=== PATIENT | male | born 1940 | race Caucasian/White ===

== ENCOUNTER 2018-06-22 15:40 | Inpatient (IN) | payer OTHER ==
[~2018-06-22] VITALS: Ht 193 cm; Wt 100.7 kg
[2018-06-22] MEDS ORDERED: LOSARTAN POTASS25 MG ORAL (15:55)
[2018-06-22] MEDS ORDERED: HYDROCHLOROTH12.5 M2 ORAL (15:55)
[2018-06-22] MEDS ORDERED: ATENOLOL25 MG ORAL (15:55)
--- NOTE | 2018-06-22 17:00 | Emergency Room Report ---
History of Present Illness General Chief Complaint: Skin Rash/Abscess Source: Patient Present Illness HPI 78-year-old male presents ED for evaluation. Complaining of bilateral leg swelling and drainage from the legs. States that his legs have been swollen for some time now but it gotten progressively more swollen the last month. Also notes weeping clear discharge from the legs bilaterally. Patient also notes some open wounds on the left leg which started in the last month. Denies any pain. Denies any fevers or chills. States he is currently not taking any medication. Denies chest pain or shortness of breath. No other aggravating relieving factors. Denies any other associated symptoms Allergies: Coded Allergies: No Known Allergies (Unverified , 06/22/18) Patient History Past Medical History: HTN Past Surgical History: none Pertinent Family History: none Social History: Denies: smoking, alcohol use, drug use Immunizations: UTD Reviewed Nursing Documentation: PMH: Agreed; PSxH: Agreed Nursing Documentation-PMH Past Medical History: No History, Except For Hx Hypertension: Yes Review of Systems All Other Systems: negative except mentioned in HPI Physical Exam Vital Signs Date Time Temp Pulse Resp B/P (MAP) Pulse Ox O2 Delivery O2 Flow Rate FiO2 06/22/18 15:46 97.9 61 20 138/57 9 Room Air Sp02 EP Interpretation: reviewed, normal General Appearance: no apparent distress, alert, GCS 15, non-toxic Head: normocephalic Eyes: bilateral eye normal inspection, bilateral eye PERRL ENT: normal ENT inspection Neck: normal inspection Respiratory: chest non-tender, lungs clear, normal breath sounds, speaking full sentences Cardiovascular #1: regular rate, rhythm, no edema Gastrointestinal: normal inspection Rectal: deferred Genitourinary: no CVA tenderness Musculoskeletal: back normal Neurologic: alert, oriented x3, responsive, motor strength/tone normal, sensory intact, speech normal Psychiatric: normal inspection Skin: other - induration/erythema bilateral lower extremities. open wounds on LLE Lymphatic: normal inspection Medical Decision Making Diagnostic Impression: Primary Impression: Bilateral lower leg cellulitis ER Course Hospital Course 78-year-old female presents to ED with redness, swelling and discharge to bilateral lower extremities Differential diagnoses include: Cellulitis, DVT, abscess, rash. Clinical course Patient placed on stretcher. After initial history and physical I ordered labs , blood Cx, UA, IVFs, doppler US of LLE labs reviewed - no leukocytosis, Hb/Hct stable, no electrolyte abnormalities, lactic ok EKG - sinus bradycardia, RBBB Doppler US - bilateral negative for DVT wound culture obtained antibiotics given. Case discussed with Dr Messina and he agreed to accept the patient to his service for further care and support Diagnosis - bilateral lower leg cellulitis Patient admitted to floor in serious condition Labs Test 06/22/18 16:30 White Blood Count 9.7 K/UL (4.8-10.8) Red Blood Count 3.95 M/UL (4.70-6.10) Hemoglobin 12.6 G/DL (14.2-18.0) Hematocrit 37.2 % (42.0-52.0) Mean Corpuscular Volume 94 FL (80-99) Mean Corpuscular Hemoglobin 32.0 PG (27.0-31.0) Mean Corpuscular Hemoglobin Concent 34.0 G/DL (32.0-36.0) Red Cell Distribution Width 11.5 % (11.6-14.8) Platelet Count 317 K/UL (150-450) Mean Platelet Volume 6.5 FL (6.5-10.1) Neutrophils (%) (Auto) 77.8 % (45.0-75.0) Lymphocytes (%) (Auto) 11.7 % (20.0-45.0) Monocytes (%) (Auto) 8.9 % (1.0-10.0) Eosinophils (%) (Auto) 0.3 % (0.0-3.0) Basophils (%) (Auto) 1.3 % (0.0-2.0) Sodium Level 141 MMOL/L (136-145) Potassium Level 3.8 MMOL/L (3.5-5.1) Chloride Level 103 MMOL/L (98-107) Carbon Dioxide Level 26 MMOL/L (21-32) Anion Gap 12 mmol/L (5-15) Blood Urea Nitrogen 25 mg/dL (7-18) Creatinine 1.3 MG/DL (0.55-1.30) Estimat Glomerular Filtration Rate mL/min (>60) Glucose Level 93 MG/DL (74-106) Lactic Acid Level 1.00 mmol/L (0.4-2.0) Calcium Level 9.6 MG/DL (8.5-10.1) Total Bilirubin 0.7 MG/DL (0.2-1.0) Aspartate Amino Transf (AST/SGOT) 17 U/L (15-37) Alanine Aminotransferase (ALT/SGPT) 21 U/L (12-78) Alkaline Phosphatase 99 U/L (46-116) Total Protein 7.8 G/DL (6.4-8.2) Albumin 3.0 G/DL (3.4-5.0) Globulin 4.8 g/dL Albumin/Globulin Ratio 0.6 (1.0-2.7) EKG Diagnostic Results Rate: bradycardiac Rhythm: NSR ST Segments: no acute changes ASA given to the pt in ED: No Rhythm Strip Diag. Results EP Interpretation: yes Rhythm: NSR, no PVC's, no ectopy CT/MRI/US Diagnostic Results CT/MRI/US Diagnostic Results : Imaging Test Ordered: Venous DUplex Impression no evidence of DVT in bilateral lower extremities Last Vital Signs Date Time Temp Pulse Resp B/P (MAP) Pulse Ox O2 Delivery O2 Flow Rate FiO2 06/22/18 15:46 97.9 61 20 138/57 9 Room Air Status: improved Disposition: ADMITTED INPATIENT Condition: Serious Referrals: NOT CHOSEN IPA/,REFERRING (PCP) Andrea Sharma MD Jun 22, 2018 17:00
[2018-06-22 17:08] LABS: BASOPHILS % (AUTO) 1.3 % (0.0-2.0); EOSINOPHILS % (AUTO) 0.3 % (0.0-3.0); HEMATOCRIT 37.2 % (42.0-52.0); HEMOGLOBIN 12.6 G/DL (14.2-18.0); LYMPHOCYTES % (AUTO) 11.7 % (20.0-45.0); MEAN CORPUSCULAR VOLUME 94 FL (80-99); MONOCYTES % (AUTO) 8.9 % (1.0-10.0); NEUTROPHILS % (AUTO) 77.8 % (45.0-75.0); PLATELET COUNT 317 K/UL (150-450); RED BLOOD COUNT 3.95 M/UL (4.70-6.10); RED CELL DISTRIBUTION WIDTH 11.5 % (11.6-14.8); WHITE BLOOD COUNT 9.7 K/UL (4.8-10.8)
[2018-06-22 17:16] LABS: ANION GAP 12 mmol/L (5-15); BLOOD UREA NITROGEN 25 mg/dL (7-18); CALCIUM 9.6 MG/DL (8.5-10.1); CARBON DIOXIDE 26 MMOL/L (21-32); CHLORIDE 103 MMOL/L (98-107); CREATININE 1.3 MG/DL (0.55-1.30); POTASSIUM 3.8 MMOL/L (3.5-5.1); SODIUM 141 MMOL/L (136-145)
[2018-06-22 17:23] LABS: ALANINE AMINOTRANSFERASE 21 U/L (12-78); ALBUMIN/GLOBULIN RATIO 0.6 (1.0-2.7); ALKALINE PHOSPHATASE 99 U/L (46-116); ASPARTATE AMINO TRANSFERASE 17 U/L (15-37); BILIRUBIN,TOTAL 0.7 MG/DL (0.2-1.0)
[2018-06-22 19:06] VITALS: BP 160/69
[2018-06-22 19:56] VITALS: BP 100/78
[2018-06-22 20:21] LABS: APPEARANCE,URINE CLEAR; BILIRUBIN, URINE NEGATIVE (NEGATIVE); COLOR,URINE YELLOW; GLUCOSE, URINE (UA) NEGATIVE (NEGATIVE); KETONES,URINE 2+ (NEGATIVE); LEUKOCYTE ESTERASE ,URINE NEGATIVE (NEGATIVE); NITRITE,URINE NEGATIVE (NEGATIVE); PH,URINE 6 (4.5-8.0); PROTEIN,URINE 2+ (NEGATIVE); UROBILINOGEN,URINE NORMAL MG/DL (0.0-1.0)
[2018-06-22] MEDS ORDERED: Acetaminophen 500mg (ES) tab ORAL PRN (20:45)
[2018-06-22 21:00] VITALS: BP 135/60
[2018-06-22] MEDS: Vancomycin 750mg/NS 275ml IVPB SCH ×2 (23:32)
[2018-06-23] VITALS: BP 144/59
[2018-06-23 04:00] VITALS: BP 135/76
[2018-06-23 07:55] LABS: ALANINE AMINOTRANSFERASE 18 U/L (12-78); ALBUMIN 2.5 G/DL (3.4-5.0); ALBUMIN/GLOBULIN RATIO 0.6 (1.0-2.7); ALKALINE PHOSPHATASE 86 U/L (46-116); ANION GAP 9 mmol/L (5-15); ASPARTATE AMINO TRANSFERASE 20 U/L (15-37); BILIRUBIN,TOTAL 0.6 MG/DL (0.2-1.0); BLOOD UREA NITROGEN 25 mg/dL (7-18); CARBON DIOXIDE 26 MMOL/L (21-32); CHLORIDE 107 MMOL/L (98-107); CREATININE 1.2 MG/DL (0.55-1.30); POTASSIUM 4.3 MMOL/L (3.5-5.1); SODIUM 142 MMOL/L (136-145)
[2018-06-23 08:00] VITALS: BP 125/60
[2018-06-23] MEDS: Losartan 50mg tab ORAL SCH (08:52)
[2018-06-23] MEDS: Heparin 5000 units/ml inj SUBQ SCH ×3 (08:53→21:00)
[2018-06-23] MEDS ORDERED: hydroCHLOROthiazide 12.5mg TAB ORAL SCH (09:00)
[2018-06-23 12:00] VITALS: BP 133/56
--- NOTE | 2018-06-23 15:42 | Consultation ---
History of Present Illness General Date patient seen: Jun 23, 2018 Reason for Hospitalization: Skin Rash/Abscess Present Illness HPI This is a very pleasant 78-year-old male who presented to the emergency department at [facility] complaining of worsening bilateral lower extremity edema and pain with drainage. Patient states that he has had wounds on his bilateral lower extremity for some time now but in the past month they have been worsening with edema blistering and opening wounds that have been "oozing" patient states he is otherwise well is ambulatory he tries to keep his legs clean but has had having more issues recently and came to for evaluation. Given severity wound surgery was called to evaluate. Patient seen, patient examined, wounds evaluated. Orders placed. Allergies: Coded Allergies: No Known Allergies (Unverified , 06/22/18) Medication History Scheduled Atenolol* (Tenormin*), MG ORAL DAILY, (Reported) Hydrochlorothiazide* (Hydrochlorothiazide*), MG ORAL DAILY, (Reported) Losartan Potassium* (Losartan Potassium*), MG ORAL DAILY, (Reported) Patient History History Provided By: Patient, Medical Record, PMD Healthcare decision maker Resuscitation status Advanced Directive on File Past Medical/Surgical History Past Medical/Surgical History: (1) Bilateral lower leg cellulitis Review of Systems Review of Symptoms General ROS: no weight loss or fever Psychological ROS: no depression or mood changes, no memory loss Ophthalmic ROS: no visual changes or eye irritation ENT ROS: no nasal congestion, hearing loss, dizziness Allergy and Immunology ROS: no allergic symptoms or urticaria Hematological and Lymphatic ROS: no swollen glands, unusual bleeding or bruising Endocrine ROS: no polyuria, polydipsia, weight changes, temperature intolerance Respiratory ROS: no cough, shortness of breath, or wheezing Cardiovascular ROS: no chest pain or dyspnea on exertion Gastrointestinal ROS: denies abdominal pain, no bright red blood in stool. Musculoskeletal ROS: no myalgias or arthralgias Neurological ROS: no TIA or stroke symptoms Dermatological ROS: no new or changing skin lesions, rashes or pruritis Physical Exam Physical Exam General appearance: alert, cooperative, no distress, appears stated age Head: Normocephalic, without obvious abnormality, atraumatic Eyes: conjunctivae/corneas clear. PERRL, EOM's intact. Fundi benign Throat: Lips, mucosa, and tongue normal. Teeth and gums normal Neck: supple, symmetrical, trachea midline, no adenopathy, thyroid: not enlarged, symmetric, no tenderness/mass/nodules, no carotid bruit and no JVD Lungs: clear to auscultation bilaterally Heart: regular rate and rhythm, S1, S2 normal, no murmur, click, rub or gallop Abdomen: soft, non-tender. Bowel sounds normal. No masses, no organomegaly Extremities: extremities normal, atraumatic, cellulitis/edema Pulses: 2+ and symmetric Skin: Skin color, texture, turgor normal. No rashes or lesions Neurologic: Grossly normal Last 24 Hour Vital Signs Date Time Temp Pulse Resp B/P (MAP) Pulse Ox O2 Delivery O2 Flow Rate FiO2 06/23/18 12:00 98.0 60 18 133/56 (81) 97 06/23/18 09:00 Room Air 06/23/18 08:53 61 125/60 06/23/18 08:52 125/60 06/23/18 08:00 98.1 61 18 125/60 (81) 98 06/23/18 04:00 98.4 62 135/76 (95) 06/23/18 00:00 98.1 63 144/59 (87) 06/22/18 21:00 Room Air 06/22/18 21:00 98.3 66 135/60 (85) 06/22/18 20:36 Room Air 06/22/18 20:10 97.9 60 18 100/78 99 Room Air 60 06/22/18 19:56 97.9 60 18 100/78 99 Room Air 06/22/18 19:06 97.9 60 18 160/69 99 Room Air 06/22/18 15:46 97.9 61 20 138/57 9 Room Air Intake and Output 06/22/18 06/23/18 19:00 07:00 Intake Total 1300 ml Output Total 700 ml Balance 600 ml Intake Oral 0 ml IV Total 1000 ml Other 300 ml Output Urine Total 700 ml Laboratory Tests Test 06/22/18 16:30 06/22/18 19:30 06/23/18 05:22 White Blood Count 9.7 K/UL (4.8-10.8) Red Blood Count 3.95 M/UL (4.70-6.10) L Hemoglobin 12.6 G/DL (14.2-18.0) L Hematocrit 37.2 % (42.0-52.0) L Mean Corpuscular Volume 94 FL (80-99) Mean Corpuscular Hemoglobin 32.0 PG (27.0-31.0) H Mean Corpuscular Hemoglobin Concent 34.0 G/DL (32.0-36.0) Red Cell Distribution Width 11.5 % (11.6-14.8) L Platelet Count 317 K/UL (150-450) Mean Platelet Volume 6.5 FL (6.5-10.1) Neutrophils (%) (Auto) 77.8 % (45.0-75.0) H Lymphocytes (%) (Auto) 11.7 % (20.0-45.0) L Monocytes (%) (Auto) 8.9 % (1.0-10.0) Eosinophils (%) (Auto) 0.3 % (0.0-3.0) Basophils (%) (Auto) 1.3 % (0.0-2.0) Sodium Level 141 MMOL/L (136-145) 142 MMOL/L (136-145) Potassium Level 3.8 MMOL/L (3.5-5.1) 4.3 MMOL/L (3.5-5.1) Chloride Level 103 MMOL/L (98-107) 107 MMOL/L (98-107) Carbon Dioxide Level 26 MMOL/L (21-32) 26 MMOL/L (21-32) Anion Gap 12 mmol/L (5-15) 9 mmol/L (5-15) Blood Urea Nitrogen 25 mg/dL (7-18) H 25 mg/dL (7-18) H Creatinine 1.3 MG/DL (0.55-1.30) 1.2 MG/DL (0.55-1.30) Estimat Glomerular Filtration Rate mL/min (>60) mL/min (>60) Glucose Level 93 MG/DL (74-106) 85 MG/DL (74-106) Lactic Acid Level 1.00 mmol/L (0.4-2.0) Calcium Level 9.6 MG/DL (8.5-10.1) 9.0 MG/DL (8.5-10.1) Total Bilirubin 0.7 MG/DL (0.2-1.0) 0.6 MG/DL (0.2-1.0) Aspartate Amino Transf (AST/SGOT) 17 U/L (15-37) 20 U/L (15-37) Alanine Aminotransferase (ALT/SGPT) 21 U/L (12-78) 18 U/L (12-78) Alkaline Phosphatase 99 U/L (46-116) 86 U/L (46-116) Total Protein 7.8 G/DL (6.4-8.2) 6.7 G/DL (6.4-8.2) Albumin 3.0 G/DL (3.4-5.0) L 2.5 G/DL (3.4-5.0) L Globulin 4.8 g/dL 4.2 g/dL Albumin/Globulin Ratio 0.6 (1.0-2.7) L 0.6 (1.0-2.7) L Urine Color Yellow Urine Appearance Clear Urine pH 6 (4.5-8.0) Urine Specific [place] 1.015 (1.005-1.035) Urine Protein 2+ (NEGATIVE) H Urine Glucose (UA) Negative (NEGATIVE) Urine Ketones 2+ (NEGATIVE) H Urine Blood 4+ (NEGATIVE) H Urine Nitrite Negative (NEGATIVE) Urine Bilirubin Negative (NEGATIVE) Urine Urobilinogen Normal MG/DL (0.0-1.0) Urine Leukocyte Esterase Negative (NEGATIVE) Urine RBC 5-10 /HPF (0 - 0) H Urine WBC 0-2 /HPF (0 - 0) Urine Squamous Epithelial Cells None /LPF (NONE/OCC) Urine Bacteria Occasional /HPF (NONE) Pro-B-Type Natriuretic Peptide 1083 pg/mL (0-125) H Thyroid Stimulating Hormone (TSH) 1.045 uiU/mL (0.358-3.740) Microbiology Date/Time Source Procedure Growth Status 06/22/18 17:00 Wound Gram Stain - Final Resulted 06/22/18 17:00 Wound Wound Culture - Preliminary Resulted Height (Feet): 6 Height (Inches): 4.00 Weight (Pounds): 234 Medications Current Medications Medications (Trade) Dose Ordered Sig/Remigio Route PRN Reason Start Time Stop Time Status Last Admin Dose Admin Acetaminophen (Tylenol) 500 mg Q4H PRN ORAL Mild Pain/Temp > 100.5 06/22/18 20:45 07/22/18 20:44 Atenolol (Tenormin) 50 mg DAILY ORAL 06/23/18 09:00 07/23/18 08:59 06/23/18 08:53 Heparin Sodium (Porcine) (Heparin 5000 units/ml) 5,000 units EVERY 12 HOURS SUBQ 06/23/18 09:00 07/23/18 08:59 06/23/18 09:28 Hydrochlorothiazide (Hydrodiuril) 12.5 mg DAILY ORAL 06/23/18 09:00 07/23/18 08:59 06/23/18 08:52 Losartan Potassium (Cozaar) 50 mg DAILY ORAL 06/23/18 09:00 07/23/18 08:59 06/23/18 08:52 Ondansetron HCl (Zofran) 4 mg Q6H PRN IVP Nausea & Vomiting 06/22/18 20:45 07/22/18 20:44 Vancomycin HCl (Vanco rx to dose) 1 ea DAILY PRN MISC Per rx protocol 06/22/18 20:45 07/22/18 20:44 Vancomycin HCl 750 mg/Sodium Chloride 275 ml @ 183.333 mls/hr Q24H IVPB 06/22/18 22:00 06/27/18 21:59 06/22/18 23:32 Assessment/Plan Problem List: (1) Bilateral lower leg cellulitis Assessment & Plan: Pt presented on admission with weeping edema of bilateral lower ext with multiple ulcerations both tibias. Haemosiderin stain both lower ext. Large ulcer lateral R tibia with irregular borders,60% soft brown scab,50% biofilm oozing non-odorous serous exudate. Multiple smaller ulcers noted medially with mixed erythema and biofilm with macerated borders. Multiple ulcerations noted to medial and lateral L tibia. Pt also noted to noted to have multiple bulbous lesions to R and L cleft of buttocks Pt verbalized having long Hx of having these lesions on buttocks. Duplex noted labs okay Tx plan: Cleanse both lower extremities with Saline. Cover wounds with Xeroform gauze .Cover with ABD Pads. Wrap with Kerlix from base of toes Daily and prn. . Apply Triad Paste to Buttocks with each perineal care. Encourage pt to reposition at least hourly while in bed. Elevate both lower ext with pillows. Abx Keep elevated when in bed okay to ambulate ICD Codes: L03.116 - Cellulitis of left lower limb; L03.115 - Cellulitis of right lower limb SNOMED: [id number] Ned Albrecht Jun 23, 2018 15:42
[2018-06-23 16:00] VITALS: BP 135/51
--- NOTE | 2018-06-23 16:15 | History and Physical Report ---
DATE OF ADMISSION: 06/22/2018 CHIEF COMPLAINT: Cellulitis and lower extremity edema. HISTORY OF PRESENT ILLNESS: The patient is an 78-year-old male. He has a history of venous insufficiency, osteoarthritis, hypertension who presented with complaints of worsening lower extremity edema, warm, fevers, chills, and pain. According the patient, he has had chronic swelling and discoloration of his lower extremities. He had worsening pain and discharge and weeping to the legs. He presented to the emergency room. On evaluation there, he had a venous duplex that showed no evidence of any DVT, but he did have a significant bilateral lower extremity cellulitis. IV antibiotics have been instituted and the patient is now admitted for further inpatient evaluation and care. PAST MEDICAL HISTORY: As above. PAST SURGICAL HISTORY: Includes a hernia repair. CURRENT MEDICATIONS: Reconciled and reviewed. ALLERGIES: None. FAMILY HISTORY: None. SOCIAL HISTORY: Negative for tobacco, ethanol, or drugs. REVIEW OF SYSTEMS: GENERAL: Positive fevers and chills, but no night sweats. HEENT: No headaches or visual changes. CARDIOPULMONARY: No chest pain or shortness of breath. GASTROINTESTINAL: No nausea or vomiting. GENITOURINARY: No urgency or frequency. MUSCULOSKELETAL: Positive lower extremity edema, pain, and swelling. NEUROLOGIC: No history of seizures. PHYSICAL EXAMINATION: VITAL SIGNS: Temperature 98, pulse 62, respirations 18, blood pressure 135/76. GENERAL: The patient is well developed, no apparent distress. HEART: Regular rate and rhythm. LUNGS: Clear. ABDOMEN: Soft. EXTREMITIES: Without clubbing or cyanosis. There is discoloration of both lower extremities. There are several dry and open blisters on the lower extremities. The skin is red and discolored and warm. LABORATORY DATA: Sodium 141, potassium 3.8, BUN 25, creatinine 1.3. White count 10, hemoglobin 12, hematocrit 37, platelets 317. ASSESSMENT: This is a pleasant male with complaints of lower extremity cellulitis. PROBLEM LIST: 1. Lower extremity cellulitis. 2. Venous insufficiency. Rule out congestive heart failure. 3. Hypertension. PLAN: IV antibiotics. Follow up cultures. Cardiology, ID, and Surgery consultations. Continue oral diuretic therapy. Continue outpatient blood pressure regimen. Arterial vascular studies are pending. Christian Messina M.D. DR: AIDAN JOB#: [id number] CC:
[2018-06-23 20:00] VITALS: BP 127/65
[2018-06-23] MEDS: Vancomycin 750mg/NS 275ml IVPB SCH ×2 (21:58)
[2018-06-24] VITALS: BP 128/67
--- NOTE | 2018-06-24 00:15 | Progress Note ---
DATE: 06/23/2018 CARDIOLOGY PROGRESS NOTE SUBJECTIVE: The patient was seen in surgical consultation today regarding his lower extremity edema and wound. Wound care was initiated. The patient has not complained of chest pain or shortness of breath. OBJECTIVE: VITAL SIGNS: Blood pressure 133/56, pulse 60, respiratory rate 18, and afebrile. LUNGS: Clear. CARDIAC: Regular rhythm and rate. Normal S1, S2 with a fourth heart sound. ABDOMEN: Soft, obese. EXTREMITIES: With 2 to 3+ dependent edema and blistering. Erythema of the lower extremities. LABORATORY DATA: Sodium 142, potassium 4.3, bicarbonate 26, BUN 25, creatinine 1.2. Pro natriuretic peptide 1083, albumin 2.5. TSH 1. Venous duplex negative for DVT. IMPRESSION: 1. Lower extremity cellulitis, wounds, and venous insufficiency. 2. Hypertensive heart disease. 3. Diastolic dysfunction with a chronic congestive heart failure. 4. Microvascular disease of the lower extremities. PLAN: 1. Await arterial duplex. 2. Wound care per surgeon. 3. Trend natriuretic peptide assay. 4. Cautious diuresis and titration of antihypertensive regimen. 5. Echocardiogram pending. Pranav Russo M.D. DR: RICKY JOB#: [id number] CC:
[2018-06-24 04:00] VITALS: BP 137/69
--- NOTE | 2018-06-24 04:15 | Consultation ---
DATE OF CONSULTATION: 06/22/2018 CARDIOLOGY CONSULT CONSULTING PHYSICIAN: Pranav Russo M.D. REQUESTING PHYSICIAN: Christian Messina M.D. REASON FOR CONSULT: Lower extremity edema, evaluation for congestive heart failure. HISTORY OF PRESENT ILLNESS: This 78-year-old male has had swelling and drainage from his lower extremities for several days. His swelling has gotten progressively worse over the past month culminating this past week. He has noted weeping of the clear drainage from his leg and new open wounds on the left leg. He has not had any contusions or trauma. He denies any buckner. He has not been taking any medications and denies shortness of breath or chest pain. ALLERGIES: None. PAST MEDICAL HISTORY: Hypertension. SOCIAL HISTORY: Negative for smoking, alcohol, or substance abuse. FAMILY HISTORY: Noncontributory. REVIEW OF SYSTEMS: No fevers or chills. No loss of vision or hearing. No history of abnormal blood clotting. No history of seizures or stroke. No known history of diabetes mellitus. No history of thyroid disorder. No history of cardiovascular disease other than hypertension. 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 PHYSICAL EXAMINATION: VITAL SIGNS: Blood pressure 138/57, pulse 61, respiratory rate 20, afebrile. HEENT: Conjunctivae pink. Oropharynx clear. NECK: Supple. Jugular venous pressure difficult to assess. LUNGS: Diminished breath sounds. No wheezing. CARDIAC: Regular rhythm and rate. Normal S1, S2 with no murmur, rub, or gallop. ABDOMEN: Soft, obese, nontender. EXTREMITIES: With erythema of both lower extremities with 2+ edema and open wounds on the left. Draining clear discharge. LABORATORY AND DIAGNOSTIC DATA: EKG reveals sinus rhythm with no acute abnormalities. BUN is 25, creatinine 1.3, glucose 93. Sodium is 141, potassium 3.8, bicarbonate 25, white count 9.7, hemoglobin 12.6. IMPRESSION: 1. Bilateral lower extremity cellulitis with bullae and drainage. 2. Chronic venous insufficiency. 3. Hypertensive heart disease. 4. Acute on chronic diastolic congestive heart failure. PLAN: 1. Antimicrobials. 2. Wound care. 3. Surgical consultation. 4. Diuresis with caution. 5. Optimize antihypertensives. 6. Avoid dihydropyridine class of drugs. 7. Check thyroid panel. 8. Trend natriuretic peptide assay. 9. Review echocardiogram. 10. Further recommendations will follow based on the results of these studies. 11. Venous duplex scan is pending as well. Pranav Russo M.D. DR: RICKY JOB#: [id number] CC:
[2018-06-24 08:00] VITALS: BP 143/55
[2018-06-24] MEDS: Losartan 50mg tab ORAL SCH (08:34)
[2018-06-24] MEDS: Heparin 5000 units/ml inj SUBQ SCH ×2 (08:38→21:34)
--- NOTE | 2018-06-24 09:24 | General Progress Note ---
Assessment/Plan Problem List: (1) ASCVD (arteriosclerotic cardiovascular disease) ICD Codes: I25.10 - Atherosclerotic heart disease of [place] coronary artery without angina pectoris SNOMED: 12121071 (2) Venous insufficiency ICD Codes: I87.2 - Venous insufficiency (chronic) (peripheral) SNOMED: 07014156 (3) Bilateral lower leg cellulitis ICD Codes: L03.116 - Cellulitis of left lower limb; L03.115 - Cellulitis of right lower limb SNOMED: 164707635 Status: stable Assessment/Plan wound care iv abx surgery eval ct legs- r/o osteo/abscess Subjective ROS Limited/Unobtainable: No Constitutional: Reports: malaise, weakness HEENT: Reports: no symptoms Respiratory: Reports: no symptoms Gastrointestinal/Abdominal: Reports: no symptoms Genitourinary: Reports: no symptoms Neurologic/Psychiatric: Reports: no symptoms Endocrine: Reports: no symptoms Hematologic/Lymphatic: Reports: no symptoms Allergies: Coded Allergies: No Known Allergies (Unverified , 06/22/18) All Systems: reviewed and negative except above Subjective no complaints. resting. legs wrapped. on iv abx. minimal ischemia on arterial us Objective Last 24 Hour Vital Signs Date Time Temp Pulse Resp B/P (MAP) Pulse Ox O2 Delivery O2 Flow Rate FiO2 06/24/18 08:34 137/52 06/24/18 08:33 65 137/52 06/24/18 04:00 97.7 61 20 137/69 (91) 98 06/24/18 00:00 98.7 66 20 128/67 (87) 98 06/23/18 21:00 Room Air 06/23/18 20:00 98.6 70 20 127/65 (85) 97 06/23/18 16:00 98.1 63 18 135/51 (79) 97 06/23/18 12:00 98.0 60 18 133/56 (81) 97 Intake and Output 06/23/18 06/24/18 19:00 07:00 Intake Total 600 ml 1415.00 ml Output Total 1200 ml 1900 ml Balance -600 ml -485.00 ml Intake Oral 600 ml 840 ml IV Total 275.00 ml Other 300 ml Output Urine Total 1200 ml 1900 ml Height (Feet): 6 Height (Inches): 4.00 Weight (Pounds): 234 General Appearance: WD/WN, alert Neck: supple Cardiovascular: regular rhythm Respiratory/Chest: chest wall non-tender, lungs clear, normal breath sounds, no respiratory distress Abdomen: normal bowel sounds, non tender, soft, no organomegaly Neurologic: retread operator II-XII grossly normal, no motor/sensory deficits, alert, oriented x 3, responsive Christian Messina MD Jun 24, 2018 09:24
[2018-06-24] MEDS: Aspirin EC 81mg tab ORAL SCH (10:00)
[2018-06-24 11:14] LABS: CHOLESTEROL 116 MG/DL (< 200); HDL CHOLESTEROL 44 MG/DL (40-60); TRIGLYCERIDES 41 MG/DL (30-150)
[2018-06-24 12:00] VITALS: BP 155/69
[2018-06-24] MEDS: Cefepime HCl 2 GM in D5W 55 ML IVPB SCH ×2 (12:03→21:00)
--- NOTE | 2018-06-24 15:42 | Diagnostic Imaging Report ---
Indication: Abdominal Pain Technique: Continuous helical transaxial imaging of the both lower extremities performed from the pelvis to the feet. Coronal 2-D reformats were also obtained. Study obtained in a Siemens sensation [address] Total Dose length Product (DLP): [address] Dose Index Volume (CTDIvol): 0.15 x6, 15.3 mGy Comparison: None Findings: There is a moderate degree of subcutaneous edema and thickening of the skin below the knee bilaterally. The area of most concentrated cellulitis appears to be above the ankle and is worse on the left than on the right. The findings are presumably on the basis of infection or cellulitis. There is no definite abscess with limitations since no IV contrast was given. There is no CT evidence for osteomyelitis with no evidence of lysis, erosion, periostitis. There is no soft tissue air present. The anterior and posterior muscle compartments of the leg appear unremarkable. There is arthrosis of both knees characterized by subchondral sclerosis and osteophyte formation with joint space narrowing. There is a moderate left knee joint effusion noted. Diverticula noted in the sigmoid colon. Mild vascular calcifications noted within the femoral arteries. IMPRESSION: Subcutaneous edema and skin thickening demonstrated within the lower aspects of both legs left worse than right presumably on the basis of cellulitis. The study is limited but there is no obvious evidence of osteomyelitis or abscess. The CT scanner at [facility] is accredited by the [employer] and the scans are performed using dose optimization techniques as appropriate to a performed exam including Automatic Exposure control.
[2018-06-24 16:00] VITALS: BP 124/60
--- NOTE | 2018-06-24 17:12 | Surgery Progress Note ---
Surgery Progress Note Subjective Additional Comments doing well. states lots of urine since given lasix. edema improved. pain improved. dressings changed. Objective Last 24 Hour Vital Signs Date Time Temp Pulse Resp B/P (MAP) Pulse Ox O2 Delivery O2 Flow Rate FiO2 06/24/18 16:00 97.5 58 19 124/60 (81) 96 06/24/18 12:00 97.3 59 19 155/69 (97) 98 06/24/18 09:00 Room Air 06/24/18 08:34 137/52 06/24/18 08:33 65 137/52 06/24/18 08:00 97.8 64 20 143/55 (84) 96 06/24/18 04:00 97.7 61 20 137/69 (91) 98 06/24/18 00:00 98.7 66 20 128/67 (87) 98 06/23/18 21:00 Room Air 06/23/18 20:00 98.6 70 20 127/65 (85) 97 I&O Intake and Output 06/23/18 06/24/18 19:00 07:00 Intake Total 600 ml 1415.00 ml Output Total 1200 ml 1900 ml Balance -600 ml -485.00 ml Intake Oral 600 ml 840 ml IV Total 275.00 ml Other 300 ml Output Urine Total 1200 ml 1900 ml Dressing: saturated Wound: clean Drains: none Cardiovascular: RSR Respiratory: clear Abdomen: soft, flat, non-tender, non-distended Extremities: edema, no tenderness, no cyanosis, pulses, other Laboratory Tests Test 06/24/18 10:30 Triglycerides Level 41 MG/DL (30-150) Cholesterol Level 116 MG/DL (< 200) LDL Cholesterol 63 mg/dL (<100) HDL Cholesterol 44 MG/DL (40-60) Cholesterol/HDL Ratio 2.6 (3.3-4.4) L Plan Problems: (1) Bilateral lower leg cellulitis Assessment & Plan: Pt presented on admission with weeping edema of bilateral lower ext with multiple ulcerations both tibias. Haemosiderin stain both lower ext. Large ulcer lateral R tibia with irregular borders,60% soft brown scab,50% biofilm oozing non-odorous serous exudate. Multiple smaller ulcers noted medially with mixed erythema and biofilm with macerated borders. Multiple ulcerations noted to medial and lateral L tibia. Pt also noted to noted to have multiple bulbous lesions to R and L cleft of buttocks Pt verbalized having long Hx of having these lesions on buttocks. Duplex noted labs okay CT noted without abscess or osteo Subcutaneous edema and skin thickening demonstrated within the lower aspects of both legs left worse than right presumably on the basis of cellulitis. The study is limited but there is no obvious evidence of osteomyelitis or abscess. Tx plan: Cleanse both lower extremities with Saline. Cover wounds with Xeroform gauze .Cover with ABD Pads. Wrap with Kerlix from base of toes Daily and prn. . Apply Triad Paste to Buttocks with each perineal care. Encourage pt to reposition at least hourly while in bed. Elevate both lower ext with pillows. Abx Keep elevated when in bed okay to ambulate Ned Albrecht Jun 24, 2018 17:12
--- NOTE | 2018-06-24 17:15 | Consultation ---
DATE OF CONSULTATION: 06/24/2018 INFECTIOUS DISEASES CONSULTATION CONSULTING PHYSICIAN: Caron Elizabeth M.D. REFERRING PHYSICIAN: Christian Messina M.D. REASON FOR CONSULTATION: Bilateral leg cellulitis. HISTORY OF PRESENTING ILLNESS: This is an 78-year-old gentleman with history of venous insufficiency, hypertension, arthritis who comes in with bilateral pain, swelling and redness in his lower extremity. An ultrasound was negative for DVT and an Infectious Diseases consultation has been obtained for bilateral leg cellulitis. PAST MEDICAL HISTORY: 1. History of hypertension. 2. Arthritis. 3. Venous insufficiency. 4. History of hernia repair. SOCIAL HISTORY: He does not smoke. He drinks alcohol rarely. No history of drug use. FAMILY HISTORY: Noncontributory. REVIEW OF SYSTEMS: GENERAL: He did have fever and chills. RESPIRATORY: No cough. No shortness of breath or chest pain CARDIAC: No chest pain. No palpitations. No dizziness. No syncope. GASTROINTESTINAL: No nausea. No vomiting. No abdominal pain or diarrhea. MUSCULOSKELETAL: He complains of bilateral leg pain. MEDICATIONS: As an inpatient, he is on aspirin, Lasix, atenolol, Cozaar, subcutaneous heparin, IV vancomycin, Tylenol, Zofran. ALLERGIES: No known drug allergies. PHYSICAL EXAMINATION: VITAL SIGNS: Temperature of 97.8, T-max of 98.7, pulse of 65, respiratory rate 20, blood pressure 137/52, O2 saturation of 96%. HEENT: Pupils equally reactive to light and accommodation. Mouth appears clean without thrush. NECK: Supple. No adenopathy. No JVD. CARDIOVASCULAR: Regular rate and rhythm. No murmurs. LUNGS: Clear to auscultation bilaterally. No crackles. No wheezes. ABDOMEN: Soft and nontender. No organomegaly. EXTREMITIES: No cyanosis, no clubbing. Edema noted bilaterally with leg erythema bilaterally. LABORATORY AND DIAGNOSTIC DATA: White count 9.7, hemoglobin 12.6, hematocrit 37.2, MCV 94, platelet count of 317. Sodium 142, potassium 4.3, chloride 107, bicarb 26, BUN 25, creatinine 1.2, glucose 85, calcium of 9. Total bilirubin 0.6, AST 20, ALT 18, alkaline phosphatase 86. Beta natriuretic peptide 1083. Total protein 6.7 and albumin 2.5. UA showing 0 to 2 white cells. Wound culture showing gram-negative rods and gram-positive cocci. On 06/22/2018, blood cultures are negative. Ultrasound of the legs showed no evidence of DVT bilaterally. ASSESSMENT: 1. This is a 78-year-old gentleman with history of hypertension, arthritis, venous insufficiency who comes in with bilateral leg pain, swelling, and erythema and is found to have bilateral leg cellulitis. Culture is showing gram-positive cocci and gram-negative rods. An ultrasound was negative for DVT. 2. History of hypertension. PLAN: 1. Continue IV vancomycin. 2. We will start the patient on cefepime. 3. We will follow up cultures and adjust antibiotics accordingly. I would like to thank, Dr. Messina for this consultation. Caron Elizabeth M.D. DR: Jd JOB#: [id number] CC: Christian Messina M.D.
[2018-06-24 20:00] VITALS: BP 121/68
[2018-06-24] MEDS ORDERED: Tubing IV Secondary IV ONE (20:42)
[2018-06-24] MEDS: Vancomycin 750mg/NS 275ml IVPB SCH ×2 (22:25)
[2018-06-25 00:03] VITALS: BP 141/70
--- NOTE | 2018-06-25 03:15 | Progress Note ---
DATE: 06/24/2018 CARDIOLOGY PROGRESS NOTE SUBJECTIVE: The patient wound care. OBJECTIVE: VITAL SIGNS: Blood pressure 137/52, pulse 65, and respirations 20. NECK: Supple. LUNGS: With diminished breath sounds. CARDIAC: Regular rhythm and rate. Normal S1, S2 with a fourth heart sound. ABDOMEN: Soft. EXTREMITIES: With 1 to 2+ dependent edema and stasis derm ulcers as noted above. DIAGNOSTIC DATA: CT scan of the lower extremities are noted and revealed cellulitis, but no bony involvement. Cultures are pending. IMPRESSION: 1. Lower extremity venous ulcers and wound infection cellulitis. 2. Acute diastolic congestive heart failure. 3. Moderate to severe protein-calorie malnutrition. 4. Venous insufficiency. 5. Microvascular arterial insufficiency. PLAN: 1. Wound care. 2. Antimicrobials. 3. Cautious diuresis. 4. Follow up echocardiogram report. Pranav Russo M.D. DR: SHANICE JOB#: [id number] CC:
[2018-06-25 04:00] VITALS: BP 143/77
[2018-06-25 08:00] VITALS: BP 145/61
[2018-06-25 08:41] LABS: EOSINOPHILS % (AUTO) 4.1 % (0.0-3.0); HEMATOCRIT 35.8 % (42.0-52.0); HEMOGLOBIN 12.1 G/DL (14.2-18.0); LYMPHOCYTES % (AUTO) 15.6 % (20.0-45.0); MEAN CORPUSCULAR VOLUME 94 FL (80-99); MONOCYTES % (AUTO) 10.9 % (1.0-10.0); NEUTROPHILS % (AUTO) 68.3 % (45.0-75.0); PLATELET COUNT 295 K/UL (150-450); RED BLOOD COUNT 3.82 M/UL (4.70-6.10); RED CELL DISTRIBUTION WIDTH 11.3 % (11.6-14.8); WHITE BLOOD COUNT 7.1 K/UL (4.8-10.8)
[2018-06-25] MEDS: Aspirin EC 81mg tab ORAL SCH (09:00)
[2018-06-25] MEDS: Losartan 50mg tab ORAL SCH (09:00)
[2018-06-25] MEDS: Heparin 5000 units/ml inj SUBQ SCH ×2 (09:05→21:48)
[2018-06-25 09:16] LABS: ALANINE AMINOTRANSFERASE 21 U/L (12-78); ALBUMIN 2.4 G/DL (3.4-5.0); ALBUMIN/GLOBULIN RATIO 0.6 (1.0-2.7); ALKALINE PHOSPHATASE 82 U/L (46-116); ANION GAP 10 mmol/L (5-15); ASPARTATE AMINO TRANSFERASE 31 U/L (15-37); BILIRUBIN,TOTAL 0.5 MG/DL (0.2-1.0); BLOOD UREA NITROGEN 20 mg/dL (7-18); CALCIUM 8.8 MG/DL (8.5-10.1); CARBON DIOXIDE 25 MMOL/L (21-32); CHLORIDE 107 MMOL/L (98-107); CREATININE 1.1 MG/DL (0.55-1.30); POTASSIUM 3.5 MMOL/L (3.5-5.1); SODIUM 142 MMOL/L (136-145)
[2018-06-25] MEDS: Cefepime HCl 2 GM in D5W 55 ML IVPB SCH ×2 (09:17→21:45)
[2018-06-25] MEDS: Vancomycin 750mg/NS 275ml IVPB SCH ×4 (11:21→23:07)
[2018-06-25 12:00] VITALS: BP 127/61
--- NOTE | 2018-06-25 12:20 | General Progress Note ---
Assessment/Plan Problem List: (1) ASCVD (arteriosclerotic cardiovascular disease) ICD Codes: I25.10 - Atherosclerotic heart disease of [place] coronary artery without angina pectoris SNOMED: 78575789 (2) Venous insufficiency ICD Codes: I87.2 - Venous insufficiency (chronic) (peripheral) SNOMED: 51590745 (3) Bilateral lower leg cellulitis ICD Codes: L03.116 - Cellulitis of left lower limb; L03.115 - Cellulitis of right lower limb SNOMED: 280044844 Status: stable, progressing Assessment/Plan wound care iv abx surgery eval appreciated diruetics monitor labs d/w pt/family- short term snf Subjective ROS Limited/Unobtainable: No Constitutional: Reports: malaise, weakness HEENT: Reports: no symptoms Cardiovascular: Reports: edema Respiratory: Reports: no symptoms Gastrointestinal/Abdominal: Reports: no symptoms Genitourinary: Reports: no symptoms Neurologic/Psychiatric: Reports: no symptoms Endocrine: Reports: no symptoms Hematologic/Lymphatic: Reports: no symptoms Allergies: Coded Allergies: No Known Allergies (Unverified , 06/22/18) All Systems: reviewed and negative except above Subjective no complaints. resting. legs wrapped. on iv abx. minimal ischemia on arterial us edema improving. CT neg for osteo or abscess Objective Last 24 Hour Vital Signs Date Time Temp Pulse Resp B/P (MAP) Pulse Ox O2 Delivery O2 Flow Rate FiO2 06/25/18 09:00 Room Air 06/25/18 09:00 145/61 06/25/18 09:00 64 145/61 06/25/18 08:00 97.4 64 22 145/61 (89) 99 06/25/18 04:00 97.3 61 18 143/77 (99) 99 06/25/18 00:03 97.9 59 18 141/70 (93) 97 06/24/18 21:59 Room Air 06/24/18 20:00 97.5 57 18 121/68 (85) 100 06/24/18 16:00 97.5 58 19 124/60 (81) 96 Intake and Output 06/24/18 06/25/18 19:00 07:00 Intake Total 360 ml 930.000 ml Output Total 860 ml Balance -500 ml 930.000 ml Intake Oral 360 ml 600 ml IV Total 330.000 ml Output Urine Total 860 ml # Voids 3 # Bowel Movements 1 Laboratory Tests 06/24/18 21:05: Vancomycin Level Trough 4.1L 06/25/18 07:16: White Blood Count 7.1, Red Blood Count 3.82L, Hemoglobin 12.1L, Hematocrit 35.8L , Mean Corpuscular Volume 94, Mean Corpuscular Hemoglobin 31.7H, Mean Corpuscular Hemoglobin Concent 33.9, Red Cell Distribution Width 11.3L, Platelet Count 295, Mean Platelet Volume 7.2, Neutrophils (%) (Auto) 68.3, Lymphocytes (%) (Auto) 15.6L, Monocytes (%) (Auto) 10.9H, Eosinophils (%) (Auto ) 4.1H, Basophils (%) (Auto) 1.0, Sodium Level 142, Potassium Level 3.5, Chloride Level 107, Carbon Dioxide Level 25, Anion Gap 10, Blood Urea Nitrogen 20H, Creatinine 1.1, Estimat Glomerular Filtration Rate , Glucose Level 83, Calcium Level 8.8, Total Bilirubin 0.5, Aspartate Amino Transf (AST/SGOT) 31, Alanine Aminotransferase (ALT/SGPT) 21, Alkaline Phosphatase 82, Pro-B-Type Natriuretic Peptide 597H, Total Protein 6.7, Albumin 2.4L, Globulin 4.3, Albumin /Globulin Ratio 0.6L Height (Feet): 6 Height (Inches): 4.00 Weight (Pounds): 234 General Appearance: WD/WN, alert Neck: supple Cardiovascular: normal rate Respiratory/Chest: chest wall non-tender, lungs clear, normal breath sounds Abdomen: normal bowel sounds, non tender, soft, no organomegaly Extremities: swelling Christian Messina MD Jun 25, 2018 12:20
[2018-06-25 16:00] VITALS: BP 127/57
--- NOTE | 2018-06-25 16:56 | Surgery Progress Note ---
Surgery Progress Note Subjective Additional Comments no acute events. comfortable. discussed CT with patient. nephew at bedside. pain improved. edema improved. Objective Last 24 Hour Vital Signs Date Time Temp Pulse Resp B/P (MAP) Pulse Ox O2 Delivery O2 Flow Rate FiO2 06/25/18 16:00 97.9 52 20 127/57 (80) 98 06/25/18 12:00 98.3 50 20 127/61 (83) 98 06/25/18 09:00 Room Air 06/25/18 09:00 145/61 06/25/18 09:00 64 145/61 06/25/18 08:00 97.4 64 22 145/61 (89) 99 06/25/18 04:00 97.3 61 18 143/77 (99) 99 06/25/18 00:03 97.9 59 18 141/70 (93) 97 06/24/18 21:59 Room Air 06/24/18 20:00 97.5 57 18 121/68 (85) 100 I&O Intake and Output 06/24/18 06/25/18 18:59 06:59 Intake Total 360 ml 930.000 ml Output Total 860 ml Balance -500 ml 930.000 ml Intake Oral 360 ml 600 ml IV Total 330.000 ml Output Urine Total 860 ml # Voids 3 # Bowel Movements 1 Dressing: dry Wound: clean Drains: none Cardiovascular: RSR Respiratory: clear Abdomen: soft, flat, present bowel sounds Extremities: edema, no tenderness, no cyanosis Laboratory Tests Test 06/24/18 21:05 06/25/18 07:16 Vancomycin Level Trough 4.1 ug/mL (5.0-12.0) L White Blood Count 7.1 K/UL (4.8-10.8) Red Blood Count 3.82 M/UL (4.70-6.10) L Hemoglobin 12.1 G/DL (14.2-18.0) L Hematocrit 35.8 % (42.0-52.0) L Mean Corpuscular Volume 94 FL (80-99) Mean Corpuscular Hemoglobin 31.7 PG (27.0-31.0) H Mean Corpuscular Hemoglobin Concent 33.9 G/DL (32.0-36.0) Red Cell Distribution Width 11.3 % (11.6-14.8) L Platelet Count 295 K/UL (150-450) Mean Platelet Volume 7.2 FL (6.5-10.1) Neutrophils (%) (Auto) 68.3 % (45.0-75.0) Lymphocytes (%) (Auto) 15.6 % (20.0-45.0) L Monocytes (%) (Auto) 10.9 % (1.0-10.0) H Eosinophils (%) (Auto) 4.1 % (0.0-3.0) H Basophils (%) (Auto) 1.0 % (0.0-2.0) Sodium Level 142 MMOL/L (136-145) Potassium Level 3.5 MMOL/L (3.5-5.1) Chloride Level 107 MMOL/L (98-107) Carbon Dioxide Level 25 MMOL/L (21-32) Anion Gap 10 mmol/L (5-15) Blood Urea Nitrogen 20 mg/dL (7-18) H Creatinine 1.1 MG/DL (0.55-1.30) Estimat Glomerular Filtration Rate mL/min (>60) Glucose Level 83 MG/DL (74-106) Calcium Level 8.8 MG/DL (8.5-10.1) Total Bilirubin 0.5 MG/DL (0.2-1.0) Aspartate Amino Transf (AST/SGOT) 31 U/L (15-37) Alanine Aminotransferase (ALT/SGPT) 21 U/L (12-78) Alkaline Phosphatase 82 U/L (46-116) Pro-B-Type Natriuretic Peptide 597 pg/mL (0-125) H Total Protein 6.7 G/DL (6.4-8.2) Albumin 2.4 G/DL (3.4-5.0) L Globulin 4.3 g/dL Albumin/Globulin Ratio 0.6 (1.0-2.7) L Plan Problems: (1) Bilateral lower leg cellulitis Assessment & Plan: Pt presented on admission with weeping edema of bilateral lower ext with multiple ulcerations both tibias. Haemosiderin stain both lower ext. Large ulcer lateral R tibia with irregular borders,60% soft brown scab,50% biofilm oozing non-odorous serous exudate. Multiple smaller ulcers noted medially with mixed erythema and biofilm with macerated borders. Multiple ulcerations noted to medial and lateral L tibia. Pt also noted to noted to have multiple bulbous lesions to R and L cleft of buttocks Pt verbalized having long Hx of having these lesions on buttocks. Duplex noted labs okay CT noted without abscess or osteo Subcutaneous edema and skin thickening demonstrated within the lower aspects of both legs left worse than right presumably on the basis of cellulitis. The study is limited but there is no obvious evidence of osteomyelitis or abscess. Tx plan: Cleanse both lower extremities with Saline. Cover wounds with Xeroform gauze .Cover with ABD Pads. Wrap with Kerlix from base of toes Daily and prn. . Apply Triad Paste to Buttocks with each perineal care. Encourage pt to reposition at least hourly while in bed. Elevate both lower ext with pillows. Abx Keep elevated when in bed okay to ambulate Ned Albrecht Jun 25, 2018 16:56
[2018-06-25 20:00] VITALS: BP 125/59
--- NOTE | 2018-06-25 22:15 | Progress Note ---
DATE: 06/25/2018 CARDIOLOGY PROGRESS NOTE SUBJECTIVE: Continues to have good urine output. Less swelling of his legs, wound care ongoing. No chest pain. OBJECTIVE: VITAL SIGNS: Blood pressure 145/61, pulse 64, respiratory rate 22. Monitored sinus and sinus bradycardia. LUNGS: Good breath sounds. No wheezing or rales. HEART: Regular rhythm and rate. Normal S1, S2 with a fourth heart sound. ABDOMEN: Soft. EXTREMITIES: Trace edema. LABORATORY DATA: White count 7, hemoglobin 12. Sodium 142, potassium 3.5, BUN 20, and creatinine 1.1, bicarb 25. Pro-natriuretic peptide down to 597 and albumin 2.4. IMPRESSION: 1. Acute diastolic congestive heart failure. 2. Bilateral lower extremity cellulitis. 3. Sinus bradycardia on beta-blockers. PLAN: 1. Antimicrobials. 2. Skin care. 3. Anti-platelet therapy. 4. Titrate beta tory. 5. Cautious diuresis. 6. Maintain losartan, advanced dose. 7. DVT prophylaxis. Pranav Russo M.D. DR: JORGE JOB#: [id number] CC:
[2018-06-26] VITALS: BP 141/65
[2018-06-26 04:00] VITALS: BP 142/71
[2018-06-26 08:00] VITALS: BP 144/59
[2018-06-26] MEDS: Aspirin EC 81mg tab ORAL SCH (08:39)
[2018-06-26] MEDS: Losartan 50mg tab ORAL SCH (08:39)
[2018-06-26] MEDS: Heparin 5000 units/ml inj SUBQ SCH ×2 (08:45→20:06)
[2018-06-26] MEDS: Cefepime HCl 2 GM in D5W 55 ML IVPB SCH (09:13)
--- NOTE | 2018-06-26 11:40 | Cardiology Report ---
APPROVED REPORT EXAM: Two-dimensional and M-mode echocardiogram with Doppler and color Doppler. INDICATION Congestive Heart Failure M-Mode DIMENSIONS IVSd1.1 (0.7-1.1cm)Left Atrium (MM)4.7 (1.6-4.0cm) LVDd7.9 (3.5-5.6cm)Aortic Root3.1 (2.0-3.7cm) PWd1.2 (0.7-1.1cm)Aortic Cusp Exc.2.1 (1.5-2.0cm) IVSs1.3 cm LVDs5.6 (2.5-4.0cm) PWs1.6 cm Normal left ventricular chamber size, systolic function and wall motion. Left ventricular ejection fraction estimated to be 55%. No evidence of left ventricular hypertrophy. Anterior Echo-free space, may be due to pericardial fat or effusion. Mild bi- atrial enlargement. Right cardiac chamber sizes are within normal limits. Right ventricular chamber sizes is within upper normal limits. Aortic valve calcification with normal cusp excursion . Mildly thickened mitral valve leaflets with normal excursion. Mild mitral annulus and aortic root calcification. Pulmonic valve not well visualized. IVC at normal size with physiologic collapse . A color flow and spectral Doppler study was performed and revealed: Trace aortic insufficiency . Left ventricular diastolic function can not determined due to arrhythmia . Trace mitral regurgitation. Mild tricuspid regurgitation. Tricuspid systolic velocities suggests peak right ventricular systolic pressure of 31 mmHg.
[2018-06-26] MEDS: Vancomycin 750mg/NS 275ml IVPB SCH ×4 (11:42→23:03)
[2018-06-26 12:00] VITALS: BP 153/73
--- NOTE | 2018-06-26 14:25 | Surgery Progress Note ---
Surgery Progress Note Subjective Additional Comments dressings changed. wounds noted and much improved. edema improved. lymph drainage poor Objective Last 24 Hour Vital Signs Date Time Temp Pulse Resp B/P (MAP) Pulse Ox O2 Delivery O2 Flow Rate FiO2 06/26/18 12:00 97.4 53 18 153/73 (99) 98 06/26/18 09:00 Room Air 06/26/18 08:39 144/59 06/26/18 08:39 56 144/59 06/26/18 08:00 97.6 54 18 144/59 (87) 99 06/26/18 08:00 56 06/26/18 04:00 98.2 54 20 142/71 (94) 98 06/26/18 00:00 97.7 51 16 141/65 (90) 100 06/25/18 21:00 Room Air 06/25/18 20:00 97.7 54 20 125/59 (81) 97 06/25/18 16:00 97.9 52 20 127/57 (80) 98 I&O Intake and Output 06/25/18 06/26/18 19:00 07:00 Intake Total 1405 ml 625.000 ml Output Total 800 ml 400 ml Balance 605 ml 225.000 ml Intake Oral 1020 ml 240 ml IV Total 385 ml 385.000 ml Output Urine Total 800 ml 400 ml # Voids 2 Dressing: dry Wound: clean Drains: none Cardiovascular: RSR Respiratory: clear Abdomen: soft, flat, non-tender, present bowel sounds Extremities: edema, tenderness, no cyanosis Laboratory Tests Test 06/26/18 10:46 Vancomycin Level Trough 11.6 ug/mL (5.0-12.0) Plan Problems: (1) Bilateral lower leg cellulitis Assessment & Plan: Pt presented on admission with weeping edema of bilateral lower ext with multiple ulcerations both tibias. Haemosiderin stain both lower ext. Large ulcer lateral R tibia with irregular borders,60% soft brown scab,50% biofilm oozing non-odorous serous exudate. Multiple smaller ulcers noted medially with mixed erythema and biofilm with macerated borders. Multiple ulcerations noted to medial and lateral L tibia. Pt also noted to noted to have multiple bulbous lesions to R and L cleft of buttocks Pt verbalized having long Hx of having these lesions on buttocks. Duplex noted labs okay CT noted without abscess or osteo Subcutaneous edema and skin thickening demonstrated within the lower aspects of both legs left worse than right presumably on the basis of cellulitis. The study is limited but there is no obvious evidence of osteomyelitis or abscess. Tx plan: Cleanse both lower extremities with Saline. Cover wounds with Xeroform gauze .Cover with ABD Pads. Wrap with Kerlix from base of toes Daily and prn. . Apply Triad Paste to Buttocks with each perineal care. Encourage pt to reposition at least hourly while in bed. Elevate both lower ext with pillows. Abx Keep elevated when in bed okay to ambulate Ned Albrecht Jun 26, 2018 14:25
--- NOTE | 2018-06-26 14:36 | Infectious Diseases Prog Note ---
Assessment/Plan Assessment/Plan A; Bilateral leg cellulitis, Culture: Enterococcus & Pseudomonas HPN Chronic Venous stasis P; Continue Vancomycin Change Cefepime to Cipro Subjective ROS Limited/Unobtainable: Yes Allergies: Coded Allergies: No Known Allergies (Unverified , 06/22/18) Objective Vital Signs Last 24 Hour Vital Signs Date Time Temp Pulse Resp B/P (MAP) Pulse Ox O2 Delivery O2 Flow Rate FiO2 06/26/18 12:00 97.4 53 18 153/73 (99) 98 06/26/18 09:00 Room Air 06/26/18 08:39 144/59 06/26/18 08:39 56 144/59 06/26/18 08:00 97.6 54 18 144/59 (87) 99 06/26/18 08:00 56 06/26/18 04:00 98.2 54 20 142/71 (94) 98 06/26/18 00:00 97.7 51 16 141/65 (90) 100 06/25/18 21:00 Room Air 06/25/18 20:00 97.7 54 20 125/59 (81) 97 06/25/18 16:00 97.9 52 20 127/57 (80) 98 Height (Feet): 6 Height (Inches): 4.00 Weight (Pounds): 234 General Appearance: no acute distress HEENT: mucous membranes moist Respiratory/Chest: lungs clear Cardiovascular: bradycardia Abdomen: normal bowel sounds, soft, non tender Extremities: other - dressing of both legs Skin: ulcers, other - venous ulcers of legs Neurologic/Psychiatric: other - sleeping Laboratory Tests Test 06/26/18 10:46 Vancomycin Level Trough 11.6 ug/mL (5.0-12.0) Current Medications Medications (Trade) Dose Ordered Sig/Remigio Route PRN Reason Start Time Stop Time Status Last Admin Dose Admin Acetaminophen (Tylenol) 500 mg Q4H PRN ORAL Mild Pain/Temp > 100.5 06/22/18 20:45 07/22/18 20:44 Aspirin (Ecotrin) 81 mg DAILY ORAL 06/24/18 10:00 07/24/18 09:59 06/26/18 08:39 Atenolol (Tenormin) 50 mg DAILY ORAL 06/23/18 09:00 07/23/18 08:59 06/25/18 09:00 Cefepime HCl 2 gm/ Dextrose 55 ml @ 110 mls/hr EVERY 12 HOURS IVPB 06/24/18 12:00 07/01/18 11:59 06/26/18 09:13 Furosemide (Lasix) 20 mg DAILY IV 06/24/18 09:00 07/24/18 08:59 06/26/18 09:12 Heparin Sodium (Porcine) (Heparin 5000 units/ml) 5,000 units EVERY 12 HOURS SUBQ 06/23/18 09:00 07/23/18 08:59 06/26/18 08:45 Losartan Potassium (Cozaar) 100 mg DAILY ORAL 06/26/18 09:00 07/26/18 08:59 06/26/18 08:39 Ondansetron HCl (Zofran) 4 mg Q6H PRN IVP Nausea & Vomiting 06/22/18 20:45 07/22/18 20:44 Vancomycin HCl (Vanco rx to dose) 1 ea DAILY PRN MISC Per rx protocol 06/22/18 20:45 07/22/18 20:44 Vancomycin HCl 750 mg/Sodium Chloride 275 ml @ 183.333 mls/hr Q12H IVPB 06/24/18 23:00 06/29/18 22:59 06/26/18 11:42 Stephon Barrera MD Jun 26, 2018 14:36
[2018-06-26 16:00] VITALS: BP 154/59
[2018-06-26] MEDS ORDERED: NS 500ML ONE (16:20)
[2018-06-26] MEDS: Levofloxacin 750mg tab ORAL SCH (16:52)
--- NOTE | 2018-06-26 19:30 | Progress Note ---
SUBJECTIVE: There have been no overnight events. The patient continues to have improving pain and edema in the lower extremities. Denies any fevers or chills. OBJECTIVE: VITAL SIGNS: Temperature 97.4 degrees, pulse 53, respirations 18, and blood pressure 153/74. GENERAL: The patient is in no apparent distress. HEART: Regular. LUNGS: Clear. ABDOMEN: Soft. EXTREMITIES: Wrapped in clean dressings. Feet appear less edematous. LABORATORY AND DIAGNOSTIC DATA: Labs none. ASSESSMENT: This is a pleasant male, admitted with complaints of lower extremity cellulitis, venous insufficiency, and congestive heart failure. The patient is hypertensive. PLAN: 1. Continue wound care. 2. IV antibiotics. 3. IV diuretic therapy. 4. Discharge planning tomorrow to nursing home facility. Christian Messina M.D. DR: Huan JOB#: [id number] CC:
[2018-06-26 20:00] VITALS: BP 142/62
[2018-06-27] VITALS (7 sets, daily range): BP systolic 116–152; BP diastolic 55–111
--- NOTE | 2018-06-27 03:30 | Progress Note ---
DATE: 06/26/2018 CARDIOLOGY PROGRESS NOTE SUBJECTIVE: The patient continues to have good diuresis, blood pressure parameters normal to high normal range. OBJECTIVE: VITAL SIGNS: Blood pressure range 136/66 to 153/73, heart rate 53 to 80, respiratory rate 18 to 20, afebrile, oxygen saturation 98% on room air. Intake and output positive. LUNGS: Good breath sounds. CARDIAC: Regular rhythm and rate. Normal S1, S2. ABDOMEN: Soft. EXTREMITIES: 1+ dependent edema. Wounds are dressed. IMPRESSION: 1. Cellulitis. 2. Lower extremity wound. 3. Acute diastolic congestive heart failure. 4. Chronic venous insufficiency. 5. Severe protein-calorie malnutrition. 6. Asymptomatic bradycardia on beta-tory therapy. PLAN: 1. Continue diuresis. 2. Transition to oral therapy soon. 3. Trend natriuretic peptide assay. 4. Wound care and antimicrobials. 5. DVT prophylaxis. 6. Continue beta-tory at current dosing. Pranav Russo M.D. DR: KERI JOB#: [id number] CC:
[2018-06-27 07:58] LABS: BASOPHILS % (AUTO) 1.1 % (0.0-2.0); EOSINOPHILS % (AUTO) 6.8 % (0.0-3.0); HEMOGLOBIN 12.2 G/DL (14.2-18.0); MEAN CORPUSCULAR VOLUME 94 FL (80-99); MONOCYTES % (AUTO) 10.9 % (1.0-10.0); NEUTROPHILS % (AUTO) 64.3 % (45.0-75.0); PLATELET COUNT 289 K/UL (150-450); RED BLOOD COUNT 3.84 M/UL (4.70-6.10); RED CELL DISTRIBUTION WIDTH 11.8 % (11.6-14.8); WHITE BLOOD COUNT 5.6 K/UL (4.8-10.8)
[2018-06-27 08:21] LABS: ALANINE AMINOTRANSFERASE 33 U/L (12-78); ALBUMIN 2.4 G/DL (3.4-5.0); ALBUMIN/GLOBULIN RATIO 0.6 (1.0-2.7); ALKALINE PHOSPHATASE 85 U/L (46-116); ANION GAP 9 mmol/L (5-15); ASPARTATE AMINO TRANSFERASE 33 U/L (15-37); BILIRUBIN,TOTAL 0.5 MG/DL (0.2-1.0); BLOOD UREA NITROGEN 18 mg/dL (7-18); CALCIUM 9.2 MG/DL (8.5-10.1); CARBON DIOXIDE 25 MMOL/L (21-32); CHLORIDE 107 MMOL/L (98-107); CREATININE 1.2 MG/DL (0.55-1.30); POTASSIUM 3.7 MMOL/L (3.5-5.1); SODIUM 141 MMOL/L (136-145)
[2018-06-27] MEDS: Losartan 50mg tab ORAL SCH (08:49)
[2018-06-27] MEDS: Aspirin EC 81mg tab ORAL SCH (08:50)
[2018-06-27] MEDS: Levofloxacin 750mg tab ORAL SCH (08:50)
[2018-06-27] MEDS: Heparin 5000 units/ml inj SUBQ SCH ×2 (08:52→21:18)
[2018-06-27] MEDS ORDERED: ASPIRIN EC81 MG ORAL (10:57)
[2018-06-27] MEDS ORDERED: VANCOMYCIN750 MG/150 IVPB (10:57)
[2018-06-27] MEDS ORDERED: LEVAQUIN750 MG ORAL (10:57)
[2018-06-27] MEDS ORDERED: COZAAR50 MG ORAL (10:57)
--- NOTE | 2018-06-27 12:23 | Infectious Diseases Prog Note ---
"Assessment/Plan Assessment/Plan antibiotics : vancomycin iv, levoquin A 1. bilateral leg cellulitis improving 2. bilateral leg ulcers with enterococcus | pseudomonas | coag neg staph 3. hypertension 4. chronic venous stasis P 1. continue iv vancomycin, levoquin 2. will follow up cultures Subjective Constitutional: Denies: fever, chills Respiratory: Denies: shortness of breath, dry cough Gastrointestinal/Abdominal: Denies: nausea, vomiting, diarrhea Musculoskeletal: Denies: pain Allergies: Coded Allergies: No Known Allergies (Unverified , 06/22/18) Objective Vital Signs Last 24 Hour Vital Signs Date Time Temp Pulse Resp B/P (MAP) Pulse Ox O2 Delivery O2 Flow Rate FiO2 06/27/18 09:00 Room Air 06/27/18 08:50 60 151/86 06/27/18 08:49 151/86 06/27/18 08:45 60 151/86 (107) 06/27/18 08:00 97.3 52 20 152/111 (125) 06/27/18 04:00 98.4 76 18 130/76 (94) 76 06/27/18 00:00 97.2 80 136/66 (89) 18 06/26/18 21:00 Room Air 06/26/18 20:00 97.8 59 142/62 (88) 18 06/26/18 16:00 98.3 55 19 154/59 (90) 97 Height (Feet): 6 Height (Inches): 4.00 Weight (Pounds): 234 Respiratory/Chest: lungs clear Cardiovascular: normal rate, regular rhythm, no gallop/murmur Abdomen: soft, non tender Extremities: other - decreased edema, erythema, ulcers Laboratory Tests Test 06/27/18 06:50 White Blood Count 5.6 K/UL (4.8-10.8) Red Blood Count 3.84 M/UL (4.70-6.10) L Hemoglobin 12.2 G/DL (14.2-18.0) L Hematocrit 36.0 % (42.0-52.0) L Mean Corpuscular Volume 94 FL (80-99) Mean Corpuscular Hemoglobin 31.8 PG (27.0-31.0) H Mean Corpuscular Hemoglobin Concent 34.0 G/DL (32.0-36.0) Red Cell Distribution Width 11.8 % (11.6-14.8) Platelet Count 289 K/UL (150-450) Mean Platelet Volume 6.8 FL (6.5-10.1) Neutrophils (%) (Auto) 64.3 % (45.0-75.0) Lymphocytes (%) (Auto) 17.0 % (20.0-45.0) L Monocytes (%) (Auto) 10.9 % (1.0-10.0) H Eosinophils (%) (Auto) 6.8 % (0.0-3.0) H Basophils (%) (Auto) 1.1 % (0.0-2.0) Sodium Level 141 MMOL/L (136-145) Potassium Level 3.7 MMOL/L (3.5-5.1) Chloride Level 107 MMOL/L (98-107) Carbon Dioxide Level 25 MMOL/L (21-32) Anion Gap 9 mmol/L (5-15) Blood Urea Nitrogen 18 mg/dL (7-18) Creatinine 1.2 MG/DL (0.55-1.30) Estimat Glomerular Filtration Rate mL/min (>60) Glucose Level 90 MG/DL (74-106) Calcium Level 9.2 MG/DL (8.5-10.1) Magnesium Level 2.0 MG/DL (1.8-2.4) Total Bilirubin 0.5 MG/DL (0.2-1.0) Aspartate Amino Transf (AST/SGOT) 33 U/L (15-37) Alanine Aminotransferase (ALT/SGPT) 33 U/L (12-78) Alkaline Phosphatase 85 U/L (46-116) Pro-B-Type Natriuretic Peptide 454 pg/mL (0-125) H Total Protein 6.6 G/DL (6.4-8.2) Albumin 2.4 G/DL (3.4-5.0) L Globulin 4.2 g/dL Albumin/Globulin Ratio 0.6 (1.0-2.7) L Current Medications Medications (Trade) Dose Ordered Sig/Remigio Route PRN Reason Start Time Stop Time Status Last Admin Dose Admin Acetaminophen (Tylenol) 500 mg Q4H PRN ORAL Mild Pain/Temp > 100.5 06/22/18 20:45 07/22/18 20:44 Aspirin (Ecotrin) 81 mg DAILY ORAL 06/24/18 10:00 07/24/18 09:59 06/27/18 08:50 Heparin Sodium (Porcine) (Heparin 5000 units/ml) 5,000 units EVERY 12 HOURS SUBQ 06/23/18 09:00 07/23/18 08:59 06/27/18 08:52 Levofloxacin (Levaquin) 750 mg DAILY ORAL 06/26/18 14:45 07/03/18 14:44 06/27/18 08:50 Losartan Potassium (Cozaar) 100 mg DAILY ORAL 06/26/18 09:00 07/26/18 08:59 06/27/18 08:49 Ondansetron HCl (Zofran) 4 mg Q6H PRN IVP Nausea & Vomiting 06/22/18 20:45 07/22/18 20:44 Vancomycin HCl (Vanco rx to dose) 1 ea DAILY PRN MISC Per rx protocol 06/22/18 20:45 07/22/18 20:44 Vancomycin HCl 750 mg/Sodium Chloride 275 ml @ 183.333 mls/hr Q12H IVPB 06/24/18 23:00 06/29/18 22:59 06/26/18 23:03 Caron Elizabeth MD Jun 27, 2018 12:23"
--- NOTE | 2018-06-27 12:35 | Diagnostic Imaging Report ---
Indications: Altered mental status Technique: Spiral acquisitions obtained through the brain. Angled axial and coronal 5 x 5 mm slices were reconstructed. Total dose length product 1576.66 mGycm. CTDI vol(s) 70.38 mGy. Dose reduction achieved using automated exposure control Comparison: None. Findings: There is enlargement of the ventricles. Normal caliber extra-axial CSF spaces. No acute intracranial hemorrhage nor edema, mass effect, nor midline shift. Normal hendricks-white differentiation. There is some obscuration of the posterior fossa structures due to streak artifact from dental amalgam. The calvarium is intact. The mastoids are clear. The visualized sinuses are clear. The orbits are unremarkable Impression: Ventriculomegaly. This is probably due to central volume loss, although the possibility of normal pressure hydrocephalus should also be considered. Negative for acute intracranial bleed or mass effect The CT scanner at [facility] is accredited by the [employer] and the scans are performed using protocols designed to limit radiation exposure to as low as reasonably achievable to attain images of sufficient resolution adequate for diagnostic evaluation.
--- NOTE | 2018-06-27 13:03 | Cardiology Report ---
APPROVED REPORT EKG Measurement Heart [id number] Sinus bradycardia Incomplete right bundle branch block Borderline ECG
[2018-06-27] MEDS: Vancomycin 750mg/NS 275ml IVPB SCH ×2 (13:19)
--- NOTE | 2018-06-27 14:01 | Surgery Progress Note ---
Surgery Progress Note Subjective Additional Comments vasovagal after using restroom this AM. crystal. now stable and comfortable. Objective Last 24 Hour Vital Signs Date Time Temp Pulse Resp B/P (MAP) Pulse Ox O2 Delivery O2 Flow Rate FiO2 06/27/18 12:00 97.2 48 20 116/57 (76) 06/27/18 09:00 Room Air 06/27/18 08:50 60 151/86 06/27/18 08:49 151/86 06/27/18 08:45 60 151/86 (107) 06/27/18 08:00 97.3 52 20 152/111 (125) 06/27/18 04:00 98.4 76 18 130/76 (94) 76 06/27/18 00:00 97.2 80 136/66 (89) 18 06/26/18 21:00 Room Air 06/26/18 20:00 97.8 59 142/62 (88) 18 06/26/18 16:00 98.3 55 19 154/59 (90) 97 I&O Intake and Output 06/26/18 06/27/18 19:00 07:00 Intake Total 1240 ml Balance 1240 ml Intake Oral 1240 ml # Voids 6 # Bowel Movements 1 Dressing: dry Wound: clean Drains: none Cardiovascular: RSR Respiratory: clear Abdomen: soft, flat, present bowel sounds, non-distended Extremities: no tenderness, no cyanosis Laboratory Tests Test 06/27/18 06:50 White Blood Count 5.6 K/UL (4.8-10.8) Red Blood Count 3.84 M/UL (4.70-6.10) L Hemoglobin 12.2 G/DL (14.2-18.0) L Hematocrit 36.0 % (42.0-52.0) L Mean Corpuscular Volume 94 FL (80-99) Mean Corpuscular Hemoglobin 31.8 PG (27.0-31.0) H Mean Corpuscular Hemoglobin Concent 34.0 G/DL (32.0-36.0) Red Cell Distribution Width 11.8 % (11.6-14.8) Platelet Count 289 K/UL (150-450) Mean Platelet Volume 6.8 FL (6.5-10.1) Neutrophils (%) (Auto) 64.3 % (45.0-75.0) Lymphocytes (%) (Auto) 17.0 % (20.0-45.0) L Monocytes (%) (Auto) 10.9 % (1.0-10.0) H Eosinophils (%) (Auto) 6.8 % (0.0-3.0) H Basophils (%) (Auto) 1.1 % (0.0-2.0) Sodium Level 141 MMOL/L (136-145) Potassium Level 3.7 MMOL/L (3.5-5.1) Chloride Level 107 MMOL/L (98-107) Carbon Dioxide Level 25 MMOL/L (21-32) Anion Gap 9 mmol/L (5-15) Blood Urea Nitrogen 18 mg/dL (7-18) Creatinine 1.2 MG/DL (0.55-1.30) Estimat Glomerular Filtration Rate mL/min (>60) Glucose Level 90 MG/DL (74-106) Calcium Level 9.2 MG/DL (8.5-10.1) Magnesium Level 2.0 MG/DL (1.8-2.4) Total Bilirubin 0.5 MG/DL (0.2-1.0) Aspartate Amino Transf (AST/SGOT) 33 U/L (15-37) Alanine Aminotransferase (ALT/SGPT) 33 U/L (12-78) Alkaline Phosphatase 85 U/L (46-116) Pro-B-Type Natriuretic Peptide 454 pg/mL (0-125) H Total Protein 6.6 G/DL (6.4-8.2) Albumin 2.4 G/DL (3.4-5.0) L Globulin 4.2 g/dL Albumin/Globulin Ratio 0.6 (1.0-2.7) L Plan Problems: (1) Bilateral lower leg cellulitis Assessment & Plan: Pt presented on admission with weeping edema of bilateral lower ext with multiple ulcerations both tibias. Haemosiderin stain both lower ext. Large ulcer lateral R tibia with irregular borders,60% soft brown scab,50% biofilm oozing non-odorous serous exudate. Multiple smaller ulcers noted medially with mixed erythema and biofilm with macerated borders. Multiple ulcerations noted to medial and lateral L tibia. Pt also noted to noted to have multiple bulbous lesions to R and L cleft of buttocks Pt verbalized having long Hx of having these lesions on buttocks. Duplex noted labs okay CT noted without abscess or osteo Subcutaneous edema and skin thickening demonstrated within the lower aspects of both legs left worse than right presumably on the basis of cellulitis. The study is limited but there is no obvious evidence of osteomyelitis or abscess. Tx plan: Cleanse both lower extremities with Saline. Cover wounds with Xeroform gauze .Cover with ABD Pads. Wrap with Kerlix from base of toes Daily and prn. . Apply Triad Paste to Buttocks with each perineal care. Encourage pt to reposition at least hourly while in bed. Elevate both lower ext with pillows. Abx Keep elevated when in bed okay to ambulate Ned Albrecht Jun 27, 2018 14:01
--- NOTE | 2018-06-27 15:00 | Physician Query ---
Clarification is required for compliance, coding accuracy, and to reflect severity of illness for this patient Dear Dr. Russo Date: 06/27/[address] and place X in appropriate box Patient is admitted with leg swelling and cellulitis. BNP: 1083 Rx: IV Furosemide Both Acute diastolic CHF and Chronic diastolic CHF has been documented. It is difficult to determine the acuity of the CHF. Please clarify if Diastolic CHF is: [ ] Acute [ ] Chronic [ ] Acute on chronic Physician signature Date Please also document in your Progress Notes and/or Discharge Summary and indicate if the condition was present on admission. SALAZAR
[2018-06-27] MEDS ORDERED: Acetaminophen 500mg (ES) tab ORAL PRN (16:00)
--- NOTE | 2018-06-27 16:47 | Diagnostic Imaging Report ---
APPROVED REPORT CPT Code: 10828 Symptoms Non-healing Ulcer : Bilaterally Comments: Edema and pain RIGHT LEG: Common femoral artery waveform analysis is within normal limits at rest. Color flow duplex sonography reveals minimal calcification throughout the superficial femoral and popliteal arteries. There is no evidence of stenosis or occlusion within these segments. The tibioperoneal trunk is patent. The distal posterior and dorsalis pedis arteries are patent. The Doppler tibial artery waveform analysis is within normal limits. LEFT LEG: Common femoral artery waveform analysis is within normal limits at rest. Color flow duplex sonography reveals minimal calcification throughout the superficial femoral and popliteal arteries. There is no evidence of stenosis or occlusion within these segments. The tibioperoneal trunk was not well visualized. A mild (40-49%) stenosis is seen in the posterior tibial and distal dorsalis pedis arteries. The anterior tibial artery is patent. The Doppler tibial artery waveform analysis is (vasodilated) compatible with minimal ischemia at rest.
--- NOTE | 2018-06-27 23:15 | Discharge Summary ---
DATE OF ADMISSION: 06/22/2018 DATE OF DISCHARGE: 06/27/2018 ADMISSION DIAGNOSES: 1. Lower extremity cellulitis. 2. Venous insufficiency. 3. Congestive heart failure. 4. Hypertension. DISCHARGE DIAGNOSES: 1. Lower extremity cellulitis. 2. Venous insufficiency. 3. Congestive heart failure. 4. Hypertension. HOSPITAL COURSE: The patient is a pleasant male admitted with complaints of lower extremity cellulitis and venous insufficiency. He received intravenous Lasix and intravenous antibiotics. He had a CAT scan that showed no evidence of any abscess. He received local wound care. On discharge, he was doing well. [facility]. DISCHARGE MEDICATIONS: Please see discharge medication list for discharge medications. DIET: Cardiac diet. ACTIVITIES: Ad-anthony. Christian Messina M.D. DR: OMAR JOB#: [id number] CC:
[2018-06-27] MEDS: Vancomycin 750 MG in NS 275 ML IVPB SCH (23:39)
[2018-06-28] VITALS: BP 133/55
--- NOTE | 2018-06-28 00:30 | Progress Note ---
DATE: 06/27/2018 CARDIOLOGY PROGRESS NOTE SUBJECTIVE: The patient was dizzy and lightheaded while ambulating to the bathroom today. He did not pass out, but was feeling like he would. He had a CT scan that revealed ventriculomegaly probably due to central volume loss although normal pressure hydrocephalus was a consideration. OBJECTIVE: VITAL SIGNS: Blood pressure 116/57, pulse 48, and respirations 20. Monitor, sinus and sinus bradycardia. LUNGS: Clear. CARDIAC: Regular rhythm and rate. Normal S1 and S2 with a fourth heart sound. ABDOMEN: Soft. EXTREMITIES: With 1+ dependent edema and improved wound and decreased erythema. LABORATORY DATA: White count 5.6 and hemoglobin 12.2. BUN 18 and creatinine 1.2. Pro-natriuretic peptide 454. Albumin 2.4. IMPRESSION: 1. Lower extremity cellulitis, improving. 2. [id number] protein-calorie malnutrition. 3. Intravascular volume depletion post diuresis. 4. Orthostatic near syncope. 5. Acute diastolic congestive heart failure, now compensated. PLAN: 1. Hold diuresis. 2. Cardiac monitoring. 3. Decrease atenolol dose. 4. Continue wound care. 5. Monitor orthostatics. 6. Cautious hydration. Pranav Russo M.D. DR: JACOB JOB#: [id number] CC:
--- NOTE | 2018-06-28 02:00 | Discharge Summary ---
DATE OF ADMISSION: 06/23/2018 DATE OF DISCHARGE: 06/27/2018 ADMITTING DIAGNOSES: 1. Hypertension. 2. Venous insufficiency. 3. Congestive heart failure. 4. Lower extremity cellulitis. DISCHARGE DIAGNOSES: 1. Hypertension. 2. Venous insufficiency. 3. Congestive heart failure. 4. Lower extremity cellulitis. HOSPITAL COURSE: The patient is a pleasant male admitted with complaints of lower extremity cellulitis and venous insufficiency. He received IV diuretic therapy. He was cultured. Antibiotics were ordered. The patient received local wound care. He did improve. On discharge, he was stable. He will go to a retirement facility to complete antibiotic therapy and wound care. DISCHARGE MEDICATIONS: Please see discharge medication list for discharge medications. DIET: Cardiac diet. ACTIVITIES: Ad-anthony. FOLLOWUP: The patient will follow up in one to two days at the retirement facility. Christian Messina M.D. DR: OMAR JOB#: [id number] CC:
[2018-06-28 04:00] VITALS: BP 161/76
[2018-06-28 08:00] VITALS: BP 140/73
[2018-06-28] MEDS: Aspirin EC 81mg tab ORAL SCH (08:28)
[2018-06-28] MEDS: Levofloxacin 750mg tab ORAL SCH (08:28)
[2018-06-28] MEDS: Losartan 50mg tab ORAL SCH (08:28)
[2018-06-28] MEDS: Heparin 5000 units/ml inj SUBQ SCH ×2 (08:51→22:06)
[2018-06-28] MEDS ORDERED: Atenolol 25mg tab ORAL SCH (09:00)
--- NOTE | 2018-06-28 10:11 | Infectious Diseases Prog Note ---
"Assessment/Plan Assessment/Plan antibiotics : vancomycin iv, levoquin A 1. bilateral leg cellulitis improving 2. bilateral leg ulcers with enterococcus | pseudomonas | coag neg staph 3. hypertension 4. chronic venous stasis P 1. continue iv vancomycin 7 more days 2. continue po levoquin 9 more days 2. will follow up cultures Subjective Respiratory: Denies: shortness of breath, dry cough Gastrointestinal/Abdominal: Denies: nausea, vomiting, diarrhea Musculoskeletal: Denies: pain Allergies: Coded Allergies: No Known Allergies (Unverified , 06/22/18) Objective Vital Signs Last 24 Hour Vital Signs Date Time Temp Pulse Resp B/P (MAP) Pulse Ox O2 Delivery O2 Flow Rate FiO2 06/28/18 08:28 52 140/73 06/28/18 08:28 140/73 06/28/18 08:00 98.0 52 20 140/73 (95) 96 06/28/18 04:00 97.9 64 18 161/76 (104) 96 06/28/18 04:00 51 06/28/18 00:00 63 06/28/18 00:00 98.0 57 18 133/55 (81) 96 06/27/18 21:00 Room Air 06/27/18 20:00 54 06/27/18 20:00 98.2 56 18 126/55 (78) 97 06/27/18 16:00 98.0 55 18 118/63 (81) 97 06/27/18 12:00 97.2 48 20 116/57 (76) Height (Feet): 6 Height (Inches): 4.00 Weight (Pounds): 234 Respiratory/Chest: lungs clear Cardiovascular: normal rate, regular rhythm, no gallop/murmur Abdomen: soft, non tender Extremities: other - decreased erythema, edema bilaterally Current Medications Medications (Trade) Dose Ordered Sig/Remigio Route PRN Reason Start Time Stop Time Status Last Admin Dose Admin Acetaminophen (Tylenol) 500 mg Q4H PRN ORAL Mild Pain/Temp > 100.5 06/27/18 16:00 07/22/18 15:59 Aspirin (Ecotrin) 81 mg DAILY ORAL 06/28/18 09:00 07/24/18 09:59 06/28/18 08:28 Atenolol (Tenormin) 25 mg DAILY ORAL 06/28/18 09:00 07/28/18 08:59 06/28/18 08:28 Heparin Sodium (Porcine) (Heparin 5000 units/ml) 5,000 units EVERY 12 HOURS SUBQ 06/27/18 21:00 07/23/18 08:59 06/28/18 08:51 Levofloxacin (Levaquin) 750 mg DAILY ORAL 06/28/18 09:00 07/03/18 14:44 06/28/18 08:28 Losartan Potassium (Cozaar) 100 mg DAILY ORAL 06/28/18 09:00 07/26/18 08:59 06/28/18 08:28 Ondansetron HCl (Zofran) 4 mg Q6H PRN IVP Nausea & Vomiting 06/27/18 16:00 07/22/18 15:59 Vancomycin HCl (Vanco rx to dose) 1 ea DAILY PRN MISC Per rx protocol 06/27/18 16:00 07/27/18 15:59 Vancomycin HCl 750 mg/Sodium Chloride 275 ml @ 183.333 mls/hr Q12H IVPB 06/27/18 23:00 06/29/18 22:59 06/27/18 23:39 Caron Elizabeth MD Jun 28, 2018 10:11"
--- NOTE | 2018-06-28 10:51 | General Progress Note ---
Assessment/Plan Problem List: (1) ASCVD (arteriosclerotic cardiovascular disease) ICD Codes: I25.10 - Atherosclerotic heart disease of [place] coronary artery without angina pectoris SNOMED: 21342683 (2) Venous insufficiency ICD Codes: I87.2 - Venous insufficiency (chronic) (peripheral) SNOMED: 47444816 (3) Bilateral lower leg cellulitis ICD Codes: L03.116 - Cellulitis of left lower limb; L03.115 - Cellulitis of right lower limb SNOMED: 269034422 Status: stable Assessment/Plan monitor vitals check ortho statics dc lasix cautious b-blockade- monitor hr abx and wound care outpt neurosurg eval POC d/w nephew Subjective ROS Limited/Unobtainable: No Constitutional: Reports: malaise, weakness HEENT: Reports: no symptoms Cardiovascular: Reports: no symptoms Respiratory: Reports: no symptoms Gastrointestinal/Abdominal: Reports: no symptoms Genitourinary: Reports: no symptoms Neurologic/Psychiatric: Reports: no symptoms Endocrine: Reports: no symptoms Hematologic/Lymphatic: Reports: no symptoms Allergies: Coded Allergies: No Known Allergies (Unverified , 06/22/18) All Systems: reviewed and negative except above Subjective syncopal episode after straining to go to the bathroom. D/w nephew who was present at the time. ct results noted. still bradycadic Objective Last 24 Hour Vital Signs Date Time Temp Pulse Resp B/P (MAP) Pulse Ox O2 Delivery O2 Flow Rate FiO2 06/28/18 08:28 52 140/73 06/28/18 08:28 140/73 06/28/18 08:00 98.0 52 20 140/73 (95) 96 06/28/18 04:00 97.9 64 18 161/76 (104) 96 06/28/18 04:00 51 06/28/18 00:00 63 06/28/18 00:00 98.0 57 18 133/55 (81) 96 06/27/18 21:00 Room Air 06/27/18 20:00 54 06/27/18 20:00 98.2 56 18 126/55 (78) 97 06/27/18 16:00 98.0 55 18 118/63 (81) 97 06/27/18 12:00 97.2 48 20 116/57 (76) Intake and Output 06/27/18 06/28/18 19:00 07:00 Intake Total 480 ml Output Total 900 ml Balance -420 ml Intake Oral 480 ml Output Urine Total 900 ml # Voids 2 # Bowel Movements 1 Height (Feet): 6 Height (Inches): 4.00 Weight (Pounds): 234 General Appearance: WD/WN, alert Neck: supple Cardiovascular: regular rhythm Respiratory/Chest: lungs clear Abdomen: normal bowel sounds, non tender, soft, no organomegaly Edema: mild edema 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
--- NOTE | 2018-06-28 11:42 | Surgery Progress Note ---
Surgery Progress Note Subjective Additional Comments no acute events. comfortable. resting. dressings dry. Objective Last 24 Hour Vital Signs Date Time Temp Pulse Resp B/P (MAP) Pulse Ox O2 Delivery O2 Flow Rate FiO2 06/28/18 08:28 52 140/73 06/28/18 08:28 140/73 06/28/18 08:00 98.0 52 20 140/73 (95) 96 06/28/18 04:00 97.9 64 18 161/76 (104) 96 06/28/18 04:00 51 06/28/18 00:00 63 06/28/18 00:00 98.0 57 18 133/55 (81) 96 06/27/18 21:00 Room Air 06/27/18 20:00 54 06/27/18 20:00 98.2 56 18 126/55 (78) 97 06/27/18 16:00 98.0 55 18 118/63 (81) 97 06/27/18 12:00 97.2 48 20 116/57 (76) I&O Intake and Output 06/27/18 06/28/18 19:00 07:00 Intake Total 480 ml Output Total 900 ml Balance -420 ml Intake Oral 480 ml Output Urine Total 900 ml # Voids 2 # Bowel Movements 1 Dressing: dry Wound: clean Drains: none Cardiovascular: RSR Respiratory: clear Abdomen: soft, flat, non-tender, present bowel sounds, non-distended Extremities: edema, no tenderness, no cyanosis, pulses, other Plan Problems: (1) Bilateral lower leg cellulitis Assessment & Plan: Pt presented on admission with weeping edema of bilateral lower ext with multiple ulcerations both tibias. Haemosiderin stain both lower ext. Large ulcer lateral R tibia with irregular borders,60% soft brown scab,50% biofilm oozing non-odorous serous exudate. Multiple smaller ulcers noted medially with mixed erythema and biofilm with macerated borders. Multiple ulcerations noted to medial and lateral L tibia. Pt also noted to noted to have multiple bulbous lesions to R and L cleft of buttocks Pt verbalized having long Hx of having these lesions on buttocks. Duplex noted labs okay CT noted without abscess or osteo Subcutaneous edema and skin thickening demonstrated within the lower aspects of both legs left worse than right presumably on the basis of cellulitis. The study is limited but there is no obvious evidence of osteomyelitis or abscess. wounds improving edema improved recovering well Tx plan: Cleanse both lower extremities with Saline. Cover wounds with Xeroform gauze .Cover with ABD Pads. Wrap with Kerlix from base of toes Daily and prn. . Apply Triad Paste to Buttocks with each perineal care. Encourage pt to reposition at least hourly while in bed. Elevate both lower ext with pillows. Abx Keep elevated when in bed okay to ambulate Ned Albrecht Jun 28, 2018 11:42
[2018-06-28] MEDS: Vancomycin 750 MG in NS 275 ML IVPB SCH ×2 (11:48→23:14)
[2018-06-28 12:00] VITALS: BP 130/63
[2018-06-28 16:00] VITALS: BP 124/58
[2018-06-28 20:00] VITALS: BP 133/63
[2018-06-29] VITALS: BP 132/59
--- NOTE | 2018-06-29 01:45 | Progress Note ---
DATE: 06/28/2018 CARDIOLOGY PROGRESS NOTE SUBJECTIVE: The patient had a near syncopal episode yesterday. He was hypotensive and bradycardic. Since then, beta-tory dose was and diuretic was discontinued. He feels better. No recurrence noted. OBJECTIVE: VITAL SIGNS: Blood pressure 140/73, pulse 52, and respirations 20. LUNGS: Clear. CARDIAC: Regular. Normal S1, S2. Slow heart rate. ABDOMEN: Soft. EXTREMITIES: A 1+ dependent edema with wound dressings in place for both lower extremities. IMPRESSION: 1. Hypovolemia and bradycardia contributing to near syncopal episodes. 2. Bradycardia due to beta-blockers. 3. Venous insufficiency. 4. Acute diastolic congestive heart failure. 5. Lower extremity cellulitis and ulcers. PLAN: 1. Titrate beta-tory. 2. Hold parameters for low heart rate. 3. Hold additional diuresis. 4. Continue antimicrobials. 5. Respiratory hygiene. 6. Wound care and leg elevation. 7. Discharge planning to follow. Pranav Russo M.D. DR: JACOB JOB#: [id number] CC:
[2018-06-29 04:00] VITALS: BP 132/62
[2018-06-29 08:00] VITALS: BP 143/63
--- NOTE | 2018-06-29 08:49 | General Progress Note ---
Assessment/Plan Problem List: (1) ASCVD (arteriosclerotic cardiovascular disease) ICD Codes: I25.10 - Atherosclerotic heart disease of [place] coronary artery without angina pectoris SNOMED: 43674365 (2) Venous insufficiency ICD Codes: I87.2 - Venous insufficiency (chronic) (peripheral) SNOMED: 15644322 (3) Bilateral lower leg cellulitis ICD Codes: L03.116 - Cellulitis of left lower limb; L03.115 - Cellulitis of right lower limb SNOMED: 839043158 Status: stable, progressing Assessment/Plan monitor vitals check ortho statics dc lasix dc atenolol abx and wound care outpt neurosurg eval POC d/w nephew Subjective ROS Limited/Unobtainable: No Constitutional: Reports: malaise, weakness HEENT: Reports: no symptoms Cardiovascular: Reports: no symptoms Respiratory: Reports: no symptoms Gastrointestinal/Abdominal: Reports: no symptoms Genitourinary: Reports: no symptoms Neurologic/Psychiatric: Reports: no symptoms Endocrine: Reports: no symptoms Hematologic/Lymphatic: Reports: no symptoms Allergies: Coded Allergies: No Known Allergies (Unverified , 06/22/18) All Systems: reviewed and negative except above Subjective no dizziness. still with bradycardia in the 40s. no cp/sob. Objective Last 24 Hour Vital Signs Date Time Temp Pulse Resp B/P (MAP) Pulse Ox O2 Delivery O2 Flow Rate FiO2 06/29/18 08:00 97.3 46 22 143/63 (89) 98 06/29/18 04:00 98.0 54 18 132/62 (85) 96 06/29/18 04:00 42 06/29/18 00:00 49 06/29/18 00:00 98.2 57 18 132/59 (83) 95 06/28/18 21:00 Room Air 06/28/18 20:00 50 06/28/18 20:00 97.2 50 18 133/63 (86) 99 06/28/18 16:00 44 06/28/18 16:00 98.2 52 20 124/58 (80) 96 06/28/18 12:00 42 06/28/18 12:00 97.3 47 20 130/63 (85) 97 06/28/18 09:00 Room Air Intake and Output 06/28/18 06/29/18 19:00 07:00 Intake Total 730 ml Output Total 725 ml Balance 5 ml Intake Oral 730 ml Output Urine Total 725 ml # Bowel Movements 2 Height (Feet): 6 Height (Inches): 4.00 Weight (Pounds): 234 General Appearance: WD/WN, alert Neck: supple Cardiovascular: regular rhythm Respiratory/Chest: chest wall non-tender, lungs clear, normal breath sounds Abdomen: normal bowel sounds, non tender, soft, no organomegaly Edema: no edema noted Arm (L), no edema noted Arm (R), no edema noted Leg (L), no edema noted Leg (R), no edema noted Pedal (L), no edema noted Pedal (R), no edema noted Generalized Neurologic: claims representative II-XII grossly normal, abnormal gait, alert, oriented x 3, responsive Christian Messina MD Jun 29, 2018 08:49
[2018-06-29] MEDS: Levofloxacin 750mg tab ORAL SCH (09:05)
[2018-06-29] MEDS: Aspirin EC 81mg tab ORAL SCH (09:05)
[2018-06-29] MEDS: Losartan 50mg tab ORAL SCH (09:06)
[2018-06-29] MEDS: Heparin 5000 units/ml inj SUBQ SCH ×2 (09:07→21:29)
[2018-06-29] MEDS: Vancomycin 750 MG in NS 275 ML IVPB SCH ×2 (11:17→23:10)
[2018-06-29 12:00] VITALS: BP 144/64
--- NOTE | 2018-06-29 15:24 | Surgery Progress Note ---
Surgery Progress Note Subjective Symptoms: improved, pain absent, tolerating diet, passing flatus, BM Additional Comments edema much improved. Objective Last 24 Hour Vital Signs Date Time Temp Pulse Resp B/P (MAP) Pulse Ox O2 Delivery O2 Flow Rate FiO2 06/29/18 13:05 54 06/29/18 12:00 97.8 51 20 144/64 (90) 99 06/29/18 09:06 143/63 06/29/18 09:00 Room Air 06/29/18 08:00 97.3 46 22 143/63 (89) 98 06/29/18 08:00 52 06/29/18 04:00 98.0 54 18 132/62 (85) 96 06/29/18 04:00 42 06/29/18 00:00 49 06/29/18 00:00 98.2 57 18 132/59 (83) 95 06/28/18 21:00 Room Air 06/28/18 20:00 50 06/28/18 20:00 97.2 50 18 133/63 (86) 99 06/28/18 16:00 44 06/28/18 16:00 98.2 52 20 124/58 (80) 96 I&O Intake and Output 06/28/18 06/29/18 19:00 07:00 Intake Total 730 ml Output Total 725 ml Balance 5 ml Intake Oral 730 ml Output Urine Total 725 ml # Bowel Movements 2 Dressing: dry Wound: clean Drains: none Cardiovascular: RSR Respiratory: clear Abdomen: soft, flat, non-tender, present bowel sounds Extremities: no edema, no tenderness, no cyanosis Plan Problems: (1) Bilateral lower leg cellulitis Assessment & Plan: Pt presented on admission with weeping edema of bilateral lower ext with multiple ulcerations both tibias. Haemosiderin stain both lower ext. Large ulcer lateral R tibia with irregular borders,60% soft brown scab,50% biofilm oozing non-odorous serous exudate. Multiple smaller ulcers noted medially with mixed erythema and biofilm with macerated borders. Multiple ulcerations noted to medial and lateral L tibia. Pt also noted to noted to have multiple bulbous lesions to R and L cleft of buttocks Pt verbalized having long Hx of having these lesions on buttocks. Duplex noted labs okay CT noted without abscess or osteo Subcutaneous edema and skin thickening demonstrated within the lower aspects of both legs left worse than right presumably on the basis of cellulitis. The study is limited but there is no obvious evidence of osteomyelitis or abscess. wounds improving edema improved recovering well Tx plan: Cleanse both lower extremities with Saline. Cover wounds with Xeroform gauze .Cover with ABD Pads. Wrap with Kerlix from base of toes Daily and prn. . Apply Triad Paste to Buttocks with each perineal care. Encourage pt to reposition at least hourly while in bed. Elevate both lower ext with pillows. Abx Keep elevated when in bed okay to ambulate resolving d/c planning Ned Albrecht Jun 29, 2018 15:24
[2018-06-29 16:00] VITALS: BP 142/76
[2018-06-29 20:00] VITALS: BP 144/56
--- NOTE | 2018-06-29 23:45 | Progress Note ---
DATE: 06/29/2018 CARDIOLOGY PROGRESS NOTE SUBJECTIVE: No dizziness. Still episodes of bradycardia in the 40s. OBJECTIVE: VITAL SIGNS: Blood pressure 143/63. NECK: Supple. LUNGS: Clear. CARDIAC: Regular. Slow rate. Normal S1, S2. ABDOMEN: Soft. EXTREMITIES: Trace edema. SKIN: Wound site is dry. IMPRESSION: 1. Sinus bradycardia. On beta-tory therapy. Still bradycardic even on half-dose atenolol. 2. Hypertensive heart disease. 3. Chronic venous insufficiency. 4. Stasis derm ulcers and cellulitis. PLAN: 1. Discontinue beta-tory completely. 2. Monitor antibiotics and skin care. 3. Hold diuresis. 4. Check laboratories and trend natriuretic peptide assay. Pranav Russo M.D. DR: JACOB JOB#: [id number] CC:
[2018-06-30] VITALS (8 sets, daily range): BP systolic 108–159; BP diastolic 60–128
--- NOTE | 2018-06-30 07:43 | General Progress Note ---
Assessment/Plan Problem List: (1) ASCVD (arteriosclerotic cardiovascular disease) ICD Codes: I25.10 - Atherosclerotic heart disease of [place] coronary artery without angina pectoris SNOMED: 65054709 (2) Venous insufficiency ICD Codes: I87.2 - Venous insufficiency (chronic) (peripheral) SNOMED: 38818633 (3) Bilateral lower leg cellulitis ICD Codes: L03.116 - Cellulitis of left lower limb; L03.115 - Cellulitis of right lower limb SNOMED: 460512894 Status: stable, progressing Assessment/Plan monitor vitals check ortho statics resume hctz off atenolol abx and wound care outpt neurosurg eval POC d/w nephew Subjective ROS Limited/Unobtainable: No Constitutional: Reports: no symptoms HEENT: Reports: no symptoms Cardiovascular: Reports: edema Respiratory: Reports: no symptoms Gastrointestinal/Abdominal: Reports: no symptoms Genitourinary: Reports: no symptoms Neurologic/Psychiatric: Reports: no symptoms Endocrine: Reports: no symptoms Hematologic/Lymphatic: Reports: no symptoms Allergies: Coded Allergies: No Known Allergies (Unverified , 06/22/18) All Systems: reviewed and negative except above Subjective no dizziness. still with bradycardia in the 40s. no cp/sob. dressing clean. bp up this am Objective Last 24 Hour Vital Signs Date Time Temp Pulse Resp B/P (MAP) Pulse Ox O2 Delivery O2 Flow Rate FiO2 06/30/18 04:00 45 06/30/18 04:00 97.4 51 20 159/76 (103) 100 06/30/18 00:00 98.2 55 20 147/69 (95) 95 06/30/18 00:00 49 06/29/18 21:00 Room Air 06/29/18 20:00 97.9 57 20 144/56 (85) 96 06/29/18 20:00 65 06/29/18 16:00 57 06/29/18 16:00 97.3 56 20 142/76 (98) 100 06/29/18 13:05 54 06/29/18 12:00 97.8 51 20 144/64 (90) 99 06/29/18 09:06 143/63 06/29/18 09:00 Room Air 06/29/18 08:00 97.3 46 22 143/63 (89) 98 06/29/18 08:00 52 Intake and Output 06/29/18 06/30/18 18:59 06:59 Intake Total 720 ml Output Total 1200 ml 600 ml Balance -480 ml -600 ml Intake Oral 240 ml Other 480 ml Output Urine Total 1200 ml 600 ml # Voids 2 3 # Bowel Movements 1 Laboratory Tests 06/30/18 05:31: White Blood Count [Pending], Red Blood Count [Pending], Hemoglobin [Pending], Hematocrit [Pending], Mean Corpuscular Volume [Pending], Mean Corpuscular Hemoglobin [Pending], Mean Corpuscular Hemoglobin Concent [Pending], Red Cell Distribution Width [Pending], Platelet Count [Pending], Mean Platelet Volume [ Pending], Neutrophils (%) (Auto) [Pending], Lymphocytes (%) (Auto) [Pending], Monocytes (%) (Auto) [Pending], Eosinophils (%) (Auto) [Pending], Basophils (%) (Auto) [Pending], Sodium Level [Pending], Potassium Level [Pending], Chloride Level [Pending], Carbon Dioxide Level [Pending], Blood Urea Nitrogen [Pending], Creatinine [Pending], Estimat Glomerular Filtration Rate [Pending], Glucose Level [Pending], Calcium Level [Pending], Magnesium Level [Pending], Total Bilirubin [Pending], Aspartate Amino Transf (AST/SGOT) [Pending], Alanine Aminotransferase (ALT/SGPT) [Pending], Alkaline Phosphatase [Pending], Pro-B- Type Natriuretic Peptide [Pending], Total Protein [Pending], Albumin [Pending], Globulin [Pending] Height (Feet): 6 Height (Inches): 4.00 Weight (Pounds): 222 Objective General Appearance: WD/WN, alert Neck: supple Cardiovascular: regular rhythm Respiratory/Chest: chest wall non-tender, lungs clear, normal breath sounds Abdomen: normal bowel sounds, non tender, soft, no organomegaly Edema: no edema noted Arm (L), no edema noted Arm (R), no edema noted Leg (L), no edema noted Leg (R), no edema noted Pedal (L), no edema noted Pedal (R), no edema noted Generalized Neurologic: butcher helper II-XII grossly normal, abnormal gait, alert, oriented x 3, responsive Christian Messina MD Jun 30, 2018 07:43
[2018-06-30 07:46] LABS: BASOPHILS % (AUTO) 1.1 % (0.0-2.0); EOSINOPHILS % (AUTO) 8.2 % (0.0-3.0); HEMATOCRIT 37.7 % (42.0-52.0); HEMOGLOBIN 12.7 G/DL (14.2-18.0); LYMPHOCYTES % (AUTO) 16.8 % (20.0-45.0); MEAN CORPUSCULAR VOLUME 95 FL (80-99); MONOCYTES % (AUTO) 10.1 % (1.0-10.0); NEUTROPHILS % (AUTO) 63.7 % (45.0-75.0); PLATELET COUNT 286 K/UL (150-450); RED BLOOD COUNT 3.97 M/UL (4.70-6.10); RED CELL DISTRIBUTION WIDTH 11.9 % (11.6-14.8); WHITE BLOOD COUNT 6.6 K/UL (4.8-10.8)
[2018-06-30 07:59] LABS: ALANINE AMINOTRANSFERASE 52 U/L (12-78); ALBUMIN 2.6 G/DL (3.4-5.0); ALBUMIN/GLOBULIN RATIO 0.6 (1.0-2.7); ALKALINE PHOSPHATASE 86 U/L (46-116); ANION GAP 8 mmol/L (5-15); ASPARTATE AMINO TRANSFERASE 40 U/L (15-37); BILIRUBIN,TOTAL 0.5 MG/DL (0.2-1.0); BLOOD UREA NITROGEN 20 mg/dL (7-18); CALCIUM 9.2 MG/DL (8.5-10.1); CARBON DIOXIDE 26 MMOL/L (21-32); CHLORIDE 106 MMOL/L (98-107); CREATININE 1.2 MG/DL (0.55-1.30); POTASSIUM 4.3 MMOL/L (3.5-5.1); SODIUM 140 MMOL/L (136-145)
[2018-06-30] MEDS: Losartan 50mg tab ORAL SCH (09:50)
[2018-06-30] MEDS: Levofloxacin 750mg tab ORAL SCH (09:50)
[2018-06-30] MEDS: Aspirin EC 81mg tab ORAL SCH (09:50)
[2018-06-30] MEDS: Heparin 5000 units/ml inj SUBQ SCH ×2 (09:51→21:28)
[2018-06-30] MEDS: Vancomycin 750 MG in NS 275 ML IVPB SCH ×2 (11:15→23:56)
--- NOTE | 2018-06-30 13:34 | Infectious Diseases Prog Note ---
Assessment/Plan Assessment/Plan A; Bilateral leg cellulitis, Culture: Enterococcus & Pseudomonas HPN Chronic Venous stasis P; Continue Vancomycin X 6 days Continue Levaquin X 8 days Subjective ROS Limited/Unobtainable: No Constitutional: Reports: no symptoms Respiratory: Reports: no symptoms Cardiovascular: Reports: no symptoms Gastrointestinal/Abdominal: Reports: no symptoms Genitourinary: Reports: no symptoms Musculoskeletal: Reports: other - difficulty of walking Allergies: Coded Allergies: No Known Allergies (Unverified , 06/22/18) Objective Vital Signs Last 24 Hour Vital Signs Date Time Temp Pulse Resp B/P (MAP) Pulse Ox O2 Delivery O2 Flow Rate FiO2 06/30/18 09:50 144/68 06/30/18 08:00 97.1 54 20 144/68 (93) 100 06/30/18 04:00 45 06/30/18 04:00 97.4 51 20 159/76 (103) 100 06/30/18 00:00 98.2 55 20 147/69 (95) 95 06/30/18 00:00 49 06/29/18 21:00 Room Air 06/29/18 20:00 97.9 57 20 144/56 (85) 96 06/29/18 20:00 65 06/29/18 16:00 57 06/29/18 16:00 97.3 56 20 142/76 (98) 100 Height (Feet): 6 Height (Inches): 4.00 Weight (Pounds): 222 General Appearance: no acute distress HEENT: mucous membranes moist Respiratory/Chest: lungs clear Cardiovascular: normal rate Abdomen: soft, non tender Extremities: no edema, other - arheritic changes of knees Skin: ulcers, other - on legs Neurologic/Psychiatric: alert, oriented x 3, responsive Laboratory Tests Test 06/30/18 05:31 White Blood Count 6.6 K/UL (4.8-10.8) Red Blood Count 3.97 M/UL (4.70-6.10) L Hemoglobin 12.7 G/DL (14.2-18.0) L Hematocrit 37.7 % (42.0-52.0) L Mean Corpuscular Volume 95 FL (80-99) Mean Corpuscular Hemoglobin 31.9 PG (27.0-31.0) H Mean Corpuscular Hemoglobin Concent 33.7 G/DL (32.0-36.0) Red Cell Distribution Width 11.9 % (11.6-14.8) Platelet Count 286 K/UL (150-450) Mean Platelet Volume 7.2 FL (6.5-10.1) Neutrophils (%) (Auto) 63.7 % (45.0-75.0) Lymphocytes (%) (Auto) 16.8 % (20.0-45.0) L Monocytes (%) (Auto) 10.1 % (1.0-10.0) H Eosinophils (%) (Auto) 8.2 % (0.0-3.0) H Basophils (%) (Auto) 1.1 % (0.0-2.0) Sodium Level 140 MMOL/L (136-145) Potassium Level 4.3 MMOL/L (3.5-5.1) Chloride Level 106 MMOL/L (98-107) Carbon Dioxide Level 26 MMOL/L (21-32) Anion Gap 8 mmol/L (5-15) Blood Urea Nitrogen 20 mg/dL (7-18) H Creatinine 1.2 MG/DL (0.55-1.30) Estimat Glomerular Filtration Rate mL/min (>60) Glucose Level 84 MG/DL (74-106) Calcium Level 9.2 MG/DL (8.5-10.1) Magnesium Level 1.9 MG/DL (1.8-2.4) Total Bilirubin 0.5 MG/DL (0.2-1.0) Aspartate Amino Transf (AST/SGOT) 40 U/L (15-37) H Alanine Aminotransferase (ALT/SGPT) 52 U/L (12-78) Alkaline Phosphatase 86 U/L (46-116) Pro-B-Type Natriuretic Peptide 319 pg/mL (0-125) H Total Protein 6.8 G/DL (6.4-8.2) Albumin 2.6 G/DL (3.4-5.0) L Globulin 4.2 g/dL Albumin/Globulin Ratio 0.6 (1.0-2.7) L Current Medications Medications (Trade) Dose Ordered Sig/Remigio Route PRN Reason Start Time Stop Time Status Last Admin Dose Admin Acetaminophen (Tylenol) 500 mg Q4H PRN ORAL Mild Pain/Temp > 100.5 06/27/18 16:00 07/22/18 15:59 Aspirin (Ecotrin) 81 mg DAILY ORAL 06/28/18 09:00 07/24/18 09:59 06/30/18 09:50 Heparin Sodium (Porcine) (Heparin 5000 units/ml) 5,000 units EVERY 12 HOURS SUBQ 06/27/18 21:00 07/23/18 08:59 06/30/18 09:51 Hydrochlorothiazide (Hydrodiuril) 25 mg DAILY ORAL 06/30/18 09:00 07/30/18 08:59 06/30/18 09:50 Levofloxacin (Levaquin) 750 mg DAILY ORAL 06/28/18 09:00 07/07/18 23:59 06/30/18 09:50 Losartan Potassium (Cozaar) 100 mg DAILY ORAL 06/28/18 09:00 07/26/18 08:59 06/30/18 09:50 Ondansetron HCl (Zofran) 4 mg Q6H PRN IVP Nausea & Vomiting 06/27/18 16:00 07/22/18 15:59 Vancomycin HCl (Vanco rx to dose) 1 ea DAILY PRN MISC Per rx protocol 06/27/18 16:00 07/27/18 15:59 Vancomycin HCl 750 mg/Sodium Chloride 275 ml @ 183.333 mls/hr Q12H IVPB 06/27/18 23:00 07/05/18 23:59 06/30/18 11:15 Stephon Barrera MD Jun 30, 2018 13:34
[2018-06-30] MEDS ORDERED: Metoprolol 5mg/5ml Inj IVP SCH (14:15)
--- NOTE | 2018-06-30 16:02 | Cardiology Report ---
APPROVED REPORT EKG Measurement Heart [id number] Marked sinus bradycardia Right bundle branch block Abnormal ECG
--- NOTE | 2018-06-30 16:16 | Surgery Progress Note ---
Surgery Progress Note Subjective Symptoms: improved, pain absent, tolerating diet, passing flatus, BM Objective Last 24 Hour Vital Signs Date Time Temp Pulse Resp B/P (MAP) Pulse Ox O2 Delivery O2 Flow Rate FiO2 06/30/18 14:29 166 138/69 06/30/18 13:55 65 123/69 (87) 06/30/18 13:50 166 138/69 (92) 06/30/18 12:00 97.6 60 21 149/128 (135) 99 06/30/18 12:00 56 06/30/18 09:50 144/68 06/30/18 09:00 Room Air 06/30/18 08:00 54 06/30/18 08:00 97.1 54 20 144/68 (93) 100 06/30/18 04:00 45 06/30/18 04:00 97.4 51 20 159/76 (103) 100 06/30/18 00:00 98.2 55 20 147/69 (95) 95 06/30/18 00:00 49 06/29/18 21:00 Room Air 06/29/18 20:00 97.9 57 20 144/56 (85) 96 06/29/18 20:00 65 I&O Intake and Output 06/29/18 06/30/18 19:00 07:00 Intake Total 720 ml Output Total 1200 ml 600 ml Balance -480 ml -600 ml Intake Oral 240 ml Other 480 ml Output Urine Total 1200 ml 600 ml # Voids 2 3 # Bowel Movements 1 Dressing: dry Wound: clean Drains: none Cardiovascular: RSR Respiratory: clear Abdomen: soft, flat, present bowel sounds, non-distended Extremities: edema, no tenderness, no cyanosis Laboratory Tests Test 06/30/18 05:31 White Blood Count 6.6 K/UL (4.8-10.8) Red Blood Count 3.97 M/UL (4.70-6.10) L Hemoglobin 12.7 G/DL (14.2-18.0) L Hematocrit 37.7 % (42.0-52.0) L Mean Corpuscular Volume 95 FL (80-99) Mean Corpuscular Hemoglobin 31.9 PG (27.0-31.0) H Mean Corpuscular Hemoglobin Concent 33.7 G/DL (32.0-36.0) Red Cell Distribution Width 11.9 % (11.6-14.8) Platelet Count 286 K/UL (150-450) Mean Platelet Volume 7.2 FL (6.5-10.1) Neutrophils (%) (Auto) 63.7 % (45.0-75.0) Lymphocytes (%) (Auto) 16.8 % (20.0-45.0) L Monocytes (%) (Auto) 10.1 % (1.0-10.0) H Eosinophils (%) (Auto) 8.2 % (0.0-3.0) H Basophils (%) (Auto) 1.1 % (0.0-2.0) Sodium Level 140 MMOL/L (136-145) Potassium Level 4.3 MMOL/L (3.5-5.1) Chloride Level 106 MMOL/L (98-107) Carbon Dioxide Level 26 MMOL/L (21-32) Anion Gap 8 mmol/L (5-15) Blood Urea Nitrogen 20 mg/dL (7-18) H Creatinine 1.2 MG/DL (0.55-1.30) Estimat Glomerular Filtration Rate mL/min (>60) Glucose Level 84 MG/DL (74-106) Calcium Level 9.2 MG/DL (8.5-10.1) Magnesium Level 1.9 MG/DL (1.8-2.4) Total Bilirubin 0.5 MG/DL (0.2-1.0) Aspartate Amino Transf (AST/SGOT) 40 U/L (15-37) H Alanine Aminotransferase (ALT/SGPT) 52 U/L (12-78) Alkaline Phosphatase 86 U/L (46-116) Pro-B-Type Natriuretic Peptide 319 pg/mL (0-125) H Total Protein 6.8 G/DL (6.4-8.2) Albumin 2.6 G/DL (3.4-5.0) L Globulin 4.2 g/dL Albumin/Globulin Ratio 0.6 (1.0-2.7) L Plan Problems: (1) Bilateral lower leg cellulitis Assessment & Plan: Pt presented on admission with weeping edema of bilateral lower ext with multiple ulcerations both tibias. Haemosiderin stain both lower ext. Large ulcer lateral R tibia with irregular borders,60% soft brown scab,50% biofilm oozing non-odorous serous exudate. Multiple smaller ulcers noted medially with mixed erythema and biofilm with macerated borders. Multiple ulcerations noted to medial and lateral L tibia. Pt also noted to noted to have multiple bulbous lesions to R and L cleft of buttocks Pt verbalized having long Hx of having these lesions on buttocks. Duplex noted labs okay CT noted without abscess or osteo Subcutaneous edema and skin thickening demonstrated within the lower aspects of both legs left worse than right presumably on the basis of cellulitis. The study is limited but there is no obvious evidence of osteomyelitis or abscess. wounds improving edema improved recovering well office follow up given Tx plan: Cleanse both lower extremities with Saline. Cover wounds with Xeroform gauze .Cover with ABD Pads. Wrap with Kerlix from base of toes Daily and prn. . Apply Triad Paste to Buttocks with each perineal care. Encourage pt to reposition at least hourly while in bed. Elevate both lower ext with pillows. Abx Keep elevated when in bed okay to ambulate resolving d/c planning Ned Albrecht Jun 30, 2018 16:16
[2018-06-30] MEDS ORDERED: Atenolol 25mg tab ORAL SCH (18:07)
--- NOTE | 2018-06-30 23:30 | Progress Note ---
DATE: 06/30/2018 CARDIOLOGY PROGRESS NOTE SUBJECTIVE: The patient walked to the bathroom today and developed tachyarrhythmia. The strips were reviewed, and consistent with SVT (possibly re-entry or atrial flutter). No ventricular tachycardia occurred. The patient has been off atenolol for several days due to baseline bradycardia. The patient was given IV metoprolol with conversion. OBJECTIVE: VITAL SIGNS: Blood pressure 159/76, pulse 51, and respiratory rate 20. LUNGS: Clear. CARDIAC: Regular. Normal S1 and S2. ABDOMEN: Soft. EXTREMITIES: Trace dependent edema. IMPRESSION: 1. Lower extremity cellulitis, venous stasis ulcers, and wounds. 2. Diastolic dysfunction with compensated congestive heart failure. 3. Paroxysmal supraventricular tachyarrhythmias with possible component of beta-tory withdrawal. 4. Paroxysmal sinus bradycardia due to sinus node disease. PLAN: 1. Restart low-dose beta-tory. 2. Cardiac monitoring. 3. Electrolytes have been reviewed. 4. Wound care and antimicrobials. Pranav Russo M.D. DR: GIFTY JOB#: [id number] CC: SALAZAR
[2018-07-01] VITALS: BP 137/62
[2018-07-01 04:00] VITALS: BP 126/64
[2018-07-01 08:00] VITALS: BP 138/71
[2018-07-01] MEDS: Atenolol 25mg tab ORAL SCH (09:00)
--- NOTE | 2018-07-01 09:04 | General Progress Note ---
Assessment/Plan Problem List: (1) ASCVD (arteriosclerotic cardiovascular disease) ICD Codes: I25.10 - Atherosclerotic heart disease of [place] coronary artery without angina pectoris SNOMED: 11422441 (2) Venous insufficiency ICD Codes: I87.2 - Venous insufficiency (chronic) (peripheral) SNOMED: 24467082 (3) Bilateral lower leg cellulitis ICD Codes: L03.116 - Cellulitis of left lower limb; L03.115 - Cellulitis of right lower limb SNOMED: 342384239 Status: stable, progressing Assessment/Plan monitor vitals abx per id resume hctz b-blockade abx and wound care outpt neurosurg eval POC d/w nephew Subjective ROS Limited/Unobtainable: No Constitutional: Reports: malaise, weakness HEENT: Reports: no symptoms Cardiovascular: Reports: no symptoms Respiratory: Reports: no symptoms Gastrointestinal/Abdominal: Reports: no symptoms Genitourinary: Reports: no symptoms Neurologic/Psychiatric: Reports: no symptoms Endocrine: Reports: no symptoms Hematologic/Lymphatic: Reports: no symptoms Allergies: Coded Allergies: No Known Allergies (Unverified , 06/22/18) All Systems: reviewed and negative except above Subjective with svt yesterday. none since. HR mostly 50-70s now. denies dizziness. Objective Last 24 Hour Vital Signs Date Time Temp Pulse Resp B/P (MAP) Pulse Ox O2 Delivery O2 Flow Rate FiO2 07/01/18 04:00 48 07/01/18 04:00 96.0 49 20 126/64 (84) 99 07/01/18 00:00 97.7 49 20 137/62 (87) 98 06/30/18 21:00 Room Air 06/30/18 20:00 98.0 60 20 108/60 (76) 97 06/30/18 18:39 70 138/71 06/30/18 16:00 97.3 51 20 148/70 (96) 100 06/30/18 14:29 166 138/69 06/30/18 13:55 65 123/69 (87) 06/30/18 13:50 166 138/69 (92) 06/30/18 12:00 97.6 60 21 149/128 (135) 99 06/30/18 12:00 56 06/30/18 09:50 144/68 Intake and Output 06/30/18 07/01/18 18:59 06:59 Intake Total 480 ml Output Total 600 ml Balance -120 ml Intake Oral 240 ml Other 240 ml Output Urine Total 600 ml # Voids 3 1 # Bowel Movements 1 Height (Feet): 6 Height (Inches): 4.00 Weight (Pounds): 222 General Appearance: WD/WN, alert EENT: TMs normal Neck: non-tender, normal alignment, supple Cardiovascular: normal peripheral pulses, normal rate Respiratory/Chest: chest wall non-tender, lungs clear, normal breath sounds Abdomen: normal bowel sounds, non tender, soft, no organomegaly Edema: no edema noted Arm (L), no edema noted Arm (R), no edema noted Leg (L), no edema noted Leg (R), no edema noted Pedal (L), no edema noted Pedal (R), no edema noted Generalized Objective General Appearance: WD/WN, alert Neck: supple Cardiovascular: regular rhythm Respiratory/Chest: chest wall non-tender, lungs clear, normal breath sounds Abdomen: normal bowel sounds, non tender, soft, no organomegaly Edema: no edema noted Arm (L), no edema noted Arm (R), no edema noted Leg (L), no edema noted Leg (R), no edema noted Pedal (L), no edema noted Pedal (R), no edema noted Generalized 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
[2018-07-01] MEDS: Losartan 50mg tab ORAL SCH (09:09)
[2018-07-01] MEDS: Aspirin EC 81mg tab ORAL SCH (09:09)
[2018-07-01] MEDS: Levofloxacin 750mg tab ORAL SCH (09:09)
[2018-07-01] MEDS: Heparin 5000 units/ml inj SUBQ SCH ×2 (09:12→21:05)
--- NOTE | 2018-07-01 10:33 | Infectious Diseases Prog Note ---
"Assessment/Plan Assessment/Plan antibiotics : vancomycin iv, levoquin A 1. bilateral leg cellulitis improving 2. bilateral leg ulcers with enterococcus | pseudomonas | coag neg staph 3. hypertension 4. chronic venous stasis P 1. continue iv vancomycin 4 more days 2. continue po levoquin 6 more days 2. will follow up cultures Subjective Constitutional: Denies: fever, chills Respiratory: Denies: shortness of breath, dry cough Gastrointestinal/Abdominal: Denies: nausea, vomiting, diarrhea Musculoskeletal: Denies: pain Allergies: Coded Allergies: No Known Allergies (Unverified , 06/22/18) Objective Vital Signs Last 24 Hour Vital Signs Date Time Temp Pulse Resp B/P (MAP) Pulse Ox O2 Delivery O2 Flow Rate FiO2 07/01/18 09:09 130/54 07/01/18 09:00 53 07/01/18 04:00 48 07/01/18 04:00 96.0 49 20 126/64 (84) 99 07/01/18 00:00 97.7 49 20 137/62 (87) 98 06/30/18 21:00 Room Air 06/30/18 20:00 98.0 60 20 108/60 (76) 97 06/30/18 18:39 70 138/71 06/30/18 16:00 97.3 51 20 148/70 (96) 100 06/30/18 14:29 166 138/69 06/30/18 13:55 65 123/69 (87) 06/30/18 13:50 166 138/69 (92) 06/30/18 12:00 97.6 60 21 149/128 (135) 99 06/30/18 12:00 56 Height (Feet): 6 Height (Inches): 4.00 Weight (Pounds): 222 Respiratory/Chest: lungs clear Cardiovascular: normal rate, regular rhythm, no gallop/murmur Abdomen: normal bowel sounds Extremities: other - decreased erythema and swelling bilaterally Laboratory Tests Test 07/01/18 09:50 Vancomycin Level Trough 16.5 ug/mL (5.0-12.0) H Current Medications Medications (Trade) Dose Ordered Sig/Remigio Route PRN Reason Start Time Stop Time Status Last Admin Dose Admin Acetaminophen (Tylenol) 500 mg Q4H PRN ORAL Mild Pain/Temp > 100.5 06/27/18 16:00 07/22/18 15:59 Aspirin (Ecotrin) 81 mg DAILY ORAL 06/28/18 09:00 07/24/18 09:59 07/01/18 09:09 Atenolol (Tenormin) 12.5 mg DAILY ORAL 07/01/18 09:00 07/31/18 08:59 Heparin Sodium (Porcine) (Heparin 5000 units/ml) 5,000 units EVERY 12 HOURS SUBQ 06/27/18 21:00 07/23/18 08:59 07/01/18 09:12 Hydrochlorothiazide (Hydrodiuril) 25 mg DAILY ORAL 06/30/18 09:00 07/30/18 08:59 07/01/18 09:09 Levofloxacin (Levaquin) 750 mg DAILY ORAL 06/28/18 09:00 07/07/18 23:59 07/01/18 09:09 Losartan Potassium (Cozaar) 100 mg DAILY ORAL 06/28/18 09:00 07/26/18 08:59 07/01/18 09:09 Ondansetron HCl (Zofran) 4 mg Q6H PRN IVP Nausea & Vomiting 06/27/18 16:00 07/22/18 15:59 Vancomycin HCl (Vanco rx to dose) 1 ea DAILY PRN MISC Per rx protocol 06/27/18 16:00 07/27/18 15:59 Vancomycin HCl/ Dextrose 275 ml @ 137.5 mls/ hr Q24H IVPB 07/01/18 12:00 07/06/18 11:59 Caron Elizabeth MD Jul 01, 2018 10:33"
--- NOTE | 2018-07-01 11:04 | Surgery Progress Note ---
Surgery Progress Note Subjective Symptoms: improved, pain absent, tolerating diet, passing flatus, BM Objective Last 24 Hour Vital Signs Date Time Temp Pulse Resp B/P (MAP) Pulse Ox O2 Delivery O2 Flow Rate FiO2 07/01/18 09:09 130/54 07/01/18 09:00 53 07/01/18 04:00 48 07/01/18 04:00 96.0 49 20 126/64 (84) 99 07/01/18 00:00 97.7 49 20 137/62 (87) 98 06/30/18 21:00 Room Air 06/30/18 20:00 98.0 60 20 108/60 (76) 97 06/30/18 18:39 70 138/71 06/30/18 16:00 97.3 51 20 148/70 (96) 100 06/30/18 14:29 166 138/69 06/30/18 13:55 65 123/69 (87) 06/30/18 13:50 166 138/69 (92) 06/30/18 12:00 97.6 60 21 149/128 (135) 99 06/30/18 12:00 56 I&O Intake and Output 06/30/18 07/01/18 18:59 06:59 Intake Total 480 ml Output Total 600 ml Balance -120 ml Intake Oral 240 ml Other 240 ml Output Urine Total 600 ml # Voids 3 1 # Bowel Movements 1 Dressing: dry Wound: clean Drains: none Cardiovascular: RSR Respiratory: clear Abdomen: soft, flat, non-tender, present bowel sounds, non-distended Extremities: edema, no tenderness, no cyanosis, pulses Laboratory Tests Test 07/01/18 09:50 Vancomycin Level Trough 16.5 ug/mL (5.0-12.0) H Plan Problems: (1) Bilateral lower leg cellulitis Assessment & Plan: Pt presented on admission with weeping edema of bilateral lower ext with multiple ulcerations both tibias. Haemosiderin stain both lower ext. Large ulcer lateral R tibia with irregular borders,60% soft brown scab,50% biofilm oozing non-odorous serous exudate. Multiple smaller ulcers noted medially with mixed erythema and biofilm with macerated borders. Multiple ulcerations noted to medial and lateral L tibia. Pt also noted to noted to have multiple bulbous lesions to R and L cleft of buttocks Pt verbalized having long Hx of having these lesions on buttocks. Duplex noted labs okay CT noted without abscess or osteo Subcutaneous edema and skin thickening demonstrated within the lower aspects of both legs left worse than right presumably on the basis of cellulitis. The study is limited but there is no obvious evidence of osteomyelitis or abscess. wounds improving edema improved recovering well office follow up given Tx plan: Cleanse both lower extremities with Saline. Cover wounds with Xeroform gauze .Cover with ABD Pads. Wrap with Kerlix from base of toes Daily and prn. . Apply Triad Paste to Buttocks with each perineal care. Encourage pt to reposition at least hourly while in bed. Elevate both lower ext with pillows. Abx Keep elevated when in bed okay to ambulate resolving d/c planning Ned Albrecht Jul 01, 2018 11:04
[2018-07-01 12:00] VITALS: BP 125/75
[2018-07-01] MEDS: Vancomycin 1.5gm Premix IVPB SCH (13:24)
[2018-07-01 16:00] VITALS: BP 115/61
[2018-07-01 20:00] VITALS: BP 129/65
[2018-07-02] VITALS (7 sets, daily range): BP systolic 98–145; BP diastolic 51–68
--- NOTE | 2018-07-02 00:30 | Progress Note ---
DATE: 07/01/2018 CARDIOLOGY PROGRESS NOTE SUBJECTIVE: The patient had SVT yesterday. He converted with IV beta-tory, oral dose was resumed, it had been held for several days because of bradycardias and an episode of near syncope. OBJECTIVE: VITAL SIGNS: Blood pressure 126/64, pulse 49, respirations 20, and afebrile. LUNGS: Clear. CARDIAC: Regular. Normal S1 and S2. There is no murmur. ABDOMEN: Soft. EXTREMITIES: Trace edema and wound sites have dressing in place on both lower extremities. IMPRESSION AND PLAN: 1. Bilateral lower extremity cellulitis. 2. Venous insufficiency with lower extremity edema. 3. Arteriosclerotic cardiovascular disease. 4. Sinus node disease. 5. Paroxysmal supraventricular tachyarrhythmias. Plan, continue low-dose beta-tory, titrate based on clinical parameters. May need to consider diltiazem for additional breakthrough episodes of supraventricular tachycardia, hold furosemide at this time, and resume thiazide. 6. Deep venous thrombosis prophylaxis. Pranav Russo M.D. DR: MAXIMO JOB#: [id number] CC:
[2018-07-02] MEDS: Aspirin EC 81mg tab ORAL SCH (09:18)
[2018-07-02] MEDS: Levofloxacin 750mg tab ORAL SCH (09:18)
[2018-07-02] MEDS: Losartan 50mg tab ORAL SCH (09:18)
[2018-07-02] MEDS: Heparin 5000 units/ml inj SUBQ SCH ×2 (09:20→21:12)
[2018-07-02] MEDS: Atenolol 25mg tab ORAL SCH (09:25)
--- NOTE | 2018-07-02 09:33 | General Progress Note ---
Assessment/Plan Problem List: (1) ASCVD (arteriosclerotic cardiovascular disease) ICD Codes: I25.10 - Atherosclerotic heart disease of [place] coronary artery without angina pectoris SNOMED: 62008309 (2) Venous insufficiency ICD Codes: I87.2 - Venous insufficiency (chronic) (peripheral) SNOMED: 14460292 (3) Bilateral lower leg cellulitis ICD Codes: L03.116 - Cellulitis of left lower limb; L03.115 - Cellulitis of right lower limb SNOMED: 888946004 Status: stable, progressing Assessment/Plan monitor vitals abx per id diuretic rx b-blockade mobilize and monitor HR abx and wound care outpt neurosurg eval POC d/w nephew Subjective ROS Limited/Unobtainable: No Constitutional: Reports: no symptoms HEENT: Reports: no symptoms Cardiovascular: Reports: no symptoms Respiratory: Reports: no symptoms Gastrointestinal/Abdominal: Reports: no symptoms Genitourinary: Reports: no symptoms Neurologic/Psychiatric: Reports: no symptoms Endocrine: Reports: no symptoms Hematologic/Lymphatic: Reports: no symptoms Allergies: Coded Allergies: No Known Allergies (Unverified , 06/22/18) All Systems: reviewed and negative except above Subjective slept "really good " last night. HR controlled. RN notes HR in the 160s when getting out of bed. Objective Last 24 Hour Vital Signs Date Time Temp Pulse Resp B/P (MAP) Pulse Ox O2 Delivery O2 Flow Rate FiO2 07/02/18 09:25 59 111/51 07/02/18 09:18 111/51 07/02/18 08:23 97.8 59 18 111/51 (71) 98 07/02/18 04:20 98.0 60 17 145/60 (88) 99 07/02/18 04:20 57 07/02/18 00:00 98.3 67 18 128/68 (88) 97 07/02/18 00:00 67 07/01/18 21:00 Room Air 07/01/18 20:00 98.0 69 18 129/65 (86) 95 07/01/18 20:00 55 07/01/18 16:00 98.2 60 20 115/61 (79) 98 07/01/18 16:00 50 07/01/18 12:00 58 07/01/18 12:00 97.8 54 18 125/75 (92) 99 Intake and Output 4/5/19 4/6/19 18:59 06:59 Intake Total 240 ml Output Total 700 ml 500 ml Balance -460 ml -500 ml Intake Oral 240 ml Output Urine Total 700 ml 500 ml # Bowel Movements 2 1 Laboratory Tests 07/01/18 09:50: Vancomycin Level Trough 16.5H Height (Feet): 6 Height (Inches): 4.00 Weight (Pounds): 222 Objective General Appearance: WD/WN, alert Neck: supple Cardiovascular: regular rhythm Respiratory/Chest: chest wall non-tender, lungs clear, normal breath sounds Abdomen: normal bowel sounds, non tender, soft, no organomegaly Edema: no edema noted Arm (L), no edema noted Arm (R), no edema noted Leg (L), no edema noted Leg (R), no edema noted Pedal (L), no edema noted Pedal (R), no edema noted Generalized Neurologic: miner II-XII grossly normal, abnormal gait, alert, oriented x 3, responsive Christian Messina MD Jul 02, 2018 09:33
--- NOTE | 2018-07-02 10:19 | Infectious Diseases Prog Note ---
"Assessment/Plan Assessment/Plan antibiotics : vancomycin iv, levoquin A 1. bilateral leg cellulitis improving 2. bilateral leg ulcers with enterococcus | pseudomonas | coag neg staph 3. hypertension 4. chronic venous stasis P 1. continue iv vancomycin 3 more days 2. continue po levoquin 5 more days 2. will follow up cultures Subjective Constitutional: Denies: fever, chills Respiratory: Denies: shortness of breath, dry cough Gastrointestinal/Abdominal: Reports: diarrhea - decreased; Denies: nausea, vomiting Musculoskeletal: Denies: pain Allergies: Coded Allergies: No Known Allergies (Unverified , 06/22/18) Objective Vital Signs Last 24 Hour Vital Signs Date Time Temp Pulse Resp B/P (MAP) Pulse Ox O2 Delivery O2 Flow Rate FiO2 07/02/18 09:32 Room Air 07/02/18 09:25 59 111/51 07/02/18 09:18 111/51 07/02/18 08:23 97.8 59 18 111/51 (71) 98 07/02/18 04:20 98.0 60 17 145/60 (88) 99 07/02/18 04:20 57 07/02/18 00:00 98.3 67 18 128/68 (88) 97 07/02/18 00:00 67 07/01/18 21:00 Room Air 07/01/18 20:00 98.0 69 18 129/65 (86) 95 07/01/18 20:00 55 07/01/18 16:00 98.2 60 20 115/61 (79) 98 07/01/18 16:00 50 07/01/18 12:00 58 07/01/18 12:00 97.8 54 18 125/75 (92) 99 Height (Feet): 6 Height (Inches): 4.00 Weight (Pounds): 222 Respiratory/Chest: lungs clear Cardiovascular: normal rate, regular rhythm, no gallop/murmur Abdomen: soft, non tender Extremities: other - decreased erythema, edema Current Medications Medications (Trade) Dose Ordered Sig/Remigio Route PRN Reason Start Time Stop Time Status Last Admin Dose Admin Acetaminophen (Tylenol) 500 mg Q4H PRN ORAL Mild Pain/Temp > 100.5 06/27/18 16:00 07/22/18 15:59 Aspirin (Ecotrin) 81 mg DAILY ORAL 06/28/18 09:00 07/24/18 09:59 07/02/18 09:18 Atenolol (Tenormin) 12.5 mg DAILY ORAL 07/01/18 09:00 07/31/18 08:59 07/02/18 09:25 Heparin Sodium (Porcine) (Heparin 5000 units/ml) 5,000 units EVERY 12 HOURS SUBQ 06/27/18 21:00 07/23/18 08:59 07/02/18 09:20 Hydrochlorothiazide (Hydrodiuril) 25 mg DAILY ORAL 06/30/18 09:00 07/30/18 08:59 07/02/18 09:18 Levofloxacin (Levaquin) 750 mg DAILY ORAL 06/28/18 09:00 07/07/18 23:59 07/02/18 09:18 Losartan Potassium (Cozaar) 100 mg DAILY ORAL 06/28/18 09:00 07/26/18 08:59 07/02/18 09:18 Ondansetron HCl (Zofran) 4 mg Q6H PRN IVP Nausea & Vomiting 06/27/18 16:00 07/22/18 15:59 Vancomycin HCl (Vanco rx to dose) 1 ea DAILY PRN MISC Per rx protocol 06/27/18 16:00 07/27/18 15:59 Vancomycin HCl/ Dextrose 275 ml @ 137.5 mls/ hr Q24H IVPB 07/01/18 12:00 07/06/18 11:59 07/01/18 13:24 Caron Elizabeth MD Jul 02, 2018 10:19"
[2018-07-02] MEDS: Vancomycin 1.5gm Premix IVPB SCH (12:04)
--- NOTE | 2018-07-02 15:44 | Surgery Progress Note ---
Surgery Progress Note Subjective Symptoms: improved, tolerating diet, passing flatus, BM, pain decreased Objective Last 24 Hour Vital Signs Date Time Temp Pulse Resp B/P (MAP) Pulse Ox O2 Delivery O2 Flow Rate FiO2 07/02/18 11:49 97.5 51 20 113/58 (76) 96 07/02/18 11:20 65 07/02/18 09:32 Room Air 07/02/18 09:25 59 111/51 07/02/18 09:18 111/51 07/02/18 08:23 97.8 59 18 111/51 (71) 98 07/02/18 04:20 98.0 60 17 145/60 (88) 99 07/02/18 04:20 57 07/02/18 00:00 98.3 67 18 128/68 (88) 97 07/02/18 00:00 67 07/01/18 21:00 Room Air 07/01/18 20:00 98.0 69 18 129/65 (86) 95 07/01/18 20:00 55 07/01/18 16:00 98.2 60 20 115/61 (79) 98 07/01/18 16:00 50 I&O Intake and Output 07/01/18 07/02/18 18:59 06:59 Intake Total 240 ml Output Total 700 ml 500 ml Balance -460 ml -500 ml Intake Oral 240 ml Output Urine Total 700 ml 500 ml # Bowel Movements 2 1 Dressing: dry Wound: clean Drains: none Cardiovascular: RSR Respiratory: clear Abdomen: soft, flat, non-tender, present bowel sounds Extremities: no edema, no tenderness, no cyanosis Plan Problems: (1) Bilateral lower leg cellulitis Assessment & Plan: Pt presented on admission with weeping edema of bilateral lower ext with multiple ulcerations both tibias. Haemosiderin stain both lower ext. Large ulcer lateral R tibia with irregular borders,60% soft brown scab,50% biofilm oozing non-odorous serous exudate. Multiple smaller ulcers noted medially with mixed erythema and biofilm with macerated borders. Multiple ulcerations noted to medial and lateral L tibia. Pt also noted to noted to have multiple bulbous lesions to R and L cleft of buttocks Pt verbalized having long Hx of having these lesions on buttocks. Duplex noted labs okay CT noted without abscess or osteo Subcutaneous edema and skin thickening demonstrated within the lower aspects of both legs left worse than right presumably on the basis of cellulitis. The study is limited but there is no obvious evidence of osteomyelitis or abscess. wounds improving edema improved recovering well office follow up given Tx plan: Cleanse both lower extremities with Saline. Cover wounds with Xeroform gauze .Cover with ABD Pads. Wrap with Kerlix from base of toes Daily and prn. . Apply Triad Paste to Buttocks with each perineal care. Encourage pt to reposition at least hourly while in bed. Elevate both lower ext with pillows. Abx Keep elevated when in bed okay to ambulate resolving d/c planning Ned Albrecht Jul 02, 2018 15:44
--- NOTE | 2018-07-02 20:45 | Progress Note ---
DATE: 07/02/2018 SUBJECTIVE: The patient continues to have episodes of tachycardia when getting out of bed. Sinus tachycardia appears to be the rhythm. He has no symptoms. OBJECTIVE: VITAL SIGNS: Blood pressure 111/51, pulse 59, and respiratory rate 18. LUNGS: Clear. CARDIAC: Regular. Normal S1, S2. ABDOMEN: Soft. EXTREMITIES: Dependent edema with stasis ulcers noted. IMPRESSION: 1. Paroxysmal supraventricular tachyarrhythmias. 2. Sinus tachycardia. 3. Sinus node disease. 4. Chronic venous stasis ulcers. 5. History of hypertension. PLAN: 1. Monitor heart rates with mobilization. 2. We will add diltiazem as an additional agent to suppress atrial arrhythmias. 3. We will monitor closely clinical response. 4. Follow up lab studies ordered. Pranav Russo M.D. DR: JACOB JOB#: [id number] CC:
[2018-07-02] MEDS ORDERED: dilTIAZem HCl CD 120mg cap ORAL SCH (21:00)
[2018-07-02] MEDS ORDERED: Hydrocortisone 0.5% Cream 30gm TOPIC PRN (22:45)
[2018-07-03] VITALS: BP 113/63
[2018-07-03 04:00] VITALS: BP 125/62
[2018-07-03 08:00] VITALS: BP 103/60
[2018-07-03 08:24] LABS: BASOPHILS % (AUTO) 1.2 % (0.0-2.0); HEMOGLOBIN 14.1 G/DL (14.2-18.0); LYMPHOCYTES % (AUTO) 17.3 % (20.0-45.0); MEAN CORPUSCULAR VOLUME 94 FL (80-99); MONOCYTES % (AUTO) 7.2 % (1.0-10.0); NEUTROPHILS % (AUTO) 68.4 % (45.0-75.0); PLATELET COUNT 270 K/UL (150-450); RED BLOOD COUNT 4.46 M/UL (4.70-6.10); RED CELL DISTRIBUTION WIDTH 11.8 % (11.6-14.8); WHITE BLOOD COUNT 6.1 K/UL (4.8-10.8)
[2018-07-03] MEDS: Atenolol 25mg tab ORAL SCH (09:00)
[2018-07-03] MEDS: Losartan 50mg tab ORAL SCH (09:07)
[2018-07-03] MEDS: dilTIAZem HCl CD 120mg cap ORAL SCH (09:08)
[2018-07-03] MEDS: Levofloxacin 750mg tab ORAL SCH (09:08)
[2018-07-03] MEDS: Aspirin EC 81mg tab ORAL SCH (09:08)
[2018-07-03 09:09] LABS: ALANINE AMINOTRANSFERASE 44 U/L (12-78); ALBUMIN 2.8 G/DL (3.4-5.0); ALBUMIN/GLOBULIN RATIO 0.7 (1.0-2.7); ALKALINE PHOSPHATASE 99 U/L (46-116); ANION GAP 11 mmol/L (5-15); ASPARTATE AMINO TRANSFERASE 29 U/L (15-37); BILIRUBIN,TOTAL 0.6 MG/DL (0.2-1.0); BLOOD UREA NITROGEN 31 mg/dL (7-18); CALCIUM 9.4 MG/DL (8.5-10.1); CARBON DIOXIDE 25 MMOL/L (21-32); CHLORIDE 103 MMOL/L (98-107); CREATININE 1.6 MG/DL (0.55-1.30); POTASSIUM 3.5 MMOL/L (3.5-5.1); SODIUM 139 MMOL/L (136-145)
[2018-07-03] MEDS: Heparin 5000 units/ml inj SUBQ SCH ×2 (09:10→21:00)
[2018-07-03] MEDS: Vancomycin 1.5gm Premix IVPB SCH (12:11)
--- NOTE | 2018-07-03 12:18 | Infectious Diseases Prog Note ---
Assessment/Plan Assessment/Plan A; Bilateral leg cellulitis, Culture: Enterococcus & Pseudomonas HPN Chronic Venous stasis P; Continue Vancomycin X 2 days Continue Levaquin X 4 days Subjective ROS Limited/Unobtainable: No Constitutional: Reports: no symptoms Respiratory: Reports: no symptoms Cardiovascular: Reports: no symptoms Genitourinary: Reports: no symptoms Allergies: Coded Allergies: No Known Allergies (Unverified , 06/22/18) Objective Vital Signs Last 24 Hour Vital Signs Date Time Temp Pulse Resp B/P (MAP) Pulse Ox O2 Delivery O2 Flow Rate FiO2 07/03/18 09:08 60 103/60 07/03/18 09:07 103/60 07/03/18 09:00 60 103/60 07/03/18 04:00 48 07/03/18 04:00 97.5 48 18 125/62 (83) 97 07/03/18 00:00 96.9 50 18 113/63 (80) 98 07/03/18 00:00 50 07/02/18 21:06 66 113/63 07/02/18 21:00 Room Air 07/02/18 21:00 113/63 (80) 07/02/18 20:00 97.9 64 18 100/56 (71) 97 07/02/18 20:00 64 07/02/18 16:03 97.6 57 18 98/57 (71) 97 07/02/18 16:00 60 Height (Feet): 6 Height (Inches): 4.00 Weight (Pounds): 222 HEENT: mucous membranes moist Respiratory/Chest: lungs clear Cardiovascular: normal rate Abdomen: soft, non tender Extremities: no edema Skin: other - erythema of legs Neurologic/Psychiatric: alert, oriented x 3, responsive, other - decreased hearing Laboratory Tests Test 07/03/18 08:04 White Blood Count 6.1 K/UL (4.8-10.8) Red Blood Count 4.46 M/UL (4.70-6.10) L Hemoglobin 14.1 G/DL (14.2-18.0) L Hematocrit 42.0 % (42.0-52.0) Mean Corpuscular Volume 94 FL (80-99) Mean Corpuscular Hemoglobin 31.6 PG (27.0-31.0) H Mean Corpuscular Hemoglobin Concent 33.6 G/DL (32.0-36.0) Red Cell Distribution Width 11.8 % (11.6-14.8) Platelet Count 270 K/UL (150-450) Mean Platelet Volume 7.0 FL (6.5-10.1) Neutrophils (%) (Auto) 68.4 % (45.0-75.0) Lymphocytes (%) (Auto) 17.3 % (20.0-45.0) L Monocytes (%) (Auto) 7.2 % (1.0-10.0) Eosinophils (%) (Auto) 6.0 % (0.0-3.0) H Basophils (%) (Auto) 1.2 % (0.0-2.0) Sodium Level 139 MMOL/L (136-145) Potassium Level 3.5 MMOL/L (3.5-5.1) Chloride Level 103 MMOL/L (98-107) Carbon Dioxide Level 25 MMOL/L (21-32) Anion Gap 11 mmol/L (5-15) Blood Urea Nitrogen 31 mg/dL (7-18) H Creatinine 1.6 MG/DL (0.55-1.30) H Estimat Glomerular Filtration Rate mL/min (>60) Glucose Level 139 MG/DL (74-106) H Calcium Level 9.4 MG/DL (8.5-10.1) Magnesium Level 2.0 MG/DL (1.8-2.4) Total Bilirubin 0.6 MG/DL (0.2-1.0) Aspartate Amino Transf (AST/SGOT) 29 U/L (15-37) Alanine Aminotransferase (ALT/SGPT) 44 U/L (12-78) Alkaline Phosphatase 99 U/L (46-116) Pro-B-Type Natriuretic Peptide 79 pg/mL (0-125) Total Protein 7.1 G/DL (6.4-8.2) Albumin 2.8 G/DL (3.4-5.0) L Globulin 4.3 g/dL Albumin/Globulin Ratio 0.7 (1.0-2.7) L Current Medications Medications (Trade) Dose Ordered Sig/Remigio Route PRN Reason Start Time Stop Time Status Last Admin Dose Admin Acetaminophen (Tylenol) 500 mg Q4H PRN ORAL Mild Pain/Temp > 100.5 06/27/18 16:00 07/22/18 15:59 Aspirin (Ecotrin) 81 mg DAILY ORAL 06/28/18 09:00 07/24/18 09:59 07/03/18 09:08 Atenolol (Tenormin) 12.5 mg DAILY ORAL 07/01/18 09:00 07/31/18 08:59 07/02/18 09:25 Diltiazem HCl (Cardizem CD) 120 mg DAILY ORAL 07/03/18 09:00 08/02/18 08:59 07/03/18 09:08 Heparin Sodium (Porcine) (Heparin 5000 units/ml) 5,000 units EVERY 12 HOURS SUBQ 06/27/18 21:00 07/23/18 08:59 07/03/18 09:10 Hydrochlorothiazide (Hydrodiuril) 25 mg DAILY ORAL 06/30/18 09:00 07/30/18 08:59 07/03/18 09:08 Hydrocortisone (Hydrocortisone) 1 applic BID PRN TOPIC Itching 07/02/18 22:45 08/01/18 22:44 Levofloxacin (Levaquin) 750 mg DAILY ORAL 06/28/18 09:00 07/07/18 23:59 07/03/18 09:08 Losartan Potassium (Cozaar) 100 mg DAILY ORAL 06/28/18 09:00 07/26/18 08:59 07/03/18 09:07 Ondansetron HCl (Zofran) 4 mg Q6H PRN IVP Nausea & Vomiting 06/27/18 16:00 07/22/18 15:59 Vancomycin HCl (Vanco rx to dose) 1 ea DAILY PRN MISC Per rx protocol 06/27/18 16:00 07/27/18 15:59 Vancomycin HCl/ Dextrose 275 ml @ 137.5 mls/ hr Q24H IVPB 07/01/18 12:00 07/06/18 11:59 07/03/18 12:11 Stephon Barrera MD Jul 03, 2018 12:18
--- NOTE | 2018-07-03 14:28 | General Progress Note ---
Assessment/Plan Problem List: (1) ASCVD (arteriosclerotic cardiovascular disease) ICD Codes: I25.10 - Atherosclerotic heart disease of [place] coronary artery without angina pectoris SNOMED: 74080612 (2) Venous insufficiency ICD Codes: I87.2 - Venous insufficiency (chronic) (peripheral) SNOMED: 62656589 (3) Bilateral lower leg cellulitis ICD Codes: L03.116 - Cellulitis of left lower limb; L03.115 - Cellulitis of right lower limb SNOMED: 247922269 Status: stable, progressing Assessment/Plan monitor vitals abx per id dc hctz monitor labs b-blockade mobilize and monitor HR abx and wound care outpt neurosurg eval POC d/w nephew Subjective ROS Limited/Unobtainable: No Constitutional: Reports: malaise, weakness HEENT: Reports: no symptoms Cardiovascular: Reports: no symptoms Respiratory: Reports: no symptoms Gastrointestinal/Abdominal: Reports: no symptoms Genitourinary: Reports: no symptoms Neurologic/Psychiatric: Reports: no symptoms Endocrine: Reports: no symptoms Hematologic/Lymphatic: Reports: no symptoms Allergies: Coded Allergies: No Known Allergies (Unverified , 06/22/18) All Systems: reviewed and negative except above Subjective slept "really good " last night. HR controlled. RN notes HR in the 160s when getting out of bed.mostly 50s. renal fxn worse, on hctz Objective Last 24 Hour Vital Signs Date Time Temp Pulse Resp B/P (MAP) Pulse Ox O2 Delivery O2 Flow Rate FiO2 07/03/18 09:08 60 103/60 07/03/18 09:07 103/60 07/03/18 09:00 60 103/60 07/03/18 04:00 48 07/03/18 04:00 97.5 48 18 125/62 (83) 97 07/03/18 00:00 96.9 50 18 113/63 (80) 98 07/03/18 00:00 50 07/02/18 21:06 66 113/63 07/02/18 21:00 Room Air 07/02/18 21:00 113/63 (80) 07/02/18 20:00 97.9 64 18 100/56 (71) 97 07/02/18 20:00 64 07/02/18 16:03 97.6 57 18 98/57 (71) 97 07/02/18 16:00 60 Intake and Output 07/02/18 07/03/18 18:59 06:59 Intake Total 480 ml 240 ml Output Total 1100 ml 950 ml Balance -620 ml -710 ml Intake Oral 480 ml 240 ml Output Urine Total 1100 ml 950 ml # Voids 2 # Bowel Movements 1 1 Laboratory Tests 07/03/18 08:04: White Blood Count 6.1, Red Blood Count 4.46L, Hemoglobin 14.1L, Hematocrit 42.0 , Mean Corpuscular Volume 94, Mean Corpuscular Hemoglobin 31.6H, Mean Corpuscular Hemoglobin Concent 33.6, Red Cell Distribution Width 11.8, Platelet Count 270, Mean Platelet Volume 7.0, Neutrophils (%) (Auto) 68.4, Lymphocytes (% ) (Auto) 17.3L, Monocytes (%) (Auto) 7.2, Eosinophils (%) (Auto) 6.0H, Basophils (%) (Auto) 1.2, Sodium Level 139, Potassium Level 3.5, Chloride Level 103, Carbon Dioxide Level 25, Anion Gap 11, Blood Urea Nitrogen 31H, Creatinine 1.6H, Estimat Glomerular Filtration Rate , Glucose Level 139H, Calcium Level 9.4 , Magnesium Level 2.0, Total Bilirubin 0.6, Aspartate Amino Transf (AST/SGOT) 29 , Alanine Aminotransferase (ALT/SGPT) 44, Alkaline Phosphatase 99, Pro-B-Type Natriuretic Peptide 79, Total Protein 7.1, Albumin 2.8L, Globulin 4.3, Albumin/ Globulin Ratio 0.7L Height (Feet): 6 Height (Inches): 4.00 Weight (Pounds): 222 Objective General Appearance: WD/WN, alert Neck: supple Cardiovascular: regular rhythm Respiratory/Chest: chest wall non-tender, lungs clear, normal breath sounds Abdomen: normal bowel sounds, non tender, soft, no organomegaly Edema: no edema noted Arm (L), no edema noted Arm (R), no edema noted Leg (L), no edema noted Leg (R), no edema noted Pedal (L), no edema noted Pedal (R), no edema noted Generalized Neurologic: frame bander II-XII grossly normal, abnormal gait, alert, oriented x 3, responsive Christian Messina MD Jul 03, 2018 14:28
[2018-07-03 16:00] VITALS: BP 112/47
--- NOTE | 2018-07-03 18:12 | Surgery Progress Note ---
Surgery Progress Note Subjective Additional Comments doing well. family at bedside and they are awaiting rehab recovery. Objective Last 24 Hour Vital Signs Date Time Temp Pulse Resp B/P (MAP) Pulse Ox O2 Delivery O2 Flow Rate FiO2 07/03/18 16:00 59 07/03/18 16:00 97.2 59 20 112/47 (68) 97 07/03/18 12:00 66 07/03/18 09:08 60 103/60 07/03/18 09:07 103/60 07/03/18 09:00 Room Air 07/03/18 09:00 60 103/60 07/03/18 08:00 97.5 61 21 103/60 (74) 97 07/03/18 08:00 63 07/03/18 04:00 48 07/03/18 04:00 97.5 48 18 125/62 (83) 97 07/03/18 00:00 96.9 50 18 113/63 (80) 98 07/03/18 00:00 50 07/02/18 21:06 66 113/63 07/02/18 21:00 Room Air 07/02/18 21:00 113/63 (80) 07/02/18 20:00 97.9 64 18 100/56 (71) 97 07/02/18 20:00 64 I&O Intake and Output 07/02/18 07/03/18 18:59 06:59 Intake Total 480 ml 240 ml Output Total 1100 ml 950 ml Balance -620 ml -710 ml Intake Oral 480 ml 240 ml Output Urine Total 1100 ml 950 ml # Voids 2 # Bowel Movements 1 1 Dressing: dry Wound: clean Drains: none Cardiovascular: RSR Respiratory: clear Abdomen: soft, non-tender, present bowel sounds, non-distended Extremities: no edema, no tenderness, no cyanosis Laboratory Tests Test 07/03/18 08:04 White Blood Count 6.1 K/UL (4.8-10.8) Red Blood Count 4.46 M/UL (4.70-6.10) L Hemoglobin 14.1 G/DL (14.2-18.0) L Hematocrit 42.0 % (42.0-52.0) Mean Corpuscular Volume 94 FL (80-99) Mean Corpuscular Hemoglobin 31.6 PG (27.0-31.0) H Mean Corpuscular Hemoglobin Concent 33.6 G/DL (32.0-36.0) Red Cell Distribution Width 11.8 % (11.6-14.8) Platelet Count 270 K/UL (150-450) Mean Platelet Volume 7.0 FL (6.5-10.1) Neutrophils (%) (Auto) 68.4 % (45.0-75.0) Lymphocytes (%) (Auto) 17.3 % (20.0-45.0) L Monocytes (%) (Auto) 7.2 % (1.0-10.0) Eosinophils (%) (Auto) 6.0 % (0.0-3.0) H Basophils (%) (Auto) 1.2 % (0.0-2.0) Sodium Level 139 MMOL/L (136-145) Potassium Level 3.5 MMOL/L (3.5-5.1) Chloride Level 103 MMOL/L (98-107) Carbon Dioxide Level 25 MMOL/L (21-32) Anion Gap 11 mmol/L (5-15) Blood Urea Nitrogen 31 mg/dL (7-18) H Creatinine 1.6 MG/DL (0.55-1.30) H Estimat Glomerular Filtration Rate mL/min (>60) Glucose Level 139 MG/DL (74-106) H Calcium Level 9.4 MG/DL (8.5-10.1) Magnesium Level 2.0 MG/DL (1.8-2.4) Total Bilirubin 0.6 MG/DL (0.2-1.0) Aspartate Amino Transf (AST/SGOT) 29 U/L (15-37) Alanine Aminotransferase (ALT/SGPT) 44 U/L (12-78) Alkaline Phosphatase 99 U/L (46-116) Pro-B-Type Natriuretic Peptide 79 pg/mL (0-125) Total Protein 7.1 G/DL (6.4-8.2) Albumin 2.8 G/DL (3.4-5.0) L Globulin 4.3 g/dL Albumin/Globulin Ratio 0.7 (1.0-2.7) L Plan Problems: (1) Bilateral lower leg cellulitis Assessment & Plan: Pt presented on admission with weeping edema of bilateral lower ext with multiple ulcerations both tibias. Haemosiderin stain both lower ext. Large ulcer lateral R tibia with irregular borders,60% soft brown scab,50% biofilm oozing non-odorous serous exudate. Multiple smaller ulcers noted medially with mixed erythema and biofilm with macerated borders. Multiple ulcerations noted to medial and lateral L tibia. Pt also noted to noted to have multiple bulbous lesions to R and L cleft of buttocks Pt verbalized having long Hx of having these lesions on buttocks. Duplex noted labs okay CT noted without abscess or osteo Subcutaneous edema and skin thickening demonstrated within the lower aspects of both legs left worse than right presumably on the basis of cellulitis. The study is limited but there is no obvious evidence of osteomyelitis or abscess. wounds improving edema improved recovering well office follow up given Tx plan: Cleanse both lower extremities with Saline. Cover wounds with Xeroform gauze .Cover with ABD Pads. Wrap with Kerlix from base of toes Daily and prn. . Apply Triad Paste to Buttocks with each perineal care. Encourage pt to reposition at least hourly while in bed. Elevate both lower ext with pillows. Abx Keep elevated when in bed okay to ambulate resolving d/c planning Ned Albrecht Jul 03, 2018 18:12
[2018-07-03 20:00] VITALS: BP 108/57
[2018-07-04] VITALS: BP 115/54
[2018-07-04 04:00] VITALS: BP 135/62
--- NOTE | 2018-07-04 04:00 | Progress Note ---
DATE: 07/03/2018 CARDIOLOGY PROGRESS NOTE SUBJECTIVE: The patient remains with tachycardia upon ambulation. Heart rates in the 50s at rest. No associated symptoms. OBJECTIVE: VITAL SIGNS: Blood pressure 103/60, pulse 60, respirations 18. NECK: Supple. LUNGS: Clear. CARDIAC: Regular. Normal S1, S2. ABDOMEN: Soft. EXTREMITIES: Trace dependent edema with stasis derm changes. IMPRESSION: 1. Orthostatic symptoms. 2. Sinus tachycardia. 3. Paroxysmal supraventricular tachycardia. 4. Sinus node disease. 5. Venous insufficiency. 6. Bilateral lower extremity cellulitis. 7. Lower extremity venous ulcers. PLAN: 1. No diuretics at this time. 2. Cautious use of beta-tory. 3. Monitor orthostatics. 4. Antibiotics. 5. Respiratory hygiene. 6. Consider compression hose in the future. Pranav Russo M.D. DR: CHIDI JOB#: [id number] CC:
[2018-07-04 08:00] VITALS: BP 135/60
--- NOTE | 2018-07-04 08:07 | General Progress Note ---
Assessment/Plan Problem List: (1) ASCVD (arteriosclerotic cardiovascular disease) ICD Codes: I25.10 - Atherosclerotic heart disease of [place] coronary artery without angina pectoris SNOMED: 80249740 (2) Venous insufficiency ICD Codes: I87.2 - Venous insufficiency (chronic) (peripheral) SNOMED: 79015566 (3) Bilateral lower leg cellulitis ICD Codes: L03.116 - Cellulitis of left lower limb; L03.115 - Cellulitis of right lower limb SNOMED: 499020639 Status: stable, progressing Assessment/Plan monitor vitals abx per id dc hctz monitor labs b-blockade mobilize and monitor HR abx and wound care outpt neurosurg eval POC d/w nephew Subjective ROS Limited/Unobtainable: No Constitutional: Reports: malaise, weakness HEENT: Reports: no symptoms Cardiovascular: Reports: no symptoms Respiratory: Reports: no symptoms Genitourinary: Reports: no symptoms Neurologic/Psychiatric: Reports: no symptoms Endocrine: Reports: no symptoms Hematologic/Lymphatic: Reports: no symptoms Allergies: Coded Allergies: No Known Allergies (Unverified , 06/22/18) All Systems: reviewed and negative except above Subjective slept "really good " last night. HR controlled. off diuretics. labs pending this am Objective Last 24 Hour Vital Signs Date Time Temp Pulse Resp B/P (MAP) Pulse Ox O2 Delivery O2 Flow Rate FiO2 07/04/18 04:00 97.9 69 18 135/62 (86) 98 07/04/18 04:00 69 07/04/18 00:00 64 07/04/18 00:00 97.7 64 18 115/54 (74) 98 07/03/18 21:00 Room Air 07/03/18 20:00 97.7 72 18 108/57 (74) 98 07/03/18 20:00 72 07/03/18 16:00 59 07/03/18 16:00 97.2 59 20 112/47 (68) 97 07/03/18 12:00 66 07/03/18 09:08 60 103/60 07/03/18 09:07 103/60 07/03/18 09:00 Room Air 07/03/18 09:00 60 103/60 Intake and Output 07/03/18 07/04/18 19:00 07:00 Intake Total 960 ml Output Total 1000 ml 425 ml Balance -40 ml -425 ml Intake Oral 480 ml Other 480 ml Output Urine Total 1000 ml 425 ml # Voids 4 2 # Bowel Movements 2 1 Laboratory Tests 07/04/18 07:17: Sodium Level [Pending], Potassium Level [Pending], Chloride Level [Pending], Carbon Dioxide Level [Pending], Blood Urea Nitrogen [Pending], Creatinine [ Pending], Estimat Glomerular Filtration Rate [Pending], Glucose Level [Pending] , Calcium Level [Pending], Total Bilirubin [Pending], Aspartate Amino Transf ( AST/SGOT) [Pending], Alanine Aminotransferase (ALT/SGPT) [Pending], Alkaline Phosphatase [Pending], Total Protein [Pending], Albumin [Pending], Globulin [ Pending] Height (Feet): 6 Height (Inches): 4.00 Weight (Pounds): 222 Objective General Appearance: WD/WN, alert Neck: supple Cardiovascular: regular rhythm Respiratory/Chest: chest wall non-tender, lungs clear, normal breath sounds Abdomen: normal bowel sounds, non tender, soft, no organomegaly Edema: no edema noted Arm (L), no edema noted Arm (R), no edema noted Leg (L), no edema noted Leg (R), no edema noted Pedal (L), no edema noted Pedal (R), no edema noted Generalized Neurologic: rn pediatric II-XII grossly normal, abnormal gait, alert, oriented x 3, responsive Christian Messina MD Jul 04, 2018 08:07
[2018-07-04 08:36] LABS: ALANINE AMINOTRANSFERASE 44 U/L (12-78); ALBUMIN 2.9 G/DL (3.4-5.0); ALBUMIN/GLOBULIN RATIO 0.7 (1.0-2.7); ALKALINE PHOSPHATASE 96 U/L (46-116); ANION GAP 9 mmol/L (5-15); ASPARTATE AMINO TRANSFERASE 24 U/L (15-37); BILIRUBIN,TOTAL 0.6 MG/DL (0.2-1.0); BLOOD UREA NITROGEN 34 mg/dL (7-18); CALCIUM 9.5 MG/DL (8.5-10.1); CARBON DIOXIDE 26 MMOL/L (21-32); CHLORIDE 106 MMOL/L (98-107); CREATININE 1.5 MG/DL (0.55-1.30); POTASSIUM 3.7 MMOL/L (3.5-5.1); SODIUM 141 MMOL/L (136-145)
[2018-07-04] MEDS: Atenolol 25mg tab ORAL SCH (09:00)
[2018-07-04] MEDS: Levofloxacin 750mg tab ORAL SCH (09:34)
[2018-07-04] MEDS: Losartan 50mg tab ORAL SCH (09:34)
[2018-07-04] MEDS: Aspirin EC 81mg tab ORAL SCH (09:34)
[2018-07-04] MEDS: dilTIAZem HCl CD 120mg cap ORAL SCH (09:35)
[2018-07-04] MEDS: Heparin 5000 units/ml inj SUBQ SCH ×2 (09:37→20:50)
[2018-07-04 12:00] VITALS: BP 98/58
[2018-07-04] MEDS: Vancomycin 1.5gm Premix IVPB SCH (13:27)
--- NOTE | 2018-07-04 13:41 | Infectious Diseases Prog Note ---
Assessment/Plan Assessment/Plan A; Bilateral leg cellulitis, Culture: Enterococcus & Pseudomonas HPN Chronic Venous stasis P; Continue Vancomycin X 1 day Continue Levaquin X 3 days Subjective ROS Limited/Unobtainable: No Constitutional: Reports: no symptoms Respiratory: Reports: no symptoms Cardiovascular: Reports: no symptoms Gastrointestinal/Abdominal: Reports: no symptoms Genitourinary: Reports: no symptoms Musculoskeletal: Reports: no symptoms Allergies: Coded Allergies: No Known Allergies (Unverified , 06/22/18) Objective Vital Signs Last 24 Hour Vital Signs Date Time Temp Pulse Resp B/P (MAP) Pulse Ox O2 Delivery O2 Flow Rate FiO2 07/04/18 09:35 63 135/60 07/04/18 09:34 135/60 07/04/18 09:00 63 07/04/18 08:00 97.4 57 20 135/60 (85) 98 07/04/18 04:00 97.9 69 18 135/62 (86) 98 07/04/18 04:00 69 07/04/18 00:00 64 07/04/18 00:00 97.7 64 18 115/54 (74) 98 07/03/18 21:00 Room Air 07/03/18 20:00 97.7 72 18 108/57 (74) 98 07/03/18 20:00 72 07/03/18 16:00 59 07/03/18 16:00 97.2 59 20 112/47 (68) 97 Height (Feet): 6 Height (Inches): 4.00 Weight (Pounds): 222 General Appearance: no acute distress HEENT: mucous membranes moist Respiratory/Chest: lungs clear Cardiovascular: normal rate Abdomen: soft, non tender Skin: other - legs erythema improving Neurologic/Psychiatric: alert, oriented x 3, responsive Laboratory Tests Test 07/04/18 07:17 Sodium Level 141 MMOL/L (136-145) Potassium Level 3.7 MMOL/L (3.5-5.1) Chloride Level 106 MMOL/L (98-107) Carbon Dioxide Level 26 MMOL/L (21-32) Anion Gap 9 mmol/L (5-15) Blood Urea Nitrogen 34 mg/dL (7-18) H Creatinine 1.5 MG/DL (0.55-1.30) H Estimat Glomerular Filtration Rate mL/min (>60) Glucose Level 92 MG/DL (74-106) Calcium Level 9.5 MG/DL (8.5-10.1) Total Bilirubin 0.6 MG/DL (0.2-1.0) Aspartate Amino Transf (AST/SGOT) 24 U/L (15-37) Alanine Aminotransferase (ALT/SGPT) 44 U/L (12-78) Alkaline Phosphatase 96 U/L (46-116) Total Protein 7.1 G/DL (6.4-8.2) Albumin 2.9 G/DL (3.4-5.0) L Globulin 4.2 g/dL Albumin/Globulin Ratio 0.7 (1.0-2.7) L Current Medications Medications (Trade) Dose Ordered Sig/Remigio Route PRN Reason Start Time Stop Time Status Last Admin Dose Admin Acetaminophen (Tylenol) 500 mg Q4H PRN ORAL Mild Pain/Temp > 100.5 06/27/18 16:00 07/22/18 15:59 Aspirin (Ecotrin) 81 mg DAILY ORAL 06/28/18 09:00 07/24/18 09:59 07/04/18 09:34 Atenolol (Tenormin) 12.5 mg DAILY ORAL 07/01/18 09:00 07/31/18 08:59 07/02/18 09:25 Diltiazem HCl (Cardizem CD) 120 mg DAILY ORAL 07/03/18 09:00 08/02/18 08:59 07/04/18 09:35 Heparin Sodium (Porcine) (Heparin 5000 units/ml) 5,000 units EVERY 12 HOURS SUBQ 06/27/18 21:00 07/23/18 08:59 07/04/18 09:37 Hydrocortisone (Hydrocortisone) 1 applic BID PRN TOPIC Itching 07/02/18 22:45 08/01/18 22:44 Levofloxacin (Levaquin) 750 mg DAILY ORAL 06/28/18 09:00 07/07/18 23:59 07/04/18 09:34 Losartan Potassium (Cozaar) 100 mg DAILY ORAL 06/28/18 09:00 07/26/18 08:59 07/04/18 09:34 Ondansetron HCl (Zofran) 4 mg Q6H PRN IVP Nausea & Vomiting 06/27/18 16:00 07/22/18 15:59 Sodium Chloride 1,000 ml @ 75 mls/hr [id number] IV 07/03/18 14:30 08/02/18 14:29 07/03/18 14:50 Vancomycin HCl (Vanco rx to dose) 1 ea DAILY PRN MISC Per rx protocol 06/27/18 16:00 07/27/18 15:59 Vancomycin HCl/ Dextrose 275 ml @ 137.5 mls/ hr Q24H IVPB 07/01/18 12:00 07/06/18 11:59 07/04/18 13:27 Stephon Barrera MD Jul 04, 2018 13:41
--- NOTE | 2018-07-04 14:22 | Surgery Progress Note ---
Surgery Progress Note Subjective Symptoms: improved, tolerating diet, passing flatus, BM Objective Last 24 Hour Vital Signs Date Time Temp Pulse Resp B/P (MAP) Pulse Ox O2 Delivery O2 Flow Rate FiO2 07/04/18 09:35 63 135/60 07/04/18 09:34 135/60 07/04/18 09:00 63 07/04/18 08:00 97.4 57 20 135/60 (85) 98 07/04/18 04:00 97.9 69 18 135/62 (86) 98 07/04/18 04:00 69 07/04/18 00:00 64 07/04/18 00:00 97.7 64 18 115/54 (74) 98 07/03/18 21:00 Room Air 07/03/18 20:00 97.7 72 18 108/57 (74) 98 07/03/18 20:00 72 07/03/18 16:00 59 07/03/18 16:00 97.2 59 20 112/47 (68) 97 I&O Intake and Output 07/03/18 07/04/18 19:00 07:00 Intake Total 960 ml Output Total 1000 ml 425 ml Balance -40 ml -425 ml Intake Oral 480 ml Other 480 ml Output Urine Total 1000 ml 425 ml # Voids 4 2 # Bowel Movements 2 1 Dressing: dry Wound: clean Drains: none Cardiovascular: RSR Respiratory: clear Abdomen: soft, flat, present bowel sounds Extremities: no edema, no tenderness, no cyanosis Laboratory Tests Test 07/04/18 07:17 Sodium Level 141 MMOL/L (136-145) Potassium Level 3.7 MMOL/L (3.5-5.1) Chloride Level 106 MMOL/L (98-107) Carbon Dioxide Level 26 MMOL/L (21-32) Anion Gap 9 mmol/L (5-15) Blood Urea Nitrogen 34 mg/dL (7-18) H Creatinine 1.5 MG/DL (0.55-1.30) H Estimat Glomerular Filtration Rate mL/min (>60) Glucose Level 92 MG/DL (74-106) Calcium Level 9.5 MG/DL (8.5-10.1) Total Bilirubin 0.6 MG/DL (0.2-1.0) Aspartate Amino Transf (AST/SGOT) 24 U/L (15-37) Alanine Aminotransferase (ALT/SGPT) 44 U/L (12-78) Alkaline Phosphatase 96 U/L (46-116) Total Protein 7.1 G/DL (6.4-8.2) Albumin 2.9 G/DL (3.4-5.0) L Globulin 4.2 g/dL Albumin/Globulin Ratio 0.7 (1.0-2.7) L Plan Problems: (1) Bilateral lower leg cellulitis Assessment & Plan: Pt presented on admission with weeping edema of bilateral lower ext with multiple ulcerations both tibias. Haemosiderin stain both lower ext. Large ulcer lateral R tibia with irregular borders,60% soft brown scab,50% biofilm oozing non-odorous serous exudate. Multiple smaller ulcers noted medially with mixed erythema and biofilm with macerated borders. Multiple ulcerations noted to medial and lateral L tibia. Pt also noted to noted to have multiple bulbous lesions to R and L cleft of buttocks Pt verbalized having long Hx of having these lesions on buttocks. Duplex noted labs okay CT noted without abscess or osteo Subcutaneous edema and skin thickening demonstrated within the lower aspects of both legs left worse than right presumably on the basis of cellulitis. The study is limited but there is no obvious evidence of osteomyelitis or abscess. wounds improving edema improved recovering well office follow up given Tx plan: Cleanse both lower extremities with Saline. Cover wounds with Xeroform gauze .Cover with ABD Pads. Wrap with Kerlix from base of toes Daily and prn. . Apply Triad Paste to Buttocks with each perineal care. Encourage pt to reposition at least hourly while in bed. Elevate both lower ext with pillows. Abx Keep elevated when in bed okay to ambulate resolving d/c planning Ned Albrecht Jul 04, 2018 14:22
[2018-07-04 16:00] VITALS: BP 108/47
--- NOTE | 2018-07-04 19:36 | Cardiology Report ---
APPROVED REPORT EKG Measurement Heart [id number] Sinus bradycardia with 1st degree AV block Incomplete right bundle branch block Borderline ECG
[2018-07-04 20:00] VITALS: BP 109/57
[2018-07-05] VITALS: BP 101/55
[2018-07-05 04:00] VITALS: BP 141/68
[2018-07-05 08:00] VITALS: BP 144/73
[2018-07-05] MEDS: Losartan 50mg tab ORAL SCH (10:02)
[2018-07-05] MEDS: dilTIAZem HCl CD 120mg cap ORAL SCH (10:02)
[2018-07-05] MEDS: Levofloxacin 750mg tab ORAL SCH (10:03)
[2018-07-05] MEDS: Aspirin EC 81mg tab ORAL SCH (10:05)
[2018-07-05] MEDS: Atenolol 25mg tab ORAL SCH (10:06)
--- NOTE | 2018-07-05 10:08 | Infectious Diseases Prog Note ---
"Assessment/Plan Assessment/Plan antibiotics : vancomycin iv, levoquin A 1. bilateral leg cellulitis improving 2. bilateral leg ulcers with enterococcus | pseudomonas | coag neg staph 3. hypertension 4. chronic venous stasis P 1. d/c iv vancomycin 2. continue po levoquin 2 more days 2. will follow up cultures Subjective Constitutional: Denies: fever, chills Respiratory: Denies: shortness of breath, dry cough Gastrointestinal/Abdominal: Denies: nausea, vomiting, diarrhea Musculoskeletal: Denies: pain Allergies: Coded Allergies: No Known Allergies (Unverified , 06/22/18) Objective Vital Signs Last 24 Hour Vital Signs Date Time Temp Pulse Resp B/P (MAP) Pulse Ox O2 Delivery O2 Flow Rate FiO2 07/05/18 10:06 61 144/73 07/05/18 10:02 61 144/73 07/05/18 10:02 144/73 07/05/18 08:50 Room Air 07/05/18 08:00 97.5 61 20 144/73 (96) 92 07/05/18 04:00 53 07/05/18 04:00 97.0 53 18 141/68 (92) 99 07/05/18 00:00 97.0 65 20 101/55 (70) 98 07/05/18 00:00 65 07/04/18 21:00 Room Air 07/04/18 20:00 82 07/04/18 20:00 97.0 82 20 109/57 (74) 97 07/04/18 16:00 64 07/04/18 16:00 97.2 63 20 108/47 (67) 95 07/04/18 12:00 60 07/04/18 12:00 97.8 75 20 98/58 (71) 100 Height (Feet): 6 Height (Inches): 4.00 Weight (Pounds): 222 Respiratory/Chest: lungs clear Cardiovascular: normal rate, regular rhythm, no gallop/murmur Abdomen: soft, non tender Extremities: no edema, other - decreased erythema Current Medications Medications (Trade) Dose Ordered Sig/Remigio Route PRN Reason Start Time Stop Time Status Last Admin Dose Admin Acetaminophen (Tylenol) 500 mg Q4H PRN ORAL Mild Pain/Temp > 100.5 06/27/18 16:00 07/22/18 15:59 Aspirin (Ecotrin) 81 mg DAILY ORAL 06/28/18 09:00 07/24/18 09:59 07/05/18 10:05 Atenolol (Tenormin) 12.5 mg DAILY ORAL 07/01/18 09:00 07/31/18 08:59 07/05/18 10:06 Diltiazem HCl (Cardizem CD) 120 mg DAILY ORAL 07/03/18 09:00 08/02/18 08:59 07/05/18 10:02 Heparin Sodium (Porcine) (Heparin 5000 units/ml) 5,000 units EVERY 12 HOURS SUBQ 06/27/18 21:00 07/23/18 08:59 07/04/18 20:50 Hydrocortisone (Hydrocortisone) 1 applic BID PRN TOPIC Itching 07/02/18 22:45 08/01/18 22:44 Levofloxacin (Levaquin) 750 mg DAILY ORAL 06/28/18 09:00 07/07/18 23:59 07/05/18 10:03 Losartan Potassium (Cozaar) 100 mg DAILY ORAL 06/28/18 09:00 07/26/18 08:59 07/05/18 10:02 Ondansetron HCl (Zofran) 4 mg Q6H PRN IVP Nausea & Vomiting 06/27/18 16:00 07/22/18 15:59 Sodium Chloride 1,000 ml @ 75 mls/hr [id number] IV 07/03/18 14:30 08/02/18 14:29 07/04/18 20:51 Vancomycin HCl (Vanco rx to dose) 1 ea DAILY PRN MISC Per rx protocol 06/27/18 16:00 07/27/18 15:59 Vancomycin HCl/ Dextrose 275 ml @ 137.5 mls/ hr Q24H IVPB 07/01/18 12:00 07/06/18 11:59 07/04/18 13:27 Caron Elizabeth MD Jul 05, 2018 10:08"
[2018-07-05] MEDS: Heparin 5000 units/ml inj SUBQ SCH (10:09)
[2018-07-05 12:00] VITALS: BP 99/55
--- NOTE | 2018-07-06 03:00 | Discharge Summary ---
DATE OF ADMISSION: 06/30/2018 DATE OF DISCHARGE: 07/05/2018 ADMISSION DIAGNOSES: 1. Lower extremity cellulitis. 2. Venous insufficiency. 3. Hypertension. 4. History of gait instability and falls. DISCHARGE DIAGNOSES: 1. Lower extremity cellulitis. 2. Venous insufficiency. 3. Hypertension. 4. History of gait instability and falls. 5. SVT. 6. Bradycardia. 7. Possible hydrocephalus. HOSPITAL COURSE: This is a pleasant male admitted with complaints of lower extremity cellulitis and severe venous insufficiency. He was diuresed. He received antibiotic therapy. Surgical consultation was obtained for wound management. The patient did well. His hospital course was complicated by bradycardia as well as SVT. Medications were adjusted by the turbine technician. The patient was continued on low-dose diuretic therapy. [facility] be [facility] for continued [facility]. DISCHARGE MEDICATIONS: Please see discharge medication list for discharge medications. DIET: Cardiac diet. ACTIVITIES: Ad-anthony. FOLLOWUP: The patient will follow up in one to two days at the [facility] facility. Christian Messina M.D. DR: OMAR JOB#: [id number] CC:
== END 2018-07-05 13:30 | DRG 602 ==
LOC: EMR 16:27 → 4E 16:47 → EDBEDREQ 18:30 → 2E 06-27 13:56
DX: L03.116 Cellulitis of left lower limb (principal); I50.31 Acute diastolic (congestive) heart failure; E43 Unspecified severe protein-calorie malnutrition; G91.9 Hydrocephalus, unspecified; I47.1 Supraventricular tachycardia; L97.229 Non-pressure chronic ulcer of left calf with unspecified severity; L97.219 Non-pressure chronic ulcer of right calf with unspecified severity; L03.115 Cellulitis of right lower limb; I11.0 Hypertensive heart disease with heart failure; B95.2 Enterococcus as the cause of diseases classified elsewhere; B96.5 Pseudomonas (aeruginosa) (mallei) (pseudomallei) as the cause of diseases classified elsewhere; I87.2 Venous insufficiency (chronic) (peripheral); R26.81 Unsteadiness on feet; Z91.81 History of falling; R00.1 Bradycardia, unspecified; T44.7X5A Adverse effect of beta-adrenoreceptor antagonists, initial encounter; M19.90 Unspecified osteoarthritis, unspecified site; I25.10 Atherosclerotic heart disease of native coronary artery without angina pectoris; L98.8 Other specified disorders of the skin and subcutaneous tissue; I95.1 Orthostatic hypotension; E86.1 Hypovolemia; I83.009 Varicose veins of unspecified lower extremity with ulcer of unspecified site
CPT/HCPCS: 36415; 70450; 80053; 80061; 80202; 81003; 83605; 83735; 83880; 84443; 85025; 87040; 87070; 87181; 87205; 93005; 93306; 93925; 93970; 96361; 96365; 99285; J8499; S0077

== ENCOUNTER 2020-02-06 16:30 | Inpatient (IN) | payer OTHER ==
[~2020-02-06] VITALS: Ht 193 cm; Wt 108.4 kg
[~2020-02-06 16:30] MED LIST: ASPIRIN EC81 MG ORAL; ATENOLOL25 MG ORAL; COZAAR50 MG ORAL; HYDROCHLOROTH12.5 M2 ORAL; LEVAQUIN750 MG ORAL; LOSARTAN POTASS25 MG ORAL; VANCOMYCIN750 MG/150 IVPB
--- NOTE | 2020-02-06 18:40 | NUR ---
NURSE NOTES: Patient admitted at 1700 under the care of Christian Garay for left leg cellulitis and CHF. Patient is alert and oriented x 4, verbal and able to make needs known. No SOB. Bed set in lowest position with breaks engaged and alarm on. BP: 104/65 02: 97% on room air. HR: 86. RR: 19. T: 97.5. Denies any pain or discomfort upon arrival. Patient was oriented to room and staff and adjusting well to environment. Dr. Messina aware of patient's arrival. As per caregiver, she will bring official medication list of patient from home. Will continue to monitor pt and proceed with plan of care.
--- NOTE | 2020-02-06 18:40 | NUR ---
NURSE NOTES: Skin assessment done and inventory checklist completed. Pt stated he wants to put safe box at bedside. Will continue to monitor.
--- NOTE | 2020-02-06 19:30 | NUR ---
HAND-OFF: Report given to EVA Brennan.
[2020-02-06] MEDS ORDERED: FUROSEMIDE40 MG ORAL (19:31)
[2020-02-06] MEDS ORDERED: LOSARTAN POTASS50 MG ORAL (19:31)
[2020-02-06] MEDS ORDERED: POTASSIUM CHLO20 ME1 ORAL (19:31)
[2020-02-06] MEDS ORDERED: ADVIL200 MG ORAL (19:31)
[2020-02-06 20:00] VITALS: BP 127/73
[2020-02-06] MEDS ORDERED: Acetaminophen 500mg (ES) tab ORAL PRN (20:00)
--- NOTE | 2020-02-06 20:00 | NUR ---
NURSE NOTES: Patient received in bed, aox3; forgetful but able to be re-oriented. US tech at bedside for venous duplex scan. Dr. Russo at bedside; received order for full code status; and verified continued home medications ordered by Dr. Messina earlier- Caregiver brought patient's home medications for reconciliation. Caregiver brought back home his medications after recording in the system. Patient is provided with call light, instructed to use for assistance. Will continue plan of care.
[2020-02-06] MEDS: Aspirin EC 81mg tab ORAL SCH (20:22)
--- NOTE | 2020-02-06 20:45 | History and Physical Report ---
DATE OF ADMISSION: 02/06/2020 CHIEF COMPLAINT: CHF and cellulitis. HISTORY OF PRESENT ILLNESS: The patient is an 79-year-old male. He has a history of hypertensive heart disease and venous insufficiency. He initially presented to the office a little over a week ago with complaints of worsening lower extremity edema and pain in the legs. He was diagnosed with cellulitis and CHF. His oral diuretic regimen was advanced. Unfortunately, his symptoms have not improved and he is therefore admitted for further inpatient evaluation and care. PAST MEDICAL HISTORY: As above. PAST SURGICAL HISTORY: None. CURRENT MEDICATIONS: Reconciled and reviewed. ALLERGIES: None. FAMILY HISTORY: None. SOCIAL HISTORY: There is no known history of tobacco, ethanol, or drugs. REVIEW OF SYSTEMS: GENERAL: No fevers or chills. HEENT: No headaches or visual changes. CARDIOPULMONARY: No chest pain or shortness of breath. GASTROINTESTINAL: No nausea or vomiting. GENITOURINARY: No urgency or frequency. MUSCULOSKELETAL: Positive leg pain. NEUROLOGICAL: No history of seizures. PHYSICAL EXAMINATION: VITAL SIGNS: Temperature 98 degrees, blood pressure 130/76, pulse 80, respirations 20. GENERAL: The patient is well developed, in no apparent distress. HEENT: Head, normocephalic and atraumatic. Sclerae anicteric. Oropharynx clear. NECK: Supple. There is no jugular venous distention. HEART: Regular rate and rhythm. LUNGS: Significant for diminished breath sounds at the bases. ABDOMEN: Soft, nontender, nondistended. EXTREMITIES: Significant for 3+ pitting edema with erythema on both shins. LABORATORY DATA: Pending. ASSESSMENT: This is a pleasant elderly male admitted with complaints of lower extremity cellulitis and congestive heart failure. PLAN: 1. IV diuretic treatment. 2. Continue oral cardiac regimen. 3. Elevate legs. 4. IV antibiotics for cellulitis. 5. Followup labs. 6. Cardiology consultation. Christian Messina M.D. DR: SUYAPA JOB#: [id number] CC:
--- NOTE | 2020-02-06 21:00 | NUR ---
NURSE NOTES: Patient is hard stick. RN and charge accounts audit clerk attempted to insert IV. unsuccessful. ER crusher supervisor insterted IV on left Antecubital. Buttock and sacral wounds dressed; left leg dressing reinforced.
[2020-02-06 21:42] LABS: HEMATOCRIT 35.9 % (42.0-52.0); HEMOGLOBIN 12.3 G/DL (14.2-18.0); MEAN CORPUSCULAR VOLUME 96 FL (80-99); PLATELET COUNT 224 K/UL (150-450); RED BLOOD COUNT 3.74 M/UL (4.70-6.10)
[2020-02-06 21:46] LABS: WHITE BLOOD COUNT 28.7 K/UL (4.8-10.8)
--- NOTE | 2020-02-06 21:56 | NUR ---
NURSE NOTES: Dr. Messina notified of WBC count of 28.7; awaiting for orders.
[2020-02-06 22:07] LABS: ALBUMIN 2.8 G/DL (3.4-5.0); ALBUMIN/GLOBULIN RATIO 0.7 (1.0-2.7); BILIRUBIN,TOTAL 0.6 MG/DL (0.2-1.0); CALCIUM 8.4 MG/DL (8.5-10.1); CREATININE 1.5 MG/DL (0.55-1.30); POTASSIUM 3.6 MMOL/L (3.5-5.1)
--- NOTE | 2020-02-06 22:10 | NUR ---
NURSE NOTES: Dr. Messina responded and ordered urinalysis; blood culture and chest xray for patient. Orders entered and carried out.
[2020-02-06 22:25] LABS: APPEARANCE,URINE SLIGHTLY CLOUDY; BILIRUBIN, URINE NEGATIVE (NEGATIVE); GLUCOSE, URINE (UA) NEGATIVE (NEGATIVE); KETONES,URINE NEGATIVE (NEGATIVE); LEUKOCYTE ESTERASE ,URINE NEGATIVE (NEGATIVE); NITRITE,URINE NEGATIVE (NEGATIVE); PH,URINE 6.5 (4.5-8.0); PROTEIN,URINE 3+ (NEGATIVE); UROBILINOGEN,URINE NORMAL MG/DL (0.0-1.0)
[2020-02-06 22:29] LABS: COLOR,URINE YELLOW
[2020-02-06] MEDS: ceFAZolin sod 1 GM in D5W 55 ML IVPB SCH (22:45)
[2020-02-07] VITALS: BP 134/54
--- NOTE | 2020-02-07 00:39 | NUR ---
NURSE NOTES: Patient keeps urinating frequently; attempts to use the urinal but keeps missing, soiling the bed and the floor. Condom catheter placed on patient and educated regarding it; patient is forgetful when asked regarding condom catheter. Will keep reinforcing.
--- NOTE | 2020-02-07 01:45 | Consultation ---
DATE OF CONSULTATION: 02/06/2020 CARDIOLOGY CONSULTATION CONSULTING PHYSICIAN: Pranav Russo M.D. REQUESTING PHYSICIAN: Christian Messina M.D. REASON: Congestive heart failure. HISTORY OF PRESENT ILLNESS: This is an 79-year-old male with a history of chronic venous insufficiency and prior skin abnormality due to prior injury of his left foot. He was admitted to the hospital today because of worsening swelling and pain of his lower extremities as well as redness and warmth. He also has some drainage from his heel area. I have been asked to address his significant edema. His diuretic dose was recently increased without improvement. PAST MEDICAL HISTORY: Hypertension with hypertensive heart disease, chronic venous insufficiency, hyperlipidemia, osteoarthritis. MEDICATIONS: Reviewed and reconciled. ALLERGIES: None known. SOCIAL HISTORY: Negative for smoking, alcohol, or substance abuse. FAMILY HISTORY: Noncontributory. REVIEW OF SYSTEMS: Outpatient echocardiogram has revealed normal ejection fraction, mild degenerative valve disease, and concentric hypertrophy. There is no history of flow-limiting coronary disease. There is no history of cardiac arrhythmias. He does have a history of sinus node disease, but no documentation of symptomatic bradycardia. PHYSICAL EXAMINATION: VITAL SIGNS: Blood pressure 130/76, pulse 80, respirations 20, afebrile. HEENT: Conjunctivae are pink. Oropharynx clear. NECK: Supple. Jugular venous pressure normal. LUNGS: Diminished breath sounds. No wheezing or rales. CARDIAC: Regular rhythm and rate. Normal S1, S2 with a fourth heart sound. ABDOMEN: Soft, nontender with no hepatomegaly. EXTREMITIES: Reveal 2 to 3+ pitting edema left greater than right with erythema to mid calf, again left greater than right. The foot area is bandaged on the left and not examined yet. NEUROLOGIC: Grossly nonfocal. LABORATORY AND DIAGNOSTIC DATA: White count 28.7, hemoglobin 12.3. Sodium 134, potassium 3.6, bicarb 24, BUN 19, creatinine 1.5. Chest x-ray and EKG are pending. IMPRESSION: 1. Sepsis. 2. Bilateral lower extremity cellulitis. 3. Lower extremity edema, secondary to above. 4. Chronic venous insufficiency. 5. Hypertensive heart disease. 6. Chronic diastolic congestive heart failure. PLAN: 1. Antimicrobials. 2. Venous duplex scan. 3. DVT prophylaxis for now. 4. Cautious diuresis. 5. Maintain beta-tory and losartan. 6. Check and trend natriuretic peptide assay. Pranav Russo M.D. DR: CHIDI JOB#: [id number] CC:
--- NOTE | 2020-02-07 02:51 | NUR ---
NURSE NOTES: Patient keeps waking up confused and keeps dangling feet on the side of the bed. Educated on elevating the legs but patient is very forgetful and will dangle legs frequently. Repositioned frequently.
[2020-02-07 04:00] VITALS: BP 136/52
[2020-02-07] MEDS: ceFAZolin sod 1 GM in D5W 55 ML IVPB SCH (04:59)
[2020-02-07] MEDS: Heparin 5000 units/ml inj SUBQ SCH ×3 (06:07→21:46)
[2020-02-07 06:47] LABS: HEMATOCRIT 35.4 % (42.0-52.0); HEMOGLOBIN 12.1 G/DL (14.2-18.0); MEAN CORPUSCULAR VOLUME 98 FL (80-99); PLATELET COUNT 201 K/UL (150-450); RED BLOOD COUNT 3.63 M/UL (4.70-6.10); RED CELL DISTRIBUTION WIDTH 12.1 % (11.6-14.8)
[2020-02-07 06:55] LABS: ALANINE AMINOTRANSFERASE 19 U/L (12-78); ALBUMIN 2.6 G/DL (3.4-5.0); ALBUMIN/GLOBULIN RATIO 0.7 (1.0-2.7); ALKALINE PHOSPHATASE 89 U/L (46-116); ASPARTATE AMINO TRANSFERASE 37 U/L (15-37); BILIRUBIN,TOTAL 0.5 MG/DL (0.2-1.0); BLOOD UREA NITROGEN 17 mg/dL (7-18); CALCIUM 8.5 MG/DL (8.5-10.1); CARBON DIOXIDE 26 MMOL/L (21-32); CHLORIDE 101 MMOL/L (98-107); CREATININE 1.5 MG/DL (0.55-1.30); POTASSIUM 3.8 MMOL/L (3.5-5.1); SODIUM 134 MMOL/L (136-145)
--- NOTE | 2020-02-07 06:59 | NUR ---
NURSE HAND-OFF: Important Events on Shift:[periods of forgetfulness; Dr. Russo with patient; wound care rendered; WBC critical high, orders received.] Patient Status: [stable] Diet: [Cardiac] Pending Orders: [for cxr] Pending Results/Labs:[blood cultures; am labs] Pending MD notification:[caregiver requesting physical therapy] Latest Vital Signs: Temperature 98.8 , Pulse 76 , B/P 136 /52 , Respiratory Rate 18 , O2 SAT 95 , Room Air, O2 Flow Rate . Vital Sign Comment: [] Latest Harvey Fall Score: 70 Fall Risk: High Risk Safety Measures: Call light Within Reach, Bed Alarm Zone 1, Side Rails Side Rails x2, Bed position Low and Locked. Fall Precautions: Yellow Socks Yellow Gown Door Sign Patient Fall Education Report given to [Jennifer Fitzpatrick RN].
[2020-02-07 07:07] LABS: WHITE BLOOD COUNT 25.5 K/UL (4.8-10.8)
--- NOTE | 2020-02-07 07:08 | NUR ---
NURSE NOTES: Report received from EVA Brennan. Patient is alert and oriented x 4, verbal and able to make needs known. No SOB. Bed set in lowest position with breaks engaged and alarm on. IV line present on left AC. Denies any pain at this time. On room air, Will continue to monitor pt and proceed with plan of care
--- NOTE | 2020-02-07 07:34 | General Progress Note ---
Subjective ROS Limited/Unobtainable: No Constitutional: Reports: chills, malaise, weakness HEENT: Reports: no symptoms Cardiovascular: Reports: no symptoms Respiratory: Reports: no symptoms Gastrointestinal/Abdominal: Reports: no symptoms Genitourinary: Reports: no symptoms Neurologic/Psychiatric: Reports: anxiety Endocrine: Reports: no symptoms Hematologic/Lymphatic: Reports: no symptoms Allergies: Coded Allergies: No Known Allergies (Unverified , 06/22/18) All Systems: reviewed and negative except above Subjective c/o chills. no fevers. on iv abx. UA neg. cultures pending. wbc remains elevated. Objective Last 24 Hour Vital Signs Date Time Temp Pulse Resp B/P (MAP) Pulse Ox O2 Delivery O2 Flow Rate FiO2 02/07/20 04:00 98.8 76 18 136/52 (80) 95 02/07/20 00:00 98.5 82 18 134/54 (80) 96 02/06/20 21:00 Room Air 02/06/20 20:00 98.5 91 18 127/73 (91) 96 02/06/20 19:31 Room Air Intake and Output 02/06/20 02/07/20 19:00 07:00 Intake Total 30 ml 410 ml Output Total 900 ml Balance 30 ml -490 ml Intake Oral 30 ml 300 ml IV Total 110 ml Output Urine Total 900 ml # Voids 2 3 # Bowel Movements 1 Laboratory Tests 02/06/20 21:10: Urine Color Yellow, Urine Appearance Slightly cloudy, Urine pH 6.5, Urine Specific [place] 1.015, Urine Protein 3+H, Urine Glucose (UA) Negative, Urine Ketones Negative, Urine Blood 5+H, Urine Nitrite Negative, Urine Bilirubin N egative, Urine Urobilinogen Normal, Urine Leukocyte Esterase Negative, Urine RBC 60-80H, Urine WBC 2-4, Urine Squamous Epithelial Cells Occasional, Urine Bacteria Few, Urine Mucus FewH 02/06/20 21:25: White Blood Count 28.7*H, Red Blood Count 3.74L, Hemoglobin 12.3L, Hematocrit 35.9L, Mean Corpuscular Volume 96, Mean Corpuscular Hemoglobin 32.7H, Mean Corpuscular Hemoglobin Concent 34.2, Red Cell Distribution Width 12.0, Platelet Count 224, Mean Platelet Volume 7.7, Neutrophils (%) (Auto) , Lymphocytes (%) ( Auto) , Monocytes (%) (Auto) , Eosinophils (%) (Auto) , Basophils (%) (Auto) , Differential Total Cells Counted 100, Neutrophils % (Manual) 95H, Lymphocytes % (Manual) 3L, Monocytes % (Manual) 2, Eosinophils % (Manual) 0, Basophils % (Manual) 0, Band Neutrophils 0, Platelet Estimate Adequate, Platelet Morphology Normal, Hypochromasia 1+, Sodium Level 134L, Potassium Level 3.6, Chloride Level 103, Carbon Dioxide Level 24, Anion Gap 7, Blood Urea Nitrogen 19H, Creatinine 1.5H, Estimat Glomerular Filtration Rate 44.9, Glucose Level 144H, Calcium Level 8.4L, Total Bilirubin 0.6, Aspartate Amino Transf (AST/SGOT) 27, Alanine Aminotransferase (ALT/SGPT) 20, Alkaline Phosphatase 97, Total Protein 6.7, Albumin 2.8L, Globulin 3.9, Albumin/Globulin Ratio 0.7L, Thyroid Stimulating Hormone (TSH) 0.503 02/07/20 05:30: White Blood Count 25.5*H, Red Blood Count 3.63L, Hemoglobin 12.1L, Hematocrit 35.4L, Mean Corpuscular Volume 98, Mean Corpuscular Hemoglobin 33.4H, Mean Corpuscular Hemoglobin Concent 34.3, Red Cell Distribution Width 12.1, Platelet Count 201, Mean Platelet Volume 7.7, Neutrophils (%) (Auto) , Lymphocytes (%) (Auto) , Monocytes (%) (Auto) , Eosinophils (%) (Auto) , Basophils (%) (Auto) , Neutrophils % (Manual) [Pending], Lymphocytes % (Manual) [Pending], Platelet Estimate [Pending], Platelet Morphology [Pending], Sodium Level 134L, Potassium Level 3.8, Chloride Level 101, Carbon Dioxide Level 26, Blood Urea Nitrogen 17, Creatinine 1.5H, Estimat Glomerular Filtration Rate 44.9, Glucose Level 127H, Calcium Level 8.5, Total Bilirubin 0.5, Aspartate Amino Transf (AST/SGOT) 37, Alanine Aminotransferase (ALT/SGPT) 19, Alkaline Phosphatase 89, Total Protein 6.4, Albumin 2.6L, Globulin 3.8, Albumin/Globulin Ratio 0.7L, Magnesium Level 1.9, Pro-B-Type Natriuretic Peptide 2280H Height (Feet): 6 Height (Inches): 4.00 Weight (Pounds): 239 General Appearance: WD/WN, alert EENT: PERRL/EOMI, normal ENT inspection Neck: non-tender, normal alignment, supple Cardiovascular: normal peripheral pulses, normal rate, regular rhythm Respiratory/Chest: chest wall non-tender, lungs clear, normal breath sounds, no respiratory distress Abdomen: normal bowel sounds, non tender, soft, no organomegaly Edema: no edema noted Arm (L), no edema noted Arm (R) Edema: moderate edema 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
[2020-02-07 08:00] VITALS: BP 126/54
[2020-02-07] MEDS: Atenolol 25mg tab ORAL SCH (08:59)
[2020-02-07] MEDS: Aspirin EC 81mg tab ORAL SCH (08:59)
[2020-02-07] MEDS: Losartan 50mg tab ORAL SCH (09:00)
[2020-02-07] MEDS ORDERED: Hyzaar 50-12.5mg tab ORAL SCH (09:00)
[2020-02-07] MEDS ORDERED: Losartan 50mg tab ORAL SCH (09:00)
--- NOTE | 2020-02-07 09:13 | NUR ---
RADIOLOGY DEPT., CHEST X-RAY DONE.-P.DYE
--- NOTE | 2020-02-07 09:24 | NUR ---
RD ASSESSMENT & RECOMMENDATIONS SEE CARE ACTIVITY FOR COMPLETE ASSESSMENT DAILY ESTIMATED NEEDS: Needs based on Cardiac, 95kg abw 25-30 kcals/kg 6957-6516 total kcals 1-1.2 g protein/kg 95-114 g total protein 25-30 mL/kg 6917-7774 total fluid mLs NUTRITION DIAGNOSIS: Decreased sodium needs R/T CHF and BL LE cellulitis as evidenced by elev BNP 2280, BL LE edema, on lasix. CURRENT DIET:Cardiac PO DIET RECOMMENDATIONS: LOW NA, texture as tolerated ADDITIONAL RECOMMENDATIONS: * Standing wt as able for accurate CBW * Rec WC rn for above wounds, -> add ALEXA BID * Add B-complex qdaily w/ lasix * Snacks in b/w meals as able, Ensure Enlive qdaily * BG elevated, rec A1C for eval
[2020-02-07] MEDS: Piperacillin/Tazobactam 3.375 GM in NS 110 ML IVPB SCH ×3 (09:32→21:45)
[2020-02-07 12:00] VITALS: BP 125/73
--- NOTE | 2020-02-07 12:10 | Diagnostic Imaging Report ---
Indication:Leg pain and swelling Technique: Grayscale and duplex Doppler imaging of the veins in both lower extremities performed in real time utilizing compression and augmentation. Comparison: 06/22/2018 Findings: Duplex Doppler interrogation of the veins in both lower extremity is performed from the common femoral vein to the popliteal vein. Normal venous compressibility demonstrated throughout. No thrombus identified. Waveform analysis shows good respiratory phasicity and augmentation. Image calf veins are patent. IMPRESSION: No evidence of deep venous thrombosis involving the lower extremities.
--- NOTE | 2020-02-07 12:30 | Consultation ---
DATE OF CONSULTATION: 02/07/2020 INFECTIOUS DISEASES CONSULTATION CONSULTING PHYSICIAN: Caron Elizabeth MD. REFERRING PHYSICIAN: Christian Messina MD. REASON FOR CONSULTATION: Left leg cellulitis. HISTORY OF PRESENTING ILLNESS: This is an 79-year-old gentleman with history of hypertension, venous insufficiency, who comes in with swelling, pain and redness on his left leg. He also has an ulcer that has been improving and an Infectious Diseases consultation has been obtained for antibiotics. PAST MEDICAL HISTORY: 1. History of hypertension. 2. Venous insufficiency. SOCIAL HISTORY: He does not smoke. He drinks alcohol rarely. No history of drug use. FAMILY HISTORY: Noncontributory. REVIEW OF SYSTEMS: RESPIRATORY: No fever, chills, cough, shortness of breath or chest pain. CARDIAC: No chest pain. No palpitation. No dizziness. No syncope. GASTROINTESTINAL: No nausea. No vomiting. No abdominal pain or diarrhea. MUSCULOSKELETAL: He denies any pain. MEDICATIONS: As an inpatient, he is on IV vancomycin, Zosyn, losartan, potassium, atenolol, furosemide, subcutaneous heparin, ibuprofen, Zofran, Tylenol, aspirin. ALLERGIES: No known drug allergies. PHYSICAL EXAMINATION: VITAL SIGNS: Temperature of 99, T-max of 99, pulse of 76, respiratory rate of 18, blood pressure 126/54, O2 saturation of 97% on room air. HEENT: Pupils equally reactive to light and accommodation. Mouth appears clean without thrush. NECK: Supple. No adenopathy. No JVD. CARDIOVASCULAR: Regular rate and rhythm. No murmurs. LUNGS: Clear to auscultation bilaterally. No crackles. No wheezes. ABDOMEN: Soft, nontender. No organomegaly. EXTREMITIES: No cyanosis. No clubbing. Edema noted bilaterally with left leg erythema and ulcer on the medial aspect of the leg. LABORATORY AND DIAGNOSTIC DATA: White count of 28 on 02/06/2020, white count of 25.5 today, hemoglobin 12.1, hematocrit 35.4, MCV 98, platelet count of 201. Sodium 134, potassium 3.8, chloride 101, bicarb 26, BUN 17, creatinine 1.5, glucose 127, calcium 8.5. Total bilirubin 0.5. AST 37, ALT 19, alkaline phosphatase 89. Beta-natriuretic peptide 2280. Total protein 6.4, albumin 2.6. UA is showing 2 to 4 white cells. ASSESSMENT: This is an 79-year-old gentleman with history of hypertension and venous insufficiency, who comes in with left leg pain, swelling and redness and was found to have, 1. Left leg cellulitis. 2. Left leg ulcer. 3. Hypertension. 4. Leukocytosis is improving. PLAN: 1. Continue IV vancomycin and Zosyn. 2. We will order wound cultures. 3. We will follow up cultures and adjust antibiotics accordingly. 4. We will order a CT of the left leg. I would like to thank, Dr. Messina, for this consultation. Caron Elizabeth M.D. DR: VIPIN JOB#: [id number] CC: Christian Messina MD.
--- NOTE | 2020-02-07 13:24 | NUR ---
NURSE NOTES: Dr. Messina notified of WBC 25.5. NNO at this time. Will continue to monitor.
--- NOTE | 2020-02-07 13:34 | NUR ---
NURSE NOTES:Skin/Wound assessment Left medial lower leg venous ulcer 5.7x3.7x0.3 60% yellow slough 40% pink tissue no odor ,redness , edema and small scattered open areas periwound,large amount serosanguineous drainage.RN at bedside and wound culture done.Thera honey ,gauze,abd pad and kerlix applied.Left buttock ulcer possible prior abscess 0.8x0.5x0.2 scant serous drainage and thickened wound edges Calazime and Optifoam applied. Sacral area skin intact Optifoam applied for protection .Right heel pressure ulcer stage 1 3.5x5.0x0.0 nonblanchable redness Optifoam applied.Left heel pressure ulcer stage 1 5.0x6.0x0.0 non blanchable redness Optifoam applied . Patient alert and oriented educated on skin break down prevention.Recommendations given to RN taking care of the patient.
--- NOTE | 2020-02-07 14:13 | Diagnostic Imaging Report ---
Indication: Chest pain Technique: XRAY Chest 1v Comparison: None Findings: Heart size and mediastinal contours are within normal limits for AP technique. There is no focal airspace consolidation, pneumothorax or pleural effusion. There are degenerative changes in the spine. Osseous structures demonstrate no acute abnormality. Impression: No radiographic evidence of acute cardiopulmonary disease.
--- NOTE | 2020-02-07 14:24 | Diagnostic Imaging Report ---
Indication: Left lower leg swelling, prior left foot injury, pain of the lower extremities, redness, and warmth, drainage from the heel area Technique: No IV contrast, per referring physician request. Spiral acquisitions obtained through the left leg Multiplanar reconstructions were generated. Total dose length product 237 mGycm. CTDIvol(s) 3 mGy. Radiation dose was minimized using automated exposure control Comparison: 06/24/2018 Findings: There is edema of the subcutaneous fat and thickening of the skin. This is circumferential distally, mostly posterior proximally. No definite discrete fluid collection to suggest organized abscess, although evaluation for such is limited in the absence of IV contrast. No definite osseous erosive abnormality or unusual periosteal reaction. There are degenerative changes of the hindfoot joints as well as of the knee joint. No evidence of acute fracture. No radiopaque foreign body. There is a small knee joint effusion which is smaller than that seen on the previous study.. A broken off osteophyte is seen at the lateral aspect of the lateral joint compartment. Impression: Diffuse soft tissue edema, as described. This may be due to cellulitis or could be edema related to hemodynamic abnormalities. Correlation with clinical findings is recommended. No evidence of organized collection to suggest soft tissue abscess. However, evaluation for such is limited in the absence of IV contrast No acute bony trauma No CT findings to suggest acute osteomyelitis. Note, however, limited sensitivity of CT for such. If there is high clinical suspicion then MRI should be considered. Knee joint effusion, smaller than that demonstrated previously. Small lateral loose body. This appears to be a previously present lateral osteophyte that has broken off in the interim. The CT scanner at [facility] is accredited by the [employer] and the scans are performed using protocols designed to limit radiation exposure to as low as reasonably achievable to attain images of sufficient resolution adequate for diagnostic evaluation.
--- NOTE | 2020-02-07 15:25 | NUR ---
CASE MANAGEMENT:INITIAL REVIEW 79 YR OLD MALE DIRECT ADMIT FROM HOME BY DR CONKLIN CC;CHF. CELLULITIS. SI;BLE EDEMA. CELLULITIS. CHF. 98.8 91 18 136/52 95% ON RA WBC 28.7 NA 134 BUN 19 CR 1.5 BG 144 ALB 2.8 UA+ PROTEIN, BLOOD, RBC, MUCUS VENOUS DUPLEX ~ No evidence of deep venous thrombosis involving the lower extremities. IS;VANCOMYCIN IV ZOSYN IV Q8 CEFAZOLIN IV ADMITTED TO MED SURG MED SURG STATUS DCP;FROM HOME
--- NOTE | 2020-02-07 15:58 | NUR ---
[employer]URANCE [employer]ICALS.REVIEW FAXED TO [facility] [phone]
[2020-02-07 16:00] VITALS: BP 106/52
--- NOTE | 2020-02-07 16:06 | Consultation ---
History of Present Illness General Date patient seen: Feb 07, 2020 Present Illness HPI This is a very pleasant 79-year-old male who presented to [facility] with worsening lower extremity edema cellulitis and open wound. Patient with history of venous stasis ulcer was seen in the outpatient setting by primary care physician who astutely identified patient of having wound with cellulitis and started oral antibiotic regimen and local care. Unfortunately given the severity of the patient's wound and condition he not respond to outpatient therapy and therefore was recommended for admission is currently been admitted to [facility] for further care and management. On admission identified to have leukocytosis significant lower extremity swelling open wound and imaging has been ordered. Surgery is been called to evaluate and assist with care and management. Patient seen, patient evaluate, chart reviewed. Denies any nausea vomiting fever chills. Otherwise stable. Does feel pain in the area cramping 09/05. Allergies: Coded Allergies: No Known Allergies (Unverified , 06/22/18) COVID-19 Screening Contact w/high risk pt: No Experienced COVID-19 symptoms?: No Medication History Scheduled Furosemide* (Lasix*), 40 MG ORAL DAILY, (Reported) Losartan Potassium* (Losartan Potassium*), 50 MG ORAL DAILY, (Reported) Potassium Chloride* (K-Dur*), 10 MEQ ORAL TWICE A DAY, (Reported) Scheduled PRN Ibuprofen* (Advil*), 200 MG ORAL DAILY PRN for For Pain, (Reported) Patient History History Provided By: Patient, Medical Record, PMD Healthcare decision maker Resuscitation status Advanced Directive on File Yes Past Medical/Surgical History Past Medical/Surgical History: (1) ASCVD (arteriosclerotic cardiovascular disease) (2) Venous insufficiency (3) Cellulitis (4) CHF (congestive heart failure) (5) Sepsis Review of Systems Review of Symptoms General ROS: no weight loss or fever Psychological ROS: no depression or mood changes, no memory loss Ophthalmic ROS: no visual changes or eye irritation ENT ROS: no nasal congestion, hearing loss, dizziness Allergy and Immunology ROS: no allergic symptoms or urticaria Hematological and Lymphatic ROS: no swollen glands, unusual bleeding or bruising Endocrine ROS: no polyuria, polydipsia, weight changes, temperature intolerance Respiratory ROS: no cough, shortness of breath, or wheezing Cardiovascular ROS: no chest pain or dyspnea on exertion Gastrointestinal ROS: denies abdominal pain, bright red blood in stool. Musculoskeletal ROS: no myalgias or arthralgias Neurological ROS: no TIA or stroke symptoms Dermatological ROS: no new or changing skin lesions, rashes or pruritis Physical Exam Physical Exam General appearance: alert, cooperative, no distress, appears stated age Head: Normocephalic, without obvious abnormality, atraumatic Eyes: conjunctivae/corneas clear. PERRL, EOM's intact. Fundi benign Throat: Lips, mucosa, and tongue normal. Teeth and gums normal Neck: supple, symmetrical, trachea midline, no adenopathy, thyroid: not enlarged, symmetric, no tenderness/mass/nodules, no carotid bruit and no JVD Lungs: clear to auscultation bilaterally Heart: regular rate and rhythm, S1, S2 normal, no murmur, click, rub or gallop Abdomen: soft, non-tender. Bowel sounds normal. No masses, no organomegaly Extremities: extremities++cellulitis. open wound. edema Pulses: 2+ and symmetric Skin: Skin color, texture, turgor normal. No rashes or lesions Neurologic: Grossly normal Last 24 Hour Vital Signs Date Time Temp Pulse Resp B/P (MAP) Pulse Ox O2 Delivery O2 Flow Rate FiO2 02/07/20 12:00 98.5 88 18 125/73 (90) 96 02/07/20 09:00 Room Air 02/07/20 09:00 126/54 02/07/20 08:59 76 126/54 02/07/20 08:00 99.0 76 18 126/54 (78) 97 02/07/20 04:00 98.8 76 18 136/52 (80) 95 02/07/20 00:00 98.5 82 18 134/54 (80) 96 02/06/20 21:00 Room Air 02/06/20 20:00 98.5 91 18 127/73 (91) 96 02/06/20 19:31 Room Air Intake and Output 02/06/20 02/07/20 19:00 07:00 Intake Total 30 ml 410 ml Output Total 900 ml Balance 30 ml -490 ml Intake Oral 30 ml 300 ml IV Total 110 ml Output Urine Total 900 ml # Voids 2 3 # Bowel Movements 1 Laboratory Tests Test 02/06/20 21:10 02/06/20 21:25 02/07/20 05:30 Urine Color Yellow Urine Appearance Slightly cloudy Urine pH 6.5 (4.5-8.0) Urine Specific [place] 1.015 (1.005-1.035) Urine Protein 3+ (NEGATIVE) H Urine Glucose (UA) Negative (NEGATIVE) Urine Ketones Negative (NEGATIVE) Urine Blood 5+ (NEGATIVE) H Urine Nitrite Negative (NEGATIVE) Urine Bilirubin Negative (NEGATIVE) Urine Urobilinogen Normal MG/DL (0.0-1.0) Urine Leukocyte Esterase Negative (NEGATIVE) Urine RBC 60-80 /HPF (0 - 0) H Urine WBC 2-4 /HPF (0 - 0) Urine Squamous Epithelial Cells Occasional /LPF Urine Bacteria Few /HPF (NONE) Urine Mucus Few /LPF (NONE/OCC) H White Blood Count 28.7 K/UL (4.8-10.8) *H 25.5 K/UL (4.8-10.8) *H Red Blood Count 3.74 M/UL (4.70-6.10) L 3.63 M/UL (4.70-6.10) L Hemoglobin 12.3 G/DL (14.2-18.0) L 12.1 G/DL (14.2-18.0) L Hematocrit 35.9 % (42.0-52.0) L 35.4 % (42.0-52.0) L Mean Corpuscular Volume 96 FL (80-99) 98 FL (80-99) Mean Corpuscular Hemoglobin 32.7 PG (27.0-31.0) H 33.4 PG (27.0-31.0) H Mean Corpuscular Hemoglobin Concent 34.2 G/DL (32.0-36.0) 34.3 G/DL (32.0-36.0) Red Cell Distribution Width 12.0 % (11.6-14.8) 12.1 % (11.6-14.8) Platelet Count 224 K/UL (150-450) 201 K/UL (150-450) Mean Platelet Volume 7.7 FL (6.5-10.1) 7.7 FL (6.5-10.1) Neutrophils (%) (Auto) % (45.0-75.0) % (45.0-75.0) Lymphocytes (%) (Auto) % (20.0-45.0) % (20.0-45.0) Monocytes (%) (Auto) % (1.0-10.0) % (1.0-10.0) Eosinophils (%) (Auto) % (0.0-3.0) % (0.0-3.0) Basophils (%) (Auto) % (0.0-2.0) % (0.0-2.0) Differential Total Cells Counted 100 100 Neutrophils % (Manual) 95 % (45-75) H 95 % (45-75) H Lymphocytes % (Manual) 3 % (20-45) L 3 % (20-45) L Monocytes % (Manual) 2 % (1-10) 2 % (1-10) Eosinophils % (Manual) 0 % (0-3) 0 % (0-3) Basophils % (Manual) 0 % (0-2) 0 % (0-2) Band Neutrophils 0 % (0-8) 0 % (0-8) Platelet Estimate Adequate Adequate Platelet Morphology Normal Normal Hypochromasia 1+ Sodium Level 134 MMOL/L (136-145) L 134 MMOL/L (136-145) L Potassium Level 3.6 MMOL/L (3.5-5.1) 3.8 MMOL/L (3.5-5.1) Chloride Level 103 MMOL/L (98-107) 101 MMOL/L (98-107) Carbon Dioxide Level 24 MMOL/L (21-32) 26 MMOL/L (21-32) Anion Gap 7 mmol/L (5-15) Blood Urea Nitrogen 19 mg/dL (7-18) H 17 mg/dL (7-18) Creatinine 1.5 MG/DL (0.55-1.30) H 1.5 MG/DL (0.55-1.30) H Estimat Glomerular Filtration Rate 44.9 mL/min (>60) 44.9 mL/min (>60) Glucose Level 144 MG/DL (74-106) H 127 MG/DL (74-106) H Calcium Level 8.4 MG/DL (8.5-10.1) L 8.5 MG/DL (8.5-10.1) Total Bilirubin 0.6 MG/DL (0.2-1.0) 0.5 MG/DL (0.2-1.0) Aspartate Amino Transf (AST/SGOT) 27 U/L (15-37) 37 U/L (15-37) Alanine Aminotransferase (ALT/SGPT) 20 U/L (12-78) 19 U/L (12-78) Alkaline Phosphatase 97 U/L (46-116) 89 U/L (46-116) Total Protein 6.7 G/DL (6.4-8.2) 6.4 G/DL (6.4-8.2) Albumin 2.8 G/DL (3.4-5.0) L 2.6 G/DL (3.4-5.0) L Globulin 3.9 g/dL 3.8 g/dL Albumin/Globulin Ratio 0.7 (1.0-2.7) L 0.7 (1.0-2.7) L Thyroid Stimulating Hormone (TSH) 0.503 uiU/mL (0.358-3.740) Macrocytosis 1+ Magnesium Level 1.9 MG/DL (1.8-2.4) Pro-B-Type Natriuretic Peptide 2280 pg/mL (0-125) H Height (Feet): 6 Height (Inches): 4.00 Weight (Pounds): 239 Medications Current Medications Medications (Trade) Dose Ordered Sig/Remigio Route PRN Reason Start Time Stop Time Status Last Admin Dose Admin Acetaminophen (Tylenol) 500 mg Q4H PRN ORAL Mild Pain (Pain Scale 1-3) 02/06/20 20:00 03/07/20 19:59 Aspirin (Ecotrin) 81 mg DAILY ORAL 02/06/20 20:00 03/22/20 19:59 02/07/20 08:59 Atenolol (Tenormin) 25 mg DAILY ORAL 02/07/20 09:00 03/08/20 08:59 02/07/20 08:59 Furosemide (Lasix) 40 mg BID IV 02/07/20 09:00 03/08/20 08:59 02/07/20 09:00 Heparin Sodium (Porcine) (Heparin 5000 units/ml) 5,000 units EVERY 8 HOURS SUBQ 02/07/20 06:00 03/23/20 05:59 02/07/20 13:32 Ibuprofen (Advil) 200 mg DAILYPRN PRN ORAL moderate pain 02/06/20 20:00 03/07/20 19:59 Losartan Potassium (Cozaar) 50 mg DAILY ORAL 02/07/20 09:00 03/08/20 08:59 02/07/20 09:00 Ondansetron HCl (Zofran) 4 mg Q6H PRN IVP Nausea & Vomiting 02/06/20 20:00 03/07/20 19:59 Piperacillin Sod/ Tazobactam Sod 3.375 gm/Sodium Chloride 110 ml @ 27.5 mls/hr EVERY 8 HOURS IVPB 02/07/20 09:00 02/12/20 08:59 02/07/20 13:30 Potassium Chloride (K-Dur) 10 meq TWICE A DAY ORAL 02/07/20 09:00 05/07/20 08:59 02/07/20 09:00 Vancomycin HCl (Vanco pharmacy to dose) 1 ea DAILY PRN MISC Per rx protocol 02/07/20 07:30 03/08/20 07:29 Assessment/Plan Problem List: (1) Cellulitis Assessment & Plan: This is a very pleasant 79-year-old male with history of chronic venous stasis ulcer that is acutely worsened. Edema cellulitis leukocytosis renal insufficiency. CT reviewed exam performed local care provided Left medial lower leg venous ulcer 5.7x3.7x0.3 60% yellow slough 40% pink tissue no odor ,redness , edema and small scattered open areas periwound,large amount serosanguineous drainage. wound culture done.Thera honey ,gauze,abd pad and kerlix applied. Left buttock ulcer possible prior abscess 0.8x0.5x0.2 scant serous drainage and thickened wound edges Calazime and Optifoam applied. Sacral area skin intact Optifoam applied for protection . Right heel pressure ulcer stage 1 3.5x5.0x0.0 nonblanchable redness Optifoam applied. Left heel pressure ulcer stage 1 5.0x6.0x0.0 non blanchable redness Optifoam applied . Patient alert and oriented educated on skin break down prevention. Duplex Doppler interrogation of the veins in both lower extremity is performed from the common femoral vein to the popliteal vein. Normal venous compressibility demonstrated throughout. No thrombus identified. Waveform analysis shows good respiratory phasicity and augmentation. Image calf veins are patent. IMPRESSION: No evidence of deep venous thrombosis involving the lower extremities. There is edema of the subcutaneous fat and thickening of the skin. This is circumferential distally, mostly posterior proximally. No definite discrete fluid collection to suggest organized abscess, although evaluation for such is limited in the absence of IV contrast. No definite osseous erosive abnormality or unusual periosteal reaction. There are degenerative changes of the hindfoot joints as well as of the knee joint. No evidence of acute fracture. No radiopaque foreign body. There is a small knee joint effusion which is smaller than that seen on the previous study.. A broken off osteophyte is seen at the lateral aspect of the lateral joint compartment. Impression: Diffuse soft tissue edema, as described. This may be due to cellulitis or could be edema related to hemodynamic abnormalities. Correlation with clinical findings is recommended. No evidence of organized collection to suggest soft tissue abscess. However, evaluation for such is limited in the absence of IV contrast No acute bony trauma No CT findings to suggest acute osteomyelitis. Note, however, limited sensitivity of CT for such. If there is high clinical suspicion then MRI should be considered. Knee joint effusion, smaller than that demonstrated previously. Small lateral loose body. This appears to be a previously present lateral osteophyte that has broken off in the interim. DAILY ESTIMATED NEEDS: Needs based on Cardiac, 95kg abw 25-30 kcals/kg 4181-0586 total kcals 1-1.2 g protein/kg 95-114 g total protein 25-30 mL/kg 9403-2057 total fluid mLs NUTRITION DIAGNOSIS: Decreased sodium needs R/T CHF and BL LE cellulitis as evidenced by elev BNP 2280, BL LE edema, on lasix. CURRENT DIET:Cardiac PO DIET RECOMMENDATIONS: LOW NA, texture as tolerated ADDITIONAL RECOMMENDATIONS: * Standing wt as able for accurate CBW * Rec WC rn for above wounds, -> add ALEXA BID * Add B-complex qdaily w/ lasix * Snacks in b/w meals as able, Ensure Enlive qdaily * BG elevated, rec A1C for eval ICD Codes: L03.90 - Cellulitis, unspecified SNOMED: 997399610 (2) CHF (congestive heart failure) ICD Codes: I50.9 - Heart failure, unspecified SNOMED: 51321650 (3) Sepsis ICD Codes: A41.9 - Sepsis, unspecified organism SNOMED: 74216443 (4) ASCVD (arteriosclerotic cardiovascular disease) ICD Codes: I25.10 - Atherosclerotic heart disease of [place] coronary artery without angina pectoris SNOMED: 06938470 (5) Venous insufficiency ICD Codes: I87.2 - Venous insufficiency (chronic) (peripheral) SNOMED: 55360087 Ned Albrecht Feb 07, 2020 16:06
--- NOTE | 2020-02-07 19:41 | NUR ---
NURSE HAND-OFF: Important Events on Shift:[IV ATBs, skin management, wound eval] Patient Status: [stable] Diet: [cardiac fortified] Pending Orders: [] Pending Results/Labs:[] Pending MD notification:[] Latest Vital Signs: Temperature 98.8 , Pulse 60 , B/P 106 /52 , Respiratory Rate 18 , O2 SAT 96 , Room Air, O2 Flow Rate . Vital Sign Comment: [] Latest Harvey Fall Score: 70 Fall Risk: High Risk Safety Measures: Call light Within Reach, Bed Alarm Zone 1, Side Rails Side Rails x2, Bed position Low and Locked. Fall Precautions: Yellow Socks Yellow Gown Door Sign Patient Fall Education Report given to [EVA Conklin].
--- NOTE | 2020-02-07 19:42 | NUR ---
NURSE NOTES: Received patient in no apparent distress. A&OX4. IV site patent and intact. Elevated bilateral lower leg with pillow. Caregiver at bedside. Bed in lowest position. Call light within reach. Will continue to monitor.
--- NOTE | 2020-02-07 19:52 | Cardiology Progress Note ---
Subjective DATE OF SERVICE: Feb 07, 2020 Still with leg swelling, redness and pain Venous duplex negative for DVT CT without obvious osteomyelitis pBNP elevated to almost 2000 Objective Last 24 Hour Vital Signs Date Time Temp Pulse Resp B/P (MAP) Pulse Ox O2 Delivery O2 Flow Rate FiO2 02/07/20 16:00 98.8 60 18 106/52 (70) 96 02/07/20 12:00 98.5 88 18 125/73 (90) 96 02/07/20 09:00 Room Air 02/07/20 09:00 126/54 02/07/20 08:59 76 126/54 02/07/20 08:00 99.0 76 18 126/54 (78) 97 02/07/20 04:00 98.8 76 18 136/52 (80) 95 02/07/20 00:00 98.5 82 18 134/54 (80) 96 02/06/20 21:00 Room Air 02/06/20 20:00 98.5 91 18 127/73 (91) 96 ROS: unchanged from my evaluation of 02/06/20 HEENT: normal ENT inspection LUNGS: diminished breath sounds CARDIAC: normal rate, regular rhythm, normal S1 and S2 - diminished peripheral pulses, systolic murmur - 1/6 systolic murmur at apex, other ABDOMEN: normal bowel sounds, non tender, soft, other - obese EXTREMITIES: slow capillary refill, moderate edema - left greater than right, other - left heel wound; bilateral erythema to mid calves Laboratory Tests Test 02/06/20 21:10 02/06/20 21:25 02/07/20 05:30 Urine Color Yellow Urine Appearance Slightly cloudy Urine pH 6.5 (4.5-8.0) Urine Specific [place] 1.015 (1.005-1.035) Urine Protein 3+ (NEGATIVE) H Urine Glucose (UA) Negative (NEGATIVE) Urine Ketones Negative (NEGATIVE) Urine Blood 5+ (NEGATIVE) H Urine Nitrite Negative (NEGATIVE) Urine Bilirubin Negative (NEGATIVE) Urine Urobilinogen Normal MG/DL (0.0-1.0) Urine Leukocyte Esterase Negative (NEGATIVE) Urine RBC 60-80 /HPF (0 - 0) H Urine WBC 2-4 /HPF (0 - 0) Urine Squamous Epithelial Cells Occasional /LPF Urine Bacteria Few /HPF (NONE) Urine Mucus Few /LPF (NONE/OCC) H White Blood Count 28.7 K/UL (4.8-10.8) *H 25.5 K/UL (4.8-10.8) *H Red Blood Count 3.74 M/UL (4.70-6.10) L 3.63 M/UL (4.70-6.10) L Hemoglobin 12.3 G/DL (14.2-18.0) L 12.1 G/DL (14.2-18.0) L Hematocrit 35.9 % (42.0-52.0) L 35.4 % (42.0-52.0) L Mean Corpuscular Volume 96 FL (80-99) 98 FL (80-99) Mean Corpuscular Hemoglobin 32.7 PG (27.0-31.0) H 33.4 PG (27.0-31.0) H Mean Corpuscular Hemoglobin Concent 34.2 G/DL (32.0-36.0) 34.3 G/DL (32.0-36.0) Red Cell Distribution Width 12.0 % (11.6-14.8) 12.1 % (11.6-14.8) Platelet Count 224 K/UL (150-450) 201 K/UL (150-450) Mean Platelet Volume 7.7 FL (6.5-10.1) 7.7 FL (6.5-10.1) Neutrophils (%) (Auto) % (45.0-75.0) % (45.0-75.0) Lymphocytes (%) (Auto) % (20.0-45.0) % (20.0-45.0) Monocytes (%) (Auto) % (1.0-10.0) % (1.0-10.0) Eosinophils (%) (Auto) % (0.0-3.0) % (0.0-3.0) Basophils (%) (Auto) % (0.0-2.0) % (0.0-2.0) Differential Total Cells Counted 100 100 Neutrophils % (Manual) 95 % (45-75) H 95 % (45-75) H Lymphocytes % (Manual) 3 % (20-45) L 3 % (20-45) L Monocytes % (Manual) 2 % (1-10) 2 % (1-10) Eosinophils % (Manual) 0 % (0-3) 0 % (0-3) Basophils % (Manual) 0 % (0-2) 0 % (0-2) Band Neutrophils 0 % (0-8) 0 % (0-8) Platelet Estimate Adequate Adequate Platelet Morphology Normal Normal Hypochromasia 1+ Sodium Level 134 MMOL/L (136-145) L 134 MMOL/L (136-145) L Potassium Level 3.6 MMOL/L (3.5-5.1) 3.8 MMOL/L (3.5-5.1) Chloride Level 103 MMOL/L (98-107) 101 MMOL/L (98-107) Carbon Dioxide Level 24 MMOL/L (21-32) 26 MMOL/L (21-32) Anion Gap 7 mmol/L (5-15) Blood Urea Nitrogen 19 mg/dL (7-18) H 17 mg/dL (7-18) Creatinine 1.5 MG/DL (0.55-1.30) H 1.5 MG/DL (0.55-1.30) H Estimat Glomerular Filtration Rate 44.9 mL/min (>60) 44.9 mL/min (>60) Glucose Level 144 MG/DL (74-106) H 127 MG/DL (74-106) H Calcium Level 8.4 MG/DL (8.5-10.1) L 8.5 MG/DL (8.5-10.1) Total Bilirubin 0.6 MG/DL (0.2-1.0) 0.5 MG/DL (0.2-1.0) Aspartate Amino Transf (AST/SGOT) 27 U/L (15-37) 37 U/L (15-37) Alanine Aminotransferase (ALT/SGPT) 20 U/L (12-78) 19 U/L (12-78) Alkaline Phosphatase 97 U/L (46-116) 89 U/L (46-116) Total Protein 6.7 G/DL (6.4-8.2) 6.4 G/DL (6.4-8.2) Albumin 2.8 G/DL (3.4-5.0) L 2.6 G/DL (3.4-5.0) L Globulin 3.9 g/dL 3.8 g/dL Albumin/Globulin Ratio 0.7 (1.0-2.7) L 0.7 (1.0-2.7) L Thyroid Stimulating Hormone (TSH) 0.503 uiU/mL (0.358-3.740) Macrocytosis 1+ Magnesium Level 1.9 MG/DL (1.8-2.4) Pro-B-Type Natriuretic Peptide 2280 pg/mL (0-125) H Assessment/Plan Assessment/Plan Sepsis Bilateral LE cellulitis Venous insuff Ac/chronic diastolic CHF Hypertension/HHD DVT prophyl Skin care ANtibiotics Diuresis Titration of antiHTN meds Pranav Russo MD Feb 07, 2020 19:52
[2020-02-07 20:00] VITALS: BP 102/42
[2020-02-08] VITALS (7 sets, daily range): BP systolic 104–131; BP diastolic 52–77
[2020-02-08] MEDS: Piperacillin/Tazobactam 3.375 GM in NS 110 ML IVPB SCH ×3 (05:45→21:57)
[2020-02-08] MEDS: Heparin 5000 units/ml inj SUBQ SCH ×3 (05:47→21:56)
--- NOTE | 2020-02-08 07:42 | NUR ---
NURSE HAND-OFF: Important Events on Shift: Patient Status: Diet: Cardiac Pending Orders: Pending Results/Labs: Pending MD notification: Latest Vital Signs: Temperature 98.2 , Pulse 74 , B/P 111 /63 , Respiratory Rate 17 , O2 SAT 97 , Room Air, O2 Flow Rate . Vital Sign Comment: Latest Harvey Fall Score: 60 Fall Risk: High Risk Safety Measures: Call light Within Reach, Bed Alarm Zone 1, Side Rails Side Rails x2, Bed position Low and Locked. Fall Precautions: Yellow Socks Yellow Gown Door Sign Patient Fall Education Report given to Ricardo VELASQUEZ.
[2020-02-08] MEDS ORDERED: Simethicone 80mg tab ORAL PRN (07:45)
[2020-02-08] MEDS ORDERED: Milk of Magnesia 30ml Ud ORAL PRN (07:45)
[2020-02-08] MEDS ORDERED: Miralax 17gm pkt ORAL PRN (07:45)
--- NOTE | 2020-02-08 07:46 | NUR ---
NURSE NOTES: Received report from Katerin Alejandro RN. Patient sitting up in bed, awake and alert, watching television and eating breakfast, no c/o pain, no SOB, bed in lowest position, call light within reach, side rails up x 3, on room air, in no apparent distress.
[2020-02-08] MEDS: Ascorbic Acid 500mg tab ORAL SCH (08:20)
[2020-02-08] MEDS: Zinc Sulfate 220mg ORAL SCH (08:20)
[2020-02-08] MEDS: Aspirin EC 81mg tab ORAL SCH (08:20)
[2020-02-08] MEDS: Losartan 50mg tab ORAL SCH (08:21)
[2020-02-08] MEDS: Atenolol 25mg tab ORAL SCH (08:21)
[2020-02-08 08:37] LABS: HEMATOCRIT 34.9 % (42.0-52.0); HEMOGLOBIN 11.8 G/DL (14.2-18.0); MEAN CORPUSCULAR VOLUME 96 FL (80-99); PLATELET COUNT 213 K/UL (150-450); RED BLOOD COUNT 3.63 M/UL (4.70-6.10); RED CELL DISTRIBUTION WIDTH 12.1 % (11.6-14.8); WHITE BLOOD COUNT 15.4 K/UL (4.8-10.8)
[2020-02-08 09:00] LABS: ALBUMIN 2.5 G/DL (3.4-5.0); ALBUMIN/GLOBULIN RATIO 0.6 (1.0-2.7); BILIRUBIN,TOTAL 0.5 MG/DL (0.2-1.0); CALCIUM 8.3 MG/DL (8.5-10.1); CREATININE 1.5 MG/DL (0.55-1.30); POTASSIUM 3.1 MMOL/L (3.5-5.1)
--- NOTE | 2020-02-08 12:39 | Infectious Diseases Prog Note ---
Assessment/Plan Assessment/Plan A; 1. Left leg cellulitis. 2. Left leg ulcer. 3. Hypertension. 4. Leukocytosis is improving. 5. Knees OA PLAN: 1. Continue IV vancomycin and Zosyn. 2. We will follow up cultures and adjust antibiotics accordingly. Subjective ROS Limited/Unobtainable: No Constitutional: Reports: no symptoms Respiratory: Reports: no symptoms Cardiovascular: Reports: no symptoms Gastrointestinal/Abdominal: Reports: no symptoms Genitourinary: Reports: no symptoms Musculoskeletal: Reports: pain, other - Knees pain with walking Allergies: Coded Allergies: No Known Allergies (Unverified , 06/22/18) Objective Last 24 Hour Vital Signs Date Time Temp Pulse Resp B/P (MAP) Pulse Ox O2 Delivery O2 Flow Rate FiO2 02/08/20 09:00 Room Air 02/08/20 08:21 125/77 02/08/20 08:21 71 125/77 02/08/20 08:00 97.0 71 16 125/77 (93) 98 02/08/20 04:00 98.2 74 17 111/63 (79) 97 02/08/20 00:00 97.6 62 16 104/52 (69) 98 02/07/20 21:00 Room Air 02/07/20 20:00 97.7 54 16 102/42 (62) 98 02/07/20 16:00 98.8 60 18 106/52 (70) 96 Height (Feet): 6 Height (Inches): 4.00 Weight (Pounds): 239 General Appearance: no acute distress HEENT: mucous membranes moist Cardiovascular: normal rate Abdomen: soft, non tender Extremities: other - Bilateral knee arthritic change, LLU edema Skin: other - Ulcer left ankle, pigmentation in both legs Neurologic/Psychiatric: alert, oriented x 3, responsive Microbiology Date/Time Source Procedure Growth Status 02/07/20 13:15 Leg Left Gram Stain Pending Resulted 02/07/20 13:15 Wound Culture - Preliminary Gram Negative Bacillus 1 Resulted Laboratory Tests Test 02/08/20 08:00 White Blood Count 15.4 K/UL (4.8-10.8) H Red Blood Count 3.63 M/UL (4.70-6.10) L Hemoglobin 11.8 G/DL (14.2-18.0) L Hematocrit 34.9 % (42.0-52.0) L Mean Corpuscular Volume 96 FL (80-99) Mean Corpuscular Hemoglobin 32.6 PG (27.0-31.0) H Mean Corpuscular Hemoglobin Concent 33.9 G/DL (32.0-36.0) Red Cell Distribution Width 12.1 % (11.6-14.8) Platelet Count 213 K/UL (150-450) Mean Platelet Volume 8.5 FL (6.5-10.1) Neutrophils (%) (Auto) % (45.0-75.0) Lymphocytes (%) (Auto) % (20.0-45.0) Monocytes (%) (Auto) % (1.0-10.0) Eosinophils (%) (Auto) % (0.0-3.0) Basophils (%) (Auto) % (0.0-2.0) Differential Total Cells Counted 100 Neutrophils % (Manual) 88 % (45-75) H Lymphocytes % (Manual) 6 % (20-45) L Monocytes % (Manual) 6 % (1-10) Eosinophils % (Manual) 0 % (0-3) Basophils % (Manual) 0 % (0-2) Band Neutrophils 0 % (0-8) Platelet Estimate Adequate Platelet Morphology Normal Red Blood Cell Morphology Normal Erythrocyte Sedimentation Rate 82 MM/HR (0-20) H Sodium Level 138 MMOL/L (136-145) Potassium Level 3.1 MMOL/L (3.5-5.1) L Chloride Level 104 MMOL/L (98-107) Carbon Dioxide Level 25 MMOL/L (21-32) Anion Gap 10 mmol/L (5-15) Blood Urea Nitrogen 23 mg/dL (7-18) H Creatinine 1.5 MG/DL (0.55-1.30) H Estimat Glomerular Filtration Rate 44.9 mL/min (>60) Glucose Level 114 MG/DL (74-106) H Calcium Level 8.3 MG/DL (8.5-10.1) L Total Bilirubin 0.5 MG/DL (0.2-1.0) Aspartate Amino Transf (AST/SGOT) 52 U/L (15-37) H Alanine Aminotransferase (ALT/SGPT) 29 U/L (12-78) Alkaline Phosphatase 92 U/L (46-116) C-Reactive Protein, Quantitative 24.5 mg/dL (0.00-0.90) H Total Protein 6.5 G/DL (6.4-8.2) Albumin 2.5 G/DL (3.4-5.0) L Globulin 4.0 g/dL Albumin/Globulin Ratio 0.6 (1.0-2.7) L Random Vancomycin Level 6.5 ug/mL Current Medications Medications (Trade) Dose Ordered Sig/Remigio Route PRN Reason Start Time Stop Time Status Last Admin Dose Admin Acetaminophen (Tylenol) 500 mg Q4H PRN ORAL Mild Pain (Pain Scale 1-3) 02/06/20 20:00 03/07/20 19:59 Al Hydroxide/Mg Hydroxide (Mylanta) 30 ml Q6H PRN ORAL Abdominal cramps 02/08/20 07:45 03/09/20 07:44 Ascorbic Acid (Vitamin C) 500 mg DAILY ORAL 02/08/20 09:00 03/09/20 08:59 02/08/20 08:20 Aspirin (Ecotrin) 81 mg DAILY ORAL 02/06/20 20:00 03/22/20 19:59 02/08/20 08:20 Atenolol (Tenormin) 25 mg DAILY ORAL 02/07/20 09:00 03/08/20 08:59 02/08/20 08:21 Furosemide (Lasix) 40 mg BID IV 02/07/20 09:00 03/08/20 08:59 02/08/20 08:20 Heparin Sodium (Porcine) (Heparin 5000 units/ml) 5,000 units EVERY 8 HOURS SUBQ 02/07/20 06:00 03/23/20 05:59 02/08/20 05:47 Ibuprofen (Advil) 200 mg DAILYPRN PRN ORAL moderate pain 02/06/20 20:00 03/07/20 19:59 Losartan Potassium (Cozaar) 50 mg DAILY ORAL 02/07/20 09:00 03/08/20 08:59 02/08/20 08:21 Magnesium Hydroxide (Mom) 30 ml HSPRN PRN ORAL Constipation 02/08/20 07:45 03/09/20 07:44 Multivitamins (Multivitamins) 1 tab DAILY ORAL 02/08/20 09:00 03/09/20 08:59 02/08/20 08:21 Ondansetron HCl (Zofran) 4 mg Q6H PRN IVP Nausea & Vomiting 02/06/20 20:00 03/07/20 19:59 Piperacillin Sod/ Tazobactam Sod 3.375 gm/Sodium Chloride 110 ml @ 27.5 mls/hr EVERY 8 HOURS IVPB 02/07/20 09:00 02/12/20 08:59 02/08/20 05:45 Polyethylene Glycol (Miralax) 17 gm DAILYPRN PRN ORAL Constipation 02/08/20 07:45 03/09/20 07:44 Potassium Chloride (K-Dur) 10 meq TWICE A DAY ORAL 02/07/20 09:00 05/07/20 08:59 02/08/20 08:21 Simethicone (Mylicon) 80 mg QIDPRN PRN ORAL Abdominal cramps 02/08/20 07:45 05/08/20 07:44 Vancomycin HCl (Vanco pharmacy to dose) 1 ea DAILY PRN MISC Per rx protocol 02/07/20 07:30 03/08/20 07:29 Vancomycin HCl 1.5 gm/Sodium Chloride 275 ml @ 137.5 mls/ hr ONCE ONCE IVPB 02/08/20 12:00 02/08/20 13:59 Vancomycin HCl 1.5 gm/Sodium Chloride 275 ml @ 137.5 mls/ hr Q24H IVPB 02/09/20 12:00 02/14/20 11:59 Zinc Sulfate (Zinc Sulfate) 220 mg DAILY ORAL 02/08/20 09:00 02/18/20 08:59 02/08/20 08:20 Stephon Barrera MD Feb 08, 2020 12:39
--- NOTE | 2020-02-08 16:03 | General Progress Note ---
Subjective ROS Limited/Unobtainable: No Constitutional: Reports: malaise, weakness HEENT: Reports: no symptoms Cardiovascular: Reports: edema Respiratory: Reports: no symptoms Gastrointestinal/Abdominal: Reports: no symptoms Genitourinary: Reports: no symptoms Neurologic/Psychiatric: Reports: no symptoms Endocrine: Reports: no symptoms Hematologic/Lymphatic: Reports: no symptoms Allergies: Coded Allergies: No Known Allergies (Unverified , 06/22/18) All Systems: reviewed and negative except above Subjective c/o chills. no fevers. on iv abx. UA neg. wbc trending down. decreased LE edema Objective Last 24 Hour Vital Signs Date Time Temp Pulse Resp B/P (MAP) Pulse Ox O2 Delivery O2 Flow Rate FiO2 02/08/20 13:13 98.1 53 18 124/73 (90) 98 02/08/20 12:00 98.1 53 18 124/73 (90) 98 02/08/20 09:00 Room Air 02/08/20 08:21 125/77 02/08/20 08:21 71 125/77 02/08/20 08:00 97.0 71 16 125/77 (93) 98 02/08/20 04:00 98.2 74 17 111/63 (79) 97 02/08/20 00:00 97.6 62 16 104/52 (69) 98 02/07/20 21:00 Room Air 02/07/20 20:00 97.7 54 16 102/42 (62) 98 Intake and Output 02/07/20 02/08/20 19:00 07:00 Intake Total 320 ml 617.5 ml Output Total 500 ml 1200 ml Balance -180 ml -582.5 ml Intake Oral 320 ml 480 ml IV Total 137.5 ml Output Urine Total 500 ml 1200 ml # Voids 1 Laboratory Tests 02/08/20 08:00: White Blood Count 15.4H, Red Blood Count 3.63L, Hemoglobin 11.8L, Hematocrit 34.9L, Mean Corpuscular Volume 96, Mean Corpuscular Hemoglobin 32.6H, Mean Corpuscular Hemoglobin Concent 33.9, Red Cell Distribution Width 12.1, Platelet Count 213, Mean Platelet Volume 8.5, Neutrophils (%) (Auto) , Lymphocytes (%) (Auto) , Monocytes (%) (Auto) , Eosinophils (%) (Auto) , Basophils (%) (Auto) , Differential Total Cells Counted 100, Neutrophils % (Manual) 88H, Lymphocytes % (Manual) 6L, Monocytes % (Manual) 6, Eosinophils % (Manual) 0, Basophils % (Manual) 0, Band Neutrophils 0, Platelet Estimate Adequate, Platelet Morphology Normal, Red Blood Cell Morphology Normal, Erythrocyte Sedimentation Rate 82H, Sodium Level 138, Potassium Level 3.1L, Chloride Level 104, Carbon Dioxide Level 25, Anion Gap 10, Blood Urea Nitrogen 23H, Creatinine 1.5H, Estimat Glomerular Filtration Rate 44.9, Glucose Level 114H, Calcium Level 8.3L, Total Bilirubin 0.5, Aspartate Amino Transf (AST/SGOT) 52H, Alanine Aminotransferase (ALT/SGPT) 29, Alkaline Phosphatase 92, C-Reactive Protein, Quantitative 24.5H, Total Protein 6.5, Albumin 2.5L, Globulin 4.0, Albumin/Globulin Ratio 0.6L, Random Vancomycin Level 6.5 Height (Feet): 6 Height (Inches): 4.00 Weight (Pounds): 239 General Appearance: WD/WN, no apparent distress, alert EENT: PERRL/EOMI, normal ENT inspection Neck: non-tender, normal alignment, supple Cardiovascular: normal peripheral pulses, normal rate Respiratory/Chest: chest wall non-tender, lungs clear, normal breath sounds Abdomen: normal bowel sounds, non tender, soft, no organomegaly Edema: 2+ Pedal (L); 3+ Pedal (R) Edema: mild edema 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
--- NOTE | 2020-02-08 16:14 | NUR ---
CASE MANAGEMENT:REVIEW SI;LLE CELLULITIS. HTN. 98.2 18 125/77 97% ON RA WBC 15.4 K+ 3.1 BUN 23 CR 1.5 AST 52 CRP 24.5 ALB2.5 IS;VANCOMYCIN IV ONCE K-DUR PO ONCE ZOSYN IV Q8 K-DUR PO BID LASIX PO IV HEPARIN SUBQ Q1 ASA PO QD MED SURG STATUS DCP;FROM HOME
--- NOTE | 2020-02-08 17:26 | NUR ---
[employer].REVIEW FAXED TO [facility] [phone]
--- NOTE | 2020-02-08 18:11 | Surgery Progress Note ---
Surgery Progress Note Subjective Symptoms: improved, tolerating diet, passing flatus Objective Last 24 Hour Vital Signs Date Time Temp Pulse Resp B/P (MAP) Pulse Ox O2 Delivery O2 Flow Rate FiO2 02/08/20 16:00 98.1 52 18 131/65 (87) 96 02/08/20 13:13 98.1 53 18 124/73 (90) 98 02/08/20 12:00 98.1 53 18 124/73 (90) 98 02/08/20 09:00 Room Air 02/08/20 08:21 125/77 02/08/20 08:21 71 125/77 02/08/20 08:00 97.0 71 16 125/77 (93) 98 02/08/20 04:00 98.2 74 17 111/63 (79) 97 02/08/20 00:00 97.6 62 16 104/52 (69) 98 02/07/20 21:00 Room Air 02/07/20 20:00 97.7 54 16 102/42 (62) 98 I&O Intake and Output 02/07/20 02/08/20 19:00 07:00 Intake Total 320 ml 617.5 ml Output Total 500 ml 1200 ml Balance -180 ml -582.5 ml Intake Oral 320 ml 480 ml IV Total 137.5 ml Output Urine Total 500 ml 1200 ml # Voids 1 Dressing: saturated Cardiovascular: RSR Respiratory: clear, decreased breath sounds Abdomen: non-tender, present bowel sounds Extremities: edema, no tenderness, no cyanosis, pulses, other Laboratory Tests Test 02/08/20 08:00 White Blood Count 15.4 K/UL (4.8-10.8) H Red Blood Count 3.63 M/UL (4.70-6.10) L Hemoglobin 11.8 G/DL (14.2-18.0) L Hematocrit 34.9 % (42.0-52.0) L Mean Corpuscular Volume 96 FL (80-99) Mean Corpuscular Hemoglobin 32.6 PG (27.0-31.0) H Mean Corpuscular Hemoglobin Concent 33.9 G/DL (32.0-36.0) Red Cell Distribution Width 12.1 % (11.6-14.8) Platelet Count 213 K/UL (150-450) Mean Platelet Volume 8.5 FL (6.5-10.1) Neutrophils (%) (Auto) % (45.0-75.0) Lymphocytes (%) (Auto) % (20.0-45.0) Monocytes (%) (Auto) % (1.0-10.0) Eosinophils (%) (Auto) % (0.0-3.0) Basophils (%) (Auto) % (0.0-2.0) Differential Total Cells Counted 100 Neutrophils % (Manual) 88 % (45-75) H Lymphocytes % (Manual) 6 % (20-45) L Monocytes % (Manual) 6 % (1-10) Eosinophils % (Manual) 0 % (0-3) Basophils % (Manual) 0 % (0-2) Band Neutrophils 0 % (0-8) Platelet Estimate Adequate Platelet Morphology Normal Red Blood Cell Morphology Normal Erythrocyte Sedimentation Rate 82 MM/HR (0-20) H Sodium Level 138 MMOL/L (136-145) Potassium Level 3.1 MMOL/L (3.5-5.1) L Chloride Level 104 MMOL/L (98-107) Carbon Dioxide Level 25 MMOL/L (21-32) Anion Gap 10 mmol/L (5-15) Blood Urea Nitrogen 23 mg/dL (7-18) H Creatinine 1.5 MG/DL (0.55-1.30) H Estimat Glomerular Filtration Rate 44.9 mL/min (>60) Glucose Level 114 MG/DL (74-106) H Calcium Level 8.3 MG/DL (8.5-10.1) L Total Bilirubin 0.5 MG/DL (0.2-1.0) Aspartate Amino Transf (AST/SGOT) 52 U/L (15-37) H Alanine Aminotransferase (ALT/SGPT) 29 U/L (12-78) Alkaline Phosphatase 92 U/L (46-116) C-Reactive Protein, Quantitative 24.5 mg/dL (0.00-0.90) H Total Protein 6.5 G/DL (6.4-8.2) Albumin 2.5 G/DL (3.4-5.0) L Globulin 4.0 g/dL Albumin/Globulin Ratio 0.6 (1.0-2.7) L Random Vancomycin Level 6.5 ug/mL Plan Problems: (1) Cellulitis Assessment & Plan: This is a very pleasant 79-year-old male with history of chronic venous stasis ulcer that is acutely worsened. Edema cellulitis leukocytosis renal insufficiency. CT reviewed exam performed local care provided Left medial lower leg venous ulcer 5.7x3.7x0.3 60% yellow slough 40% pink tissue no odor ,redness , edema and small scattered open areas periwound,large amount serosanguineous drainage. wound culture done.Thera honey ,gauze,abd pad and kerlix applied. Left buttock ulcer possible prior abscess 0.8x0.5x0.2 scant serous drainage and thickened wound edges Calazime and Optifoam applied. Sacral area skin intact Optifoam applied for protection . Right heel pressure ulcer stage 1 3.5x5.0x0.0 nonblanchable redness Optifoam applied. Left heel pressure ulcer stage 1 5.0x6.0x0.0 non blanchable redness Optifoam ap plied . Patient alert and oriented educated on skin break down prevention. Duplex Doppler interrogation of the veins in both lower extremity is performed from the common femoral vein to the popliteal vein. Normal venous compressibility demonstrated throughout. No thrombus identified. Waveform analysis shows good respiratory phasicity and augmentation. Image calf veins are patent. IMPRESSION: No evidence of deep venous thrombosis involving the lower extremities. There is edema of the subcutaneous fat and thickening of the skin. This is circumferential distally, mostly posterior proximally. No definite discrete fluid collection to suggest organized abscess, although evaluation for such is limited in the absence of IV contrast. No definite osseous erosive abnormality or unusual periosteal reaction. There are degenerative changes of the hindfoot joints as well as of the knee joint. No evidence of acute fracture. No radiopaque foreign body. There is a small knee joint effusion which is smaller than that seen on the previous study.. A broken off osteophyte is seen at the lateral aspect of the lateral joint compartment. Impression: Diffuse soft tissue edema, as described. This may be due to cellulitis or could be edema related to hemodynamic abnormalities. Correlation with clinical findings is recommended. No evidence of organized collection to suggest soft tissue abscess. However, evaluation for such is limited in the absence of IV contrast No acute bony trauma No CT findings to suggest acute osteomyelitis. Note, however, limited sensitivity of CT for such. If there is high clinical suspicion then MRI should be considered. Knee joint effusion, smaller than that demonstrated previously. Small lateral loose body. This appears to be a previously present lateral osteophyte that has broken off in the interim. DAILY ESTIMATED NEEDS: Needs based on Cardiac, 95kg abw 25-30 kcals/kg 5885-1953 total kcals 1-1.2 g protein/kg 95-114 g total protein 25-30 mL/kg 7213-0637 total fluid mLs NUTRITION DIAGNOSIS: Decreased sodium needs R/T CHF and BL LE cellulitis as evidenced by elev BNP 2280, BL LE edema, on lasix. CURRENT DIET:Cardiac PO DIET RECOMMENDATIONS: LOW NA, texture as tolerated ADDITIONAL RECOMMENDATIONS: * Standing wt as able for accurate CBW * Rec WC rn for above wounds, -> add ALEXA BID * Add B-complex qdaily w/ lasix * Snacks in b/w meals as able, Ensure Enlive qdaily * BG elevated, rec A1C for eval (2) CHF (congestive heart failure) (3) Sepsis (4) ASCVD (arteriosclerotic cardiovascular disease) (5) Venous insufficiency Ned Albrecht Feb 08, 2020 18:11
--- NOTE | 2020-02-08 19:39 | NUR ---
NURSE HAND-OFF: Important Events on Shift:Patient had potassium replacement and wound care of left lower extremity Patient Status: Stable Diet: Cardiac with thin liquids. Pending Orders: N/A Pending Results/Labs:N/A Pending MD notification:N/A Latest Vital Signs: Temperature 98.1 , Pulse 52 , B/P 131 /65 , Respiratory Rate 18 , O2 SAT 96 , Room Air, O2 Flow Rate . Vital Sign Comment: Stable Latest Harvey Fall Score: 60 Fall Risk: High Risk Safety Measures: Call light Within Reach, Bed Alarm Zone 1, Side Rails Side Rails x2, Bed position Low and Locked. Fall Precautions: Yellow Socks Yellow Gown Door Sign Patient Fall Education Report given to Antonietta Rodriguez RN.
--- NOTE | 2020-02-08 19:40 | NUR ---
NURSE NOTES: Received pt awake, verbal and A&ox3-4. No sob,fever,pain and cough. Iv is intact and asymptomatic. Bed is in the lowest position,locked,alarm on and call light within reach. We will keep monitoring the pt
[2020-02-09] VITALS: BP 139/74
[2020-02-09 04:00] VITALS: BP 141/68
[2020-02-09] MEDS: Piperacillin/Tazobactam 3.375 GM in NS 110 ML IVPB SCH ×3 (05:39→21:16)
[2020-02-09] MEDS: Heparin 5000 units/ml inj SUBQ SCH ×3 (05:43→21:17)
--- NOTE | 2020-02-09 07:21 | NUR ---
HAND-OFF: Report given to EVA Pack.
--- NOTE | 2020-02-09 07:30 | NUR ---
NURSE NOTES: Received pt from EVA Mane, pt is awake and alert, pt is in RA, no SOB or acute respiratory distress noted, pt has intact iv access LAC 20G SL. pt is eating breakfast by observation. Dr Messina is aware about K 3.1, waiting to call back. no complain of pain at this moment. all needs attended, bed is locked and is in the lowest position, call light within easy reach. will continue to monitor.
[2020-02-09 08:00] VITALS: BP 135/61
[2020-02-09] MEDS ORDERED: POTASSIUM CHLO10 MEQ ORAL (09:30)
[2020-02-09] MEDS ORDERED: TELMISARTAN40 MG PO (09:34)
[2020-02-09] MEDS: Zinc Sulfate 220mg ORAL SCH (09:39)
[2020-02-09] MEDS: Atenolol 25mg tab ORAL SCH (09:40)
[2020-02-09] MEDS: Losartan 50mg tab ORAL SCH (09:40)
[2020-02-09] MEDS: Aspirin EC 81mg tab ORAL SCH (09:40)
[2020-02-09] MEDS: Ascorbic Acid 500mg tab ORAL SCH (09:41)
--- NOTE | 2020-02-09 11:18 | Infectious Diseases Prog Note ---
Assessment/Plan Assessment/Plan antibiotics : vancomycin iv, zosyn A 1. left leg cellulitis improving 2. left leg ulcer infection with gram positive cocci, gram negative rods 3. hypertension 4. leucocytosis improving P 1. continue iv vancomycin, zosyn 2. will follow up cultures Subjective Constitutional: Denies: fever, chills Respiratory: Denies: shortness of breath, dry cough Gastrointestinal/Abdominal: Denies: nausea, vomiting, diarrhea Musculoskeletal: Reports: pain - on walking Allergies: Coded Allergies: No Known Allergies (Unverified , 06/22/18) Objective Last 24 Hour Vital Signs Date Time Temp Pulse Resp B/P (MAP) Pulse Ox O2 Delivery O2 Flow Rate FiO2 02/09/20 09:40 135/61 02/09/20 09:40 60 135/61 02/09/20 09:00 Room Air 02/09/20 08:00 98.0 60 20 135/61 (85) 96 02/09/20 04:00 97.4 56 18 141/68 (92) 98 02/09/20 00:00 97.6 80 19 139/74 (95) 100 02/08/20 21:00 Room Air 02/08/20 20:00 97.8 62 18 129/69 (89) 97 02/08/20 16:00 98.1 52 18 131/65 (87) 96 02/08/20 13:13 98.1 53 18 124/73 (90) 98 02/08/20 12:00 98.1 53 18 124/73 (90) 98 Height (Feet): 6 Height (Inches): 4.00 Weight (Pounds): 239 Respiratory/Chest: lungs clear Cardiovascular: normal rate, regular rhythm, no gallop/murmur Abdomen: soft, non tender Extremities: other - + edema, left leg erythema decreased, ulcer Microbiology Date/Time Source Procedure Growth Status 02/07/20 13:15 Leg Left Gram Stain - Final Resulted 02/07/20 13:15 Wound Culture - Preliminary Gram Negative Bacillus 1 Gram Negative Bacillus 2 Gram Positive Cocci Resulted 02/07/20 05:30 Blood Blood Culture - Preliminary NO GROWTH AFTER 24 HOURS Resulted Current Medications Medications (Trade) Dose Ordered Sig/Remigio Route PRN Reason Start Time Stop Time Status Last Admin Dose Admin Acetaminophen (Tylenol) 500 mg Q4H PRN ORAL Mild Pain (Pain Scale 1-3) 02/06/20 20:00 03/07/20 19:59 Al Hydroxide/Mg Hydroxide (Mylanta) 30 ml Q6H PRN ORAL Abdominal cramps 02/08/20 07:45 03/09/20 07:44 Ascorbic Acid (Vitamin C) 500 mg DAILY ORAL 02/08/20 09:00 03/09/20 08:59 02/09/20 09:41 Aspirin (Ecotrin) 81 mg DAILY ORAL 02/06/20 20:00 03/22/20 19:59 02/09/20 09:40 Atenolol (Tenormin) 25 mg DAILY ORAL 02/07/20 09:00 03/08/20 08:59 02/09/20 09:40 Furosemide (Lasix) 40 mg BID IV 02/07/20 09:00 03/08/20 08:59 02/09/20 09:41 Heparin Sodium (Porcine) (Heparin 5000 units/ml) 5,000 units EVERY 8 HOURS SUBQ 02/07/20 06:00 03/23/20 05:59 02/09/20 05:43 Ibuprofen (Advil) 200 mg DAILYPRN PRN ORAL moderate pain 02/06/20 20:00 03/07/20 19:59 Losartan Potassium (Cozaar) 50 mg DAILY ORAL 02/07/20 09:00 03/08/20 08:59 02/09/20 09:40 Magnesium Hydroxide (Mom) 30 ml HSPRN PRN ORAL Constipation 02/08/20 07:45 03/09/20 07:44 Multivitamins (Multivitamins) 1 tab DAILY ORAL 02/08/20 09:00 03/09/20 08:59 02/09/20 09:40 Ondansetron HCl (Zofran) 4 mg Q6H PRN IVP Nausea & Vomiting 02/06/20 20:00 03/07/20 19:59 Piperacillin Sod/ Tazobactam Sod 3.375 gm/Sodium Chloride 110 ml @ 27.5 mls/hr EVERY 8 HOURS IVPB 02/07/20 09:00 02/12/20 08:59 02/09/20 05:39 Polyethylene Glycol (Miralax) 17 gm DAILYPRN PRN ORAL Constipation 02/08/20 07:45 03/09/20 07:44 Potassium Chloride (K-Dur) 10 meq TWICE A DAY ORAL 02/07/20 09:00 05/07/20 08:59 02/09/20 09:41 Simethicone (Mylicon) 80 mg QIDPRN PRN ORAL Abdominal cramps 02/08/20 07:45 05/08/20 07:44 Vancomycin HCl (Vanco pharmacy to dose) 1 ea DAILY PRN MISC Per rx protocol 02/07/20 07:30 03/08/20 07:29 Vancomycin HCl 1.5 gm/Sodium Chloride 275 ml @ 137.5 mls/ hr Q24H IVPB 02/09/20 12:00 02/14/20 11:59 02/09/20 11:07 Zinc Sulfate (Zinc Sulfate) 220 mg DAILY ORAL 02/08/20 09:00 02/18/20 08:59 02/09/20 09:39 Caron Elizabeth MD Feb 09, 2020 11:18
[2020-02-09 11:48] VITALS: BP 146/75
--- NOTE | 2020-02-09 14:02 | General Progress Note ---
Subjective ROS Limited/Unobtainable: No Constitutional: Reports: malaise, weakness HEENT: Reports: no symptoms Cardiovascular: Reports: edema Respiratory: Reports: no symptoms Gastrointestinal/Abdominal: Reports: no symptoms Genitourinary: Reports: no symptoms Neurologic/Psychiatric: Reports: no symptoms Endocrine: Reports: no symptoms Hematologic/Lymphatic: Reports: no symptoms Allergies: Coded Allergies: No Known Allergies (Unverified , 06/22/18) All Systems: reviewed and negative except above Subjective no new complaints. remains on iv abx. decreased edea and erythema noted. no fevers or chills. normal bowel movements. tolerating pos wbc trending down wants therapy Objective Last 24 Hour Vital Signs Date Time Temp Pulse Resp B/P (MAP) Pulse Ox O2 Delivery O2 Flow Rate FiO2 02/09/20 11:48 98.0 54 18 146/75 (98) 95 02/09/20 09:40 135/61 02/09/20 09:40 60 135/61 02/09/20 09:00 Room Air 02/09/20 08:00 98.0 60 20 135/61 (85) 96 02/09/20 04:00 97.4 56 18 141/68 (92) 98 02/09/20 00:00 97.6 80 19 139/74 (95) 100 02/08/20 21:00 Room Air 02/08/20 20:00 97.8 62 18 129/69 (89) 97 02/08/20 16:00 98.1 52 18 131/65 (87) 96 Intake and Output 02/08/20 02/09/20 19:00 07:00 Intake Total 827.5 ml 450 ml Output Total 1000 ml 1100 ml Balance -172.5 ml -650 ml Intake Oral 360 ml 450 ml IV Total 467.5 ml Output Urine Total 1000 ml 1100 ml Height (Feet): 6 Height (Inches): 4.00 Weight (Pounds): 239 Objective General Appearance: WD/WN, no apparent distress, alert EENT: PERRL/EOMI, normal ENT inspection Neck: non-tender, normal alignment, supple Cardiovascular: normal peripheral pulses, normal rate Respiratory/Chest: chest wall non-tender, lungs clear, normal breath sounds Abdomen: normal bowel sounds, non tender, soft, no organomegaly Edema: 2+ Pedal (L); 3+ Pedal (R) Edema: mild edema 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
--- NOTE | 2020-02-09 14:07 | NUR ---
CASE MANAGEMENT:REVIEW SI;LT LEG CELLULITIS. LT LEG ULCER INFX W/GPC AND GNR. 98.0 54 20 146/75 95% ON RA NO LABS AVAILABLE IS;VANCOMYCIN IV K-DUR PO ONCE ZINC SULFATE PO QD ZOSYN IV Q8 HEPARIN SUBQ Q8 LOSARTAN PO QD ASA PO QD MED SURG STATUS DCP;FROM HOME
--- NOTE | 2020-02-09 14:10 | NUR ---
PT EVALUATION NOTE Patient seen for initial evaluation. Patient presents with generalized weakness and decreased balance which impairs patient's ability to perform mobility skills safely. Patient requires SBA for bed mobility and mod assist for sit->stand transfers with FWW. Patient able to ambulate 25 ft with the FWW, slow pace, decreased bilateral step length and narrow KIA. Patient will benefit from skilled inpatient PT intervention to increase strength and postural stability for improved level of functional mobility and safety. Recommend discharge to short term SNF for rehab vs home with home PT and caregiver assistance once medically cleared by MD. Patient appears to have necessary DME at home. Addendum: 02/09/20 at 1441 by NAZANIN LANG PT Amended: Links added.
--- NOTE | 2020-02-09 14:51 | Surgery Progress Note ---
Surgery Progress Note Subjective Additional Comments Patient seen examined bedside. States he feels better. Wound care was performed by myself again this morning and the entirety of the wound was identified and significantly improved over the course the past few days as the edema has improved. Wound with good backbleeding no necrotic nonviable or slough. Objective Last 24 Hour Vital Signs Date Time Temp Pulse Resp B/P (MAP) Pulse Ox O2 Delivery O2 Flow Rate FiO2 02/09/20 11:48 98.0 54 18 146/75 (98) 95 02/09/20 09:40 135/61 02/09/20 09:40 60 135/61 02/09/20 09:00 Room Air 02/09/20 08:00 98.0 60 20 135/61 (85) 96 02/09/20 04:00 97.4 56 18 141/68 (92) 98 02/09/20 00:00 97.6 80 19 139/74 (95) 100 02/08/20 21:00 Room Air 02/08/20 20:00 97.8 62 18 129/69 (89) 97 02/08/20 16:00 98.1 52 18 131/65 (87) 96 I&O Intake and Output 02/08/20 02/09/20 19:00 07:00 Intake Total 827.5 ml 450 ml Output Total 1000 ml 1100 ml Balance -172.5 ml -650 ml Intake Oral 360 ml 450 ml IV Total 467.5 ml Output Urine Total 1000 ml 1100 ml Dressing: saturated Cardiovascular: RSR Respiratory: decreased breath sounds Abdomen: non-tender, present bowel sounds Extremities: no edema, no tenderness, no cyanosis Plan Problems: (1) Cellulitis Assessment & Plan: This is a very pleasant 79-year-old male with history of chronic venous stasis ulcer that is acutely worsened. Edema cellulitis leukocytosis renal insufficiency. CT reviewed exam performed local care provided Left medial lower leg venous ulcer 5.7x3.7x0.3 60% yellow slough 40% pink tissue no odor ,redness , edema and small scattered open areas periwound,large amount serosanguineous drainage. wound culture done.Thera honey ,gauze,abd pad and kerlix applied. Left buttock ulcer possible prior abscess 0.8x0.5x0.2 scant serous drainage and thickened wound edges Calazime and Optifoam applied. Sacral area skin intact Optifoam applied for protection . Right heel pressure ulcer stage 1 3.5x5.0x0.0 nonblanchable redness Optifoam applied. Left heel pressure ulcer stage 1 5.0x6.0x0.0 non blanchable redness Optifoam applied . Patient alert and oriented educated on skin break down prevention. Patient with significant improvement of the edema in the left lower extremity. The wound was cleaned and dressings were applied patient taught procedure well of the dressing changes and has plan for discharge. Outpatient wound care planning Duplex Doppler interrogation of the veins in both lower extremity is performed from the common femoral vein to the popliteal vein. Normal venous compressibility demonstrated throughout. No thrombus identified. Waveform analysis shows good respiratory phasicity and augmentation. Image calf veins are patent. IMPRESSION: No evidence of deep venous thrombosis involving the lower extremities. There is edema of the subcutaneous fat and thickening of the skin. This is circumferential distally, mostly posterior proximally. No definite discrete fluid collection to suggest organized abscess, although evaluation for such is limited in the absence of IV contrast. No definite osseous erosive abnormality or unusual periosteal reaction. There are degenerative changes of the hindfoot joints as well as of the knee joint. No evidence of acute fracture. No radiopaque foreign body. There is a small knee joint effusion which is smaller than that seen on the previous study.. A broken off osteophyte is seen at the lateral aspect of the lateral joint compartment. Impression: Diffuse soft tissue edema, as described. This may be due to cellulitis or could be edema related to hemodynamic abnormalities. Correlation with clinical findings is recommended. No evidence of organized collection to suggest soft tissue abscess. However, evaluation for such is limited in the absence of IV contrast No acute bony trauma No CT findings to suggest acute osteomyelitis. Note, however, limited sensitivity of CT for such. If there is high clinical suspicion then MRI should be considered. Knee joint effusion, smaller than that demonstrated previously. Small lateral loose body. This appears to be a previously present lateral osteophyte that has broken off in the interim. DAILY ESTIMATED NEEDS: Needs based on Cardiac, 95kg abw 25-30 kcals/kg 0177-5379 total kcals 1-1.2 g protein/kg 95-114 g total protein 25-30 mL/kg 7977-8969 total fluid mLs NUTRITION DIAGNOSIS: Decreased sodium needs R/T CHF and BL LE cellulitis as evidenced by elev BNP 2280, BL LE edema, on lasix. CURRENT DIET:Cardiac PO DIET RECOMMENDATIONS: LOW NA, texture as tolerated ADDITIONAL RECOMMENDATIONS: * Standing wt as able for accurate CBW * Rec WC rn for above wounds, -> add ALEXA BID * Add B-complex qdaily w/ lasix * Snacks in b/w meals as able, Ensure Enlive qdaily * BG elevated, rec A1C for eval (2) CHF (congestive heart failure) (3) Sepsis (4) ASCVD (arteriosclerotic cardiovascular disease) (5) Venous insufficiency Ned Albrecht Feb 09, 2020 14:51
[2020-02-09 15:47] VITALS: BP 127/64
--- NOTE | 2020-02-09 19:14 | NUR ---
NURSE HAND-OFF: Important Events on Shift: Patient Status: Diet: Pending Orders: Pending Results/Labs: Pending MD notification: Latest Vital Signs: Temperature 98.1 , Pulse 53 , B/P 127 /64 , Respiratory Rate 20 , O2 SAT 96 , Room Air, O2 Flow Rate . Vital Sign Comment: Latest Harvey Fall Score: 45 Fall Risk: High Risk Safety Measures: Call light Within Reach, Bed Alarm Zone 1, Side Rails Side Rails x2, Bed position Low and Locked. Fall Precautions: Yellow Socks Yellow Gown Door Sign Patient Fall Education Report given to . Pt is awake and stable, no stress noted. Endorsed plan of care.
[2020-02-09 20:00] VITALS: BP 126/62
[2020-02-10] VITALS: BP 130/58
[2020-02-10 04:00] VITALS: BP 134/71
[2020-02-10] MEDS: Piperacillin/Tazobactam 3.375 GM in NS 110 ML IVPB SCH (05:51)
[2020-02-10] MEDS: Heparin 5000 units/ml inj SUBQ SCH ×3 (05:52→21:26)
--- NOTE | 2020-02-10 06:34 | NUR ---
NURSE NOTES: NURSE HAND-OFF: Important Events on Shift:na Patient Status: stable Diet: cardiac diet Pending Orders: Pending Results/Labs: Pending MD notification: Latest Vital Signs: Temperature 97.4 , Pulse 56 , B/P 141 /68 , Respiratory Rate 18 , O2 SAT 98 , Room Air, O2 Flow Rate . Vital Sign Comment: Latest Harvey Fall Score: 60 Fall Risk: High Risk Safety Measures: Call light Within Reach, Bed Alarm Zone 1, Side Rails Side Rails x2, Bed position Low and Locked. Fall Precautions: Yellow Socks Yellow Gown Door Sign Patient Fall Education.
--- NOTE | 2020-02-10 07:21 | NUR ---
NURSE NOTES: HAND-OFF: Report given to EVA Amin.
--- NOTE | 2020-02-10 07:40 | NUR ---
NURSE NOTES: Received pt from EVA Mane. Patient seen in bed AAOx,4 with episodes of forgetfulness. Iv site patent and intact. Patient is on RA, breathing is even and unlabored with no SOB noted at this time. no complain of pain at this moment. all needs attended, bed is locked and is in the lowest position, call light within easy reach. will continue to monitor.
[2020-02-10 08:00] VITALS: BP 139/73
[2020-02-10 08:42] LABS: BASOPHILS % (AUTO) 1.5 % (0.0-2.0); EOSINOPHILS % (AUTO) 2.9 % (0.0-3.0); HEMATOCRIT 40.6 % (42.0-52.0); HEMOGLOBIN 13.3 G/DL (14.2-18.0); LYMPHOCYTES % (AUTO) 12.8 % (20.0-45.0); MEAN CORPUSCULAR VOLUME 98 FL (80-99); MONOCYTES % (AUTO) 7.8 % (1.0-10.0); PLATELET COUNT 265 K/UL (150-450); RED BLOOD COUNT 4.13 M/UL (4.70-6.10); RED CELL DISTRIBUTION WIDTH 11.9 % (11.6-14.8); WHITE BLOOD COUNT 8.7 K/UL (4.8-10.8)
[2020-02-10] MEDS: Atenolol 25mg tab ORAL SCH (09:00)
[2020-02-10] MEDS: Losartan 50mg tab ORAL SCH (09:05)
[2020-02-10] MEDS: Zinc Sulfate 220mg ORAL SCH (09:05)
[2020-02-10] MEDS: Aspirin EC 81mg tab ORAL SCH (09:05)
[2020-02-10 09:06] LABS: ALBUMIN 2.7 G/DL (3.4-5.0); ALBUMIN/GLOBULIN RATIO 0.7 (1.0-2.7); BILIRUBIN,TOTAL 0.6 MG/DL (0.2-1.0); CALCIUM 8.7 MG/DL (8.5-10.1); CREATININE 1.4 MG/DL (0.55-1.30); POTASSIUM 3.6 MMOL/L (3.5-5.1)
[2020-02-10] MEDS: Ascorbic Acid 500mg tab ORAL SCH (09:06)
[2020-02-10 12:00] VITALS: BP 131/71
--- NOTE | 2020-02-10 12:43 | Infectious Diseases Prog Note ---
Assessment/Plan Assessment/Plan A; 1. Left leg cellulitis, cultures pseudomonas & Enterococcus 2. Left leg ulcer. 3. Hypertension. 4. Leukocytosis resolved 5. Knees OA PLAN: 1. Continue IV vancomycin 2. Change Zosyn to Levaquin Subjective ROS Limited/Unobtainable: No Constitutional: Reports: no symptoms Respiratory: Reports: no symptoms Gastrointestinal/Abdominal: Reports: no symptoms Genitourinary: Reports: no symptoms Allergies: Coded Allergies: No Known Allergies (Unverified , 06/22/18) Objective Last 24 Hour Vital Signs Date Time Temp Pulse Resp B/P (MAP) Pulse Ox O2 Delivery O2 Flow Rate FiO2 02/10/20 12:00 97.5 56 18 131/71 (91) 97 02/10/20 09:05 139/73 02/10/20 09:00 Room Air 02/10/20 09:00 60 139/73 02/10/20 08:00 98.2 60 17 139/73 (95) 97 02/10/20 04:00 98.3 54 18 134/71 (92) 97 02/10/20 00:00 98.1 55 20 130/58 (82) 94 02/09/20 20:14 Room Air 02/09/20 20:00 99.2 53 24 126/62 (83) 97 02/09/20 15:47 98.1 53 20 127/64 (85) 96 Height (Feet): 6 Height (Inches): 4.00 Weight (Pounds): 239 General Appearance: no acute distress HEENT: mucous membranes moist Respiratory/Chest: lungs clear Cardiovascular: normal rate Abdomen: soft, non tender Extremities: no edema Skin: ulcers, other - left buttok ulcer Neurologic/Psychiatric: alert, oriented x 3, responsive Microbiology Date/Time Source Procedure Growth Status 02/07/20 13:15 Leg Left Gram Stain - Final Complete 02/07/20 13:15 Wound Culture - Final Pseudomonas Aeruginosa Enterococcus Faecalis Complete Laboratory Tests Test 02/10/20 07:45 02/10/20 11:15 White Blood Count 8.7 K/UL (4.8-10.8) Red Blood Count 4.13 M/UL (4.70-6.10) L Hemoglobin 13.3 G/DL (14.2-18.0) L Hematocrit 40.6 % (42.0-52.0) L Mean Corpuscular Volume 98 FL (80-99) Mean Corpuscular Hemoglobin 32.2 PG (27.0-31.0) H Mean Corpuscular Hemoglobin Concent 32.8 G/DL (32.0-36.0) Red Cell Distribution Width 11.9 % (11.6-14.8) Platelet Count 265 K/UL (150-450) Mean Platelet Volume 7.7 FL (6.5-10.1) Neutrophils (%) (Auto) 75.0 % (45.0-75.0) Lymphocytes (%) (Auto) 12.8 % (20.0-45.0) L Monocytes (%) (Auto) 7.8 % (1.0-10.0) Eosinophils (%) (Auto) 2.9 % (0.0-3.0) Basophils (%) (Auto) 1.5 % (0.0-2.0) Sodium Level 141 MMOL/L (136-145) Potassium Level 3.6 MMOL/L (3.5-5.1) Chloride Level 105 MMOL/L (98-107) Carbon Dioxide Level 28 MMOL/L (21-32) Anion Gap 8 mmol/L (5-15) Blood Urea Nitrogen 20 mg/dL (7-18) H Creatinine 1.4 MG/DL (0.55-1.30) H Estimat Glomerular Filtration Rate 48.6 mL/min (>60) Glucose Level 102 MG/DL (74-106) Calcium Level 8.7 MG/DL (8.5-10.1) Magnesium Level 2.3 MG/DL (1.8-2.4) Total Bilirubin 0.6 MG/DL (0.2-1.0) Aspartate Amino Transf (AST/SGOT) 43 U/L (15-37) H Alanine Aminotransferase (ALT/SGPT) 51 U/L (12-78) Alkaline Phosphatase 116 U/L (46-116) Total Protein 6.4 G/DL (6.4-8.2) Albumin 2.7 G/DL (3.4-5.0) L Globulin 3.7 g/dL Albumin/Globulin Ratio 0.7 (1.0-2.7) L Vancomycin Level Trough 10.0 ug/mL (5.0-12.0) Current Medications Medications (Trade) Dose Ordered Sig/Remigio Route PRN Reason Start Time Stop Time Status Last Admin Dose Admin Acetaminophen (Tylenol) 500 mg Q4H PRN ORAL Mild Pain (Pain Scale 1-3) 02/06/20 20:00 03/07/20 19:59 Al Hydroxide/Mg Hydroxide (Mylanta) 30 ml Q6H PRN ORAL Abdominal cramps 02/08/20 07:45 03/09/20 07:44 Ascorbic Acid (Vitamin C) 500 mg DAILY ORAL 02/08/20 09:00 03/09/20 08:59 02/10/20 09:06 Aspirin (Ecotrin) 81 mg DAILY ORAL 02/06/20 20:00 03/22/20 19:59 02/10/20 09:05 Atenolol (Tenormin) 25 mg DAILY ORAL 02/07/20 09:00 03/08/20 08:59 02/09/20 09:40 Furosemide (Lasix) 40 mg BID IV 02/07/20 09:00 03/08/20 08:59 02/10/20 09:05 Heparin Sodium (Porcine) (Heparin 5000 units/ml) 5,000 units EVERY 8 HOURS SUBQ 02/07/20 06:00 03/23/20 05:59 02/10/20 05:52 Ibuprofen (Advil) 200 mg DAILYPRN PRN ORAL moderate pain 02/06/20 20:00 03/07/20 19:59 Losartan Potassium (Cozaar) 50 mg DAILY ORAL 02/07/20 09:00 03/08/20 08:59 02/10/20 09:05 Magnesium Hydroxide (Mom) 30 ml HSPRN PRN ORAL Constipation 02/08/20 07:45 03/09/20 07:44 Multivitamins (Multivitamins) 1 tab DAILY ORAL 02/08/20 09:00 03/09/20 08:59 02/10/20 09:05 Ondansetron HCl (Zofran) 4 mg Q6H PRN IVP Nausea & Vomiting 02/06/20 20:00 03/07/20 19:59 Piperacillin Sod/ Tazobactam Sod 3.375 gm/Sodium Chloride 110 ml @ 27.5 mls/hr EVERY 8 HOURS IVPB 02/07/20 09:00 02/12/20 08:59 02/10/20 05:51 Polyethylene Glycol (Miralax) 17 gm DAILYPRN PRN ORAL Constipation 02/08/20 07:45 03/09/20 07:44 Potassium Chloride (K-Dur) 10 meq TWICE A DAY ORAL 02/07/20 09:00 05/07/20 08:59 02/10/20 09:06 Simethicone (Mylicon) 80 mg QIDPRN PRN ORAL Abdominal cramps 02/08/20 07:45 05/08/20 07:44 Vancomycin HCl (Vanco pharmacy to dose) 1 ea DAILY PRN MISC Per rx protocol 02/07/20 07:30 03/08/20 07:29 Vancomycin HCl 1.5 gm/Sodium Chloride 275 ml @ 137.5 mls/ hr Q24H IVPB 02/09/20 12:00 02/14/20 11:59 02/10/20 12:13 Zinc Sulfate (Zinc Sulfate) 220 mg DAILY ORAL 02/08/20 09:00 02/18/20 08:59 02/10/20 09:05 Stephon Barrera MD Feb 10, 2020 12:43
[2020-02-10] MEDS ORDERED: Levofloxacin 500mg tab ORAL SCH (12:45)
--- NOTE | 2020-02-10 14:52 | Surgery Progress Note ---
Surgery Progress Note Subjective Symptoms: improved, tolerating diet, voiding well, passing flatus, BM, pain decreased Objective Last 24 Hour Vital Signs Date Time Temp Pulse Resp B/P (MAP) Pulse Ox O2 Delivery O2 Flow Rate FiO2 02/10/20 12:00 97.5 56 18 131/71 (91) 97 02/10/20 09:05 139/73 02/10/20 09:00 Room Air 02/10/20 09:00 60 139/73 02/10/20 08:00 98.2 60 17 139/73 (95) 97 02/10/20 04:00 98.3 54 18 134/71 (92) 97 02/10/20 00:00 98.1 55 20 130/58 (82) 94 02/09/20 20:14 Room Air 02/09/20 20:00 99.2 53 24 126/62 (83) 97 02/09/20 15:47 98.1 53 20 127/64 (85) 96 I&O Intake and Output 02/09/20 02/10/20 19:00 07:00 Intake Total 1345.0 ml 240 ml Output Total 1800 ml 1350 ml Balance -455.0 ml -1110 ml Intake Oral 960 ml 240 ml IV Total 385.0 ml Output Urine Total 1800 ml 1350 ml # Bowel Movements 3 Dressing: dry Wound: clean Cardiovascular: RSR Respiratory: clear Abdomen: soft, non-tender, present bowel sounds, non-distended Extremities: edema, no tenderness, no cyanosis, pulses, other Laboratory Tests Test 02/10/20 07:45 02/10/20 11:15 White Blood Count 8.7 K/UL (4.8-10.8) Red Blood Count 4.13 M/UL (4.70-6.10) L Hemoglobin 13.3 G/DL (14.2-18.0) L Hematocrit 40.6 % (42.0-52.0) L Mean Corpuscular Volume 98 FL (80-99) Mean Corpuscular Hemoglobin 32.2 PG (27.0-31.0) H Mean Corpuscular Hemoglobin Concent 32.8 G/DL (32.0-36.0) Red Cell Distribution Width 11.9 % (11.6-14.8) Platelet Count 265 K/UL (150-450) Mean Platelet Volume 7.7 FL (6.5-10.1) Neutrophils (%) (Auto) 75.0 % (45.0-75.0) Lymphocytes (%) (Auto) 12.8 % (20.0-45.0) L Monocytes (%) (Auto) 7.8 % (1.0-10.0) Eosinophils (%) (Auto) 2.9 % (0.0-3.0) Basophils (%) (Auto) 1.5 % (0.0-2.0) Sodium Level 141 MMOL/L (136-145) Potassium Level 3.6 MMOL/L (3.5-5.1) Chloride Level 105 MMOL/L (98-107) Carbon Dioxide Level 28 MMOL/L (21-32) Anion Gap 8 mmol/L (5-15) Blood Urea Nitrogen 20 mg/dL (7-18) H Creatinine 1.4 MG/DL (0.55-1.30) H Estimat Glomerular Filtration Rate 48.6 mL/min (>60) Glucose Level 102 MG/DL (74-106) Calcium Level 8.7 MG/DL (8.5-10.1) Magnesium Level 2.3 MG/DL (1.8-2.4) Total Bilirubin 0.6 MG/DL (0.2-1.0) Aspartate Amino Transf (AST/SGOT) 43 U/L (15-37) H Alanine Aminotransferase (ALT/SGPT) 51 U/L (12-78) Alkaline Phosphatase 116 U/L (46-116) Total Protein 6.4 G/DL (6.4-8.2) Albumin 2.7 G/DL (3.4-5.0) L Globulin 3.7 g/dL Albumin/Globulin Ratio 0.7 (1.0-2.7) L Vancomycin Level Trough 10.0 ug/mL (5.0-12.0) Plan Problems: (1) Cellulitis Assessment & Plan: This is a very pleasant 79-year-old male with history of chronic venous stasis ulcer that is acutely worsened. Edema cellulitis leukocytosis renal insufficiency. CT reviewed exam performed local care provided Left medial lower leg venous ulcer 5.7x3.7x0.3 60% yellow slough 40% pink tissue no odor ,redness , edema and small scattered open areas periwound,large amount serosanguineous drainage. wound culture done.Thera honey ,gauze,abd pad and kerlix applied. Left buttock ulcer possible prior abscess 0.8x0.5x0.2 scant serous drainage and thickened wound edges Calazime and Optifoam applied. Sacral area skin intact Optifoam applied for protection . Right heel pressure ulcer stage 1 3.5x5.0x0.0 nonblanchable redness Optifoam applied. Left heel pressure ulcer stage 1 5.0x6.0x0.0 non blanchable redness Optifoam applied . Patient alert and oriented educated on skin break down prevention. Patient with significant improvement of the edema in the left lower extremity. The wound was cleaned and dressings were applied patient taught procedure well of the dressing changes and has plan for discharge. Outpatient wound care planning Duplex Doppler interrogation of the veins in both lower extremity is performed from the common femoral vein to the popliteal vein. Normal venous compressibility demonstrated throughout. No thrombus identified. Waveform analysis shows good respiratory phasicity and augmentation. Image calf veins are patent. IMPRESSION: No evidence of deep venous thrombosis involving the lower extremities. There is edema of the subcutaneous fat and thickening of the skin. This is circumferential distally, mostly posterior proximally. No definite discrete fluid collection to suggest organized abscess, although evaluation for such is limited in the absence of IV contrast. No definite osseous erosive abnormality or unusual periosteal reaction. There are degenerative changes of the hindfoot joints as well as of the knee joint. No evidence of acute fracture. No radiopaque foreign body. There is a small knee joint effusion which is smaller than that seen on the previous study.. A broken off osteophyte is seen at the lateral aspect of the lateral joint compartment. Impression: Diffuse soft tissue edema, as described. This may be due to cellulit is or could be edema related to hemodynamic abnormalities. Correlation with clinical findings is recommended. No evidence of organized collection to suggest soft tissue abscess. However, evaluation for such is limited in the absence of IV contrast No acute bony trauma No CT findings to suggest acute osteomyelitis. Note, however, limited sensitivity of CT for such. If there is high clinical suspicion then MRI should be considered. Knee joint effusion, smaller than that demonstrated previously. Small lateral loose body. This appears to be a previously present lateral osteophyte that has broken off in the interim. DAILY ESTIMATED NEEDS: Needs based on Cardiac, 95kg abw 25-30 kcals/kg 8824-7714 total kcals 1-1.2 g protein/kg 95-114 g total protein 25-30 mL/kg 7834-1816 total fluid mLs NUTRITION DIAGNOSIS: Decreased sodium needs R/T CHF and BL LE cellulitis as evidenced by elev BNP 2280, BL LE edema, on lasix. CURRENT DIET:Cardiac PO DIET RECOMMENDATIONS: LOW NA, texture as tolerated ADDITIONAL RECOMMENDATIONS: * Standing wt as able for accurate CBW * Rec WC rn for above wounds, -> add ALEXA BID * Add B-complex qdaily w/ lasix * Snacks in b/w meals as able, Ensure Enlive qdaily * BG elevated, rec A1C for eval (2) CHF (congestive heart failure) (3) Sepsis (4) ASCVD (arteriosclerotic cardiovascular disease) (5) Venous insufficiency Ned Albrecht Feb 10, 2020 14:52
--- NOTE | 2020-02-10 14:58 | General Progress Note ---
Subjective Allergies: Coded Allergies: No Known Allergies (Unverified , 06/22/18) Subjective no new complaints. remains on iv abx. decreased edea and erythema noted. no fevers or chills. normal bowel movements. tolerating pos wbc trending down. Objective Last 24 Hour Vital Signs Date Time Temp Pulse Resp B/P (MAP) Pulse Ox O2 Delivery O2 Flow Rate FiO2 02/10/20 12:00 97.5 56 18 131/71 (91) 97 02/10/20 09:05 139/73 02/10/20 09:00 Room Air 02/10/20 09:00 60 139/73 02/10/20 08:00 98.2 60 17 139/73 (95) 97 02/10/20 04:00 98.3 54 18 134/71 (92) 97 02/10/20 00:00 98.1 55 20 130/58 (82) 94 02/09/20 20:14 Room Air 02/09/20 20:00 99.2 53 24 126/62 (83) 97 02/09/20 15:47 98.1 53 20 127/64 (85) 96 Intake and Output 02/09/20 02/10/20 19:00 07:00 Intake Total 1345.0 ml 240 ml Output Total 1800 ml 1350 ml Balance -455.0 ml -1110 ml Intake Oral 960 ml 240 ml IV Total 385.0 ml Output Urine Total 1800 ml 1350 ml # Bowel Movements 3 Laboratory Tests 02/10/20 07:45: White Blood Count 8.7, Red Blood Count 4.13L, Hemoglobin 13.3L, Hematocrit 40.6L , Mean Corpuscular Volume 98, Mean Corpuscular Hemoglobin 32.2H, Mean Corpuscular Hemoglobin Concent 32.8, Red Cell Distribution Width 11.9, Platelet Count 265, Mean Platelet Volume 7.7, Neutrophils (%) (Auto) 75.0, Lymphocytes (%) (Auto) 12.8L, Monocytes (%) (Auto) 7.8, Eosinophils (%) (Auto) 2.9, Basophils (%) (Auto) 1.5, Sodium Level 141, Potassium Level 3.6, Chloride Level 105, Carbon Dioxide Level 28, Anion Gap 8, Blood Urea Nitrogen 20H, Creatinine 1.4H, Estimat Glomerular Filtration Rate 48.6, Glucose Level 102, Calcium Level 8.7, Magnesium Level 2.3, Total Bilirubin 0.6, Aspartate Amino Transf (AST/SGOT) 43H, Alanine Aminotransferase (ALT/SGPT) 51, Alkaline Phosphatase 116, Total Protein 6.4, Albumin 2.7L, Globulin 3.7, Albumin/Globulin Ratio 0.7L 02/10/20 11:15: Vancomycin Level Trough 10.0 Height (Feet): 6 Height (Inches): 4.00 Weight (Pounds): 239 Objective General Appearance: WD/WN, no apparent distress, alert EENT: PERRL/EOMI, normal ENT inspection Neck: non-tender, normal alignment, supple Cardiovascular: normal peripheral pulses, normal rate Respiratory/Chest: chest wall non-tender, lungs clear, normal breath sounds Abdomen: normal bowel sounds, non tender, soft, no organomegaly Edema: 2+ Pedal (L); 3+ Pedal (R) Edema: mild edema Neurologic: coding file clerk II-XII grossly normal, abnormal gait, alert, oriented x 3 Assessment/Plan Problem List: (1) Sepsis ICD Codes: A41.9 - Sepsis, unspecified organism SNOMED: 12420247 (2) CHF (congestive heart failure) ICD Codes: I50.9 - Heart failure, unspecified SNOMED: 07134972 (3) Cellulitis ICD Codes: L03.90 - Cellulitis, unspecified SNOMED: 779467512 Status: stable Assessment/Plan: cont iv abx defer to ID wound care iv lasix elevate legs cont bp rx monitor wbc/labs replace k pt/ot ordered dvt/stress ulcer prophylaxis bowel regime Christian Messina MD Feb 10, 2020 14:57
[2020-02-10 16:00] VITALS: BP 124/55
--- NOTE | 2020-02-10 19:36 | NUR ---
NURSE HAND-OFF: Important Events on Shift: wound Dressing changed and pictured Patient Status: stable Diet: cardiac Pending Orders: n/a Pending Results/Labs:[n/a Pending MD notification:n/a Latest Vital Signs: Temperature 97.6 , Pulse 61 , B/P 124 /55 , Respiratory Rate 18 , O2 SAT 97 , Room Air, O2 Flow Rate . Vital Sign Comment: stable Latest Harvey Fall Score: 45 Fall Risk: High Risk Safety Measures: Call light Within Reach, Bed Alarm Zone 1, Side Rails Side Rails x2, Bed position Low and Locked. Fall Precautions: Yellow Socks Yellow Gown Door Sign Patient Fall Education Report given to EVA Brennan.
[2020-02-10 20:00] VITALS: BP 116/59
--- NOTE | 2020-02-10 20:00 | NUR ---
NURSE NOTES: Patient received in bed, awake, talking on cellphone, no complaints at this time. Dressing c/d/i. Call light and personal belongings within reach. Will continue plan of care.
[2020-02-11] VITALS: BP 114/46
[2020-02-11 04:00] VITALS: BP 102/77
--- NOTE | 2020-02-11 05:00 | NUR ---
NURSE NOTES: Patient had BM. Incontinence care provided and wound care changed on sacrum and buttocks
[2020-02-11] MEDS: Heparin 5000 units/ml inj SUBQ SCH ×3 (06:12→22:00)
--- NOTE | 2020-02-11 06:23 | NUR ---
NURSE NOTES: Unable to weigh patient at this time. Patient's bedscale was reset to zero and shows -8kg. Unable to get patient out of bed at this time due to weakness and fall risk. Will endorse to AM shift, when patient is up with physical therapy Addendum: 02/11/20 at 0625 by SERENA ARRIAZA RN RN Amended: Links added.
[2020-02-11 06:55] LABS: CALCIUM 8.8 MG/DL (8.5-10.1); CREATININE 1.4 MG/DL (0.55-1.30); POTASSIUM 3.8 MMOL/L (3.5-5.1)
--- NOTE | 2020-02-11 07:04 | NUR ---
NURSE HAND-OFF: Important Events on Shift:[had BM, wound care rendered; unable to weigh patient via bedscale] Patient Status: [stable] Diet: [Cardiac] Pending Orders: [] Pending Results/Labs:[] Pending MD notification:[] Latest Vital Signs: Temperature 98.1 , Pulse 51 , B/P 102 /77 , Respiratory Rate 16 , O2 SAT 96 , Room Air, O2 Flow Rate . Vital Sign Comment: [] Latest Harvey Fall Score: 45 Fall Risk: High Risk Safety Measures: Call light Within Reach, Bed Alarm Zone 1, Side Rails Side Rails x2, Bed position Low and Locked. Fall Precautions: Yellow Socks Yellow Gown Door Sign Patient Fall Education Report given to [Jm VELASQUEZ].
--- NOTE | 2020-02-11 07:32 | NUR ---
NURSE NOTES: received report from EVA Brennan. patient in bed. sleeping. no respiratory distress noted. no facial grimacing noted. IV on left wrist intact. condom cath draining. bed in the lowest position and locked. call light within reach. will continue to provide plan of care.
[2020-02-11 08:00] VITALS: BP 146/64
[2020-02-11] MEDS: Aspirin EC 81mg tab ORAL SCH (08:51)
[2020-02-11] MEDS: Ascorbic Acid 500mg tab ORAL SCH (08:51)
[2020-02-11] MEDS: Atenolol 25mg tab ORAL SCH (08:51)
[2020-02-11] MEDS: Zinc Sulfate 220mg ORAL SCH (08:52)
[2020-02-11] MEDS: Losartan 50mg tab ORAL SCH (08:52)
--- NOTE | 2020-02-11 11:35 | General Progress Note ---
Subjective ROS Limited/Unobtainable: No Constitutional: Reports: malaise, weakness HEENT: Reports: no symptoms Cardiovascular: Reports: edema Respiratory: Reports: no symptoms Gastrointestinal/Abdominal: Reports: no symptoms Genitourinary: Reports: no symptoms Neurologic/Psychiatric: Reports: no symptoms Endocrine: Reports: no symptoms Hematologic/Lymphatic: Reports: no symptoms Allergies: Coded Allergies: No Known Allergies (Unverified , 06/22/18) All Systems: reviewed and negative except above Subjective no new complaints. remains on iv abx. decreased edema. legs dressed. no fevers or chills. normal bowel movements. tolerating pos wbc trending down. Objective Last 24 Hour Vital Signs Date Time Temp Pulse Resp B/P (MAP) Pulse Ox O2 Delivery O2 Flow Rate FiO2 02/11/20 09:00 Room Air 02/11/20 08:52 146/64 02/11/20 08:51 56 146/64 02/11/20 08:00 97.9 56 17 146/64 (91) 99 02/11/20 04:00 98.1 51 16 102/77 (85) 96 02/11/20 00:00 98.2 59 18 114/46 (68) 97 02/10/20 21:00 Room Air 02/10/20 20:00 97.8 59 16 116/59 (78) 96 02/10/20 16:00 97.6 61 18 124/55 (78) 97 02/10/20 12:00 97.5 56 18 131/71 (91) 97 Intake and Output 02/10/20 02/11/20 19:00 07:00 Intake Total 1260 ml 300 ml Output Total 3600 ml 1375 ml Balance -2340 ml -1075 ml Intake Oral 360 ml 300 ml Other 900 ml Output Urine Total 3600 ml 1375 ml # Bowel Movements 2 1 Laboratory Tests 02/11/20 05:40: Sodium Level 140, Potassium Level 3.8, Chloride Level 105, Carbon Dioxide Level 27, Anion Gap 8, Blood Urea Nitrogen 21H, Creatinine 1.4H, Estimat Glomerular Filtration Rate 48.6, Glucose Level 98, Calcium Level 8.8 Height (Feet): 6 Height (Inches): 4.00 Weight (Pounds): 239 Objective General Appearance: WD/WN, no apparent distress, alert EENT: PERRL/EOMI, normal ENT inspection Neck: non-tender, normal alignment, supple Cardiovascular: normal peripheral pulses, normal rate Respiratory/Chest: chest wall non-tender, lungs clear, normal breath sounds Abdomen: normal bowel sounds, non tender, soft, no organomegaly Edema: 2+ Pedal (L); 3+ Pedal (R) Edema: mild edema Neurologic: executive personal assistant II-XII grossly normal, abnormal gait, alert, oriented x 3 Assessment/Plan Problem List: (1) Sepsis ICD Codes: A41.9 - Sepsis, unspecified organism SNOMED: 85088325 (2) CHF (congestive heart failure) ICD Codes: I50.9 - Heart failure, unspecified SNOMED: 04477584 (3) Cellulitis ICD Codes: L03.90 - Cellulitis, unspecified SNOMED: 247991338 Status: stable Assessment/Plan: cont iv abx defer to ID wound care iv lasix elevate legs cont bp rx monitor wbc/labs replace k pt/ot ordered dvt/stress ulcer prophylaxis bowel regime Christian Messina MD Feb 11, 2020 11:35
--- NOTE | 2020-02-11 11:57 | Infectious Diseases Prog Note ---
Assessment/Plan Assessment/Plan antibiotics : vancomycin iv, levoquin A 1. left leg cellulitis improving 2. left leg ulcer infection with enterococcus, pseudomonas 3. hypertension 4. leucocytosis improving P 1. continue iv vancomycin, levoquin 2. will follow up cultures Subjective Constitutional: Denies: fever, chills Respiratory: Denies: shortness of breath, dry cough Gastrointestinal/Abdominal: Reports: diarrhea; Denies: nausea, vomiting Musculoskeletal: Reports: pain - in left leg Allergies: Coded Allergies: No Known Allergies (Unverified , 06/22/18) Objective Last 24 Hour Vital Signs Date Time Temp Pulse Resp B/P (MAP) Pulse Ox O2 Delivery O2 Flow Rate FiO2 02/11/20 09:00 Room Air 02/11/20 08:52 146/64 02/11/20 08:51 56 146/64 02/11/20 08:00 97.9 56 17 146/64 (91) 99 02/11/20 04:00 98.1 51 16 102/77 (85) 96 02/11/20 00:00 98.2 59 18 114/46 (68) 97 02/10/20 21:00 Room Air 02/10/20 20:00 97.8 59 16 116/59 (78) 96 02/10/20 16:00 97.6 61 18 124/55 (78) 97 02/10/20 12:00 97.5 56 18 131/71 (91) 97 Height (Feet): 6 Height (Inches): 4.00 Weight (Pounds): 239 Respiratory/Chest: lungs clear Cardiovascular: normal rate, regular rhythm, no gallop/murmur Abdomen: soft, non tender Extremities: other - decreased left leg edema, erythema, ulcer Laboratory Tests Test 02/11/20 05:40 Sodium Level 140 MMOL/L (136-145) Potassium Level 3.8 MMOL/L (3.5-5.1) Chloride Level 105 MMOL/L (98-107) Carbon Dioxide Level 27 MMOL/L (21-32) Anion Gap 8 mmol/L (5-15) Blood Urea Nitrogen 21 mg/dL (7-18) H Creatinine 1.4 MG/DL (0.55-1.30) H Estimat Glomerular Filtration Rate 48.6 mL/min (>60) Glucose Level 98 MG/DL (74-106) Calcium Level 8.8 MG/DL (8.5-10.1) Current Medications Medications (Trade) Dose Ordered Sig/Remigio Route PRN Reason Start Time Stop Time Status Last Admin Dose Admin Acetaminophen (Tylenol) 500 mg Q4H PRN ORAL Mild Pain (Pain Scale 1-3) 02/06/20 20:00 03/07/20 19:59 Al Hydroxide/Mg Hydroxide (Mylanta) 30 ml Q6H PRN ORAL Abdominal cramps 02/08/20 07:45 03/09/20 07:44 Ascorbic Acid (Vitamin C) 500 mg DAILY ORAL 02/08/20 09:00 03/09/20 08:59 02/11/20 08:51 Aspirin (Ecotrin) 81 mg DAILY ORAL 02/06/20 20:00 03/22/20 19:59 02/11/20 08:51 Atenolol (Tenormin) 25 mg DAILY ORAL 02/07/20 09:00 03/08/20 08:59 02/11/20 08:51 Furosemide (Lasix) 40 mg BID IV 02/07/20 09:00 03/08/20 08:59 02/11/20 08:51 Heparin Sodium (Porcine) (Heparin 5000 units/ml) 5,000 units EVERY 8 HOURS SUBQ 02/07/20 06:00 03/23/20 05:59 02/11/20 06:12 Ibuprofen (Advil) 200 mg DAILYPRN PRN ORAL moderate pain 02/06/20 20:00 03/07/20 19:59 Levofloxacin (Levaquin) 250 mg DAILY ORAL 02/11/20 09:00 02/18/20 08:59 02/11/20 08:51 Losartan Potassium (Cozaar) 50 mg DAILY ORAL 02/07/20 09:00 03/08/20 08:59 02/11/20 08:52 Magnesium Hydroxide (Mom) 30 ml HSPRN PRN ORAL Constipation 02/08/20 07:45 03/09/20 07:44 Multivitamins (Multivitamins) 1 tab DAILY ORAL 02/08/20 09:00 03/09/20 08:59 02/11/20 08:51 Ondansetron HCl (Zofran) 4 mg Q6H PRN IVP Nausea & Vomiting 02/06/20 20:00 03/07/20 19:59 Polyethylene Glycol (Miralax) 17 gm DAILYPRN PRN ORAL Constipation 02/08/20 07:45 03/09/20 07:44 Potassium Chloride (K-Dur) 10 meq TWICE A DAY ORAL 02/07/20 09:00 05/07/20 08:59 02/11/20 08:52 Simethicone (Mylicon) 80 mg QIDPRN PRN ORAL Abdominal cramps 02/08/20 07:45 05/08/20 07:44 Vancomycin HCl (Vanco pharmacy to dose) 1 ea DAILY PRN MISC Per rx protocol 02/07/20 07:30 03/08/20 07:29 Vancomycin HCl 1.5 gm/Sodium Chloride 275 ml @ 137.5 mls/ hr Q24H IVPB 02/09/20 12:00 02/14/20 11:59 02/10/20 12:13 Zinc Sulfate (Zinc Sulfate) 220 mg DAILY ORAL 02/08/20 09:00 02/18/20 08:59 02/11/20 08:52 Caron Elizabeth MD Feb 11, 2020 11:57
[2020-02-11 12:00] VITALS: BP 114/53
--- NOTE | 2020-02-11 14:17 | Cardiology Progress Note ---
Subjective DATE OF SERVICE: Feb 11, 2020 Decreasing leg swelling, redness and pain Venous duplex negative for DVT CT without obvious osteomyelitis Objective Last 24 Hour Vital Signs Date Time Temp Pulse Resp B/P (MAP) Pulse Ox O2 Delivery O2 Flow Rate FiO2 02/11/20 12:00 97.4 51 18 114/53 (73) 95 02/11/20 09:00 Room Air 02/11/20 08:52 146/64 02/11/20 08:51 56 146/64 02/11/20 08:00 97.9 56 17 146/64 (91) 99 02/11/20 04:00 98.1 51 16 102/77 (85) 96 02/11/20 00:00 98.2 59 18 114/46 (68) 97 02/10/20 21:00 Room Air 02/10/20 20:00 97.8 59 16 116/59 (78) 96 02/10/20 16:00 97.6 61 18 124/55 (78) 97 ROS: unchanged from my evaluation of 02/06/20 HEENT: normal ENT inspection LUNGS: diminished breath sounds CARDIAC: normal rate, regular rhythm, normal S1 and S2 - diminished peripheral pulses, systolic murmur - 1/6 systolic murmur at apex, other ABDOMEN: normal bowel sounds, non tender, soft, other - obese EXTREMITIES: slow capillary refill, pitting edema, +1 edema, other - left heel wound; bilateral erythema to mid calves Laboratory Tests Test 02/11/20 05:40 Sodium Level 140 MMOL/L (136-145) Potassium Level 3.8 MMOL/L (3.5-5.1) Chloride Level 105 MMOL/L (98-107) Carbon Dioxide Level 27 MMOL/L (21-32) Anion Gap 8 mmol/L (5-15) Blood Urea Nitrogen 21 mg/dL (7-18) H Creatinine 1.4 MG/DL (0.55-1.30) H Estimat Glomerular Filtration Rate 48.6 mL/min (>60) Glucose Level 98 MG/DL (74-106) Calcium Level 8.8 MG/DL (8.5-10.1) Assessment/Plan Assessment/Plan Sepsis Bilateral LE cellulitis Venous insuff Ac/chronic diastolic CHF resolving Hypertension/HHD DVT prophyl Skin care ANtibiotics Diuresis - transition to oral maint dose soon. Titration of antiHTN meds as needed. Pranav Russo MD Feb 11, 2020 14:16
--- NOTE | 2020-02-11 14:34 | NUR ---
NURSE NOTES: Patient's scheduled heparin shot was not administered due to an active bleeding on left leg from cellulitis.
[2020-02-11 16:00] VITALS: BP 150/57
--- NOTE | 2020-02-11 16:08 | NUR ---
CASE MANAGEMENT:REVIEW SI;LT LEG CELLULITIS. LT LEG ULCER INFX W/GPC AND GNR. 98.2 51 18 146/64 95% ON RA BUN 21 CR 1.4 IS;LEVAQUIN PO QD VANCOMYCIN IV Q24 ZINC SULFATE PO QD VIT C PO QD COZAAR PO QD K-DUR PO BID ATENOLOL PO QD LASIX IV BID MED SURG STATUS DCP;PATIENT IS FROM HOME
--- NOTE | 2020-02-11 17:16 | Surgery Progress Note ---
Surgery Progress Note Subjective Symptoms: improved, tolerating diet, voiding well, passing flatus, BM, pain decreased Objective Last 24 Hour Vital Signs Date Time Temp Pulse Resp B/P (MAP) Pulse Ox O2 Delivery O2 Flow Rate FiO2 02/11/20 16:00 98.7 52 18 150/57 (88) 98 02/11/20 12:00 97.4 51 18 114/53 (73) 95 02/11/20 09:00 Room Air 02/11/20 08:52 146/64 02/11/20 08:51 56 146/64 02/11/20 08:00 97.9 56 17 146/64 (91) 99 02/11/20 04:00 98.1 51 16 102/77 (85) 96 02/11/20 00:00 98.2 59 18 114/46 (68) 97 02/10/20 21:00 Room Air 02/10/20 20:00 97.8 59 16 116/59 (78) 96 I&O Intake and Output 02/10/20 02/11/20 19:00 07:00 Intake Total 1260 ml 300 ml Output Total 3600 ml 1375 ml Balance -2340 ml -1075 ml Intake Oral 360 ml 300 ml Other 900 ml Output Urine Total 3600 ml 1375 ml # Bowel Movements 2 1 Dressing: saturated Wound: clean Cardiovascular: RSR Respiratory: clear Abdomen: soft, non-tender, non-distended Extremities: no edema, no tenderness, no cyanosis, pulses, other Laboratory Tests Test 02/11/20 05:40 Sodium Level 140 MMOL/L (136-145) Potassium Level 3.8 MMOL/L (3.5-5.1) Chloride Level 105 MMOL/L (98-107) Carbon Dioxide Level 27 MMOL/L (21-32) Anion Gap 8 mmol/L (5-15) Blood Urea Nitrogen 21 mg/dL (7-18) H Creatinine 1.4 MG/DL (0.55-1.30) H Estimat Glomerular Filtration Rate 48.6 mL/min (>60) Glucose Level 98 MG/DL (74-106) Calcium Level 8.8 MG/DL (8.5-10.1) Plan Problems: (1) Cellulitis Assessment & Plan: This is a very pleasant 79-year-old male with history of chronic venous stasis ulcer that is acutely worsened. Edema cellulitis l eukocytosis renal insufficiency. CT reviewed exam performed local care provided Left medial lower leg venous ulcer 5.7x3.7x0.3 60% yellow slough 40% pink tissue no odor ,redness , edema and small scattered open areas periwound,large amount serosanguineous drainage. wound culture done.Thera honey ,gauze,abd pad and kerlix applied. Left buttock ulcer possible prior abscess 0.8x0.5x0.2 scant serous drainage and thickened wound edges Calazime and Optifoam applied. Sacral area skin intact Optifoam applied for protection . Right heel pressure ulcer stage 1 3.5x5.0x0.0 nonblanchable redness Optifoam applied. Left heel pressure ulcer stage 1 5.0x6.0x0.0 non blanchable redness Optifoam applied . Patient alert and oriented educated on skin break down prevention. Patient with significant improvement of the edema in the left lower extremity. The wound was cleaned and dressings were applied patient taught procedure well of the dressing changes and has plan for discharge. Outpatient wound care planning Duplex Doppler interrogation of the veins in both lower extremity is performed from the common femoral vein to the popliteal vein. Normal venous compressibility demonstrated throughout. No thrombus identified. Waveform analysis shows good respiratory phasicity and augmentation. Image calf veins are patent. IMPRESSION: No evidence of deep venous thrombosis involving the lower extremities. There is edema of the subcutaneous fat and thickening of the skin. This is circumferential distally, mostly posterior proximally. No definite discrete fluid collection to suggest organized abscess, although evaluation for such is limited in the absence of IV contrast. No definite osseous erosive abnormality or unusual periosteal reaction. There are degenerative changes of the hindfoot joints as well as of the knee joint. No evidence of acute fracture. No radiopaque foreign body. There is a small knee joint effusion which is smaller than that seen on the previous study.. A broken off osteophyte is seen at the lateral aspect of the lateral joint compartment. Impression: Diffuse soft tissue edema, as described. This may be due to cellulitis or could be edema related to hemodynamic abnormalities. Correlation with clinical findings is recommended. No evidence of organized collection to suggest soft tissue abscess. However, evaluation for such is limited in the absence of IV contrast No acute bony trauma No CT findings to suggest acute osteomyelitis. Note, however, limited sensitivity of CT for such. If there is high clinical suspicion then MRI should be considered. Knee joint effusion, smaller than that demonstrated previously. Small lateral loose body. This appears to be a previously present lateral osteophyte that has broken off in the interim. DAILY ESTIMATED NEEDS: Needs based on Cardiac, 95kg abw 25-30 kcals/kg 2093-8109 total kcals 1-1.2 g protein/kg 95-114 g total protein 25-30 mL/kg 9328-2573 total fluid mLs NUTRITION DIAGNOSIS: Decreased sodium needs R/T CHF and BL LE cellulitis as evidenced by elev BNP 2280, BL LE edema, on lasix. CURRENT DIET:Cardiac PO DIET RECOMMENDATIONS: LOW NA, texture as tolerated ADDITIONAL RECOMMENDATIONS: * Standing wt as able for accurate CBW * Rec WC rn for above wounds, -> add ALEXA BID * Add B-complex qdaily w/ lasix * Snacks in b/w meals as able, Ensure Enlive qdaily * BG elevated, rec A1C for eval (2) CHF (congestive heart failure) (3) Sepsis (4) ASCVD (arteriosclerotic cardiovascular disease) (5) Venous insufficiency Ned Albrecht Feb 11, 2020 17:16
--- NOTE | 2020-02-11 19:41 | NUR ---
NURSE HAND-OFF: Important Events on Shift:IV ATB. PT. wound care on left leg Patient Status: stable Diet: cardiac Pending Orders: n/a Pending Results/Labs:n/a Pending MD notification:n/a Latest Vital Signs: Temperature 98.7 , Pulse 52 , B/P 150 /57 , Respiratory Rate 18 , O2 SAT 98 , Room Air, O2 Flow Rate . Vital Sign Comment: stable Latest Harvey Fall Score: 45 Fall Risk: High Risk Safety Measures: Call light Within Reach, Bed Alarm Zone 1, Side Rails Side Rails x2, Bed position Low and Locked. Fall Precautions: Yellow Socks Yellow Gown Door Sign Patient Fall Education Report given to EVA Gann.
--- NOTE | 2020-02-11 19:42 | NUR ---
NURSE NOTES: The patient is alert and oriented x4, cooperative with his care and does not seem to be in any active distress at this time.He is room air with Resp even and unlabored.Condom cath draining under gravity of pale yellowish urine.The patient has a left wrist IV line that is patent and asymptomatic. Bed in the lowest position and locked. call light within reach. will continue to provide plan of care.
[2020-02-11 20:00] VITALS: BP 110/63
--- NOTE | 2020-02-11 22:03 | NUR ---
NURSE NOTES: The patient refused his heparin. According to him he was bleeding earlier in the left lower leg where he has cellulitis.
[2020-02-12] VITALS (7 sets, daily range): BP systolic 102–135; BP diastolic 53–70
[2020-02-12] MEDS: Heparin 5000 units/ml inj SUBQ SCH ×3 (06:00→21:00)
--- NOTE | 2020-02-12 07:40 | NUR ---
NURSE NOTES: Received report from EVA Gann. The patient is alert and oriented x4, cooperative with his care and does not seem to be in any active distress at this time. Patient is able to make needs known. He is room air with Resp even and unlabored.Condom cath draining under gravity of pale yellowish urine. Skin issue is noted, Patient expressed if he could try to use the bedside commode for when he has a bowel movement. The patient has a left wrist IV line that is patent and asymptomatic. Rn instructed patient to use call light for assistance. Bed in the lowest position and locked. call light within reach. will continue to provide plan of care.
--- NOTE | 2020-02-12 07:41 | NUR ---
NURSE HAND-OFF: Important Events on Shift:Alert and stable Patient Status: Diet: Pending Orders: Pending Results/Labs: Pending MD notification: Latest Vital Signs: Temperature 98.6 , Pulse 53 , B/P 135 /68 , Respiratory Rate 18 , O2 SAT 98 , Room Air, O2 Flow Rate . Vital Sign Comment: Latest Harvey Fall Score: 45 Fall Risk: High Risk Safety Measures: Call light Within Reach, Bed Alarm Zone 1, Side Rails Side Rails x2, Bed position Low and Locked. Fall Precautions: Yellow Socks Yellow Gown Door Sign Patient Fall Education Report given to .
[2020-02-12] MEDS: Aspirin EC 81mg tab ORAL SCH (08:47)
[2020-02-12] MEDS: Ascorbic Acid 500mg tab ORAL SCH (08:47)
[2020-02-12] MEDS: Atenolol 25mg tab ORAL SCH (08:48)
[2020-02-12] MEDS: Losartan 50mg tab ORAL SCH (08:49)
[2020-02-12] MEDS: Zinc Sulfate 220mg ORAL SCH (08:49)
[2020-02-12 09:16] LABS: BASOPHILS % (AUTO) 1.1 % (0.0-2.0); EOSINOPHILS % (AUTO) 3.7 % (0.0-3.0); HEMATOCRIT 39.4 % (42.0-52.0); HEMOGLOBIN 13.2 G/DL (14.2-18.0); MEAN CORPUSCULAR VOLUME 98 FL (80-99); MONOCYTES % (AUTO) 5.4 % (1.0-10.0); NEUTROPHILS % (AUTO) 76.8 % (45.0-75.0); PLATELET COUNT 303 K/UL (150-450); RED CELL DISTRIBUTION WIDTH 12.2 % (11.6-14.8)
[2020-02-12 10:03] LABS: CALCIUM 8.9 MG/DL (8.5-10.1); CREATININE 1.5 MG/DL (0.55-1.30); POTASSIUM 3.7 MMOL/L (3.5-5.1)
--- NOTE | 2020-02-12 11:46 | Infectious Diseases Prog Note ---
Assessment/Plan Assessment/Plan antibiotics : vancomycin iv, levoquin A 1. left leg cellulitis improving 2. left leg ulcer infection with enterococcus, pseudomonas 3. hypertension 4. leucocytosis improving P 1. continue iv vancomycin, levoquin 2. will follow up cultures Subjective Constitutional: Denies: fever, chills Respiratory: Denies: shortness of breath, dry cough Gastrointestinal/Abdominal: Denies: nausea, vomiting, diarrhea Musculoskeletal: Reports: pain - in left leg decreased Allergies: Coded Allergies: No Known Allergies (Unverified , 06/22/18) Objective Last 24 Hour Vital Signs Date Time Temp Pulse Resp B/P (MAP) Pulse Ox O2 Delivery O2 Flow Rate FiO2 02/12/20 09:00 Room Air 02/12/20 08:49 123/53 02/12/20 08:48 60 123/53 02/12/20 08:00 97.3 60 18 123/53 (76) 97 02/12/20 04:00 98.6 53 18 135/68 (90) 98 02/12/20 00:00 98.1 52 18 127/70 (89) 97 02/11/20 21:00 Room Air 02/11/20 20:00 97.9 51 18 110/63 (79) 97 02/11/20 16:00 98.7 52 18 150/57 (88) 98 02/11/20 12:00 97.4 51 18 114/53 (73) 95 Height (Feet): 6 Height (Inches): 4.00 Weight (Pounds): 239 Respiratory/Chest: lungs clear Cardiovascular: normal rate, regular rhythm, no gallop/murmur Abdomen: soft, non tender Extremities: other - decreased left leg erythema, edema Laboratory Tests Test 02/12/20 08:52 White Blood Count 10.0 K/UL (4.8-10.8) Red Blood Count 4.00 M/UL (4.70-6.10) L Hemoglobin 13.2 G/DL (14.2-18.0) L Hematocrit 39.4 % (42.0-52.0) L Mean Corpuscular Volume 98 FL (80-99) Mean Corpuscular Hemoglobin 32.9 PG (27.0-31.0) H Mean Corpuscular Hemoglobin Concent 33.5 G/DL (32.0-36.0) Red Cell Distribution Width 12.2 % (11.6-14.8) Platelet Count 303 K/UL (150-450) Mean Platelet Volume 7.6 FL (6.5-10.1) Neutrophils (%) (Auto) 76.8 % (45.0-75.0) H Lymphocytes (%) (Auto) 13.0 % (20.0-45.0) L Monocytes (%) (Auto) 5.4 % (1.0-10.0) Eosinophils (%) (Auto) 3.7 % (0.0-3.0) H Basophils (%) (Auto) 1.1 % (0.0-2.0) Sodium Level 139 MMOL/L (136-145) Potassium Level 3.7 MMOL/L (3.5-5.1) Chloride Level 106 MMOL/L (98-107) Carbon Dioxide Level 25 MMOL/L (21-32) Anion Gap 8 mmol/L (5-15) Blood Urea Nitrogen 24 mg/dL (7-18) H Creatinine 1.5 MG/DL (0.55-1.30) H Estimat Glomerular Filtration Rate 44.9 mL/min (>60) Glucose Level 165 MG/DL (74-106) H Calcium Level 8.9 MG/DL (8.5-10.1) Magnesium Level 2.3 MG/DL (1.8-2.4) Pro-B-Type Natriuretic Peptide 254 pg/mL (0-125) H Current Medications Medications (Trade) Dose Ordered Sig/Remigio Route PRN Reason Start Time Stop Time Status Last Admin Dose Admin Acetaminophen (Tylenol) 500 mg Q4H PRN ORAL Mild Pain (Pain Scale 1-3) 02/06/20 20:00 03/07/20 19:59 Al Hydroxide/Mg Hydroxide (Mylanta) 30 ml Q6H PRN ORAL Abdominal cramps 02/08/20 07:45 03/09/20 07:44 Ascorbic Acid (Vitamin C) 500 mg DAILY ORAL 02/08/20 09:00 03/09/20 08:59 02/12/20 08:47 Aspirin (Ecotrin) 81 mg DAILY ORAL 02/06/20 20:00 03/22/20 19:59 02/12/20 08:47 Atenolol (Tenormin) 25 mg DAILY ORAL 02/07/20 09:00 03/08/20 08:59 02/12/20 08:48 Furosemide (Lasix) 40 mg BID IV 02/07/20 09:00 03/08/20 08:59 02/12/20 08:49 Heparin Sodium (Porcine) (Heparin 5000 units/ml) 5,000 units EVERY 8 HOURS SUBQ 02/07/20 06:00 03/23/20 05:59 02/11/20 06:12 Ibuprofen (Advil) 200 mg DAILYPRN PRN ORAL moderate pain 02/06/20 20:00 03/07/20 19:59 Levofloxacin (Levaquin) 250 mg DAILY ORAL 02/11/20 09:00 02/18/20 08:59 02/12/20 08:47 Losartan Potassium (Cozaar) 50 mg DAILY ORAL 02/07/20 09:00 03/08/20 08:59 02/12/20 08:49 Magnesium Hydroxide (Mom) 30 ml HSPRN PRN ORAL Constipation 02/08/20 07:45 03/09/20 07:44 Multivitamins (Multivitamins) 1 tab DAILY ORAL 02/08/20 09:00 03/09/20 08:59 02/12/20 08:47 Ondansetron HCl (Zofran) 4 mg Q6H PRN IVP Nausea & Vomiting 02/06/20 20:00 03/07/20 19:59 Polyethylene Glycol (Miralax) 17 gm DAILYPRN PRN ORAL Constipation 02/08/20 07:45 03/09/20 07:44 Potassium Chloride (K-Dur) 10 meq TWICE A DAY ORAL 02/07/20 09:00 05/07/20 08:59 02/12/20 08:47 Simethicone (Mylicon) 80 mg QIDPRN PRN ORAL Abdominal cramps 02/08/20 07:45 05/08/20 07:44 Vancomycin HCl (Vanco pharmacy to dose) 1 ea DAILY PRN MISC Per rx protocol 02/07/20 07:30 03/08/20 07:29 Vancomycin HCl 1.5 gm/Sodium Chloride 275 ml @ 137.5 mls/ hr Q24H IVPB 02/09/20 12:00 02/14/20 11:59 02/11/20 12:04 Zinc Sulfate (Zinc Sulfate) 220 mg DAILY ORAL 02/08/20 09:00 02/18/20 08:59 02/12/20 08:49 Caron Elizabeth MD Feb 12, 2020 11:46
--- NOTE | 2020-02-12 12:35 | General Progress Note ---
Subjective ROS Limited/Unobtainable: No Constitutional: Reports: malaise, weakness HEENT: Reports: no symptoms Cardiovascular: Reports: edema Respiratory: Reports: no symptoms Gastrointestinal/Abdominal: Reports: no symptoms Genitourinary: Reports: no symptoms Neurologic/Psychiatric: Reports: anxiety Endocrine: Reports: no symptoms Hematologic/Lymphatic: Reports: no symptoms Allergies: Coded Allergies: No Known Allergies (Unverified , 06/22/18) All Systems: reviewed and negative except above Subjective no new complaints. no fevers or chills. no sob. ambulating with staff. remains on iv abx. on wound care. wbc and labs ok. Objective Last 24 Hour Vital Signs Date Time Temp Pulse Resp B/P (MAP) Pulse Ox O2 Delivery O2 Flow Rate FiO2 02/12/20 09:00 Room Air 02/12/20 08:49 123/53 02/12/20 08:48 60 123/53 02/12/20 08:00 97.3 60 18 123/53 (76) 97 02/12/20 04:00 98.6 53 18 135/68 (90) 98 02/12/20 00:00 98.1 52 18 127/70 (89) 97 02/11/20 21:00 Room Air 02/11/20 20:00 97.9 51 18 110/63 (79) 97 02/11/20 16:00 98.7 52 18 150/57 (88) 98 Intake and Output 02/11/20 02/12/20 19:00 07:00 Intake Total 975.0 ml 240 ml Output Total 1400 ml 800 ml Balance -425.0 ml -560 ml Intake Oral 240 ml IV Total 275.0 ml Other 700 ml Output Urine Total 1400 ml 800 ml # Voids 1 Laboratory Tests 02/12/20 08:52: White Blood Count 10.0, Red Blood Count 4.00L, Hemoglobin 13.2L, Hematocrit 39.4L, Mean Corpuscular Volume 98, Mean Corpuscular Hemoglobin 32.9H, Mean Corpuscular Hemoglobin Concent 33.5, Red Cell Distribution Width 12.2, Platelet Count 303, Mean Platelet Volume 7.6, Neutrophils (%) (Auto) 76.8H, Lymphocytes (%) (Auto) 13.0L, Monocytes (%) (Auto) 5.4, Eosinophils (%) (Auto) 3.7H, Basophils (%) (Auto) 1.1, Sodium Level 139, Potassium Level 3.7, Chloride Level 106, Carbon Dioxide Level 25, Anion Gap 8, Blood Urea Nitrogen 24H, Creatinine 1.5H, Estimat Glomerular Filtration Rate 44.9, Glucose Level 165H, Calcium Level 8.9, Magnesium Level 2.3, Pro-B-Type Natriuretic Peptide 254H Height (Feet): 6 Height (Inches): 4.00 Weight (Pounds): 239 Objective General Appearance: WD/WN, no apparent distress, alert EENT: PERRL/EOMI, normal ENT inspection Neck: non-tender, normal alignment, supple Cardiovascular: normal peripheral pulses, normal rate Respiratory/Chest: chest wall non-tender, lungs clear, normal breath sounds Abdomen: normal bowel sounds, non tender, soft, no organomegaly Edema: 2+ Pedal (L); 3+ Pedal (R) Edema: mild edema 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
--- NOTE | 2020-02-12 16:22 | NUR ---
CASE MANAGEMENT:REVIEW SI;CELLULITIS. SEPSIS. CHF. 98.6 52 18 [id number] 96% ON RA BUN 24 CR 1.5 GB 165 IS;LEVAQUIN PO QD VANCOMYCIN IV Q24 ZINC SULFATE PO QD VIT C PO QD COZAAR PO QD K-DUR PO BID LASIX IV BID HEPARIN SUBQ Q12 MED SURG STATUS DCP;FROM HOME
--- NOTE | 2020-02-12 19:13 | Surgery Progress Note ---
Surgery Progress Note Subjective Additional Comments dressings going very well no n/v comfortable edema improved still drainage but serous improved d/c planning Objective Last 24 Hour Vital Signs Date Time Temp Pulse Resp B/P (MAP) Pulse Ox O2 Delivery O2 Flow Rate FiO2 02/12/20 16:00 97.8 52 18 109/56 (73) 100 02/12/20 12:00 97.6 53 18 121/63 (82) 96 02/12/20 09:00 Room Air 02/12/20 08:49 123/53 02/12/20 08:48 60 123/53 02/12/20 08:00 97.3 60 18 123/53 (76) 97 02/12/20 04:00 98.6 53 18 135/68 (90) 98 02/12/20 00:00 98.1 52 18 127/70 (89) 97 02/11/20 21:00 Room Air 02/11/20 20:00 97.9 51 18 110/63 (79) 97 I&O Intake and Output 02/11/20 02/12/20 19:00 07:00 Intake Total 975.0 ml 240 ml Output Total 1400 ml 800 ml Balance -425.0 ml -560 ml Intake Oral 240 ml IV Total 275.0 ml Other 700 ml Output Urine Total 1400 ml 800 ml # Voids 1 Dressing: saturated Wound: clean Cardiovascular: RSR Respiratory: clear Abdomen: soft, non-tender, present bowel sounds Extremities: no edema, no tenderness, no cyanosis, pulses, other Laboratory Tests Test 02/12/20 08:52 White Blood Count 10.0 K/UL (4.8-10.8) Red Blood Count 4.00 M/UL (4.70-6.10) L Hemoglobin 13.2 G/DL (14.2-18.0) L Hematocrit 39.4 % (42.0-52.0) L Mean Corpuscular Volume 98 FL (80-99) Mean Corpuscular Hemoglobin 32.9 PG (27.0-31.0) H Mean Corpuscular Hemoglobin Concent 33.5 G/DL (32.0-36.0) Red Cell Distribution Width 12.2 % (11.6-14.8) Platelet Count 303 K/UL (150-450) Mean Platelet Volume 7.6 FL (6.5-10.1) Neutrophils (%) (Auto) 76.8 % (45.0-75.0) H Lymphocytes (%) (Auto) 13.0 % (20.0-45.0) L Monocytes (%) (Auto) 5.4 % (1.0-10.0) Eosinophils (%) (Auto) 3.7 % (0.0-3.0) H Basophils (%) (Auto) 1.1 % (0.0-2.0) Sodium Level 139 MMOL/L (136-145) Potassium Level 3.7 MMOL/L (3.5-5.1) Chloride Level 106 MMOL/L (98-107) Carbon Dioxide Level 25 MMOL/L (21-32) Anion Gap 8 mmol/L (5-15) Blood Urea Nitrogen 24 mg/dL (7-18) H Creatinine 1.5 MG/DL (0.55-1.30) H Estimat Glomerular Filtration Rate 44.9 mL/min (>60) Glucose Level 165 MG/DL (74-106) H Calcium Level 8.9 MG/DL (8.5-10.1) Magnesium Level 2.3 MG/DL (1.8-2.4) Pro-B-Type Natriuretic Peptide 254 pg/mL (0-125) H Plan Problems: (1) Cellulitis Assessment & Plan: This is a very pleasant 79-year-old male with history of chronic venous stasis ulcer that is acutely worsened. Edema cellulitis leukocytosis renal insufficiency. CT reviewed exam performed local care provided Left medial lower leg venous ulcer 5.7x3.7x0.3 60% yellow slough 40% pink tissue no odor ,redness , edema and small scattered open areas periwound,large amount serosanguineous drainage. wound culture done.Thera honey ,gauze,abd pad and kerlix applied. Left buttock ulcer possible prior abscess 0.8x0.5x0.2 scant serous drainage and thickened wound edges Calazime and Optifoam applied. Sacral area skin intact Optifoam applied for protection . Right heel pressure ulcer stage 1 3.5x5.0x0.0 nonblanchable redness Optifoam applied. Left heel pressure ulcer stage 1 5.0x6.0x0.0 non blanchable redness Optifoam applied . Patient alert and oriented educated on skin break down prevention. Patient with significant improvement of the edema in the left lower extremity. The wound was cleaned and dressings were applied patient taught procedure well of the dressing changes and has plan for discharge. Outpatient wound care planning Duplex Doppler interrogation of the veins in both lower extremity is performed from the common femoral vein to the popliteal vein. Normal venous compressibility demonstrated throughout. No thrombus identified. Waveform analysis shows good respiratory phasicity and augmentation. Image calf veins are patent. IMPRESSION: No evidence of deep venous thrombosis involving the lower extremities. There is edema of the subcutaneous fat and thickening of the skin. This is circumferential distally, mostly posterior proximally. No definite discrete fluid collection to suggest organized abscess, although evaluation for such is limited in the absence of IV contrast. No definite osseous erosive abnormality or unusual periosteal reaction. There are degenerative changes of the hindfoot joints as well as of the knee joint. No evidence of acute fracture. No radiopaque foreign body. There is a small knee joint effusion which is smaller than that seen on the previous study.. A broken off osteophyte is seen at the lateral aspect of the lateral joint compartment. Impression: Diffuse soft tissue edema, as described. This may be due to cellulitis or could be edema related to hemodynamic abnormalities. Correlation with clinical findings is recommended. No evidence of organized collection to suggest soft tissue abscess. However, evaluation for such is limited in the absence of IV contrast No acute bony trauma No CT findings to suggest acute osteomyelitis. Note, however, limited sensitivit y of CT for such. If there is high clinical suspicion then MRI should be considered. Knee joint effusion, smaller than that demonstrated previously. Small lateral loose body. This appears to be a previously present lateral osteophyte that has broken off in the interim. DAILY ESTIMATED NEEDS: Needs based on Cardiac, 95kg abw 25-30 kcals/kg 1911-4718 total kcals 1-1.2 g protein/kg 95-114 g total protein 25-30 mL/kg 3215-5321 total fluid mLs NUTRITION DIAGNOSIS: Decreased sodium needs R/T CHF and BL LE cellulitis as evidenced by elev BNP 2280, BL LE edema, on lasix. CURRENT DIET:Cardiac PO DIET RECOMMENDATIONS: LOW NA, texture as tolerated ADDITIONAL RECOMMENDATIONS: * Standing wt as able for accurate CBW * Rec WC rn for above wounds, -> add ALEXA BID * Add B-complex qdaily w/ lasix * Snacks in b/w meals as able, Ensure Enlive qdaily * BG elevated, rec A1C for eval (2) CHF (congestive heart failure) (3) Sepsis (4) ASCVD (arteriosclerotic cardiovascular disease) (5) Venous insufficiency Ned Albrecht Feb 12, 2020 19:13
--- NOTE | 2020-02-12 19:27 | NUR ---
HAND-OFF: Report given to EVA Atkinson.
--- NOTE | 2020-02-12 19:43 | NUR ---
NURSE NOTES: Received patient awake, alert, verbal, resting in bed, comfortable.
--- NOTE | 2020-02-13 00:10 | Cardiology Progress Note ---
Subjective DATE OF SERVICE: Feb 12, 2020 Decreasing leg swelling, redness and pain. No SOB. Venous duplex negative for DVT CT without obvious osteomyelitis BNP significantly decreased Objective Last 24 Hour Vital Signs Date Time Temp Pulse Resp B/P (MAP) Pulse Ox O2 Delivery O2 Flow Rate FiO2 02/12/20 23:56 98.2 55 16 115/59 (77) 95 02/12/20 20:15 Room Air 02/12/20 20:00 96.8 54 16 102/61 (75) 96 02/12/20 16:00 97.8 52 18 109/56 (73) 100 02/12/20 12:00 97.6 53 18 121/63 (82) 96 02/12/20 09:00 Room Air 02/12/20 08:49 123/53 02/12/20 08:48 60 123/53 02/12/20 08:00 97.3 60 18 123/53 (76) 97 02/12/20 04:00 98.6 53 18 135/68 (90) 98 ROS: unchanged from my evaluation of 02/06/20 HEENT: normal ENT inspection LUNGS: diminished breath sounds CARDIAC: normal rate, regular rhythm, normal S1 and S2 - diminished peripheral pulses, systolic murmur - 1/6 systolic murmur at apex, other ABDOMEN: normal bowel sounds, non tender, soft, other - obese EXTREMITIES: slow capillary refill, pitting edema, +1 edema, other - left heel wound; bilateral erythema to mid calves Laboratory Tests Test 02/12/20 08:52 White Blood Count 10.0 K/UL (4.8-10.8) Red Blood Count 4.00 M/UL (4.70-6.10) L Hemoglobin 13.2 G/DL (14.2-18.0) L Hematocrit 39.4 % (42.0-52.0) L Mean Corpuscular Volume 98 FL (80-99) Mean Corpuscular Hemoglobin 32.9 PG (27.0-31.0) H Mean Corpuscular Hemoglobin Concent 33.5 G/DL (32.0-36.0) Red Cell Distribution Width 12.2 % (11.6-14.8) Platelet Count 303 K/UL (150-450) Mean Platelet Volume 7.6 FL (6.5-10.1) Neutrophils (%) (Auto) 76.8 % (45.0-75.0) H Lymphocytes (%) (Auto) 13.0 % (20.0-45.0) L Monocytes (%) (Auto) 5.4 % (1.0-10.0) Eosinophils (%) (Auto) 3.7 % (0.0-3.0) H Basophils (%) (Auto) 1.1 % (0.0-2.0) Sodium Level 139 MMOL/L (136-145) Potassium Level 3.7 MMOL/L (3.5-5.1) Chloride Level 106 MMOL/L (98-107) Carbon Dioxide Level 25 MMOL/L (21-32) Anion Gap 8 mmol/L (5-15) Blood Urea Nitrogen 24 mg/dL (7-18) H Creatinine 1.5 MG/DL (0.55-1.30) H Estimat Glomerular Filtration Rate 44.9 mL/min (>60) Glucose Level 165 MG/DL (74-106) H Calcium Level 8.9 MG/DL (8.5-10.1) Magnesium Level 2.3 MG/DL (1.8-2.4) Pro-B-Type Natriuretic Peptide 254 pg/mL (0-125) H Assessment/Plan Assessment/Plan Sepsis Bilateral LE cellulitis Venous insuff Ac/chronic diastolic CHF resolving Hypertension/HHD DVT prophyl Skin care ANtibiotics Diuresis - transition to oral maint dose tomorrow Maintain current antiHTN meds. Pranav Russo MD Feb 13, 2020 00:10
[2020-02-13 04:09] VITALS: BP 127/65
[2020-02-13] MEDS: Heparin 5000 units/ml inj SUBQ SCH ×3 (05:47→21:08)
--- NOTE | 2020-02-13 07:00 | NUR ---
HAND-OFF: Report given to Emeterio Amin RN.
--- NOTE | 2020-02-13 07:17 | NUR ---
NURSE NOTES: Received report from EVA Atkinson. The patient is alert and oriented x4, cooperative with his care and does not seem to be in any active distress at this time. Patient is able to make needs known. He is room air with Resp even and unlabored. Condom cath draining under gravity of pale yellowish urine. Skin issue is noted, Patient expressed if he could try to use the bedside commode for when he has a bowel movement. IV site patent and intact. Rn instructed patient to use call light for assistance. Bed in the lowest position and locked. call light within reach. will continue to provide plan of care.
[2020-02-13 08:00] VITALS: BP 106/61
[2020-02-13] MEDS: Zinc Sulfate 220mg ORAL SCH (08:36)
[2020-02-13] MEDS: Losartan 50mg tab ORAL SCH (08:36)
[2020-02-13] MEDS: Aspirin EC 81mg tab ORAL SCH (08:37)
[2020-02-13] MEDS: Atenolol 25mg tab ORAL SCH (08:37)
[2020-02-13] MEDS: Furosemide 40mg tab ORAL SCH (08:37)
[2020-02-13] MEDS: Ascorbic Acid 500mg tab ORAL SCH (08:37)
--- NOTE | 2020-02-13 09:55 | General Progress Note ---
Subjective ROS Limited/Unobtainable: No Constitutional: Reports: no symptoms HEENT: Reports: no symptoms Cardiovascular: Reports: edema Respiratory: Reports: no symptoms Gastrointestinal/Abdominal: Reports: no symptoms Genitourinary: Reports: no symptoms Neurologic/Psychiatric: Reports: no symptoms Endocrine: Reports: no symptoms Hematologic/Lymphatic: Reports: no symptoms Allergies: Coded Allergies: No Known Allergies (Unverified , 06/22/18) All Systems: reviewed and negative except above Subjective no new complaints. no fevers or chills. no sob. ambulating with staff. remains on iv abx. on wound care. Objective Last 24 Hour Vital Signs Date Time Temp Pulse Resp B/P (MAP) Pulse Ox O2 Delivery O2 Flow Rate FiO2 02/13/20 09:00 Room Air 02/13/20 08:37 53 127/65 02/13/20 08:36 136/70 02/13/20 08:00 97.5 58 20 106/61 (76) 100 02/13/20 04:09 98.1 53 16 127/65 (85) 94 02/12/20 23:56 98.2 55 16 115/59 (77) 95 02/12/20 20:15 Room Air 02/12/20 20:00 96.8 54 16 102/61 (75) 96 02/12/20 16:00 97.8 52 18 109/56 (73) 100 02/12/20 12:00 97.6 53 18 121/63 (82) 96 Intake and Output 02/12/20 02/13/20 19:00 07:00 Intake Total 360 ml Output Total 800 ml 300 ml Balance -800 ml 60 ml Other 360 ml Output Urine Total 800 ml 300 ml # Bowel Movements 2 Height (Feet): 6 Height (Inches): 4.00 Weight (Pounds): 239 Objective General Appearance: WD/WN, no apparent distress, alert EENT: PERRL/EOMI, normal ENT inspection Neck: non-tender, normal alignment, supple Cardiovascular: normal peripheral pulses, normal rate Respiratory/Chest: chest wall non-tender, lungs clear, normal breath sounds Abdomen: normal bowel sounds, non tender, soft, no organomegaly Edema: 2+ Pedal (L); 3+ Pedal (R) Edema: mild edema 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
--- NOTE | 2020-02-13 11:21 | NUR ---
RD ASSESSMENT & RECOMMENDATIONS SEE CARE ACTIVITY FOR COMPLETE ASSESSMENT DAILY ESTIMATED NEEDS: Needs based on Cardiac, 95kg abw 25-30 kcals/kg 3057-2017 total kcals 1.25-1.5 g protein/kg 119-143 g total protein Fluid per MD, on lasix NUTRITION DIAGNOSIS: Decreased sodium needs R/T CHF and BL LE cellulitis as evidenced by elev BNP 2280, BL LE edema, on lasix. CURRENT DIET:Cardiac PO DIET RECOMMENDATIONS: LOW NA, texture as tolerated ADDITIONAL RECOMMENDATIONS: * Standing wt as able for accurate CBW * Rec WC rn for above wounds, -> add ALEXA BID, Vit C 250mg qdaily * Add B-complex qdaily w/ lasix * Snacks in b/w meals as able, Ensure Enlive qdaily * BG elevated, rec A1C for eval
--- NOTE | 2020-02-13 11:39 | Infectious Diseases Prog Note ---
Assessment/Plan Assessment/Plan antibiotics : vancomycin iv, levoquin A 1. left leg cellulitis improving 2. left leg ulcer infection with enterococcus, pseudomonas 3. hypertension 4. leucocytosis improving P 1. continue iv vancomycin 7 more days 2. continue levoquin po 10 more days 3. will follow up cultures Subjective Constitutional: Denies: fever, chills Respiratory: Denies: shortness of breath, dry cough Gastrointestinal/Abdominal: Denies: nausea, vomiting, diarrhea Musculoskeletal: Reports: pain Allergies: Coded Allergies: No Known Allergies (Unverified , 06/22/18) Objective Last 24 Hour Vital Signs Date Time Temp Pulse Resp B/P (MAP) Pulse Ox O2 Delivery O2 Flow Rate FiO2 02/13/20 09:00 Room Air 02/13/20 08:37 53 127/65 02/13/20 08:36 136/70 02/13/20 08:00 97.5 58 20 106/61 (76) 100 02/13/20 04:09 98.1 53 16 127/65 (85) 94 02/12/20 23:56 98.2 55 16 115/59 (77) 95 02/12/20 20:15 Room Air 02/12/20 20:00 96.8 54 16 102/61 (75) 96 02/12/20 16:00 97.8 52 18 109/56 (73) 100 02/12/20 12:00 97.6 53 18 121/63 (82) 96 Height (Feet): 6 Height (Inches): 4.00 Weight (Pounds): 239 Respiratory/Chest: lungs clear Cardiovascular: normal rate, regular rhythm, no gallop/murmur Abdomen: soft, non tender Extremities: other - decreased left leg edema, erythema, ulcer Current Medications Medications (Trade) Dose Ordered Sig/Remigio Route PRN Reason Start Time Stop Time Status Last Admin Dose Admin Acetaminophen (Tylenol) 500 mg Q4H PRN ORAL Mild Pain (Pain Scale 1-3) 02/06/20 20:00 03/07/20 19:59 Al Hydroxide/Mg Hydroxide (Mylanta) 30 ml Q6H PRN ORAL Abdominal cramps 02/08/20 07:45 03/09/20 07:44 Ascorbic Acid (Vitamin C) 500 mg DAILY ORAL 02/08/20 09:00 03/09/20 08:59 02/13/20 08:37 Aspirin (Ecotrin) 81 mg DAILY ORAL 02/06/20 20:00 03/22/20 19:59 02/13/20 08:37 Atenolol (Tenormin) 25 mg DAILY ORAL 02/07/20 09:00 03/08/20 08:59 02/12/20 08:48 Furosemide (Lasix) 40 mg DAILY ORAL 02/13/20 09:00 03/14/20 08:59 02/13/20 08:37 Heparin Sodium (Porcine) (Heparin 5000 units/ml) 5,000 units EVERY 8 HOURS SUBQ 02/07/20 06:00 03/23/20 05:59 02/13/20 05:47 Ibuprofen (Advil) 200 mg DAILYPRN PRN ORAL moderate pain 02/06/20 20:00 03/07/20 19:59 Levofloxacin (Levaquin) 250 mg DAILY ORAL 02/11/20 09:00 02/18/20 08:59 02/13/20 08:37 Losartan Potassium (Cozaar) 50 mg DAILY ORAL 02/07/20 09:00 03/08/20 08:59 02/13/20 08:36 Magnesium Hydroxide (Mom) 30 ml HSPRN PRN ORAL Constipation 02/08/20 07:45 03/09/20 07:44 Multivitamins (Multivitamins) 1 tab DAILY ORAL 02/08/20 09:00 03/09/20 08:59 02/13/20 08:37 Ondansetron HCl (Zofran) 4 mg Q6H PRN IVP Nausea & Vomiting 02/06/20 20:00 03/07/20 19:59 Polyethylene Glycol (Miralax) 17 gm DAILYPRN PRN ORAL Constipation 02/08/20 07:45 03/09/20 07:44 Potassium Chloride (K-Dur) 10 meq TWICE A DAY ORAL 02/07/20 09:00 05/07/20 08:59 02/13/20 08:38 Simethicone (Mylicon) 80 mg QIDPRN PRN ORAL Abdominal cramps 02/08/20 07:45 05/08/20 07:44 Vancomycin HCl (Vanco pharmacy to dose) 1 ea DAILY PRN MISC Per rx protocol 02/07/20 07:30 03/08/20 07:29 Vancomycin HCl 1.5 gm/Sodium Chloride 275 ml @ 137.5 mls/ hr Q24H IVPB 02/13/20 12:00 02/18/20 11:59 02/13/20 11:04 Zinc Sulfate (Zinc Sulfate) 220 mg DAILY ORAL 02/08/20 09:00 02/18/20 08:59 02/13/20 08:36 Caron Elizabeth MD Feb 13, 2020 11:39
[2020-02-13 12:00] VITALS: BP 119/60
--- NOTE | 2020-02-13 15:20 | Surgery Progress Note ---
Surgery Progress Note Subjective Symptoms: improved, tolerating diet, voiding well, passing flatus, pain decreased Objective Last 24 Hour Vital Signs Date Time Temp Pulse Resp B/P (MAP) Pulse Ox O2 Delivery O2 Flow Rate FiO2 02/13/20 12:00 97.9 62 21 119/60 (79) 100 02/13/20 09:00 Room Air 02/13/20 08:37 53 127/65 02/13/20 08:36 136/70 02/13/20 08:00 97.5 58 20 106/61 (76) 100 02/13/20 04:09 98.1 53 16 127/65 (85) 94 02/12/20 23:56 98.2 55 16 115/59 (77) 95 02/12/20 20:15 Room Air 02/12/20 20:00 96.8 54 16 102/61 (75) 96 02/12/20 16:00 97.8 52 18 109/56 (73) 100 I&O Intake and Output 02/12/20 02/13/20 19:00 07:00 Intake Total 360 ml Output Total 800 ml 300 ml Balance -800 ml 60 ml Other 360 ml Output Urine Total 800 ml 300 ml # Bowel Movements 2 Dressing: saturated Wound: clean Cardiovascular: RSR Respiratory: clear Abdomen: soft, non-tender, present bowel sounds Extremities: no tenderness, no cyanosis, pulses, other Plan Problems: (1) Cellulitis Assessment & Plan: This is a very pleasant 79-year-old male with history of chronic venous stasis ulcer that is acutely worsened. Edema cellulitis leukocytosis renal insufficiency. CT reviewed exam performed local care provided Left medial lower leg venous ulcer 5.7x3.7x0.3 60% yellow slough 40% pink tissue no odor ,redness , edema and small scattered open areas periwound,large amount serosanguineous drainage. wound culture done.Thera honey ,gauze,abd pad and kerlix applied. Left buttock ulcer possible prior abscess 0.8x0.5x0.2 scant serous drainage and thickened wound edges Calazime and Optifoam applied. Sacral area skin intact Optifoam applied for protection . Right heel pressure ulcer stage 1 3.5x5.0x0.0 nonblanchable redness Optifoam applied. Left heel pressure ulcer stage 1 5.0x6.0x0.0 non blanchable redness Optifoam applied . Patient alert and oriented educated on skin break down prevention. Patient with significant improvement of the edema in the left lower extremity. The wound was cleaned and dressings were applied patient taught procedure well of the dressing changes and has plan for discharge. Outpatient wound care planning edema improved wound elly well smaller now swimming pool cleaner 100% granulation tissue d/c planning outpatient wound care Duplex Doppler interrogation of the veins in both lower extremity is performed from the common femoral vein to the popliteal vein. Normal venous compressibility demonstrated throughout. No thrombus identified. Waveform analysis shows good respiratory phasicity and augmentation. Image calf veins are patent. IMPRESSION: No evidence of deep venous thrombosis involving the lower extremities. There is edema of the subcutaneous fat and thickening of the skin. This is circumferential distally, mostly posterior proximally. No definite discrete fluid collection to suggest organized abscess, although evaluation for such is limited in the absence of IV contrast. No definite osseous erosive abnormality or unusual periosteal reaction. There are degenerative changes of the hindfoot joints as well as of the knee joint. No evidence of acute fracture. No radiopaque foreign body. There is a small knee joint effusion which is smaller than that seen on the previous study.. A broken off osteophyte is seen at the lateral aspect of the lateral joint compartment. Impression: Diffuse soft tissue edema, as described. This may be due to cellulitis or could be edema related to hemodynamic abnormalities. Correlation with clinical findings is recommended. No evidence of organized collection to suggest soft tissue abscess. However, evaluation for such is limited in the absence of IV contrast No acute bony trauma No CT findings to suggest acute osteomyelitis. Note, however, limited sensitivity of CT for such. If there is high clinical suspicion then MRI should be considered. Knee joint effusion, smaller than that demonstrated previously. Small lateral loose body. This appears to be a previously present lateral osteophyte that has broken off in the interim. DAILY ESTIMATED NEEDS: Needs based on Cardiac, 95kg abw 25-30 kcals/kg 3488-4775 total kcals 1-1.2 g protein/kg 95-114 g total protein 25-30 mL/kg 0823-7155 total fluid mLs NUTRITION DIAGNOSIS: Decreased sodium needs R/T CHF and BL LE cellulitis as evidenced by elev BNP 2280, BL LE edema, on lasix. CURRENT DIET:Cardiac PO DIET RECOMMENDATIONS: LOW NA, texture as tolerated ADDITIONAL RECOMMENDATIONS: * Standing wt as able for accurate CBW * Rec WC rn for above wounds, -> add ALEXA BID * Add B-complex qdaily w/ lasix * Snacks in b/w meals as able, Ensure Enlive qdaily * BG elevated, rec A1C for eval (2) CHF (congestive heart failure) (3) Sepsis (4) ASCVD (arteriosclerotic cardiovascular disease) (5) Venous insufficiency Ned Albrecht Feb 13, 2020 15:19
[2020-02-13 16:00] VITALS: BP 124/53
--- NOTE | 2020-02-13 16:28 | NUR ---
CASE MANAGEMENT: REVIEW SI: CHF . CELLULITIS . T 97.5 HR 58 RR 20 BP 106/61 SAT 94% ROOM AIR IS: VANCOMYCIN IV Q24HR LEVAQUIN PO QD LASIX IV BID MED/SURG STATUS DCP: PATIENT IS FROM HOME
--- NOTE | 2020-02-13 19:33 | NUR ---
HAND-OFF: Report given to EVA Atkinson.
--- NOTE | 2020-02-13 20:00 | NUR ---
NURSE NOTES: Received patient awake, alert, verbal, no SOB noted, comfortable.
[2020-02-13 20:30] VITALS: BP 115/60
--- NOTE | 2020-02-13 23:45 | Cardiology Progress Note ---
Subjective DATE OF SERVICE: Feb 13, 2020 Decreasing leg swelling, redness and pain. No SOB. Venous duplex negative for DVT CT without obvious osteomyelitis BNP significantly decreased Patient continues on wound care Objective Last 24 Hour Vital Signs Date Time Temp Pulse Resp B/P (MAP) Pulse Ox O2 Delivery O2 Flow Rate FiO2 02/13/20 21:00 Room Air 02/13/20 20:30 98.1 63 20 115/60 (78) 97 02/13/20 16:00 97.0 64 19 124/53 (76) 100 02/13/20 12:00 97.9 62 21 119/60 (79) 100 02/13/20 09:00 Room Air 02/13/20 08:37 53 127/65 02/13/20 08:36 136/70 02/13/20 08:00 97.5 58 20 106/61 (76) 100 02/13/20 04:09 98.1 53 16 127/65 (85) 94 02/12/20 23:56 98.2 55 16 115/59 (77) 95 ROS: unchanged from my evaluation of 02/06/20 HEENT: normal ENT inspection LUNGS: diminished breath sounds CARDIAC: normal rate, regular rhythm, normal S1 and S2 - diminished peripheral pulses, systolic murmur - 1/6 systolic murmur at apex, other ABDOMEN: normal bowel sounds, non tender, soft, other - obese EXTREMITIES: slow capillary refill, pitting edema, +1 edema, other - left heel wound; bilateral erythema to mid calves Assessment/Plan Assessment/Plan Sepsis Bilateral LE cellulitis Venous insuff Ac/chronic diastolic CHF resolving Hypertension/HHD Sinus node disease with bradycardia DVT prophyl Skin care ANtibiotics Diuresis - transition to oral maint dose tomorrow Maintain current antiHTN meds - but will decrease beta tory dose. Pranav Russo MD Feb 13, 2020 23:45
[2020-02-14] VITALS: BP 137/65
[2020-02-14 04:23] VITALS: BP 126/54
[2020-02-14] MEDS: Heparin 5000 units/ml inj SUBQ SCH ×3 (05:40→20:44)
--- NOTE | 2020-02-14 06:59 | NUR ---
HAND-OFF: Report given to Emeterio Amin RN.
--- NOTE | 2020-02-14 07:14 | General Progress Note ---
Subjective ROS Limited/Unobtainable: No Constitutional: Reports: malaise, weakness HEENT: Reports: no symptoms Cardiovascular: Reports: no symptoms Respiratory: Reports: no symptoms Gastrointestinal/Abdominal: Reports: no symptoms Genitourinary: Reports: no symptoms Neurologic/Psychiatric: Reports: no symptoms Endocrine: Reports: no symptoms Hematologic/Lymphatic: Reports: no symptoms Allergies: Coded Allergies: No Known Allergies (Unverified , 06/22/18) All Systems: reviewed and negative except above Subjective no new complaints. no fevers or chills. no sob. ambulating with staff. remains on iv abx. on wound care. id noted. 7 more days iv abx. Objective Last 24 Hour Vital Signs Date Time Temp Pulse Resp B/P (MAP) Pulse Ox O2 Delivery O2 Flow Rate FiO2 02/14/20 04:23 98.2 54 20 126/54 (78) 97 02/14/20 00:00 97.7 60 20 137/65 (89) 96 02/13/20 21:00 Room Air 02/13/20 20:30 98.1 63 20 115/60 (78) 97 02/13/20 16:00 97.0 64 19 124/53 (76) 100 02/13/20 12:00 97.9 62 21 119/60 (79) 100 02/13/20 09:00 Room Air 02/13/20 08:37 53 127/65 02/13/20 08:36 136/70 02/13/20 08:00 97.5 58 20 106/61 (76) 100 Intake and Output 02/13/20 02/14/20 19:00 07:00 Intake Total 420 ml Output Total 1100 ml Balance 420 ml -1100 ml Intake Oral 420 ml Output Urine Total 1100 ml # Bowel Movements 1 Height (Feet): 6 Height (Inches): 4.00 Weight (Pounds): 239 Objective General Appearance: WD/WN, no apparent distress, alert EENT: PERRL/EOMI, normal ENT inspection Neck: non-tender, normal alignment, supple Cardiovascular: normal peripheral pulses, normal rate Respiratory/Chest: chest wall non-tender, lungs clear, normal breath sounds Abdomen: normal bowel sounds, non tender, soft, no organomegaly Edema: 2+ Pedal (L); 3+ Pedal (R) Edema: mild edema 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, abnormal gait, alert, oriented x 3 Assessment/Plan Problem List: (1) Sepsis ICD Codes: A41.9 - Sepsis, unspecified organism SNOMED: 24697389 (2) CHF (congestive heart failure) ICD Codes: I50.9 - Heart failure, unspecified SNOMED: 19811294 (3) Cellulitis ICD Codes: L03.90 - Cellulitis, unspecified SNOMED: 922323874 Status: stable Assessment/Plan: cont iv abx wound care iv lasix- will switch to po on discharge elevate legs cont bp rx monitor wbc/labs pt/ot ordered dvt/stress ulcer prophylaxis bowel regime offered snf- pt declined will d/w caregivers if they are comfortable with home iv abx Christian Messina MD Feb 14, 2020 07:14
[2020-02-14 08:00] VITALS: BP 128/55
[2020-02-14] MEDS: Ascorbic Acid 500mg tab ORAL SCH (08:36)
[2020-02-14] MEDS: Zinc Sulfate 220mg ORAL SCH (08:36)
[2020-02-14] MEDS: Furosemide 40mg tab ORAL SCH (08:36)
[2020-02-14] MEDS: Atenolol 25mg tab ORAL SCH (08:36)
[2020-02-14] MEDS: Losartan 50mg tab ORAL SCH (08:36)
[2020-02-14] MEDS: Aspirin EC 81mg tab ORAL SCH (08:36)
--- NOTE | 2020-02-14 11:28 | Infectious Diseases Prog Note ---
Assessment/Plan Assessment/Plan antibiotics : vancomycin iv, levoquin A 1. left leg cellulitis improving 2. left leg ulcer infection with enterococcus, pseudomonas 3. hypertension 4. leucocytosis improving P 1. continue iv vancomycin 6 more days 2. continue levoquin po 9 more days 3. will follow up cultures Subjective Constitutional: Denies: fever, chills Respiratory: Denies: shortness of breath, dry cough Gastrointestinal/Abdominal: Denies: nausea, vomiting, diarrhea Musculoskeletal: Reports: pain - decreased in left leg Allergies: Coded Allergies: No Known Allergies (Unverified , 06/22/18) Objective Last 24 Hour Vital Signs Date Time Temp Pulse Resp B/P (MAP) Pulse Ox O2 Delivery O2 Flow Rate FiO2 02/14/20 09:00 Room Air 02/14/20 08:36 60 128/55 02/14/20 08:36 128/55 02/14/20 08:00 97.9 60 16 128/55 (79) 97 02/14/20 04:23 98.2 54 20 126/54 (78) 97 02/14/20 00:00 97.7 60 20 137/65 (89) 96 02/13/20 21:00 Room Air 02/13/20 20:30 98.1 63 20 115/60 (78) 97 02/13/20 16:00 97.0 64 19 124/53 (76) 100 02/13/20 12:00 97.9 62 21 119/60 (79) 100 Height (Feet): 6 Height (Inches): 4.00 Weight (Pounds): 239 Respiratory/Chest: lungs clear Cardiovascular: normal rate, regular rhythm, no gallop/murmur Abdomen: soft, non tender Extremities: other - decreased erythema, edema left leg Laboratory Tests Test 02/14/20 10:50 Vancomycin Level Trough Pending Current Medications Medications (Trade) Dose Ordered Sig/Remigio Route PRN Reason Start Time Stop Time Status Last Admin Dose Admin Acetaminophen (Tylenol) 500 mg Q4H PRN ORAL Mild Pain (Pain Scale 1-3) 02/06/20 20:00 03/07/20 19:59 Al Hydroxide/Mg Hydroxide (Mylanta) 30 ml Q6H PRN ORAL Abdominal cramps 02/08/20 07:45 03/09/20 07:44 Ascorbic Acid (Vitamin C) 500 mg DAILY ORAL 02/08/20 09:00 03/09/20 08:59 02/14/20 08:36 Aspirin (Ecotrin) 81 mg DAILY ORAL 02/06/20 20:00 03/22/20 19:59 02/14/20 08:36 Atenolol (Tenormin) 12.5 mg DAILY ORAL 02/14/20 09:00 03/08/20 08:59 02/14/20 08:36 Furosemide (Lasix) 40 mg DAILY ORAL 02/13/20 09:00 03/14/20 08:59 02/14/20 08:36 Heparin Sodium (Porcine) (Heparin 5000 units/ml) 5,000 units EVERY 8 HOURS SUBQ 02/07/20 06:00 03/23/20 05:59 02/14/20 05:40 Ibuprofen (Advil) 200 mg DAILYPRN PRN ORAL moderate pain 02/06/20 20:00 03/07/20 19:59 Levofloxacin (Levaquin) 250 mg DAILY ORAL 02/11/20 09:00 02/18/20 08:59 02/14/20 08:36 Losartan Potassium (Cozaar) 50 mg DAILY ORAL 02/07/20 09:00 03/08/20 08:59 02/14/20 08:36 Magnesium Hydroxide (Mom) 30 ml HSPRN PRN ORAL Constipation 02/08/20 07:45 03/09/20 07:44 Multivitamins (Multivitamins) 1 tab DAILY ORAL 02/08/20 09:00 03/09/20 08:59 02/14/20 08:35 Ondansetron HCl (Zofran) 4 mg Q6H PRN IVP Nausea & Vomiting 02/06/20 20:00 03/07/20 19:59 Polyethylene Glycol (Miralax) 17 gm DAILYPRN PRN ORAL Constipation 02/08/20 07:45 03/09/20 07:44 Potassium Chloride (K-Dur) 10 meq TWICE A DAY ORAL 02/07/20 09:00 05/07/20 08:59 02/14/20 08:36 Simethicone (Mylicon) 80 mg QIDPRN PRN ORAL Abdominal cramps 02/08/20 07:45 05/08/20 07:44 Vancomycin HCl (Vanco pharmacy to dose) 1 ea DAILY PRN MISC Per rx protocol 02/07/20 07:30 03/08/20 07:29 Vancomycin HCl 1.5 gm/Sodium Chloride 275 ml @ 137.5 mls/ hr Q24H IVPB 02/13/20 12:00 02/18/20 11:59 02/13/20 11:04 Zinc Sulfate (Zinc Sulfate) 220 mg DAILY ORAL 02/08/20 09:00 02/18/20 08:59 02/14/20 08:36 Caron Elizabeth MD Feb 14, 2020 11:28
[2020-02-14 12:00] VITALS: BP 119/57
--- NOTE | 2020-02-14 13:46 | Surgery Progress Note ---
Surgery Progress Note Subjective Symptoms: improved, tolerating diet, passing flatus Objective Last 24 Hour Vital Signs Date Time Temp Pulse Resp B/P (MAP) Pulse Ox O2 Delivery O2 Flow Rate FiO2 02/14/20 12:00 97.9 64 18 119/57 (77) 96 02/14/20 09:00 Room Air 02/14/20 08:36 60 128/55 02/14/20 08:36 128/55 02/14/20 08:00 97.9 60 16 128/55 (79) 97 02/14/20 04:23 98.2 54 20 126/54 (78) 97 02/14/20 00:00 97.7 60 20 137/65 (89) 96 02/13/20 21:00 Room Air 02/13/20 20:30 98.1 63 20 115/60 (78) 97 02/13/20 16:00 97.0 64 19 124/53 (76) 100 I&O Intake and Output 02/13/20 02/14/20 19:00 07:00 Intake Total 420 ml Output Total 1100 ml Balance 420 ml -1100 ml Intake Oral 420 ml Output Urine Total 1100 ml # Bowel Movements 1 Dressing: saturated Cardiovascular: RSR Respiratory: decreased breath sounds Abdomen: soft, non-tender, present bowel sounds Extremities: no edema, no tenderness, no cyanosis, pulses, other Laboratory Tests Test 02/14/20 10:50 Vancomycin Level Trough 15.3 ug/mL (5.0-12.0) H Plan Problems: (1) Cellulitis Assessment & Plan: This is a very pleasant 79-year-old male with history of chronic venous stasis ulcer that is acutely worsened. Edema cellulitis leukocytosis renal insufficiency. CT reviewed exam performed local care provided Left medial lower leg venous ulcer 5.7x3.7x0.3 60% yellow slough 40% pink tissue no odor ,redness , edema and small scattered open areas periwound,large amount serosanguineous drainage. wound culture done.Thera honey ,gauze,abd pad and kerlix applied. Left buttock ulcer possible prior abscess 0.8x0.5x0.2 scant serous drainage and thickened wound edges Calazime and Optifoam applied. Sacral area skin intact Optifoam applied for protection . Right heel pressure ulcer stage 1 3.5x5.0x0.0 nonblanchable redness Optifoam applied. Left heel pressure ulcer stage 1 5.0x6.0x0.0 non blanchable redness Optifoam applied . Patient alert and oriented educated on skin break down prevention. Patient with significant improvement of the edema in the left lower extremity. The wound was cleaned and dressings were applied patient taught procedure well of the dressing changes and has plan for discharge. Outpatient wound care planning edema improved wound elly well smaller now steam cleaner 100% granulation tissue d/c planning outpatient wound care Duplex Doppler interrogation of the veins in both lower extremity is performed from the common femoral vein to the popliteal vein. Normal venous compressibility demonstrated throughout. No thrombus identified. Waveform analysis shows good respiratory phasicity and augmentation. Image calf veins are patent. IMPRESSION: No evidence of deep venous thrombosis involving the lower extremities. There is edema of the subcutaneous fat and thickening of the skin. This is circumferential distally, mostly posterior proximally. No definite discrete fluid collection to suggest organized abscess, although evaluation for such is limited in the absence of IV contrast. No definite osseous erosive abnormality or unusual periosteal reaction. There are degenerative changes of the hindfoot joints as well as of the knee joint. No evidence of acute fracture. No radiopaque foreign body. There is a small knee joint effusion which is smaller than that seen on the previous study.. A broken off osteophyte is seen at the lateral aspect of the lateral joint compartment. Impression: Diffuse soft tissue edema, as described. This may be due to cellulitis or could be edema related to hemodynamic abnormalities. Correlation with clinical findings is recommended. No evidence of organized collection to suggest soft tissue abscess. However, evaluation for such is limited in the absence of IV contrast No acute bony trauma No CT findings to suggest acute osteomyelitis. Note, however, limited sensitivity of CT for such. If there is high clinical suspicion then MRI should be considered. Knee joint effusion, smaller than that demonstrated previously. Small lateral loose body. This appears to be a previously present lateral osteophyte that has broken off in the interim. DAILY ESTIMATED NEEDS: Needs based on Cardiac, 95kg abw 25-30 kcals/kg 0652-5443 total kcals 1-1.2 g protein/kg 95-114 g total protein 25-30 mL/kg 8298-0276 total fluid mLs NUTRITION DIAGNOSIS: Decreased sodium needs R/T CHF and BL LE cellulitis as evidenced by elev BNP 2280, BL LE edema, on lasix. CURRENT DIET:Cardiac PO DIET RECOMMENDATIONS: LOW NA, texture as tolerated ADDITIONAL RECOMMENDATIONS: * Standing wt as able for accurate CBW * Rec WC rn for above wounds, -> add ALEXA BID * Add B-complex qdaily w/ lasix * Snacks in b/w meals as able, Ensure Enlive qdaily * BG elevated, rec A1C for eval (2) CHF (congestive heart failure) (3) Sepsis (4) ASCVD (arteriosclerotic cardiovascular disease) (5) Venous insufficiency Ned Albrecht Feb 14, 2020 13:46
[2020-02-14 16:00] VITALS: BP 117/57
--- NOTE | 2020-02-14 16:22 | NUR ---
[employer]EN CH[employer] MARKER SI: LEFT LEG CELLULITIS, ACUTE RENAL FAILURE T. 97.9 HR 64 RR 18 B/P 128/55 BUN 24 CR. 1.5 IS: VANCO IV LASIX PO HEPARIN SUBC MED/SURG STATUS
--- NOTE | 2020-02-14 16:24 | NUR ---
[employer] OPER[employer] NOTES CLINICALS REVIEWED AND FAXED.
--- NOTE | 2020-02-14 18:09 | NUR ---
INSURANCE CLINICALS AND REVIEW (02/10-02/13)FAXED TO [facility] P [phone] F [phone]
--- NOTE | 2020-02-14 19:29 | NUR ---
HAND-OFF: Report given to EVA Atkinson.
--- NOTE | 2020-02-14 19:56 | NUR ---
NURSE NOTES: Received patient awake, alert, verbal, resting in bed, comfortable.
[2020-02-14 20:00] VITALS: BP 130/62
--- NOTE | 2020-02-14 22:33 | Cardiology Progress Note ---
Subjective DATE OF SERVICE: Feb 14, 2020 Resolving leg swelling, redness and pain. No SOB. Venous duplex negative for DVT CT without obvious osteomyelitis BNP significantly decreased Patient continues on wound care; needs add'l 7 days of IV antimicrobials. Objective Last 24 Hour Vital Signs Date Time Temp Pulse Resp B/P (MAP) Pulse Ox O2 Delivery O2 Flow Rate FiO2 02/14/20 20:35 Room Air 02/14/20 20:00 98.2 66 16 130/62 (84) 95 02/14/20 16:00 97.9 62 18 117/57 (77) 97 02/14/20 12:00 97.9 64 18 119/57 (77) 96 02/14/20 09:00 Room Air 02/14/20 08:36 60 128/55 02/14/20 08:36 128/55 02/14/20 08:00 97.9 60 16 128/55 (79) 97 02/14/20 04:23 98.2 54 20 126/54 (78) 97 02/14/20 00:00 97.7 60 20 137/65 (89) 96 ROS: unchanged from my evaluation of 02/06/20 HEENT: normal ENT inspection LUNGS: diminished breath sounds CARDIAC: normal rate, regular rhythm, normal S1 and S2 - diminished peripheral pulses, systolic murmur - 1/6 systolic murmur at apex, other ABDOMEN: normal bowel sounds, non tender, soft, other - obese EXTREMITIES: slow capillary refill, pitting edema, +1 edema, other - left heel wound; bilateral erythema to mid calves Laboratory Tests Test 02/14/20 10:50 Vancomycin Level Trough 15.3 ug/mL (5.0-12.0) H Assessment/Plan Assessment/Plan Sepsis Bilateral LE cellulitis Venous insuff Ac/chronic diastolic CHF resolving Hypertension/HHD Sinus node disease with bradycardia DVT prophyl Skin care Antibiotics per ID Diuresis - now on oral maint dose. Will trend BNP. Maintain current antiHTN meds - but with decreased beta tory dose. Pranav Russo MD Feb 14, 2020 22:33
[2020-02-15 00:26] VITALS: BP 140/67
[2020-02-15 04:03] VITALS: BP 129/63
[2020-02-15] MEDS: Heparin 5000 units/ml inj SUBQ SCH ×3 (05:32→21:44)
--- NOTE | 2020-02-15 07:03 | NUR ---
HAND-OFF: Report given to EVA Coelho.
[2020-02-15 07:24] LABS: BASOPHILS % (AUTO) 1.2 % (0.0-2.0); EOSINOPHILS % (AUTO) 4.9 % (0.0-3.0); HEMOGLOBIN 12.4 G/DL (14.2-18.0); LYMPHOCYTES % (AUTO) 16.8 % (20.0-45.0); MEAN CORPUSCULAR VOLUME 95 FL (80-99); MONOCYTES % (AUTO) 7.7 % (1.0-10.0); NEUTROPHILS % (AUTO) 69.3 % (45.0-75.0); PLATELET COUNT 336 K/UL (150-450); RED BLOOD COUNT 3.81 M/UL (4.70-6.10); RED CELL DISTRIBUTION WIDTH 12.3 % (11.6-14.8); WHITE BLOOD COUNT 9.5 K/UL (4.8-10.8)
[2020-02-15 07:51] LABS: ALBUMIN 2.5 G/DL (3.4-5.0); ALBUMIN/GLOBULIN RATIO 0.6 (1.0-2.7); BILIRUBIN,TOTAL 0.5 MG/DL (0.2-1.0); CALCIUM 8.6 MG/DL (8.5-10.1); CREATININE 1.3 MG/DL (0.55-1.30); POTASSIUM 4.2 MMOL/L (3.5-5.1)
[2020-02-15 08:00] VITALS: BP 131/72
[2020-02-15] MEDS: Zinc Sulfate 220mg ORAL SCH (08:48)
[2020-02-15] MEDS: Furosemide 40mg tab ORAL SCH (08:48)
[2020-02-15] MEDS: Ascorbic Acid 500mg tab ORAL SCH (08:48)
[2020-02-15] MEDS: Aspirin EC 81mg tab ORAL SCH (08:48)
[2020-02-15] MEDS: Losartan 50mg tab ORAL SCH (08:49)
[2020-02-15] MEDS: Atenolol 25mg tab ORAL SCH (08:49)
[2020-02-15 12:00] VITALS: BP 114/71
--- NOTE | 2020-02-15 12:39 | Infectious Diseases Prog Note ---
Assessment/Plan Assessment/Plan A; 1. Left leg cellulitis, cultures pseudomonas & Enterococcus 2. Left leg ulcer. 3. Hypertension. 4. Leukocytosis resolved 5. Knees OA PLAN: 1. Continue IV vancomycin x 5 days 2. Continue Levaquin X 8 days Subjective ROS Limited/Unobtainable: No Constitutional: Reports: no symptoms Respiratory: Reports: no symptoms Gastrointestinal/Abdominal: Reports: diarrhea, other - loose stool Genitourinary: Reports: no symptoms Allergies: Coded Allergies: No Known Allergies (Unverified , 06/22/18) Objective Last 24 Hour Vital Signs Date Time Temp Pulse Resp B/P (MAP) Pulse Ox O2 Delivery O2 Flow Rate FiO2 02/15/20 09:00 Room Air 02/15/20 08:49 62 131/72 02/15/20 08:49 131/72 02/15/20 08:00 97.9 62 19 131/72 (91) 98 02/15/20 04:03 98.0 62 16 129/63 (85) 96 02/15/20 00:26 98.0 59 16 140/67 (91) 96 02/14/20 20:35 Room Air 02/14/20 20:00 98.2 66 16 130/62 (84) 95 02/14/20 16:00 97.9 62 18 117/57 (77) 97 Height (Feet): 6 Height (Inches): 4.00 Weight (Pounds): 239 HEENT: mucous membranes moist Respiratory/Chest: lungs clear Cardiovascular: normal rate Abdomen: soft, non tender Extremities: other - left leg dressing Neurologic/Psychiatric: alert, responsive Laboratory Tests Test 02/15/20 05:38 White Blood Count 9.5 K/UL (4.8-10.8) Red Blood Count 3.81 M/UL (4.70-6.10) L Hemoglobin 12.4 G/DL (14.2-18.0) L Hematocrit 36.0 % (42.0-52.0) L Mean Corpuscular Volume 95 FL (80-99) Mean Corpuscular Hemoglobin 32.4 PG (27.0-31.0) H Mean Corpuscular Hemoglobin Concent 34.3 G/DL (32.0-36.0) Red Cell Distribution Width 12.3 % (11.6-14.8) Platelet Count 336 K/UL (150-450) Mean Platelet Volume 7.3 FL (6.5-10.1) Neutrophils (%) (Auto) 69.3 % (45.0-75.0) Lymphocytes (%) (Auto) 16.8 % (20.0-45.0) L Monocytes (%) (Auto) 7.7 % (1.0-10.0) Eosinophils (%) (Auto) 4.9 % (0.0-3.0) H Basophils (%) (Auto) 1.2 % (0.0-2.0) Sodium Level 142 MMOL/L (136-145) Potassium Level 4.2 MMOL/L (3.5-5.1) Chloride Level 109 MMOL/L (98-107) H Carbon Dioxide Level 24 MMOL/L (21-32) Anion Gap 10 mmol/L (5-15) Blood Urea Nitrogen 24 mg/dL (7-18) H Creatinine 1.3 MG/DL (0.55-1.30) Estimat Glomerular Filtration Rate 53.0 mL/min (>60) Glucose Level 89 MG/DL (74-106) Calcium Level 8.6 MG/DL (8.5-10.1) Magnesium Level 2.4 MG/DL (1.8-2.4) Total Bilirubin 0.5 MG/DL (0.2-1.0) Aspartate Amino Transf (AST/SGOT) 35 U/L (15-37) Alanine Aminotransferase (ALT/SGPT) 72 U/L (12-78) Alkaline Phosphatase 106 U/L (46-116) Pro-B-Type Natriuretic Peptide 139 pg/mL (0-125) H Total Protein 6.7 G/DL (6.4-8.2) Albumin 2.5 G/DL (3.4-5.0) L Globulin 4.2 g/dL Albumin/Globulin Ratio 0.6 (1.0-2.7) L Current Medications Medications (Trade) Dose Ordered Sig/Remigio Route PRN Reason Start Time Stop Time Status Last Admin Dose Admin Acetaminophen (Tylenol) 500 mg Q4H PRN ORAL Mild Pain (Pain Scale 1-3) 02/06/20 20:00 03/07/20 19:59 Al Hydroxide/Mg Hydroxide (Mylanta) 30 ml Q6H PRN ORAL Abdominal cramps 02/08/20 07:45 03/09/20 07:44 Ascorbic Acid (Vitamin C) 500 mg DAILY ORAL 02/08/20 09:00 03/09/20 08:59 02/15/20 08:48 Aspirin (Ecotrin) 81 mg DAILY ORAL 02/06/20 20:00 03/22/20 19:59 02/15/20 08:48 Atenolol (Tenormin) 12.5 mg DAILY ORAL 02/14/20 09:00 03/08/20 08:59 02/15/20 08:49 Furosemide (Lasix) 40 mg DAILY ORAL 02/13/20 09:00 03/14/20 08:59 02/15/20 08:48 Heparin Sodium (Porcine) (Heparin 5000 units/ml) 5,000 units EVERY 8 HOURS SUBQ 02/07/20 06:00 03/23/20 05:59 02/15/20 05:32 Ibuprofen (Advil) 200 mg DAILYPRN PRN ORAL moderate pain 02/06/20 20:00 03/07/20 19:59 Levofloxacin (Levaquin) 250 mg DAILY ORAL 02/11/20 09:00 02/18/20 08:59 02/15/20 08:48 Losartan Potassium (Cozaar) 50 mg DAILY ORAL 02/07/20 09:00 03/08/20 08:59 02/15/20 08:49 Magnesium Hydroxide (Mom) 30 ml HSPRN PRN ORAL Constipation 02/08/20 07:45 03/09/20 07:44 Multivitamins (Multivitamins) 1 tab DAILY ORAL 02/08/20 09:00 03/09/20 08:59 02/15/20 08:49 Ondansetron HCl (Zofran) 4 mg Q6H PRN IVP Nausea & Vomiting 02/06/20 20:00 03/07/20 19:59 Polyethylene Glycol (Miralax) 17 gm DAILYPRN PRN ORAL Constipation 02/08/20 07:45 03/09/20 07:44 Potassium Chloride (K-Dur) 10 meq TWICE A DAY ORAL 02/07/20 09:00 05/07/20 08:59 02/15/20 08:49 Simethicone (Mylicon) 80 mg QIDPRN PRN ORAL Abdominal cramps 02/08/20 07:45 05/08/20 07:44 Vancomycin HCl 250 ml @ 166.667 mls/hr Q24H IVPB 02/15/20 14:00 02/20/20 13:59 Vancomycin HCl (Vanco pharmacy to dose) 1 ea DAILY PRN MISC Per rx protocol 02/07/20 07:30 03/08/20 07:29 Zinc Sulfate (Zinc Sulfate) 220 mg DAILY ORAL 02/08/20 09:00 02/18/20 08:59 02/15/20 08:48 Stephon Barrera MD Feb 15, 2020 12:39
--- NOTE | 2020-02-15 13:06 | Surgery Progress Note ---
Surgery Progress Note Subjective Symptoms: improved, tolerating diet, voiding well, passing flatus, BM Objective Last 24 Hour Vital Signs Date Time Temp Pulse Resp B/P (MAP) Pulse Ox O2 Delivery O2 Flow Rate FiO2 02/15/20 12:00 97.9 54 18 114/71 (85) 96 02/15/20 09:00 Room Air 02/15/20 08:49 62 131/72 02/15/20 08:49 131/72 02/15/20 08:00 97.9 62 19 131/72 (91) 98 02/15/20 04:03 98.0 62 16 129/63 (85) 96 02/15/20 00:26 98.0 59 16 140/67 (91) 96 02/14/20 20:35 Room Air 02/14/20 20:00 98.2 66 16 130/62 (84) 95 02/14/20 16:00 97.9 62 18 117/57 (77) 97 I&O Intake and Output 02/14/20 02/15/20 19:00 07:00 Intake Total 720 ml 360 ml Output Total 600 ml 1300 ml Balance 120 ml -940 ml Intake Oral 720 ml Other 360 ml Output Urine Total 600 ml 1300 ml # Voids 2 # Bowel Movements 1 Dressing: saturated Wound: clean Cardiovascular: RSR Respiratory: clear Abdomen: soft, non-tender, present bowel sounds Extremities: no edema, no tenderness, no cyanosis Laboratory Tests Test 02/15/20 05:38 White Blood Count 9.5 K/UL (4.8-10.8) Red Blood Count 3.81 M/UL (4.70-6.10) L Hemoglobin 12.4 G/DL (14.2-18.0) L Hematocrit 36.0 % (42.0-52.0) L Mean Corpuscular Volume 95 FL (80-99) Mean Corpuscular Hemoglobin 32.4 PG (27.0-31.0) H Mean Corpuscular Hemoglobin Concent 34.3 G/DL (32.0-36.0) Red Cell Distribution Width 12.3 % (11.6-14.8) Platelet Count 336 K/UL (150-450) Mean Platelet Volume 7.3 FL (6.5-10.1) Neutrophils (%) (Auto) 69.3 % (45.0-75.0) Lymphocytes (%) (Auto) 16.8 % (20.0-45.0) L Monocytes (%) (Auto) 7.7 % (1.0-10.0) Eosinophils (%) (Auto) 4.9 % (0.0-3.0) H Basophils (%) (Auto) 1.2 % (0.0-2.0) Sodium Level 142 MMOL/L (136-145) Potassium Level 4.2 MMOL/L (3.5-5.1) Chloride Level 109 MMOL/L (98-107) H Carbon Dioxide Level 24 MMOL/L (21-32) Anion Gap 10 mmol/L (5-15) Blood Urea Nitrogen 24 mg/dL (7-18) H Creatinine 1.3 MG/DL (0.55-1.30) Estimat Glomerular Filtration Rate 53.0 mL/min (>60) Glucose Level 89 MG/DL (74-106) Calcium Level 8.6 MG/DL (8.5-10.1) Magnesium Level 2.4 MG/DL (1.8-2.4) Total Bilirubin 0.5 MG/DL (0.2-1.0) Aspartate Amino Transf (AST/SGOT) 35 U/L (15-37) Alanine Aminotransferase (ALT/SGPT) 72 U/L (12-78) Alkaline Phosphatase 106 U/L (46-116) Pro-B-Type Natriuretic Peptide 139 pg/mL (0-125) H Total Protein 6.7 G/DL (6.4-8.2) Albumin 2.5 G/DL (3.4-5.0) L Globulin 4.2 g/dL Albumin/Globulin Ratio 0.6 (1.0-2.7) L Plan Problems: (1) Cellulitis Assessment & Plan: This is a very pleasant 79-year-old male with history of chronic venous stasis ulcer that is acutely worsened. Edema cellulitis leukocytosis renal insufficiency. CT reviewed exam performed local care provided Left medial lower leg venous ulcer 5.7x3.7x0.3 60% yellow slough 40% pink tissue no odor ,redness , edema and small scattered open areas periwound,large amount serosanguineous drainage. wound culture done.Thera honey ,gauze,abd pad and kerlix applied. Left buttock ulcer possible prior abscess 0.8x0.5x0.2 scant serous drainage and thickened wound edges Calazime and Optifoam applied. Sacral area skin intact Optifoam applied for protection . Right heel pressure ulcer stage 1 3.5x5.0x0.0 nonblanchable redness Optifoam applied. Left heel pressure ulcer stage 1 5.0x6.0x0.0 non blanchable redness Optifoam applied . Patient alert and oriented educated on skin break down prevention. Patient with significant improvement of the edema in the left lower extremity. The wound was cleaned and dressings were applied patient taught procedure well of the dressing changes and has plan for discharge. Outpatient wound care planning edema improved wound elly well smaller now hall cleaner 100% granulation tissue d/c planning outpatient wound care Duplex Doppler interrogation of the veins in both lower extremity is performed from the common femoral vein to the popliteal vein. Normal venous compressibility demonstrated throughout. No thrombus identified. Waveform analysis shows good respiratory phasicity and augmentation. Image calf veins are patent. IMPRESSION: No evidence of deep venous thrombosis involving the lower extremities. There is edema of the subcutaneous fat and thickening of the skin. This is circumferential distally, mostly posterior proximally. No definite discrete fluid collection to suggest organized abscess, although evaluation for such is limited in the absence of IV contrast. No definite osseous erosive abnormality or unusual periosteal reaction. There are degenerative changes of the hindfoot joints as well as of the knee joint. No evidence of acute fracture. No radiopaque foreign body. There is a small knee joint effusion which is smaller than that seen on the previous study.. A broken off osteophyte is seen at the lateral aspect of the lateral joint compartment. Impression: Diffuse soft tissue edema, as described. This may be due to cellulitis or could be edema related to hemodynamic abnormalities. Correlation with clinical findings is recommended. No evidence of organized collection to suggest soft tissue abscess. However, evaluation for such is limited in the absence of IV contrast No acute bony trauma No CT findings to suggest acute osteomyelitis. Note, however, limited sensitivity of CT for such. If there is high clinical suspicion then MRI should be considered. Knee joint effusion, smaller than that demonstrated previously. Small lateral loose body. This appears to be a previously present lateral osteophyte that has broken off in the interim. DAILY ESTIMATED NEEDS: Needs based on Cardiac, 95kg abw 25-30 kcals/kg 4048-4279 total kcals 1-1.2 g protein/kg 95-114 g total protein 25-30 mL/kg 2847-7577 total fluid mLs NUTRITION DIAGNOSIS: Decreased sodium needs R/T CHF and BL LE cellulitis as evidenced by elev BNP 2280, BL LE edema, on lasix. CURRENT DIET:Cardiac PO DIET RECOMMENDATIONS: LOW NA, texture as tolerated ADDITIONAL RECOMMENDATIONS: * Standing wt as able for accurate CBW * Rec WC rn for above wounds, -> add ALEXA BID * Add B-complex qdaily w/ lasix * Snacks in b/w meals as able, Ensure Enlive qdaily * BG elevated, rec A1C for eval (2) CHF (congestive heart failure) (3) Sepsis (4) ASCVD (arteriosclerotic cardiovascular disease) (5) Venous insufficiency Ned Albrecht Feb 15, 2020 13:06
--- NOTE | 2020-02-15 13:45 | NUR ---
Hand off report given to EVA Sunshine.
--- NOTE | 2020-02-15 14:00 | NUR ---
NURSE NOTES: Received patient from Ricardo RN. patient in stable condition. Will continue to monitor.
[2020-02-15] MEDS: Vancomycin 1.25gm Premix q24h IVPB SCH (14:55)
--- NOTE | 2020-02-15 14:57 | General Progress Note ---
Subjective Allergies: Coded Allergies: No Known Allergies (Unverified , 06/22/18) Subjective no new complaints. no fevers or chills. no sob. ambulating with staff. remains on iv abx. on wound care. id noted. 5 more days iv abx. Objective Last 24 Hour Vital Signs Date Time Temp Pulse Resp B/P (MAP) Pulse Ox O2 Delivery O2 Flow Rate FiO2 02/15/20 12:00 97.9 54 18 114/71 (85) 96 02/15/20 09:00 Room Air 02/15/20 08:49 62 131/72 02/15/20 08:49 131/72 02/15/20 08:00 97.9 62 19 131/72 (91) 98 02/15/20 04:03 98.0 62 16 129/63 (85) 96 02/15/20 00:26 98.0 59 16 140/67 (91) 96 02/14/20 20:35 Room Air 02/14/20 20:00 98.2 66 16 130/62 (84) 95 02/14/20 16:00 97.9 62 18 117/57 (77) 97 Intake and Output 02/14/20 02/15/20 19:00 07:00 Intake Total 720 ml 360 ml Output Total 600 ml 1300 ml Balance 120 ml -940 ml Intake Oral 720 ml Other 360 ml Output Urine Total 600 ml 1300 ml # Voids 2 # Bowel Movements 1 Laboratory Tests 02/15/20 05:38: White Blood Count 9.5, Red Blood Count 3.81L, Hemoglobin 12.4L, Hematocrit 36.0L , Mean Corpuscular Volume 95, Mean Corpuscular Hemoglobin 32.4H, Mean Corpuscular Hemoglobin Concent 34.3, Red Cell Distribution Width 12.3, Platelet Count 336, Mean Platelet Volume 7.3, Neutrophils (%) (Auto) 69.3, Lymphocytes (%) (Auto) 16.8L, Monocytes (%) (Auto) 7.7, Eosinophils (%) (Auto) 4.9H, Basophils (%) (Auto) 1.2, Sodium Level 142, Potassium Level 4.2, Chloride Level 109H, Carbon Dioxide Level 24, Anion Gap 10, Blood Urea Nitrogen 24H, Creatinine 1.3, Estimat Glomerular Filtration Rate 53.0, Glucose Level 89, Calcium Level 8.6, Magnesium Level 2.4, Total Bilirubin 0.5, Aspartate Amino Transf (AST/SGOT) 35, Alanine Aminotransferase (ALT/SGPT) 72, Alkaline Phosphatase 106, Pro-B-Type Natriuretic Peptide 139H, Total Protein 6.7, Albumin 2.5L, Globulin 4.2, Albumin/Globulin Ratio 0.6L Height (Feet): 6 Height (Inches): 4.00 Weight (Pounds): 239 Objective General Appearance: WD/WN, no apparent distress, alert EENT: PERRL/EOMI, normal ENT inspection Neck: non-tender, normal alignment, supple Cardiovascular: normal peripheral pulses, normal rate Respiratory/Chest: chest wall non-tender, lungs clear, normal breath sounds Abdomen: normal bowel sounds, non tender, soft, no organomegaly Edema: 2+ Pedal (L); 3+ Pedal (R) Edema: mild edema 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 grossly normal, abnormal gait, alert, oriented x 3 Assessment/Plan Problem List: (1) Sepsis ICD Codes: A41.9 - Sepsis, unspecified organism SNOMED: 56152975 (2) CHF (congestive heart failure) ICD Codes: I50.9 - Heart failure, unspecified SNOMED: 29473938 (3) Cellulitis ICD Codes: L03.90 - Cellulitis, unspecified SNOMED: 548521898 Status: stable Assessment/Plan: cont iv abx wound care po lasix elevate legs cont bp rx monitor wbc/labs pt/ot ordered dvt/stress ulcer prophylaxis check cdiff offered snf- pt declined will d/w caregivers if they are comfortable with home iv abx can dc home if able to arrange home iv abx Christian Messina MD Feb 15, 2020 14:57
[2020-02-15 16:00] VITALS: BP 106/49
--- NOTE | 2020-02-15 19:30 | NUR ---
NURSE HAND-OFF: 409 Important Events on Shift:[] Patient Status: Stable Diet: Cardiac diet Pending Orders: N/A Pending Results/Labs:N/A Pending MD notification:N/A Latest Vital Signs: Temperature 97.7 , Pulse 59 , B/P 106 /49 , Respiratory Rate 18 , O2 SAT 96 , Room Air, O2 Flow Rate . Vital Sign Comment: Stable Latest Harvey Fall Score: 60 Fall Risk: High Risk Safety Measures: Call light Within Reach, Bed Alarm Zone 1, Side Rails Side Rails x2, Bed position Low and Locked. Fall Precautions: Yellow Socks Yellow Gown Door Sign Patient Fall Education Report given to Marcellus VELASQUEZ. Patient in stable condition.
[2020-02-15 20:00] VITALS: BP 132/64
--- NOTE | 2020-02-15 20:20 | NUR ---
6NURSE NOTES: Patient is awake, alert and verbally responsive. No comlpaint of pain or discomfort. Iv site noted. Respiration is even and unlabroed. Bed in low and locked position. provided safe environment. Noted with lower leg dressing. Call light is at bedside. Will continue plan of care.
[2020-02-16] VITALS: BP 139/81
--- NOTE | 2020-02-16 00:53 | Cardiology Progress Note ---
Subjective DATE OF SERVICE: Feb 15, 2020 Resolving leg swelling and redness; no pain or SOB. Venous duplex negative for DVT CT without obvious osteomyelitis BNP significantly decreased Patient continues on wound care; needs add'l 7 days of IV antimicrobials. Objective Last 24 Hour Vital Signs Date Time Temp Pulse Resp B/P (MAP) Pulse Ox O2 Delivery O2 Flow Rate FiO2 02/16/20 00:00 97.1 57 16 139/81 (100) 98 02/15/20 20:40 Room Air 02/15/20 20:00 97.9 69 17 132/64 (86) 98 02/15/20 16:00 97.7 59 18 106/49 (68) 96 02/15/20 12:00 97.9 54 18 114/71 (85) 96 02/15/20 09:00 Room Air 02/15/20 08:49 62 131/72 02/15/20 08:49 131/72 02/15/20 08:00 97.9 62 19 131/72 (91) 98 02/15/20 04:03 98.0 62 16 129/63 (85) 96 ROS: unchanged from my evaluation of 02/06/20 HEENT: normal ENT inspection LUNGS: diminished breath sounds CARDIAC: normal rate, regular rhythm, normal S1 and S2 - diminished peripheral pulses, systolic murmur - 1/6 systolic murmur at apex, other ABDOMEN: normal bowel sounds, non tender, soft, other - obese EXTREMITIES: slow capillary refill, pitting edema, +1 edema, other - left heel wound; bilateral erythema to mid calves Laboratory Tests Test 02/15/20 05:38 White Blood Count 9.5 K/UL (4.8-10.8) Red Blood Count 3.81 M/UL (4.70-6.10) L Hemoglobin 12.4 G/DL (14.2-18.0) L Hematocrit 36.0 % (42.0-52.0) L Mean Corpuscular Volume 95 FL (80-99) Mean Corpuscular Hemoglobin 32.4 PG (27.0-31.0) H Mean Corpuscular Hemoglobin Concent 34.3 G/DL (32.0-36.0) Red Cell Distribution Width 12.3 % (11.6-14.8) Platelet Count 336 K/UL (150-450) Mean Platelet Volume 7.3 FL (6.5-10.1) Neutrophils (%) (Auto) 69.3 % (45.0-75.0) Lymphocytes (%) (Auto) 16.8 % (20.0-45.0) L Monocytes (%) (Auto) 7.7 % (1.0-10.0) Eosinophils (%) (Auto) 4.9 % (0.0-3.0) H Basophils (%) (Auto) 1.2 % (0.0-2.0) Sodium Level 142 MMOL/L (136-145) Potassium Level 4.2 MMOL/L (3.5-5.1) Chloride Level 109 MMOL/L (98-107) H Carbon Dioxide Level 24 MMOL/L (21-32) Anion Gap 10 mmol/L (5-15) Blood Urea Nitrogen 24 mg/dL (7-18) H Creatinine 1.3 MG/DL (0.55-1.30) Estimat Glomerular Filtration Rate 53.0 mL/min (>60) Glucose Level 89 MG/DL (74-106) Calcium Level 8.6 MG/DL (8.5-10.1) Magnesium Level 2.4 MG/DL (1.8-2.4) Total Bilirubin 0.5 MG/DL (0.2-1.0) Aspartate Amino Transf (AST/SGOT) 35 U/L (15-37) Alanine Aminotransferase (ALT/SGPT) 72 U/L (12-78) Alkaline Phosphatase 106 U/L (46-116) Pro-B-Type Natriuretic Peptide 139 pg/mL (0-125) H Total Protein 6.7 G/DL (6.4-8.2) Albumin 2.5 G/DL (3.4-5.0) L Globulin 4.2 g/dL Albumin/Globulin Ratio 0.6 (1.0-2.7) L Assessment/Plan Assessment/Plan Sepsis Bilateral LE cellulitis Venous insuff Ac/chronic diastolic CHF resolving Hypertension/HHD Sinus node disease with bradycardia DVT prophyl Skin care Antibiotics per ID Diuresis - now on oral maint dose. Will trend BNP. Maintain current antiHTN meds - but with decreased beta tory dose. Pranav Russo MD Feb 16, 2020 00:53
[2020-02-16 04:00] VITALS: BP 140/61
[2020-02-16] MEDS: Heparin 5000 units/ml inj SUBQ SCH ×3 (05:21→21:54)
--- NOTE | 2020-02-16 07:21 | NUR ---
NURSE HAND-OFF: Important Events on Shift:WNL Patient Status: WNL Diet: Cardiac Pending Orders: Pending Results/Labs: Pending MD notification: Latest Vital Signs: Temperature 97.2 , Pulse 51 , B/P 140 /61 , Respiratory Rate 16 , O2 SAT 99 , Room Air, O2 Flow Rate . Vital Sign Comment: WNL Latest Harvey Fall Score: 60 Fall Risk: High Risk Safety Measures: Call light Within Reach, Bed Alarm Zone 1, Side Rails Side Rails x2, Bed position Low and Locked. Fall Precautions: Yellow Socks Yellow Gown Door Sign Patient Fall Education Report given to Mack Helms.
[2020-02-16 08:00] VITALS: BP 143/74
[2020-02-16] MEDS: Aspirin EC 81mg tab ORAL SCH (08:33)
[2020-02-16] MEDS: Ascorbic Acid 500mg tab ORAL SCH (08:34)
[2020-02-16] MEDS: Furosemide 40mg tab ORAL SCH (08:34)
[2020-02-16] MEDS: Zinc Sulfate 220mg ORAL SCH (08:34)
[2020-02-16] MEDS: Losartan 50mg tab ORAL SCH (08:35)
[2020-02-16] MEDS: Atenolol 25mg tab ORAL SCH (08:38)
--- NOTE | 2020-02-16 10:48 | Infectious Diseases Prog Note ---
Assessment/Plan Assessment/Plan antibiotics : vancomycin iv, levoquin A 1. left leg cellulitis improving 2. left leg ulcer infection with enterococcus, pseudomonas 3. hypertension 4. leucocytosis improving P 1. continue iv vancomycin 4 more days 2. continue levoquin po 8 more days 3. will follow up cultures Subjective Constitutional: Denies: fever, chills Respiratory: Denies: shortness of breath, dry cough Gastrointestinal/Abdominal: Denies: nausea, vomiting, diarrhea Musculoskeletal: Reports: pain - decreased Allergies: Coded Allergies: No Known Allergies (Unverified , 06/22/18) Objective Last 24 Hour Vital Signs Date Time Temp Pulse Resp B/P (MAP) Pulse Ox O2 Delivery O2 Flow Rate FiO2 02/16/20 08:38 65 143/74 02/16/20 08:35 143/74 02/16/20 04:00 97.2 51 16 140/61 (87) 99 02/16/20 00:00 97.1 57 16 139/81 (100) 98 02/15/20 20:40 Room Air 02/15/20 20:00 97.9 69 17 132/64 (86) 98 02/15/20 16:00 97.7 59 18 106/49 (68) 96 02/15/20 12:00 97.9 54 18 114/71 (85) 96 Height (Feet): 6 Height (Inches): 4.00 Weight (Pounds): 239 Respiratory/Chest: lungs clear Cardiovascular: normal rate, regular rhythm, no gallop/murmur Abdomen: soft, non tender Extremities: other - decreased left leg erythema, edema Current Medications Medications (Trade) Dose Ordered Sig/Remigio Route PRN Reason Start Time Stop Time Status Last Admin Dose Admin Acetaminophen (Tylenol) 500 mg Q4H PRN ORAL Mild Pain (Pain Scale 1-3) 02/06/20 20:00 03/07/20 19:59 Al Hydroxide/Mg Hydroxide (Mylanta) 30 ml Q6H PRN ORAL Abdominal cramps 02/08/20 07:45 03/09/20 07:44 Ascorbic Acid (Vitamin C) 500 mg DAILY ORAL 02/08/20 09:00 03/09/20 08:59 02/16/20 08:34 Aspirin (Ecotrin) 81 mg DAILY ORAL 02/06/20 20:00 03/22/20 19:59 02/16/20 08:33 Atenolol (Tenormin) 12.5 mg DAILY ORAL 02/14/20 09:00 03/08/20 08:59 02/16/20 08:38 Furosemide (Lasix) 40 mg DAILY ORAL 02/13/20 09:00 03/14/20 08:59 02/16/20 08:34 Heparin Sodium (Porcine) (Heparin 5000 units/ml) 5,000 units EVERY 8 HOURS SUBQ 02/07/20 06:00 03/23/20 05:59 02/16/20 05:21 Ibuprofen (Advil) 200 mg DAILYPRN PRN ORAL moderate pain 02/06/20 20:00 03/07/20 19:59 Levofloxacin (Levaquin) 250 mg DAILY ORAL 02/11/20 09:00 02/18/20 08:59 02/16/20 08:35 Losartan Potassium (Cozaar) 50 mg DAILY ORAL 02/07/20 09:00 03/08/20 08:59 02/16/20 08:35 Magnesium Hydroxide (Mom) 30 ml HSPRN PRN ORAL Constipation 02/08/20 07:45 03/09/20 07:44 Multivitamins (Multivitamins) 1 tab DAILY ORAL 02/08/20 09:00 03/09/20 08:59 02/16/20 08:34 Ondansetron HCl (Zofran) 4 mg Q6H PRN IVP Nausea & Vomiting 02/06/20 20:00 03/07/20 19:59 Polyethylene Glycol (Miralax) 17 gm DAILYPRN PRN ORAL Constipation 02/08/20 07:45 03/09/20 07:44 Potassium Chloride (K-Dur) 10 meq TWICE A DAY ORAL 02/07/20 09:00 05/07/20 08:59 02/16/20 08:34 Simethicone (Mylicon) 80 mg QIDPRN PRN ORAL Abdominal cramps 02/08/20 07:45 05/08/20 07:44 Vancomycin HCl 250 ml @ 166.667 mls/hr Q24H IVPB 02/15/20 14:00 02/20/20 13:59 02/15/20 14:55 Vancomycin HCl (Vanco pharmacy to dose) 1 ea DAILY PRN MISC Per rx protocol 02/07/20 07:30 03/08/20 07:29 Zinc Sulfate (Zinc Sulfate) 220 mg DAILY ORAL 02/08/20 09:00 02/18/20 08:59 02/16/20 08:34 Caron Elizabeth MD Feb 16, 2020 10:48
[2020-02-16 12:00] VITALS: BP 131/62
--- NOTE | 2020-02-16 12:00 | NUR ---
NURSE NOTE No signs of distress or pain. Pt states that he feels better. Ambulating with Sunitha PT. Dressing change was done - right buttock erosion (Ns therahoney. optiform). Left leg vascular medial wound -clean with ns, pat dry, optiform, abd dressing wrapped from toes towards the knee)
[2020-02-16] MEDS: Vancomycin 1.25gm Premix q24h IVPB SCH (13:18)
--- NOTE | 2020-02-16 15:10 | General Progress Note ---
Subjective Allergies: Coded Allergies: No Known Allergies (Unverified , 06/22/18) Subjective no new complaints. no fevers or chills. no sob. ambulating with staff. remains on iv abx. on wound care. id noted. 4 more days iv abx. Objective Last 24 Hour Vital Signs Date Time Temp Pulse Resp B/P (MAP) Pulse Ox O2 Delivery O2 Flow Rate FiO2 02/16/20 12:00 97.8 58 18 131/62 (85) 96 02/16/20 09:00 Room Air 02/16/20 08:38 65 143/74 02/16/20 08:35 143/74 02/16/20 08:00 97.7 53 18 143/74 (97) 96 02/16/20 04:00 97.2 51 16 140/61 (87) 99 02/16/20 00:00 97.1 57 16 139/81 (100) 98 02/15/20 20:40 Room Air 02/15/20 20:00 97.9 69 17 132/64 (86) 98 02/15/20 16:00 97.7 59 18 106/49 (68) 96 Intake and Output 02/15/20 02/16/20 19:00 07:00 Intake Total 400 ml 400 ml Output Total 400 ml 1200 ml Balance 0 ml -800 ml Intake Oral 400 ml Other 400 ml Output Urine Total 400 ml 1200 ml # Bowel Movements 1 Height (Feet): 6 Height (Inches): 4.00 Weight (Pounds): 239 Objective General Appearance: WD/WN, no apparent distress, alert EENT: PERRL/EOMI, normal ENT inspection Neck: non-tender, normal alignment, supple Cardiovascular: normal peripheral pulses, normal rate Respiratory/Chest: chest wall non-tender, lungs clear, normal breath sounds Abdomen: normal bowel sounds, non tender, soft, no organomegaly Edema: 2+ Pedal (L); 3+ Pedal (R) Edema: mild edema 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 grossly normal, abnormal gait, alert, oriented x 3 Assessment/Plan Problem List: (1) Sepsis ICD Codes: A41.9 - Sepsis, unspecified organism SNOMED: 46577513 (2) CHF (congestive heart failure) ICD Codes: I50.9 - Heart failure, unspecified SNOMED: 37591323 (3) Cellulitis ICD Codes: L03.90 - Cellulitis, unspecified SNOMED: 763083307 Status: stable Assessment/Plan: cont iv abx wound care po lasix elevate legs cont bp rx monitor wbc/labs pt/ot ordered dvt/stress ulcer prophylaxis check cdiff offered snf- pt declined will d/w caregivers if they are comfortable with home iv abx can dc home if able to arrange home iv abx Christian Messina MD Feb 16, 2020 15:10
--- NOTE | 2020-02-16 15:18 | NUR ---
CASE MANAGEMENT:REVIEW 02/16/20 SI: LT LEG CELLULITIS/INFECTION (+) ENTEROCOCCUS AND PSEUDOMONAS 97.8 58 18 131/62 96% ON RA NO LABS TODAY IS: IV VANCOMYCIN Q24 LEVAQUIN PO QD ATENOLOL PO QD LASIX PO QD ZINC PO QD VIT C PO QD COZAAR PO QD HEPARIN SQ Q8HRS : MED/SURG STATUS 4 EAST PLAN: CONTINUE IV VANCOMYCIN FOR 4 MORE DAYS CONTINUE PO LEVAQUIN FOR 8 MORE DAYS
[2020-02-16 16:00] VITALS: BP 133/73
--- NOTE | 2020-02-16 16:41 | Surgery Progress Note ---
Surgery Progress Note Subjective Additional Comments improved edema improved wound more dry healing well cont abx Objective Last 24 Hour Vital Signs Date Time Temp Pulse Resp B/P (MAP) Pulse Ox O2 Delivery O2 Flow Rate FiO2 02/16/20 12:00 97.8 58 18 131/62 (85) 96 02/16/20 09:00 Room Air 02/16/20 08:38 65 143/74 02/16/20 08:35 143/74 02/16/20 08:00 97.7 53 18 143/74 (97) 96 02/16/20 04:00 97.2 51 16 140/61 (87) 99 02/16/20 00:00 97.1 57 16 139/81 (100) 98 02/15/20 20:40 Room Air 02/15/20 20:00 97.9 69 17 132/64 (86) 98 I&O Intake and Output 02/15/20 02/16/20 19:00 07:00 Intake Total 400 ml 400 ml Output Total 400 ml 1200 ml Balance 0 ml -800 ml Intake Oral 400 ml Other 400 ml Output Urine Total 400 ml 1200 ml # Bowel Movements 1 Dressing: dry Wound: clean Cardiovascular: RSR Respiratory: clear Abdomen: soft, flat, non-tender, present bowel sounds Extremities: no edema, no tenderness, no cyanosis Plan Problems: (1) Cellulitis Assessment & Plan: This is a very pleasant 79-year-old male with history of chronic venous stasis ulcer that is acutely worsened. Edema cellulitis leukocytosis renal insufficiency. CT reviewed exam performed local care provided Left medial lower leg venous ulcer 5.7x3.7x0.3 60% yellow slough 40% pink tissue no odor ,redness , edema and small scattered open areas periwound,large amount serosanguineous drainage. wound culture done.Thera honey ,gauze,abd pad and kerlix applied. Left buttock ulcer possible prior abscess 0.8x0.5x0.2 scant serous drainage and thickened wound edges Calazime and Optifoam applied. Sacral area skin intact Optifoam applied for protection . Right heel pressure ulcer stage 1 3.5x5.0x0.0 nonblanchable redness Optifoam applied. Left heel pressure ulcer stage 1 5.0x6.0x0.0 non blanchable redness Optifoam applied . Patient alert and oriented educated on skin break down prevention. Patient with significant improvement of the edema in the left lower extremity. The wound was cleaned and dressings were applied patient taught procedure well of the dressing changes and has plan for discharge. 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 Normal venous compressibility demonstrated throughout. No thrombus identified. Waveform analysis shows good respiratory phasicity and augmentation. Image calf veins are patent. IMPRESSION: No evidence of deep venous thrombosis involving the lower extremities. There is edema of the subcutaneous fat and thickening of the skin. This is circumferential distally, mostly posterior proximally. No definite discrete fluid collection to suggest organized abscess, although evaluation for such is limited in the absence of IV contrast. No definite osseous erosive abnormality or unusual periosteal reaction. There are degenerative changes of the hindfoot joints as well as of the knee joint. No evidence of acute fracture. No radiopaque foreign body. There is a small knee joint effusion which is smaller than that seen on the previous study.. A broken off osteophyte is seen at the lateral aspect of the lateral joint compartment. Impression: Diffuse soft tissue edema, as described. This may be due to cellulitis or could be edema related to hemodynamic abnormalities. Correlation with clinical findings is recommended. No evidence of organized collection to suggest soft tissue abscess. However, evaluation for such is limited in the absence of IV contrast No acute bony trauma No CT findings to suggest acute osteomyelitis. Note, however, limited sensitivity of CT for such. If there is high clinical suspicion then MRI should be considered. Knee joint effusion, smaller than that demonstrated previously. Small lateral loose body. This appears to be a previously present lateral osteophyte that has broken off in the interim. DAILY ESTIMATED NEEDS: Needs based on Cardiac, 95kg abw 25-30 kcals/kg 8395-2935 total kcals 1-1.2 g protein/kg 95-114 g total protein 25-30 mL/kg 4473-4028 total fluid mLs NUTRITION DIAGNOSIS: Decreased sodium needs R/T CHF and BL LE cellulitis as evidenced by elev BNP 2280, BL LE edema, on lasix. CURRENT DIET:Cardiac PO DIET RECOMMENDATIONS: LOW NA, texture as tolerated ADDITIONAL RECOMMENDATIONS: * Standing wt as able for accurate CBW * Rec WC rn for above wounds, -> add ALEXA BID * Add B-complex qdaily w/ lasix * Snacks in b/w meals as able, Ensure Enlive qdaily * BG elevated, rec A1C for eval (2) CHF (congestive heart failure) (3) Sepsis (4) ASCVD (arteriosclerotic cardiovascular disease) (5) Venous insufficiency Ned Albrecht Feb 16, 2020 16:41
--- NOTE | 2020-02-16 17:18 | NUR ---
INSURANCE CLINICALS AND REVIEW FAXED TO (02/14-02/15) [facility] P [phone] F [phone]
--- NOTE | 2020-02-16 18:21 | NUR ---
BUSINESS PROFESSOR NOTES PT DC HOME WITH IV ATB. SPOKE WITH CAREGIVER RUPA, SHE WILL PICK PT UP AT 9PM. PT ACCEPTED TO [facility]. IV ATB TO BE DELIVERED TONIGHT BY GURMEET GOODE MADE AWARE. [facility] [phone]
--- NOTE | 2020-02-16 18:39 | NUR ---
NURSE NOTE: Received call from Samantha STRATTON director that pt will be discharged today with Home Health around 9 pm. Pt notified and he became very upset. He states that he has not seen for 2 days, and he is not ready. was notified (he is covering ), he postponed discharge for tomorrow. Pt and pt's caregiver Courtney notified.
--- NOTE | 2020-02-16 18:47 | Cardiology Progress Note ---
Subjective DATE OF SERVICE: Feb 16, 2020 Resolving leg swelling and redness; no pain or SOB. Venous duplex negative for DVT CT without obvious osteomyelitis Patient continues on wound care; needs add'l few days of IV antimicrobials. Objective Last 24 Hour Vital Signs Date Time Temp Pulse Resp B/P (MAP) Pulse Ox O2 Delivery O2 Flow Rate FiO2 02/16/20 16:00 98.2 81 18 133/73 (93) 97 02/16/20 12:00 97.8 58 18 131/62 (85) 96 02/16/20 09:00 Room Air 02/16/20 08:38 65 143/74 02/16/20 08:35 143/74 02/16/20 08:00 97.7 53 18 143/74 (97) 96 02/16/20 04:00 97.2 51 16 140/61 (87) 99 02/16/20 00:00 97.1 57 16 139/81 (100) 98 02/15/20 20:40 Room Air 02/15/20 20:00 97.9 69 17 132/64 (86) 98 ROS: unchanged from my evaluation of 02/06/20 HEENT: normal ENT inspection LUNGS: diminished breath sounds CARDIAC: normal rate, regular rhythm, normal S1 and S2 - diminished peripheral pulses, systolic murmur - 1/6 systolic murmur at apex, other ABDOMEN: normal bowel sounds, non tender, soft, other - obese EXTREMITIES: slow capillary refill, pitting edema, +1 edema, other - left heel wound; bilateral erythema to mid calves Assessment/Plan Assessment/Plan Sepsis Bilateral LE cellulitis Venous insuff Ac/chronic diastolic CHF resolving Hypertension/HHD Sinus node disease with bradycardia DVT prophyl Skin care Antibiotics per ID Diuresis - now on oral maint dose. Will periodically trend BNP. Maintain current antiHTN meds - but with new, decreased beta tory dose. Pranav Russo MD Feb 16, 2020 18:47
--- NOTE | 2020-02-16 19:30 | NUR ---
NURSE NOTES: Received patient in no apparent distress. A&OX4. IV site patent and intact. Elevated bilateral lower leg with pillow. Bed in lowest position. Call light within reach. Will continue to monitor.
[2020-02-16 20:00] VITALS: BP 128/63
[2020-02-17] VITALS: BP 121/69
[2020-02-17 04:00] VITALS: BP 138/78
[2020-02-17] MEDS: Heparin 5000 units/ml inj SUBQ SCH ×3 (05:56→21:30)
--- NOTE | 2020-02-17 06:58 | NUR ---
NURSE NOTES: Dr. Messina spoke with patient at bedside. Obtained cancel discharge order.
--- NOTE | 2020-02-17 07:25 | NUR ---
NURSE HAND-OFF: Important Events on Shift: Discharge was cancelled after spoke with Dr. Messina. Patient Status: Stable Diet: Cardiac Pending Orders: Pending Results/Labs: Pending MD notification: Latest Vital Signs: Temperature 97.5 , Pulse 55 , B/P 138 /78 , Respiratory Rate 16 , O2 SAT 99 , Room Air, O2 Flow Rate . Vital Sign Comment: Latest Harvey Fall Score: 60 Fall Risk: High Risk Safety Measures: Call light Within Reach, Bed Alarm Zone 1, Side Rails Side Rails x2, Bed position Low and Locked. Fall Precautions: Yellow Socks Yellow Gown Door Sign Patient Fall Education Report given to Hong VELASQUEZ.
[2020-02-17 08:00] VITALS: BP 130/85
--- NOTE | 2020-02-17 08:14 | NUR ---
NURSE NOTES: pt is awake and alert in the bed. respiration is even and unlabored. denies any kind of pain and discomfort. elevated BLE on a pillow. exchanged greetings with pt. no acute distress noted at this time. call light is within reach.
[2020-02-17] MEDS: Aspirin EC 81mg tab ORAL SCH (09:25)
[2020-02-17] MEDS: Atenolol 25mg tab ORAL SCH (09:25)
[2020-02-17] MEDS: Furosemide 40mg tab ORAL SCH (09:25)
[2020-02-17] MEDS: Ascorbic Acid 500mg tab ORAL SCH (09:26)
[2020-02-17] MEDS: Losartan 50mg tab ORAL SCH (09:26)
[2020-02-17] MEDS: Zinc Sulfate 220mg ORAL SCH (09:26)
--- NOTE | 2020-02-17 09:56 | General Progress Note ---
Subjective ROS Limited/Unobtainable: No Constitutional: Reports: malaise, weakness HEENT: Reports: no symptoms Cardiovascular: Reports: edema Respiratory: Reports: cough Gastrointestinal/Abdominal: Reports: no symptoms Genitourinary: Reports: no symptoms Neurologic/Psychiatric: Reports: pre-existing deficit Endocrine: Reports: no symptoms Hematologic/Lymphatic: Reports: anemia Allergies: Coded Allergies: No Known Allergies (Unverified , 06/22/18) All Systems: reviewed and negative except above Subjective no new complaints. no fevers or chills. no sob. ambulating with staff. remains on iv abx. on wound care. id noted. 4 more days iv abx. caretakers not available till next week. pt not willing to pay co pay for abx. refusing snf placement Objective Last 24 Hour Vital Signs Date Time Temp Pulse Resp B/P (MAP) Pulse Ox O2 Delivery O2 Flow Rate FiO2 02/17/20 09:26 130/85 02/17/20 09:25 61 130/85 02/17/20 08:00 98.2 61 16 130/85 (100) 99 02/17/20 04:00 97.5 55 16 138/78 (98) 99 02/17/20 00:00 97.0 58 16 121/69 (86) 97 02/16/20 21:00 Room Air 02/16/20 20:00 97.7 52 16 128/63 (84) 98 02/16/20 16:00 98.2 81 18 133/73 (93) 97 02/16/20 12:00 97.8 58 18 131/62 (85) 96 Intake and Output 02/16/20 02/17/20 19:00 07:00 Intake Total 850 ml 360 ml Output Total 800 ml 1300 ml Balance 50 ml -940 ml Intake Oral 600 ml IV Total 250 ml Other 360 ml Output Urine Total 800 ml 1300 ml # Voids 1 # Bowel Movements 1 Height (Feet): 6 Height (Inches): 4.00 Weight (Pounds): 239 Objective General Appearance: WD/WN, no apparent distress, alert EENT: PERRL/EOMI, normal ENT inspection Neck: non-tender, normal alignment, supple Cardiovascular: normal peripheral pulses, normal rate Respiratory/Chest: chest wall non-tender, lungs clear, normal breath sounds Abdomen: normal bowel sounds, non tender, soft, no organomegaly Edema: 2+ Pedal (L); 3+ Pedal (R) Edema: mild edema 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
--- NOTE | 2020-02-17 11:30 | Surgery Progress Note ---
Surgery Progress Note Subjective Additional Comments states he cannot go home yet. needs to stay until he can arrange for someone to help him at home. no n/v/f/c labs improving dressings going well Objective Last 24 Hour Vital Signs Date Time Temp Pulse Resp B/P (MAP) Pulse Ox O2 Delivery O2 Flow Rate FiO2 02/17/20 09:26 130/85 02/17/20 09:25 61 130/85 02/17/20 09:00 Room Air 02/17/20 08:00 98.2 61 16 130/85 (100) 99 02/17/20 04:00 97.5 55 16 138/78 (98) 99 02/17/20 00:00 97.0 58 16 121/69 (86) 97 02/16/20 21:00 Room Air 02/16/20 20:00 97.7 52 16 128/63 (84) 98 02/16/20 16:00 98.2 81 18 133/73 (93) 97 02/16/20 12:00 97.8 58 18 131/62 (85) 96 I&O Intake and Output 02/16/20 02/17/20 18:59 06:59 Intake Total 850 ml 360 ml Output Total 800 ml 1300 ml Balance 50 ml -940 ml Intake Oral 600 ml IV Total 250 ml Other 360 ml Output Urine Total 800 ml 1300 ml # Voids 1 # Bowel Movements 1 Dressing: dry Wound: clean, other Cardiovascular: RSR Respiratory: decreased breath sounds Abdomen: soft, non-tender, present bowel sounds, non-distended Extremities: no edema, no tenderness, no cyanosis, pulses, other Plan Problems: (1) Cellulitis Assessment & Plan: This is a very pleasant 79-year-old male with history of chronic venous stasis ulcer that is acutely worsened. Edema cellulitis leukocytosis renal insufficiency. CT reviewed exam performed local care provided Left medial lower leg venous ulcer 5.7x3.7x0.3 60% yellow slough 40% pink tissue no odor ,redness , edema and small scattered open areas periwound,large amount serosanguineous drainage. wound culture done.Thera honey ,gauze,abd pad and kerlix applied. Left buttock ulcer possible prior abscess 0.8x0.5x0.2 scant serous drainage and thickened wound edges Calazime and Optifoam applied. Sacral area skin intact Optifoam applied for protection . Right heel pressure ulcer stage 1 3.5x5.0x0.0 nonblanchable redness Optifoam applied. Left heel pressure ulcer stage 1 5.0x6.0x0.0 non blanchable redness Optifoam applied . Patient alert and oriented educated on skin break down prevention. Patient with significant improvement of the edema in the left lower extremity. The wound was cleaned and dressings were applied patient taught procedure well of the dressing changes and has plan for discharge. Outpatient wound care planning edema improved wound elly well smaller now hospital cleaner 100% granulation tissue d/c planning outpatient wound care - will assist in arranging [facility] [place] [facility] okay to f/u in office with [facility] if possible Duplex Doppler interrogation of the veins in both lower extremity is performed from the common femoral vein to the popliteal vein. Normal venous compressibility demonstrated throughout. No thrombus identified. Waveform analysis shows good respiratory phasicity and augmentation. Image calf veins are patent. IMPRESSION: No evidence of deep venous thrombosis involving the lower extremities. There is edema of the subcutaneous fat and thickening of the skin. This is circumferential distally, mostly posterior proximally. No definite discrete fluid collection to suggest organized abscess, although evaluation for such is limited in the absence of IV contrast. No definite osseous erosive abnormality or unusual periosteal reaction. There are degenerative changes of the hindfoot joints as well as of the knee joint. No evidence of acute fracture. No radiopaque foreign body. There is a small knee joint effusion which is smaller than that seen on the previous study.. A broken off osteophyte is seen at the lateral aspect of the lateral joint compartment. Impression: Diffuse soft tissue edema, as described. This may be due to c ellulitis or could be edema related to hemodynamic abnormalities. Correlation with clinical findings is recommended. No evidence of organized collection to suggest soft tissue abscess. However, evaluation for such is limited in the absence of IV contrast No acute bony trauma No CT findings to suggest acute osteomyelitis. Note, however, limited sensitivity of CT for such. If there is high clinical suspicion then MRI should be considered. Knee joint effusion, smaller than that demonstrated previously. Small lateral loose body. This appears to be a previously present lateral osteophyte that has broken off in the interim. DAILY ESTIMATED NEEDS: Needs based on Cardiac, 95kg abw 25-30 kcals/kg 7490-3821 total kcals 1-1.2 g protein/kg 95-114 g total protein 25-30 mL/kg 8367-9344 total fluid mLs NUTRITION DIAGNOSIS: Decreased sodium needs R/T CHF and BL LE cellulitis as evidenced by elev BNP 2280, BL LE edema, on lasix. CURRENT DIET:Cardiac PO DIET RECOMMENDATIONS: LOW NA, texture as tolerated ADDITIONAL RECOMMENDATIONS: * Standing wt as able for accurate CBW * Rec WC rn for above wounds, -> add ALEXA BID * Add B-complex qdaily w/ lasix * Snacks in b/w meals as able, Ensure Enlive qdaily * BG elevated, rec A1C for eval (2) CHF (congestive heart failure) (3) Sepsis (4) ASCVD (arteriosclerotic cardiovascular disease) (5) Venous insufficiency Ned Albrecht Feb 17, 2020 11:30
[2020-02-17 12:00] VITALS: BP 117/59
--- NOTE | 2020-02-17 12:38 | NUR ---
CASE MANAGEMENT:REVIEW 02/17/20 SI: LT LEG CELLULITIS/INFECTION (+) ENTEROCOCCUS AND PSEUDOMONAS 98.2 55 16 130/85 99% ON RA IS: IV VANCOMYCIN Q24 LEVAQUIN PO QD ATENOLOL PO QD LASIX PO QD ZINC PO QD VIT C PO QD COZAAR PO QD HEPARIN SQ Q8HRS : MED/SURG STATUS 4 EAST PLAN: CONTINUE IV VANCOMYCIN FOR 3 MORE DAYS CONTINUE PO LEVAQUIN FOR 7 MORE DAYS DISCHARGE WAS CANCELLED
--- NOTE | 2020-02-17 13:07 | Infectious Diseases Prog Note ---
Assessment/Plan Assessment/Plan A; 1. Left leg cellulitis, cultures pseudomonas & Enterococcus 2. Left leg ulcer. 3. Hypertension. 4. Leukocytosis resolved 5. Knees OA PLAN: 1. Continue IV vancomycin x 3 days 2. Continue Levaquin X 5 days Subjective ROS Limited/Unobtainable: No Constitutional: Reports: no symptoms Respiratory: Reports: no symptoms Cardiovascular: Reports: no symptoms Gastrointestinal/Abdominal: Reports: no symptoms Allergies: Coded Allergies: No Known Allergies (Unverified , 06/22/18) Objective Last 24 Hour Vital Signs Date Time Temp Pulse Resp B/P (MAP) Pulse Ox O2 Delivery O2 Flow Rate FiO2 02/17/20 09:26 130/85 02/17/20 09:25 61 130/85 02/17/20 09:00 Room Air 02/17/20 08:00 98.2 61 16 130/85 (100) 99 02/17/20 04:00 97.5 55 16 138/78 (98) 99 02/17/20 00:00 97.0 58 16 121/69 (86) 97 02/16/20 21:00 Room Air 02/16/20 20:00 97.7 52 16 128/63 (84) 98 02/16/20 16:00 98.2 81 18 133/73 (93) 97 Height (Feet): 6 Height (Inches): 4.00 Weight (Pounds): 239 HEENT: mucous membranes moist Respiratory/Chest: lungs clear Cardiovascular: normal rate Abdomen: soft, non tender Extremities: no edema, other - left leg dressing Skin: ulcers, other - pigmantation on both legs Current Medications Medications (Trade) Dose Ordered Sig/Remigio Route PRN Reason Start Time Stop Time Status Last Admin Dose Admin Acetaminophen (Tylenol) 500 mg Q4H PRN ORAL Mild Pain (Pain Scale 1-3) 02/06/20 20:00 03/07/20 19:59 Al Hydroxide/Mg Hydroxide (Mylanta) 30 ml Q6H PRN ORAL Abdominal cramps 02/08/20 07:45 03/09/20 07:44 Ascorbic Acid (Vitamin C) 500 mg DAILY ORAL 02/08/20 09:00 03/09/20 08:59 02/17/20 09:26 Aspirin (Ecotrin) 81 mg DAILY ORAL 02/06/20 20:00 03/22/20 19:59 02/17/20 09:25 Atenolol (Tenormin) 12.5 mg DAILY ORAL 02/14/20 09:00 03/08/20 08:59 02/17/20 09:25 Furosemide (Lasix) 40 mg DAILY ORAL 02/13/20 09:00 03/14/20 08:59 02/17/20 09:25 Heparin Sodium (Porcine) (Heparin 5000 units/ml) 5,000 units EVERY 8 HOURS SUBQ 02/07/20 06:00 03/23/20 05:59 02/17/20 05:56 Ibuprofen (Advil) 200 mg DAILYPRN PRN ORAL moderate pain 02/06/20 20:00 03/07/20 19:59 Levofloxacin (Levaquin) 250 mg DAILY ORAL 02/11/20 09:00 02/22/20 08:59 02/17/20 09:25 Losartan Potassium (Cozaar) 50 mg DAILY ORAL 02/07/20 09:00 03/08/20 08:59 02/17/20 09:26 Magnesium Hydroxide (Mom) 30 ml HSPRN PRN ORAL Constipation 02/08/20 07:45 03/09/20 07:44 Multivitamins (Multivitamins) 1 tab DAILY ORAL 02/08/20 09:00 03/09/20 08:59 02/17/20 09:25 Ondansetron HCl (Zofran) 4 mg Q6H PRN IVP Nausea & Vomiting 02/06/20 20:00 03/07/20 19:59 Polyethylene Glycol (Miralax) 17 gm DAILYPRN PRN ORAL Constipation 02/08/20 07:45 03/09/20 07:44 Potassium Chloride (K-Dur) 10 meq TWICE A DAY ORAL 02/07/20 09:00 05/07/20 08:59 02/17/20 09:25 Simethicone (Mylicon) 80 mg QIDPRN PRN ORAL Abdominal cramps 02/08/20 07:45 05/08/20 07:44 Vancomycin HCl 250 ml @ 166.667 mls/hr Q24H IVPB 02/15/20 14:00 02/20/20 13:59 02/16/20 13:18 Vancomycin HCl (Vanco pharmacy to dose) 1 ea DAILY PRN MISC Per rx protocol 02/07/20 07:30 03/08/20 07:29 Zinc Sulfate (Zinc Sulfate) 220 mg DAILY ORAL 02/08/20 09:00 02/18/20 08:59 02/17/20 09:26 Stephon Barrera MD Feb 17, 2020 13:07
[2020-02-17] MEDS: Vancomycin 1.25gm Premix q24h IVPB SCH (14:43)
--- NOTE | 2020-02-17 15:19 | NUR ---
INSURANCE CLINICALS AND REVIEW FAXED TO [facility] P [phone] F [phone]
[2020-02-17 16:00] VITALS: BP 103/53
--- NOTE | 2020-02-17 18:56 | NUR ---
NURSE HAND-OFF: Important Events on Shift:N/A Patient Status: AWAKE AND ALERT IN BED Diet: CARDIAC Pending Orders: N/A Pending Results/Labs:N/A Pending MD notification:N/A Latest Vital Signs: Temperature 97.3 , Pulse 55 , B/P 103 /53 , Respiratory Rate 20 , O2 SAT 97 , Room Air, O2 Flow Rate . Vital Sign Comment: STABLE Latest Harvey Fall Score: 60 Fall Risk: High Risk Safety Measures: Call light Within Reach, Bed Alarm Zone 1, Side Rails Side Rails x2, Bed position Low and Locked. Fall Precautions: Yellow Socks Yellow Gown Door Sign Patient Fall Education Report given to . Addendum: 02/17/20 at 1931 by Hong Mayo RN HAND-OFF: Report given to DEMETRIO
--- NOTE | 2020-02-17 19:12 | Cardiology Progress Note ---
Subjective DATE OF SERVICE: Feb 17, 2020 Minimal leg swelling and redness; no pain or SOB. Venous duplex negative for DVT CT without obvious osteomyelitis Patient continues on wound care; needs add'l few days of IV antimicrobials. Objective Last 24 Hour Vital Signs Date Time Temp Pulse Resp B/P (MAP) Pulse Ox O2 Delivery O2 Flow Rate FiO2 02/17/20 16:00 97.3 55 20 103/53 (70) 97 02/17/20 12:00 97.5 58 18 117/59 (78) 98 02/17/20 09:26 130/85 02/17/20 09:25 61 130/85 02/17/20 09:00 Room Air 02/17/20 08:00 98.2 61 16 130/85 (100) 99 02/17/20 04:00 97.5 55 16 138/78 (98) 99 02/17/20 00:00 97.0 58 16 121/69 (86) 97 02/16/20 21:00 Room Air 02/16/20 20:00 97.7 52 16 128/63 (84) 98 ROS: unchanged from my evaluation of 02/06/20 HEENT: normal ENT inspection LUNGS: diminished breath sounds CARDIAC: normal rate, regular rhythm, normal S1 and S2 - diminished peripheral pulses, systolic murmur - 1/6 systolic murmur at apex, other ABDOMEN: normal bowel sounds, non tender, soft, other - obese EXTREMITIES: slow capillary refill, trace edema, pitting edema, other - left heel wound; bilateral erythema to mid calves Laboratory Tests Test 02/17/20 13:47 Vancomycin Level Trough 14.5 ug/mL (5.0-12.0) H Assessment/Plan Assessment/Plan Sepsis Bilateral LE cellulitis Venous insuff Ac/chronic diastolic CHF resolving Hypertension/HHD Sinus node disease with bradycardia DVT prophyl Skin care Antibiotics per ID Diuresis - now on oral maint dose. Will periodically trend BNP, and adjust therapy as needed. Maintain current antiHTN meds - observe heart rates on decreased beta tory dose. Pranav Russo MD Feb 17, 2020 19:12
[2020-02-17 20:00] VITALS: BP 126/64
--- NOTE | 2020-02-17 20:11 | NUR ---
NURSE NOTES: RECEIVED PATIENT FROM EVA AGUILERA. PATIENT IS AWAKE, AAOX4, RESTING IN BED, ON ROOM AIR, NO ACUTE DISTRESS NOTED. CONDOM CATH IN PLACE, DRAINING WELL. PIV ON RIGHT WRIST INTACT AND PATENT. WOUND DRESSINGS CLEAN AND DRY. BED IS LOCKED AND LOW, BED ALARMS ACTIVE, SIDE RAILS UPX2 AND CALL LIGHT IS WITHIN REACH. REINFORCED TEACHING DISK RECORDIST LIGHT USE. PATIENT VERBALIZED UNDERSTANDING. WILL CONTINUE TO MONITOR CLOSELY.
[2020-02-18] VITALS: BP 118/59
[2020-02-18] MEDS: Heparin 5000 units/ml inj SUBQ SCH ×3 (06:00→22:12)
--- NOTE | 2020-02-18 07:27 | NUR ---
NURSE NOTES: Received report from Tootie, RN. Patient is in bed, awake and oriented x 4, no SOB, bed in lowest position with breaks engaged and alarm on, denies any pain or discomfort at this time, IV line present on left FA, on room air, dressing intact and in place on left leg, will continue to monitor and proceed with plan of care, call light within reach.
--- NOTE | 2020-02-18 07:31 | NUR ---
HAND-OFF: Report given to EVA Rodriguez.
[2020-02-18 08:00] VITALS: BP 124/59
[2020-02-18] MEDS: Losartan 50mg tab ORAL SCH (08:58)
[2020-02-18] MEDS: Ascorbic Acid 500mg tab ORAL SCH (08:58)
[2020-02-18] MEDS: Furosemide 40mg tab ORAL SCH (08:58)
[2020-02-18] MEDS: Atenolol 25mg tab ORAL SCH (08:59)
[2020-02-18] MEDS: Aspirin EC 81mg tab ORAL SCH (09:01)
--- NOTE | 2020-02-18 09:01 | General Progress Note ---
Subjective ROS Limited/Unobtainable: No Constitutional: Reports: malaise, weakness HEENT: Reports: no symptoms Cardiovascular: Reports: edema Respiratory: Reports: no symptoms Gastrointestinal/Abdominal: Reports: no symptoms Genitourinary: Reports: no symptoms Neurologic/Psychiatric: Reports: no symptoms Endocrine: Reports: no symptoms Hematologic/Lymphatic: Reports: no symptoms Allergies: Coded Allergies: No Known Allergies (Unverified , 06/22/18) All Systems: reviewed and negative except above Subjective no new complaints. no fevers or chills. no sob. ambulating with staff. remains on iv abx. on wound care. id noted. 3 more days iv abx. caretakers not available till next week. pt not willing to pay co pay for abx. refusing snf placement Objective Last 24 Hour Vital Signs Date Time Temp Pulse Resp B/P (MAP) Pulse Ox O2 Delivery O2 Flow Rate FiO2 02/18/20 08:00 97.8 58 16 124/59 (80) 99 02/18/20 00:00 97.7 57 19 118/59 (78) 97 02/17/20 21:00 Room Air 02/17/20 20:00 97.7 53 18 126/64 (84) 96 02/17/20 16:00 97.3 55 20 103/53 (70) 97 02/17/20 12:00 97.5 58 18 117/59 (78) 98 02/17/20 09:26 130/85 02/17/20 09:25 61 130/85 Intake and Output 02/17/20 02/18/20 19:00 07:00 Intake Total 1080 ml Output Total 800 ml 600 ml Balance 280 ml -600 ml Intake Oral 1080 ml Output Urine Total 800 ml 600 ml # Bowel Movements 1 Laboratory Tests 02/17/20 13:47: Vancomycin Level Trough 14.5H Height (Feet): 6 Height (Inches): 4.00 Weight (Pounds): 239 Objective General Appearance: WD/WN, no apparent distress, alert EENT: PERRL/EOMI, normal ENT inspection Neck: non-tender, normal alignment, supple Cardiovascular: normal peripheral pulses, normal rate Respiratory/Chest: chest wall non-tender, lungs clear, normal breath sounds Abdomen: normal bowel sounds, non tender, soft, no organomegaly Edema: 2+ Pedal (L); 3+ Pedal (R) Edema: mild edema Neurologic: is manager II-XII grossly normal, abnormal gait, alert, oriented x 3 Assessment/Plan Problem List: (1) Sepsis ICD Codes: A41.9 - Sepsis, unspecified organism SNOMED: 37966110 (2) CHF (congestive heart failure) ICD Codes: I50.9 - Heart failure, unspecified SNOMED: 76748855 (3) Cellulitis ICD Codes: L03.90 - Cellulitis, unspecified SNOMED: 946537820 Status: stable Assessment/Plan: cont iv abx wound care po lasix elevate legs cont bp rx monitor wbc/labs pt/ot ordered dvt/stress ulcer prophylaxis offered snf- pt declined dc planning wednesday after completion of all abx Christian Messina MD Feb 18, 2020 09:01
--- NOTE | 2020-02-18 10:06 | NUR ---
CASE MANAGEMENT:REVIEW 02/18/20 SI: SEPSIS. CELLULITIS 97.8 58 16 124/59 99% ON RA IS: IV VANCOMYCIN Q24 LEVAQUIN PO QD ATENOLOL PO QD LASIX PO QD VIT C PO QD COZAAR PO QD HEPARIN SQ Q8HRS : MED/SURG STATUS 4 EAST DCP: FROM HOME
--- NOTE | 2020-02-18 11:30 | NUR ---
PT Note Attempted to see patient for treatment but patient states that he just got back in bed and that he just ambulated with the assistance of his caregiver. Patient requests to defer PT at this time.
--- NOTE | 2020-02-18 11:47 | Infectious Diseases Prog Note ---
Assessment/Plan Assessment/Plan antibiotics : vancomycin iv, levoquin A 1. left leg cellulitis improving 2. left leg ulcer infection with enterococcus, pseudomonas 3. hypertension 4. leucocytosis improving P 1. continue iv vancomycin 1 more day 2. continue levoquin po 5 more days 3. will follow up cultures Subjective Constitutional: Denies: fever Respiratory: Denies: shortness of breath Gastrointestinal/Abdominal: Denies: nausea, vomiting, diarrhea Musculoskeletal: Reports: pain - decreased Allergies: Coded Allergies: No Known Allergies (Unverified , 06/22/18) Objective Last 24 Hour Vital Signs Date Time Temp Pulse Resp B/P (MAP) Pulse Ox O2 Delivery O2 Flow Rate FiO2 02/18/20 09:00 Room Air 02/18/20 08:59 58 124/59 02/18/20 08:58 124/59 02/18/20 08:00 97.8 58 16 124/59 (80) 99 02/18/20 00:00 97.7 57 19 118/59 (78) 97 02/17/20 21:00 Room Air 02/17/20 20:00 97.7 53 18 126/64 (84) 96 02/17/20 16:00 97.3 55 20 103/53 (70) 97 02/17/20 12:00 97.5 58 18 117/59 (78) 98 Height (Feet): 6 Height (Inches): 4.00 Weight (Pounds): 239 Respiratory/Chest: lungs clear Cardiovascular: normal rate, regular rhythm, no gallop/murmur Abdomen: soft, non tender Extremities: other - decreased edema, erythema left leg Laboratory Tests Test 02/17/20 13:47 Vancomycin Level Trough 14.5 ug/mL (5.0-12.0) H Current Medications Medications (Trade) Dose Ordered Sig/Remigio Route PRN Reason Start Time Stop Time Status Last Admin Dose Admin Acetaminophen (Tylenol) 500 mg Q4H PRN ORAL Mild Pain (Pain Scale 1-3) 02/06/20 20:00 03/07/20 19:59 Al Hydroxide/Mg Hydroxide (Mylanta) 30 ml Q6H PRN ORAL Abdominal cramps 02/08/20 07:45 03/09/20 07:44 Ascorbic Acid (Vitamin C) 500 mg DAILY ORAL 02/08/20 09:00 03/09/20 08:59 02/18/20 08:58 Aspirin (Ecotrin) 81 mg DAILY ORAL 02/06/20 20:00 03/22/20 19:59 02/18/20 09:01 Atenolol (Tenormin) 12.5 mg DAILY ORAL 02/14/20 09:00 03/08/20 08:59 02/18/20 08:59 Furosemide (Lasix) 40 mg DAILY ORAL 02/13/20 09:00 03/14/20 08:59 02/18/20 08:58 Heparin Sodium (Porcine) (Heparin 5000 units/ml) 5,000 units EVERY 8 HOURS SUBQ 02/07/20 06:00 03/23/20 05:59 02/17/20 21:30 Ibuprofen (Advil) 200 mg DAILYPRN PRN ORAL moderate pain 02/06/20 20:00 03/07/20 19:59 Levofloxacin (Levaquin) 250 mg DAILY ORAL 02/11/20 09:00 02/22/20 08:59 02/18/20 08:59 Losartan Potassium (Cozaar) 50 mg DAILY ORAL 02/07/20 09:00 03/08/20 08:59 02/18/20 08:58 Magnesium Hydroxide (Mom) 30 ml HSPRN PRN ORAL Constipation 02/08/20 07:45 03/09/20 07:44 Multivitamins (Multivitamins) 1 tab DAILY ORAL 02/08/20 09:00 03/09/20 08:59 02/18/20 08:58 Ondansetron HCl (Zofran) 4 mg Q6H PRN IVP Nausea & Vomiting 02/06/20 20:00 03/07/20 19:59 Polyethylene Glycol (Miralax) 17 gm DAILYPRN PRN ORAL Constipation 02/08/20 07:45 03/09/20 07:44 Potassium Chloride (K-Dur) 10 meq TWICE A DAY ORAL 02/07/20 09:00 05/07/20 08:59 02/18/20 08:59 Simethicone (Mylicon) 80 mg QIDPRN PRN ORAL Abdominal cramps 02/08/20 07:45 05/08/20 07:44 Vancomycin HCl 250 ml @ 166.667 mls/hr Q24H IVPB 02/15/20 14:00 02/20/20 13:59 02/17/20 14:43 Vancomycin HCl (Vanco pharmacy to dose) 1 ea DAILY PRN MISC Per rx protocol 02/07/20 07:30 03/08/20 07:29 Caron Elizabeth MD Feb 18, 2020 11:47
[2020-02-18 12:00] VITALS: BP 112/58
[2020-02-18] MEDS: Vancomycin 1.25gm Premix q24h IVPB SCH (13:03)
--- NOTE | 2020-02-18 14:28 | NUR ---
INSURANCE CLINICALS AND REVIEW FAXED TO [facility] P [phone] F [phone]
[2020-02-18 16:00] VITALS: BP 121/62
--- NOTE | 2020-02-18 16:52 | NUR ---
CHARGE NURSE NOTE: According to pt's left leg vascular wound improved, does not need wrapping. New dressing change was done.
--- NOTE | 2020-02-18 17:03 | Cardiology Progress Note ---
Subjective DATE OF SERVICE: Feb 18, 2020 Minimal residual leg swelling and redness; no pain or SOB. Venous duplex negative for DVT CT without obvious osteomyelitis Patient continues on wound care; needs add'l day of IV antimicrobials. Objective Last 24 Hour Vital Signs Date Time Temp Pulse Resp B/P (MAP) Pulse Ox O2 Delivery O2 Flow Rate FiO2 02/18/20 16:00 98.1 70 16 121/62 (81) 99 02/18/20 12:00 98.2 60 16 112/58 (76) 99 02/18/20 09:00 Room Air 02/18/20 08:59 58 124/59 02/18/20 08:58 124/59 02/18/20 08:00 97.8 58 16 124/59 (80) 99 02/18/20 00:00 97.7 57 19 118/59 (78) 97 02/17/20 21:00 Room Air 02/17/20 20:00 97.7 53 18 126/64 (84) 96 ROS: unchanged from my evaluation of 02/06/20 HEENT: normal ENT inspection LUNGS: diminished breath sounds CARDIAC: normal rate, regular rhythm, normal S1 and S2 - diminished peripheral pulses, systolic murmur - 1/6 systolic murmur at apex, other ABDOMEN: normal bowel sounds, non tender, soft, other - obese EXTREMITIES: slow capillary refill, trace edema, pitting edema, other - left heel wound; bilateral erythema to mid calves Assessment/Plan Assessment/Plan Sepsis Bilateral LE cellulitis Venous insuff Ac/chronic diastolic CHF resolving Hypertension/HHD Sinus node disease with bradycardia DVT prophyl Skin care Antibiotics per ID Diuresis - now on oral maint dose. Will periodically trend BNP, and adjust therapy as needed. Maintain current antiHTN meds - but will now DC beta tory. Pranav Russo MD Feb 18, 2020 17:03
--- NOTE | 2020-02-18 17:46 | Surgery Progress Note ---
Surgery Progress Note Subjective Symptoms: improved, pain absent, tolerating diet, voiding well, passing flatus, BM Objective Last 24 Hour Vital Signs Date Time Temp Pulse Resp B/P (MAP) Pulse Ox O2 Delivery O2 Flow Rate FiO2 02/18/20 16:00 98.1 70 16 121/62 (81) 99 02/18/20 12:00 98.2 60 16 112/58 (76) 99 02/18/20 09:00 Room Air 02/18/20 08:59 58 124/59 02/18/20 08:58 124/59 02/18/20 08:00 97.8 58 16 124/59 (80) 99 02/18/20 00:00 97.7 57 19 118/59 (78) 97 02/17/20 21:00 Room Air 02/17/20 20:00 97.7 53 18 126/64 (84) 96 I&O Intake and Output 02/17/20 02/18/20 19:00 07:00 Intake Total 1080 ml Output Total 800 ml 600 ml Balance 280 ml -600 ml Intake Oral 1080 ml Output Urine Total 800 ml 600 ml # Bowel Movements 1 Dressing: saturated Wound: clean Cardiovascular: RSR Respiratory: clear Abdomen: soft, non-tender, present bowel sounds Extremities: no edema, no tenderness, no cyanosis, other Plan Problems: (1) Cellulitis Assessment & Plan: This is a very pleasant 79-year-old male with history of chronic venous stasis ulcer that is acutely worsened. Edema cellulitis leukocytosis renal insufficiency. CT reviewed exam performed local care provided Left medial lower leg venous ulcer 5.7x3.7x0.3 60% yellow slough 40% pink tissue no odor ,redness , edema and small scattered open areas periwound,large amount serosanguineous drainage. wound culture done.Thera honey ,gauze,abd pad and kerlix applied. Left buttock ulcer possible prior abscess 0.8x0.5x0.2 scant serous drainage and thickened wound edges Calazime and Optifoam applied. Sacral area skin intact Optifoam applied for protection . Right heel pressure ulcer stage 1 3.5x5.0x0.0 nonblanchable redness Optifoam applied. Left heel pressure ulcer stage 1 5.0x6.0x0.0 non blanchable redness Optifoam applied . Patient alert and oriented educated on skin break down prevention. Patient with significant improvement of the edema in the left lower extremity. The wound was cleaned and dressings were applied patient taught procedure well of the dressing changes and has plan for discharge. Outpatient wound care planning edema improved wound elly well smaller now house cleaner 100% granulation tissue d/c planning outpatient wound care - will assist in arranging [facility] wound center okay to f/u in office with [place] home health if possible improved d/c plan in am dressings with patient done Duplex Doppler interrogation of the veins in both lower extremity is performed from the common femoral vein to the popliteal vein. Normal venous compressibility demonstrated throughout. No thrombus identified. Waveform analysis shows good respiratory phasicity and augmentation. Image calf veins are patent. IMPRESSION: No evidence of deep venous thrombosis involving the lower extremities. There is edema of the subcutaneous fat and thickening of the skin. This is circumferential distally, mostly posterior proximally. No definite discrete fluid collection to suggest organized abscess, although evaluation for such is limited in the absence of IV contrast. No definite osseous erosive abnormality or unusual periosteal reaction. There are degenerative changes of the hindfoot joints as well as of the knee joint. No evidence of acute fracture. No radiopaque foreign body. There is a small knee joint effusion which is smaller than that seen on the previous study.. A broken off osteophyte is seen at the lateral aspect of the lateral joint compartment. Impression: Diffuse soft tissue edema, as described. This may be due to cellulitis or could be edema related to hemodynamic abnormalities. Correlation with clinical findings is recommended. No evidence of organized collection to suggest soft tissue abscess. However, evaluation for such is limited in the absence of IV contrast No acute bony trauma No CT findings to suggest acute osteomyelitis. Note, however, limited sensitivity of CT for such. If there is high clinical suspicion then MRI should be considered. Knee joint effusion, smaller than that demonstrated previously. Small lateral loose body. This appears to be a previously present lateral osteophyte that has broken off in the interim. DAILY ESTIMATED NEEDS: Needs based on Cardiac, 95kg abw 25-30 kcals/kg 8326-7371 total kcals 1-1.2 g protein/kg 95-114 g total protein 25-30 mL/kg 1152-9054 total fluid mLs NUTRITION DIAGNOSIS: Decreased sodium needs R/T CHF and BL LE cellulitis as evidenced by elev BNP 2280, BL LE edema, on lasix. CURRENT DIET:Cardiac PO DIET RECOMMENDATIONS: LOW NA, texture as tolerated ADDITIONAL RECOMMENDATIONS: * Standing wt as able for accurate CBW * Rec WC rn for above wounds, -> add ALEXA BID * Add B-complex qdaily w/ lasix * Snacks in b/w meals as able, Ensure Enlive qdaily * BG elevated, rec A1C for eval (2) CHF (congestive heart failure) (3) Sepsis (4) ASCVD (arteriosclerotic cardiovascular disease) (5) Venous insufficiency Ned Albrecht Feb 18, 2020 17:46
[2020-02-18 18:41] LABS: BASOPHILS % (AUTO) 1.2 % (0.0-2.0); EOSINOPHILS % (AUTO) 3.5 % (0.0-3.0); HEMOGLOBIN 12.6 G/DL (14.2-18.0); LYMPHOCYTES % (AUTO) 17.8 % (20.0-45.0); MEAN CORPUSCULAR VOLUME 97 FL (80-99); MONOCYTES % (AUTO) 7.3 % (1.0-10.0); NEUTROPHILS % (AUTO) 70.2 % (45.0-75.0); PLATELET COUNT 316 K/UL (150-450); RED CELL DISTRIBUTION WIDTH 12.6 % (11.6-14.8); WHITE BLOOD COUNT 9.3 K/UL (4.8-10.8)
[2020-02-18 19:06] LABS: ALBUMIN 2.5 G/DL (3.4-5.0); ALBUMIN/GLOBULIN RATIO 0.6 (1.0-2.7); BILIRUBIN,TOTAL 0.5 MG/DL (0.2-1.0); CALCIUM 8.7 MG/DL (8.5-10.1); CREATININE 1.3 MG/DL (0.55-1.30); POTASSIUM 4.4 MMOL/L (3.5-5.1)
--- NOTE | 2020-02-18 19:27 | NUR ---
NURSE HAND-OFF: Important Events on Shift:[safety and comfort, cdiff stool sample collected, monitoring VS and labs, IV ATB] Patient Status: [stable] Diet: [cardiac] Pending Orders: [] Pending Results/Labs:[] Pending MD notification:[] Latest Vital Signs: Temperature 98.1 , Pulse 70 , B/P 121 /62 , Respiratory Rate 16 , O2 SAT 99 , Room Air, O2 Flow Rate . Vital Sign Comment: [] Latest Harvey Fall Score: 60 Fall Risk: High Risk Safety Measures: Call light Within Reach, Bed Alarm Zone 1, Side Rails Side Rails x2, Bed position Low and Locked. Fall Precautions: Yellow Socks Yellow Gown Door Sign Patient Fall Education Report given to [EVA Obando].
--- NOTE | 2020-02-18 19:30 | NUR ---
NURSE NOTES: Received report from jonny silva. patient is on bed, awake and verbally responsive. able to express self. with iv access on the left forearm, saline lock. on condom catheter connected to a urine bag. per shira, " dressing changed done on left leg cellulitis". denies any pain or discomfort. reiterated to call and ask for assistance. call light and light button within easy reach. bed locked and in lowest position. bed alarm on. will continue plan of care.
[2020-02-18 20:00] VITALS: BP 120/75
[2020-02-19 04:00] VITALS: BP 126/68
[2020-02-19] MEDS: Heparin 5000 units/ml inj SUBQ SCH ×2 (06:11→13:49)
--- NOTE | 2020-02-19 07:15 | NUR ---
NURSE HAND-OFF: Important Events on Shift:CHANGED CONDOM CATHETER Patient Status: STABLE Diet: CARDIAC DIET Pending Orders: Pending Results/Labs: Pending MD notification: Latest Vital Signs: Temperature 97.6 , Pulse 69 , B/P 126 /68 , Respiratory Rate 20 , O2 SAT 99 , Room Air, O2 Flow Rate . Vital Sign Comment: Latest Harvey Fall Score: 60 Fall Risk: High Risk Safety Measures: Call light Within Reach, Bed Alarm Zone 1, Side Rails Side Rails x2, Bed position Low and Locked. Fall Precautions: Yellow Socks Yellow Gown Door Sign Patient Fall Education Addendum: 02/19/20 at 0802 by Yue Garcia RN REPORT GIVEN TO TAYE
--- NOTE | 2020-02-19 07:15 | NUR ---
NURSE NOTES: Received report from Gisella VELASQUEZ, pt a/a/o with no signs of distress or other issues at this time. pt has an AC gauge #22 HL. pt has a condom cath. pt has discoloration in bilateral extremities. call light within reach, bed in lowest position. side rales up x2. I will f/u as needed. - plan to d/c home today
[2020-02-19] MEDS ORDERED: LEVOFLOXACIN250 MG ORAL (07:21)
[2020-02-19 08:00] VITALS: BP 141/70
--- NOTE | 2020-02-19 08:00 | Discharge Summary ---
DATE OF ADMISSION: 02/06/2020 DATE OF DISCHARGE: 02/19/2020 ADMISSION DIAGNOSES: 1. Left leg cellulitis. 2. CHF exacerbation. 3. Hypertension. 4. Venous insufficiency. 5. Dementia. DISCHARGE DIAGNOSES: 1. Left leg cellulitis. 2. CHF exacerbation. 3. Hypertension. 4. Venous insufficiency. 5. Dementia. HOSPITAL COURSE: The patient admitted with complaints of a large left leg wound that was superinfected. He refused a prior admission a week prior. He was admitted and received IV antibiotics. showed no osteomyelitis. He required local wound care. He was diuresed with intravenous Lasix with significant improvement in his edema. The patient required a full course of IV antibiotics while in-house and on discharge he was stable. He will complete 5 more days of oral Levaquin therapy at home. He will be continued on oral diuretic therapy. He will follow up in one to two weeks in the office. DISCHARGE MEDICATIONS: Please see discharge medication list for discharge medications. DIET: Regular diet. ACTIVITY: Ad-anthony. Christian Messina M.D. DR: Delmar JOB#: [id number] CC:
--- NOTE | 2020-02-19 09:00 | NUR ---
NURSE NOTES: Received order to d/c home. per caregiver Courtney she will be here between 11-12pm. I will f/u as needed.
[2020-02-19] MEDS: Losartan 50mg tab ORAL SCH (10:37)
[2020-02-19] MEDS: Aspirin EC 81mg tab ORAL SCH (10:38)
[2020-02-19] MEDS: Ascorbic Acid 500mg tab ORAL SCH (10:39)
[2020-02-19] MEDS: Furosemide 40mg tab ORAL SCH (10:39)
[2020-02-19 11:40] VITALS: BP 136/71
--- NOTE | 2020-02-19 12:31 | Infectious Diseases Prog Note ---
Assessment/Plan Assessment/Plan antibiotics : vancomycin iv, levoquin A 1. left leg cellulitis improving 2. left leg ulcer infection with enterococcus, pseudomonas 3. hypertension 4. leucocytosis improving P 1. d/c iv vancomycin 2. continue levoquin po 4 more days 3. will follow up cultures Subjective Constitutional: Denies: fever, chills Respiratory: Denies: shortness of breath, dry cough Gastrointestinal/Abdominal: Denies: nausea, vomiting, diarrhea Musculoskeletal: Reports: pain - decreased Allergies: Coded Allergies: No Known Allergies (Unverified , 06/22/18) Objective Last 24 Hour Vital Signs Date Time Temp Pulse Resp B/P (MAP) Pulse Ox O2 Delivery O2 Flow Rate FiO2 02/19/20 11:40 98.3 51 18 136/71 (92) 99 02/19/20 10:37 141/70 02/19/20 08:00 98.0 50 18 141/70 (93) 100 02/19/20 04:00 97.6 69 20 126/68 (87) 99 02/18/20 21:00 Room Air 02/18/20 20:00 98.2 62 18 120/75 (90) 100 02/18/20 16:00 98.1 70 16 121/62 (81) 99 Height (Feet): 6 Height (Inches): 4.00 Weight (Pounds): 239 Respiratory/Chest: lungs clear Cardiovascular: normal rate, regular rhythm, no gallop/murmur Abdomen: soft, non tender Extremities: other - left leg erythema decreased Laboratory Tests Test 02/18/20 18:15 White Blood Count 9.3 K/UL (4.8-10.8) Red Blood Count 3.90 M/UL (4.70-6.10) L Hemoglobin 12.6 G/DL (14.2-18.0) L Hematocrit 38.0 % (42.0-52.0) L Mean Corpuscular Volume 97 FL (80-99) Mean Corpuscular Hemoglobin 32.3 PG (27.0-31.0) H Mean Corpuscular Hemoglobin Concent 33.1 G/DL (32.0-36.0) Red Cell Distribution Width 12.6 % (11.6-14.8) Platelet Count 316 K/UL (150-450) Mean Platelet Volume 6.8 FL (6.5-10.1) Neutrophils (%) (Auto) 70.2 % (45.0-75.0) Lymphocytes (%) (Auto) 17.8 % (20.0-45.0) L Monocytes (%) (Auto) 7.3 % (1.0-10.0) Eosinophils (%) (Auto) 3.5 % (0.0-3.0) H Basophils (%) (Auto) 1.2 % (0.0-2.0) Sodium Level 138 MMOL/L (136-145) Potassium Level 4.4 MMOL/L (3.5-5.1) Chloride Level 105 MMOL/L (98-107) Carbon Dioxide Level 24 MMOL/L (21-32) Anion Gap 9 mmol/L (5-15) Blood Urea Nitrogen 25 mg/dL (7-18) H Creatinine 1.3 MG/DL (0.55-1.30) Estimat Glomerular Filtration Rate 53.0 mL/min (>60) Glucose Level 110 MG/DL (74-106) H Calcium Level 8.7 MG/DL (8.5-10.1) Magnesium Level 2.2 MG/DL (1.8-2.4) Total Bilirubin 0.5 MG/DL (0.2-1.0) Aspartate Amino Transf (AST/SGOT) 36 U/L (15-37) Alanine Aminotransferase (ALT/SGPT) 57 U/L (12-78) Alkaline Phosphatase 116 U/L (46-116) Pro-B-Type Natriuretic Peptide 117 pg/mL (0-125) Total Protein 7.0 G/DL (6.4-8.2) Albumin 2.5 G/DL (3.4-5.0) L Globulin 4.5 g/dL Albumin/Globulin Ratio 0.6 (1.0-2.7) L Current Medications Medications (Trade) Dose Ordered Sig/Remigio Route PRN Reason Start Time Stop Time Status Last Admin Dose Admin Acetaminophen (Tylenol) 500 mg Q4H PRN ORAL Mild Pain (Pain Scale 1-3) 02/06/20 20:00 03/07/20 19:59 Al Hydroxide/Mg Hydroxide (Mylanta) 30 ml Q6H PRN ORAL Abdominal cramps 02/08/20 07:45 03/09/20 07:44 Ascorbic Acid (Vitamin C) 500 mg DAILY ORAL 02/08/20 09:00 03/09/20 08:59 02/19/20 10:39 Aspirin (Ecotrin) 81 mg DAILY ORAL 02/06/20 20:00 03/22/20 19:59 02/19/20 10:38 Furosemide (Lasix) 40 mg DAILY ORAL 02/13/20 09:00 03/14/20 08:59 02/19/20 10:39 Heparin Sodium (Porcine) (Heparin 5000 units/ml) 5,000 units EVERY 8 HOURS SUBQ 02/07/20 06:00 03/23/20 05:59 02/19/20 06:11 Ibuprofen (Advil) 200 mg DAILYPRN PRN ORAL moderate pain 02/06/20 20:00 03/07/20 19:59 Levofloxacin (Levaquin) 250 mg DAILY ORAL 02/11/20 09:00 02/22/20 08:59 02/19/20 10:39 Losartan Potassium (Cozaar) 50 mg DAILY ORAL 02/07/20 09:00 03/08/20 08:59 02/19/20 10:37 Magnesium Hydroxide (Mom) 30 ml HSPRN PRN ORAL Constipation 02/08/20 07:45 03/09/20 07:44 Multivitamins (Multivitamins) 1 tab DAILY ORAL 02/08/20 09:00 03/09/20 08:59 02/19/20 10:39 Ondansetron HCl (Zofran) 4 mg Q6H PRN IVP Nausea & Vomiting 02/06/20 20:00 03/07/20 19:59 Polyethylene Glycol (Miralax) 17 gm DAILYPRN PRN ORAL Constipation 02/08/20 07:45 03/09/20 07:44 Potassium Chloride (K-Dur) 10 meq TWICE A DAY ORAL 02/07/20 09:00 05/07/20 08:59 02/19/20 10:38 Simethicone (Mylicon) 80 mg QIDPRN PRN ORAL Abdominal cramps 02/08/20 07:45 05/08/20 07:44 Vancomycin HCl 250 ml @ 166.667 mls/hr Q24H IVPB 02/15/20 14:00 02/20/20 13:59 02/18/20 13:03 Vancomycin HCl (Vanco pharmacy to dose) 1 ea DAILY PRN MISC Per rx protocol 02/07/20 07:30 03/08/20 07:29 Caron Elizabeth MD Feb 19, 2020 12:31
[2020-02-19 12:33] VITALS: BP 129/66
--- NOTE | 2020-02-19 12:37 | NUR ---
Black [employer] Machine Operator:RN rechecked vital signs because HR was 51. Advised the pt to not strain when passing stools. Pt is asymtomatic and does not feel dizzy. HR is now within normal range of 61. Will continue to monitor.
[2020-02-19] MEDS: Vancomycin 1.25gm Premix q24h IVPB SCH (13:48)
--- NOTE | 2020-02-19 14:01 | Surgery Progress Note ---
Surgery Progress Note Subjective Symptoms: improved, pain absent, tolerating diet, voiding well, passing flatus, BM Objective Last 24 Hour Vital Signs Date Time Temp Pulse Resp B/P (MAP) Pulse Ox O2 Delivery O2 Flow Rate FiO2 02/19/20 12:33 98.3 61 18 129/66 (87) 99 02/19/20 11:40 98.3 51 18 136/71 (92) 99 02/19/20 10:37 141/70 02/19/20 08:00 98.0 50 18 141/70 (93) 100 02/19/20 04:00 97.6 69 20 126/68 (87) 99 02/18/20 21:00 Room Air 02/18/20 20:00 98.2 62 18 120/75 (90) 100 02/18/20 16:00 98.1 70 16 121/62 (81) 99 I&O Intake and Output 02/18/20 02/19/20 19:00 07:00 Intake Total 480 ml 230 ml Output Total 800 ml 700 ml Balance -320 ml -470 ml Intake Oral 480 ml 230 ml Output Urine Total 800 ml 700 ml # Voids 1 # Bowel Movements 1 Dressing: dry Wound: clean Cardiovascular: RSR Respiratory: clear Abdomen: soft, non-tender, present bowel sounds Extremities: no edema, no tenderness, no cyanosis, pulses, other Laboratory Tests Test 02/18/20 18:15 White Blood Count 9.3 K/UL (4.8-10.8) Red Blood Count 3.90 M/UL (4.70-6.10) L Hemoglobin 12.6 G/DL (14.2-18.0) L Hematocrit 38.0 % (42.0-52.0) L Mean Corpuscular Volume 97 FL (80-99) Mean Corpuscular Hemoglobin 32.3 PG (27.0-31.0) H Mean Corpuscular Hemoglobin Concent 33.1 G/DL (32.0-36.0) Red Cell Distribution Width 12.6 % (11.6-14.8) Platelet Count 316 K/UL (150-450) Mean Platelet Volume 6.8 FL (6.5-10.1) Neutrophils (%) (Auto) 70.2 % (45.0-75.0) Lymphocytes (%) (Auto) 17.8 % (20.0-45.0) L Monocytes (%) (Auto) 7.3 % (1.0-10.0) Eosinophils (%) (Auto) 3.5 % (0.0-3.0) H Basophils (%) (Auto) 1.2 % (0.0-2.0) Sodium Level 138 MMOL/L (136-145) Potassium Level 4.4 MMOL/L (3.5-5.1) Chloride Level 105 MMOL/L (98-107) Carbon Dioxide Level 24 MMOL/L (21-32) Anion Gap 9 mmol/L (5-15) Blood Urea Nitrogen 25 mg/dL (7-18) H Creatinine 1.3 MG/DL (0.55-1.30) Estimat Glomerular Filtration Rate 53.0 mL/min (>60) Glucose Level 110 MG/DL (74-106) H Calcium Level 8.7 MG/DL (8.5-10.1) Magnesium Level 2.2 MG/DL (1.8-2.4) Total Bilirubin 0.5 MG/DL (0.2-1.0) Aspartate Amino Transf (AST/SGOT) 36 U/L (15-37) Alanine Aminotransferase (ALT/SGPT) 57 U/L (12-78) Alkaline Phosphatase 116 U/L (46-116) Pro-B-Type Natriuretic Peptide 117 pg/mL (0-125) Total Protein 7.0 G/DL (6.4-8.2) Albumin 2.5 G/DL (3.4-5.0) L Globulin 4.5 g/dL Albumin/Globulin Ratio 0.6 (1.0-2.7) L Plan Problems: (1) Cellulitis Assessment & Plan: This is a very pleasant 79-year-old male with history of chronic venous stasis ulcer that is acutely worsened. Edema cellulitis leukocytosis renal insufficiency. CT reviewed exam performed local care provided Left medial lower leg venous ulcer 5.7x3.7x0.3 60% yellow slough 40% pink tissue no odor ,redness , edema and small scattered open areas periwound,large amount serosanguineous drainage. wound culture done.Thera honey ,gauze,abd pad and kerlix applied. Left buttock ulcer possible prior abscess 0.8x0.5x0.2 scant serous drainage and thickened wound edges Calazime and Optifoam applied. Sacral area skin intact Optifoam applied for protection . Right heel pressure ulcer stage 1 3.5x5.0x0.0 nonblanchable redness Optifoam applied. Left heel pressure ulcer stage 1 5.0x6.0x0.0 non blanchable redness Optifoam applied . Patient alert and oriented educated on skin break down prevention. Patient with significant improvement of the edema in the left lower extremity. The wound was cleaned and dressings were applied patient taught procedure well of the dressing changes and has plan for discharge. Outpatient wound care planning edema improved wound elly well smaller now hat cleaner 100% granulation tissue d/c planning outpatient wound care - will assist in arranging [facility] wound center okay to f/u in office with [facility] if possible improved d/c plan in am dressings with patient done Duplex Doppler interrogation of the veins in both lower extremity is performed from the common femoral vein to the popliteal vein. Normal venous compressibility demonstrated throughout. No thrombus identified. Waveform analysis shows good respiratory phasicity and augmentation. Image calf veins are patent. IMPRESSION: No evidence of deep venous thrombosis involving the lower extremities. There is edema of the subcutaneous fat and thickening of the skin. This is circumferential distally, mostly posterior proximally. No definite discrete fluid collection to suggest organized abscess, although evaluation for such is limited in the absence of IV contrast. No definite osseous erosive abnormality or unusual periosteal reaction. There are degenerative changes of the hindfoot joints as well as of the knee joint. No evidence of acute fracture. No radiopaque foreign body. There is a small knee joint effusion which is smaller than that seen on the previous study.. A broken off osteophyte is seen at the lateral aspect of the lateral joint compartment. Impression: Diffuse soft tissue edema, as described. This may be due to cellulitis or could be edema related to hemodynamic abnormalities. Correlation with clinical findings is recommended. No evidence of organized collection to suggest soft tissue abscess. However, evaluation for such is limited in the absence of IV contrast No acute bony trauma No CT findings to suggest acute osteomyelitis. Note, however, limited sensitivity of CT for such. If there is high clinical suspicion then MRI should be considered. Knee joint effusion, smaller than that demonstrated previously. Small lateral loose body. This appears to be a previously present lateral osteophyte that has broken off in the interim. DAILY ESTIMATED NEEDS: Needs based on Cardiac, 95kg abw 25-30 kcals/kg 4240-1073 total kcals 1-1.2 g protein/kg 95-114 g total protein 25-30 mL/kg 6404-1909 total fluid mLs NUTRITION DIAGNOSIS: Decreased sodium needs R/T CHF and BL LE cellulitis as evidenced by elev BNP 2280, BL LE edema, on lasix. CURRENT DIET:Cardiac PO DIET RECOMMENDATIONS: LOW NA, texture as tolerated ADDITIONAL RECOMMENDATIONS: * Standing wt as able for accurate CBW * Rec WC rn for above wounds, -> add ALEXA BID * Add B-complex qdaily w/ lasix * Snacks in b/w meals as able, Ensure Enlive qdaily * BG elevated, rec A1C for eval (2) CHF (congestive heart failure) (3) Sepsis (4) ASCVD (arteriosclerotic cardiovascular disease) (5) Venous insufficiency Ned Albrecht Feb 19, 2020 14:01
--- NOTE | 2020-02-19 15:30 | NUR ---
NURSE NOTES: Received order to d.c home. Discharge instructions and belongings given to patient and pt's caregiver Courtney. IV removed prior to d/c. patient is aware and will fallow with his PCP in two weeks after d/c. pt left the floor with no signs of distress or other issues at this time. - given extra supplies to change condom cath
--- NOTE | 2020-02-20 01:47 | Cardiology Progress Note ---
Subjective DATE OF SERVICE: Feb 19, 2020 Minimal residual leg swelling and redness; no pain or SOB. Venous duplex negative for DVT CT without obvious osteomyelitis Patient continues on wound care; IV antibiotics course completed today. Objective Last 24 Hour Vital Signs Date Time Temp Pulse Resp B/P (MAP) Pulse Ox O2 Delivery O2 Flow Rate FiO2 02/19/20 12:33 98.3 61 18 129/66 (87) 99 02/19/20 11:40 98.3 51 18 136/71 (92) 99 02/19/20 10:37 141/70 02/19/20 08:00 98.0 50 18 141/70 (93) 100 02/19/20 04:00 97.6 69 20 126/68 (87) 99 ROS: unchanged from my evaluation of 02/06/20 HEENT: normal ENT inspection LUNGS: diminished breath sounds CARDIAC: normal rate, regular rhythm, normal S1 and S2 - diminished peripheral pulses, systolic murmur - 1/6 systolic murmur at apex, other ABDOMEN: normal bowel sounds, non tender, soft, other - obese EXTREMITIES: slow capillary refill, trace edema, pitting edema, other - left heel wound; bilateral erythema to mid calves Assessment/Plan Assessment/Plan Sepsis Bilateral LE cellulitis Venous insuff Ac/chronic diastolic CHF resolving Hypertension/HHD Sinus node disease with bradycardia DVT prophyl Skin care Antibiotics per ID Diuresis - now on oral maint dose to be cont'd post discharge. Maintain current antiHTN meds - no resumption of beta tory. Pranav Russo MD Feb 20, 2020 01:47
--- NOTE | 2020-02-23 12:30 | NUR ---
INSURANCE DC SUMMARY/INSTRUCTIONS FAXED TO [facility] [place] [phone]
== END 2020-02-19 15:30 | disposition home or self-care (01) | DRG 871 ==
LOC: 4E 16:30
DX: A41.9 Sepsis, unspecified organism (principal); I50.33 Acute on chronic diastolic (congestive) heart failure; L03.116 Cellulitis of left lower limb; L03.115 Cellulitis of right lower limb; L97.829 Non-pressure chronic ulcer of other part of left lower leg with unspecified severity; I11.0 Hypertensive heart disease with heart failure; L89.621 Pressure ulcer of left heel, stage 1; L89.611 Pressure ulcer of right heel, stage 1; L89.329 Pressure ulcer of left buttock, unspecified stage; F03.90 Unspecified dementia, unspecified severity, without behavioral disturbance, psychotic disturbance, mood disturbance, and anxiety; I87.2 Venous insufficiency (chronic) (peripheral); M17.0 Bilateral primary osteoarthritis of knee; B96.5 Pseudomonas (aeruginosa) (mallei) (pseudomallei) as the cause of diseases classified elsewhere; B95.2 Enterococcus as the cause of diseases classified elsewhere; I25.10 Atherosclerotic heart disease of native coronary artery without angina pectoris; R00.1 Bradycardia, unspecified
CPT/HCPCS: 36415; 71045; 80048; 80053; 80202; 81003; 83735; 83880; 84443; 85007; 85025; 85651; 86140; 87040; 87070; 87181; 87205; 87324; 93970; J8499